=== PATIENT | female | born 1970 | race Caucasian/White ===

== ENCOUNTER 2019-08-19 18:14 | Emergency (ER) | payer OTHER, SELFPAY ==
[2019-08-19 18:30] VITALS: BP 136/87; PULSE 97; RESP 13; TEMP 36.1; O2SAT 100
--- NOTE | 2019-08-19 18:48 | ED.SKABFB ---
HPI - Skin/Abscess/Foreign Bdy <Debra Suarez PA-C - Last Filed: 08/19/19 19:30> General Chief complaint: Skin/Abscess/Foreign Body Stated complaint: Rash on the back hurts Time Seen by Provider: 08/19/19 18:41 Source: patient Mode of arrival: Ambulatory History of Present Illness HPI narrative: This generally healthy 49-year-old female comes to ED secondary to painful rash on her mid and right lower back. She states that she 1st noticed burning pain yesterday, described as pins and needle sensation along with burning. She did take some Benadryl. She states then she started to notice some bumps on her back. She states she has felt a little chilled, but no known fever. She has not had any recent illness or URI symptoms. She denies any changes in topical products. She denies any known exposures, however she did travel here from [place] and notes significant weather change. She has not had history of similar rash. She denies any rash or pain elsewhere, denies any other new complaints on systems review Related Data Previous Rx's Medication Instructions Recorded famciclovir 500 mg PO Q8H #21 tab 08/19/19 gabapentin 300 mg PO Q8H #40 cap 08/19/19 Review of Systems <Debra Suarez PA-C - Last Filed: 08/19/19 19:30> Review of Systems ROS Unobtainable: All systems reviewed & are unremarkable except as noted in HPI and below Patient History <Debra Suarez PA-C - Last Filed: 08/19/19 19:30> Medical History (Updated 08/19/19 @ 19:15 by Debra Suarez PA-C) No chronic problems (Chronic) Surgical History (Updated 08/19/19 @ 19:15 by Debra Suarez PA-C) S/P T&A (status post tonsillectomy and adenoidectomy) (Resolved) Status post appendectomy (Resolved) Status post cholecystectomy (Resolved) Status post tubal ligation (Resolved) Social History (Updated 08/19/19 @ 19:15 by Debra Suarez PA-C) Smoking Status: Never smoker Substance Use Type: does not use Exam <Debra Suarez PA-C - Last Filed: 08/19/19 19:30> Narrative Exam Narrative: GENERAL APPEARANCE: Patient sitting comfortably, in no distress. LUNGS: Clear to auscultation bilaterally. HEART: Rate and rhythm regular without murmur, normal S1 and S2, no S3 or S4. DERMATOLOGIC: There are a few erythematous pink papules lumbar midline, and some faint erythema in a linear pattern right lumbar, L3/4 distribution. There are non a left side. Area is tender to touch. No vesicles or pustules. No exanthem elsewhere. Initial Vital Signs Initial Vital Signs: Vital Signs Temperature 97 F L 08/19/19 18:30 Pulse Rate 97 H 08/19/19 18:30 Respiratory Rate 13 08/19/19 18:30 Blood Pressure 136/87 08/19/19 18:30 Pulse Oximetry 100 08/19/19 18:30 <Audra Lei DO - Last Filed: 08/20/19 04:04> Initial Vital Signs Initial Vital Signs: Vital Signs Temperature 97 F L 08/19/19 18:30 Pulse Rate 97 H 08/19/19 18:30 Respiratory Rate 13 08/19/19 18:30 Blood Pressure 136/87 08/19/19 18:30 Pulse Oximetry 100 08/19/19 18:30 Course <Debra Suarez PA-C - Last Filed: 08/19/19 19:30> Vital Signs Vital signs: Vital Signs - 8 hr 08/19/19 18:30 Temperature 97 F L Pulse Rate 97 H Respiratory Rate 13 Blood Pressure 136/87 Pulse Oximetry 100 <Audra Lei DO - Last Filed: 08/20/19 04:04> Vital Signs Vital signs: Vital Signs - 8 hr 08/19/19 18:30 Temperature 97 F L Pulse Rate 97 H Respiratory Rate 13 Blood Pressure 136/87 Pulse Oximetry 100 Discharge Plan Departure Patient Disposition: Home Clinical Impression: Herpes zoster Qualifiers: Herpes zoster complications: without complications Qualified Code(s): B02.9 - Zoster without complications Discharge Date/Time: 08/19/19 19:25 Instructions: DI for Shingles Activity Restrictions/Additional Instructions: I have sent in an antiviral medicine called Famvir for you to take 3 times daily, please start this right away as these medicines are more effective the sooner we start them. I have also sent in medication called gabapentin for pain, to take 3 times daily. Please be aware that this can make you sleepy and that you should not drive or do other activities where you need to be alert. Try taking 1 every 8 hours, but if you need to increase to 2 capsules at night to help with sleep and pain you can do this. As we talked about, please return if you have acutely worsening symptoms or new pain since you are visiting the area, and if you need the prescription refills you could be seen at 1 of the walk-in clinics here at the [facility] or [facility], or via telemedicine. I have sent your prescriptions to [facility] here in [facility]. Prescriptions: New gabapentin 300 mg capsule 300 mg PO Q8H Qty: 40 RF: 0 famciclovir 500 mg tablet 500 mg PO Q8H Qty: 21 RF: 0
== END 2019-08-19 19:25 | disposition home or self-care (01) ==
PROVIDERS: Emergency Provider Internal Medicine
DX: B02.9 Zoster without complications (principal)
CPT/HCPCS: 99282; 99283

== ENCOUNTER 2020-07-19 22:09 | Emergency (ER) | payer OTHER, MEDICAID, SELFPAY ==
[2020-07-19] VITALS (7 sets, daily range): BP systolic 128–129; BP diastolic 52–60; PULSE 82–92; RESP 12–30; TEMP 37.6; O2SAT 92–100; BMI 34.7
--- NOTE | 2020-07-19 22:27 | ED_ITS ---
HPI - SOB/Dyspnea General Chief Complaint: Chest Pain Stated Complaint: SOB CHEST HURTS WHEN BREATH IN LEGS HURT Time Seen by Provider: 07/19/20 22:17 Source: patient and family Mode of arrival: Wheelchair Limitations: no limitations History of Present Illness HPI Narrative: The patient has 1 hour of central sternal chest pain. The pain started while at rest. She was in [facility] 2 weeks ago, she underwent lumbar surgery. In addition to low back surgery, there was abdominal approach for the process. On hospital she developed dyspnea. Ultrasound the lower extremities was normal, but CT of chest revealed PE. She is on Xarelto. She has been stable at home until about 1 hour ago. She has no associated cough, headache, sore throat, fever chills. She has no hemoptysis. She has no history of CAD. Related Data Previous Rx's Medication Instructions Recorded famciclovir 500 mg PO Q8H #21 tab 08/19/19 gabapentin 300 mg PO Q8H #40 cap 08/19/19 doxycycline hyclate 100 mg PO BID 10 Days #20 cap 07/20/20 Allergies Allergy/AdvReac Type Severity Reaction Status Date / Time codeine Allergy Verified 07/19/20 22:41 Review of Systems Constitutional Constitutional: Denies chills, Denies fever(s) and Denies weakness Eyes Comments: No visual changes ENT Ears, Nose, Mouth, and Throat: Denies dizziness and Denies sore throat Cardiovascular Cardiovascular: Reports as per HPI, Denies dyspnea and Denies dyspnea on exertion Respiratory Respiratory: Denies cough, Denies dyspnea, Denies dyspnea on exertion and Denies wheezing Gastrointestinal Gastrointestinal: Denies abdominal pain, Denies change in bowel habits, Denies diarrhea, Denies nausea and Denies vomiting Genitourinary Genitourinary: Denies dysuria Genitourinary: Denies dysuria Musculoskeletal Musculoskeletal: Denies arthralgias, Denies back pain and Denies myalgias Integumentary/Breasts Skin/Breast: Denies pruritus, Denies erythema, Denies rash and Denies wounds Neurologic Neurologic: Denies confusion, Denies dizziness and Denies weakness Psychiatric Psychiatric: Denies confusion Allergic/Immunologic Allergic/Immunologic: Denies wheezing Patient History Medical History (Updated 07/20/20 @ 00:22 by Sudheer Art MD) No chronic problems (Chronic) Pulmonary embolism (Acute) Surgical History History of lumbar surgery (Acute) S/P T&A (status post tonsillectomy and adenoidectomy) (Resolved) Status post appendectomy (Resolved) Status post cholecystectomy (Resolved) Status post tubal ligation (Resolved) Social History Smoking Status: Never smoker Smoking Status: Never smoker alcohol intake frequency: 0-2 drinks per day Substance Use Type: does not use Exam Initial Vital Signs Initial Vital Signs: Vital Signs Temperature 99.6 F 07/19/20 22:15 Pulse Rate 92 H 07/19/20 22:15 Respiratory Rate 20 07/19/20 22:15 Blood Pressure 128/52 L 07/19/20 22:15 Pulse Oximetry 100 07/19/20 22:15 Const General: cooperative and well developed Nutritional Appearance: well nourished Other: Appears uncomfortable HENWV Head: normocephalic and atraumatic Mouth: oral mucosae normal Neck Neck: No JVD Chest Other: Sternal tenderness with palpation. Resp Effort & Inspection: normal respiratory effort, able to speak in complete se ntences, no respiratory distress and no use of accessory muscles Auscultation: clear to auscultation bilaterally, no rales, no rhonchi and no wheezes Cardio Rate: regular rate Rhythm: regular rhythm Heart Sounds: S1 normal and S2 normal GI Inspection: non-distended Palpation: soft, no hepatosplenomegaly, No guarding, No pulsatile mass and No tender Auscultation: normal bowel sounds Other: Healing suprapubic suture site. Back/Spine/Pelvis Other: Healing lumbar incision site. No otherwise normal. Skin General: no rashes or lesions noted Neuro General: patient alert, patient awake, patient oriented x3 and no focal motor deficits Extrem General: No calf tenderness Psych Appearance: grossly normal Mental Status: mental status grossly normal Course Course Course Narrative: The chest CT shows no evidence of PE. However, she has RML and bibasilar lower lobe consultation that is suggestive of pneumonia. Due to recent hospitalization, hospital-acquired pneumonia is a possibility, as well as community-acquired pneumonia. She has no fever, she has no hypoxia. As started on doxycycline which would be appropriate for both situations. She is advised recheck with her doctor in about 2 weeks. She is advised return here if she develops increasing respiratory effort, or fever. Orders Ordered: ED Orders 07/19/20 22:18 Complete Blood Count AUTO DIFF Stat Comprehensive Metabolic Panel Stat Lipase Stat Troponin & CK Cardiac Panel Stat 07/19/20 22:28 XR chest 1V Stat 07/19/20 22:34 CT angio chest PE protocol Stat 07/19/20 22:50 Partial Thromboplastin Time Stat Prothrombin Time INR Stat Sodium Chloride (Normal Saline 0.9%) 1,000 mls @ 150 mls/hr IV CONT DANIEL Last Admin: 07/19/20 22:42 Dose: 150 mls/hr Documented by: ARBEN Discontinued Medications Aspirin (Aspirin Chew) 324 mg PO NOW ONE Stop: 07/19/20 22:33 Last Admin: 07/19/20 22:44 Dose: 324 mg Documented by: ARBEN Doxycycline Hyclate (Vibramycin) 100 mg PO NOW ONE Stop: 07/20/20 00:16 Morphine Sulfate (Morphine) 4 mg IV NOW ONE Stop: 07/19/20 22:33 Last Admin: 07/19/20 22:42 Dose: 4 mg Documented by: ARBEN Vital Signs Vital signs: Vital Signs - 8 hr 07/19/20 22:15 07/19/20 22:19 07/19/20 22:20 Temperature 99.6 F Pulse Rate 92 H 84 83 Respiratory Rate 20 22 19 Blood Pressure 128/52 L 128/52 L Pulse Oximetry 100 92 97 07/19/20 22:30 07/19/20 22:48 07/19/20 23:10 Temperature Pulse Rate 88 83 87 Respiratory Rate 30 H 19 18 Blood Pressure 129/60 Pulse Oximetry 100 97 100 07/19/20 23:30 Temperature Pulse Rate 82 Respiratory Rate 12 Blood Pressure Pulse Oximetry 95 MDM - SOB/Dyspnea Lab Data Result diagrams: 07/19/20 22:18 07/19/20 22:18 Labs: Lab Results 07/19/20 07/19/20 07/19/20 Range/Units 22:18 22:18 22:50 WBC 8.0 (4.5-11.0) X10^3/uL RBC 3.40 L (4.0-5.2) X10^6/uL Hgb 10.3 L (12.0-16.0) g/dL Hct 29.7 L (36-46) % MCV 87.3 (80-100) fL MCH 30.2 (26-34) PG MCHC 34.6 (30-36) % RDW 13.2 (11.6-14.8) % Plt Count 798 H (150-400) X10^3/uL Neut % (Auto) 69.1 (50-75) % Lymph % (Auto) 18.7 L (25-40) % Dickey % (Auto) 9.1 (3-14) % Eos % (Auto) 2.6 (2-4) % Baso % (Auto) 0.5 (0-2) % Neut # (Auto) 5500 (3313-8834) /uL Lymph # (Auto) 1500 (1369-1156) /uL Dickey # (Auto) 700 (0-900) /uL Eos # (Auto) 200 (0-450) /uL Baso # (Auto) 0 (0-100) /uL Platelet Estimate Increased on smear RBC Morphology Normal morphology PT 29.8 H (10.1-12.7) SECONDS INR 2.6 H (0.9-1.3) APTT 55 H (26.4-36.2) SECONDS Sodium 135 L (137-145) mmol/L Potassium 4.2 (3.4-5.1) mmol/L Chloride 100 (98-107) mmol/L Carbon Dioxide 31 (22-32) mmol/L BUN 12 (7-17) mg/dL Creatinine 0.68 (0.52-1.04) mg/dL Estimated GFR > 60.0 (>60) mL/min BUN/Creatinine Ratio 17.6 (6-22) Glucose 109 H (70-100) mg/dL Calcium 9.3 (8.4-10.2) mg/dL Total Bilirubin 0.5 (0.2-1.3) mg/dL AST 46 H (14-36) IU/L ALT 38 H (<35) IU/L Alkaline Phosphatase 192 H (38-126) U/L Total Creatine Kinase 81 (30-135) U/L CK-MB (CK-2) TNP CK-MB (CK-2) Rel Index TNP Troponin I < 0.012 (0.01-0.034) ng/mL Total Protein 7.6 (6.3-8.2) g/dL Albumin 3.9 (3.5-5.0) g/dL Globulin 3.7 (1.7-4.1) g/dL Albumin/Globulin Ratio 1.1 (1.0-2.8) Lipase 228 (23-300) U/L Imaging Data CTA chest: Radiologist's Impression: No evidence of PE. Right middle lobe and bilateral lower lobe consolidation with trace effusions, probable pneumonia. ECG Data Attestation: I personally reviewed and interpreted this ECG as follows: (Normal sinus rhythm rate 86 beats per minute. Normal intervals. No ectopy. No significant EKG changes. Normal study.) Discharge Plan Departure Patient Disposition: Home Clinical Impression: HAP (hospital-acquired pneumonia) Instructions: DI for Pneumonia -- Adult Activity Restrictions/Additional Instructions: Doxycycline 2 times daily as prescribed. Tylenol 2 tablets every 4 hours as needed for chest discomfort. Continue Xarelto as prescribed. Recheck with her doctor about 2 weeks. Return to the ER for increasing difficulty breathing or fever. Prescriptions: New doxycycline hyclate 100 mg capsule 100 mg PO BID 10 Days Qty: 20 RF: 0 No Action gabapentin 300 mg capsule 300 mg PO Q8H Qty: 40 RF: 0 famciclovir 500 mg tablet 500 mg PO Q8H Qty: 21 RF: 0
--- NOTE | 2020-07-19 22:28 | DI.RAD.S_ITS ---
PROCEDURE: XR CHEST 1V INDICATIONS: chest pain TECHNIQUE: One view of the chest was acquired. COMPARISON: None. FINDINGS: Surgical changes and devices: None. Lungs and pleura: Lungs are clear considering reduced inspiration and body habitus. No pleural effusions or pneumothorax. Mediastinum: Mediastinal contours appear normal. Heart size is normal. Bones and chest wall: No suspicious bony lesions. Overlying soft tissues appear unremarkable. IMPRESSION: Pneumonia is not seen, reduced inspiratory volume and body habitus a combined to produce a interstitial prominence pattern which appears artifactual when these factors are taken into account. Dictated by: Juan Francisco Lo M.D. on 07/20/2020 at 9:05 Approved by: Juan Francisco Lo M.D. on 07/20/2020 at 9:06
--- NOTE | 2020-07-19 22:34 | DI.CT.S_ITS ---
PROCEDURE: CT ANGIO CHEST PE PROTOCOL INDICATIONS: Chest pain. Recent PE. TECHNIQUE: After the administration of intravenous contrast, 2 mm thick sections acquired from the pulmonary apices to the posterior costophrenic angles. 3-dimensional maximum intensity projection (MIP) coronal and sagittal reformats were then acquired through the thorax. For radiation dose reduction, the following was used: automated exposure control, adjustment of mA and/or kV according to patient size. COMPARISON: [facility], CT, CT ABDOMEN PELVIS WITHOUT CONTRAST, 06/01/2020, 8:48. FINDINGS: Image quality: Excellent. Pulmonary arteries: Pulmonary arteries are normal in size, and demonstrate no intraluminal filling defects to suggest central pulmonary embolism. Lungs and pleura: Lungs are clear considering reduced inspiratory volume greater on the right than the left with resultant secondary mild dependent atelectasis.. No pleural effusions or pneumothorax. Central and peripheral airways are patent. Mediastinum: Heart size is normal, without pericardial effusion. No mediastinal or hilar adenopathy. Thoracic aorta is normal in caliber and enhancement. Esophagus is normal in caliber, without hiatal hernia. Bones and chest wall: No suspicious bony lesions. Ribs and thoracic spine appear intact throughout. Thyroid gland may contain a cyst at the right thyroid lobe. No axillary or supraclavicular adenopathy. Abdomen: Visualized upper abdominal solid organs appear normal in the early arterial phase of enhancement. IMPRESSION: A pulmonary embolus is not seen. Reduced inspiratory volume bilaterally slightly greater on the right than the left with associated atelectasis. A definite source of chest pain is not seen. Possible hypodensity right thyroid lobe which could be more accurately assessed for by thyroid ultrasound. Note: Given the reported history of prior pulmonary embolus and absence of a chest CT in the current available imaging records there may be an available outside comparison CT for review. Dictated by: Juan Francisco Lo M.D. on 07/20/2020 at 9:06 Approved by: Juan Francisco Lo M.D. on 07/20/2020 at 9:20
[2020-07-19 22:38] LABS: Add Manual Diff / Slide Review NO; Basophils Absolute Auto 0 /uL (0-100); Basophils Percent Auto 0.5 % (0-2); Eosinophils Absolute Auto 200 /uL (0-450); Eosinophils Percent Auto 2.6 % (2-4); Hematocrit 29.7 % (36-46); Hemoglobin 10.3 g/dL (12.0-16.0); Lymphocytes Absolute Auto 1500 /uL (1100-4500); Lymphocytes Percent Auto 18.7 % (25-40); Mean Corpuscular HGB Conc 34.6 % (30-36); Mean Corpuscular Hemoglobin 30.2 PG (26-34); Mean Corpuscular Volume 87.3 fL (80-100); Monocytes Absolute Auto 700 /uL (0-900); Monocytes Percent Auto 9.1 % (3-14); Neutrophils Absolute Auto 5500 /uL (1500-7000); Neutrophils Percent Auto 69.1 % (50-75); Platelet Count 798 X10^3/uL (150-400); Red Cell Distribution Width 13.2 % (11.6-14.8)
[2020-07-19 22:40] LABS: Alanine Aminotransferase 38 IU/L (<35); Albumin 3.9 g/dL (3.5-5.0); Albumin Globulin Ratio 1.1 (1.0-2.8); Alkaline Phosphatase 192 U/L (38-126); Aspartate Aminotransferase 46 IU/L (14-36); BUN Creatinine Ratio 17.6 (6-22); Bilirubin Total 0.5 mg/dL (0.2-1.3); Blood Urea Nitrogen 12 mg/dL (7-17); Calcium 9.3 mg/dL (8.4-10.2); Carbon Dioxide 31 mmol/L (22-32); Chloride 100 mmol/L (98-107); Creatine Kinase 81 U/L (30-135); Estimated Glomerular Filt Rate > 60.0 mL/min (>60); Globulin 3.7 g/dL (1.7-4.1); Glucose 109 mg/dL (70-100); HEMOLYSIS 38 (0-50); Lipase 228 U/L (23-300); Potassium 4.2 mmol/L (3.4-5.1); Sodium 135 mmol/L (137-145); Total Protein 7.6 g/dL (6.3-8.2)
[2020-07-19] MEDS: MORPHINE 4 MG/ML INJ IV (22:42)
[2020-07-19] MEDS: SODIUM CHLORIDE 0.9% 1,000 ML 150 ML IV (22:42)
[2020-07-19] MEDS: ASPIRIN 81 MG CHEW TAB 324 MG PO (22:44)
--- NOTE | 2020-07-19 22:48 | PC.NURSE ---
patient states that she was admitted to the hospital status post lumbosacral spinal fusion. The SCDs on her ankles bothered her ankles and were taken off after two days. She stayed in the hospital for a total of 9 days. She developed a blood clot in her leg that later went to her lungs. she was treated for pulmonary embolism. She returns to the ED to day for similar symptoms of the blood clot. She has pain in her leg and trouble breathing.
[2020-07-19 22:52] LABS: Troponin I < 0.012 ng/mL (0.01-0.034)
[2020-07-19 23:08] LABS: INR 2.6 (0.9-1.3); Prothrombin Time 29.8 SECONDS (10.1-12.7)
[2020-07-19 23:10] LABS: PTT Partial Thromboplastin Tim 55 SECONDS (26.4-36.2)
[2020-07-19 23:10] LABS: Platelet Estimate Increased on smear; RBC Morphology Normal Morphology
[2020-07-20] MEDS: DOXYCYCLINE HYCLATE 100 MG TABLET PO (00:30)
[2020-07-20 00:40] VITALS: BP 115/60; PULSE 79; RESP 16; O2SAT 97
== END 2020-07-20 00:40 | disposition home or self-care (01) ==
PROVIDERS: Emergency Provider Emergency Medicine
DX: J18.9 Pneumonia, unspecified organism (principal); Z98.890 Other specified postprocedural states; R07.9 Chest pain, unspecified; R06.00 Dyspnea, unspecified
CPT/HCPCS: 36415; 71045; 71275; 80053; 82550; 83690; 84484; 85025; 85610; 85730; 93005; 93010; 96361; 96374; 99284; 99285; J2270; Q9967

== ENCOUNTER 2020-09-15 13:11 | Emergency (ER) | payer OTHER, MEDICAID, SELFPAY ==
[2020-09-15 13:16] VITALS: BP 124/68; PULSE 87; RESP 22; TEMP 36.4; O2SAT 97
--- NOTE | 2020-09-15 13:33 | DI.RAD.S_ITS ---
PROCEDURE: XR HAND RT MIN 3V INDICATIONS: lac washing dishes TECHNIQUE: 3 views of the hand(s) acquired. COMPARISON: None. FINDINGS: Bones: No fractures or dislocations. Carpal bones are normally aligned. No suspicious bony lesions. Soft tissues: No suspicious soft tissue calcifications. No unexpected radiopaque foreign bodies. IMPRESSION: No suspicious bony abnormality or unexpected radiopaque foreign bodies. Dictated by: Jennifer Schrader M.D. on 09/15/2020 at 14:42 Approved by: Jennifer Schrader M.D. on 09/15/2020 at 14:42
[2020-09-15] MEDS: TET,DIPH,PERTUSS(ACELL),VAC/PF 0.5 ML SYRINGE IM (13:47)
[2020-09-15] MEDS: LIDO 1%/SOD BICARB 8.4% (10ML) 10 ML SYRINGE INJ (14:21)
--- NOTE | 2020-09-15 15:02 | ED.WOUNDLAC ---
HPI - Wound/Laceration <MARGE Joe - Last Filed: 09/15/20 15:58> General Chief Complaint: Wound/Laceration Stated Complaint: right index cut of finger Time Seen by Provider: 09/15/20 13:22 Source: patient and family Mode of arrival: Ambulatory Limitations: no limitations History of Present Illness HPI narrative: With history of blood thinner usage related to pulmonary embolism that was postoperative from a back surgery presents with a chief complaint of a laceration at the base of her right index finger on the back of her hand. Happened approximately 1 hour prior to arrival. Happened when she was washing dishes, when a glass broke. She states that she does not know when last tetanus was. She states she has good range of motion of her right hand. Related Data Previous Rx's Medication Instructions Recorded famciclovir 500 mg PO Q8H #21 tab 08/19/19 gabapentin 300 mg PO Q8H #40 cap 08/19/19 Allergies Allergy/AdvReac Type Severity Reaction Status Date / Time codeine Allergy Verified 07/19/20 22:41 Review of Systems <MARGE Joe - Last Filed: 09/15/20 15:58> Review of Systems Narrative: GENERAL: Denies chills, fatigue, malaise, fever, sweats. HEENT: Denies sinus pain, ear pain, sore throat, difficulty swallowing, dizziness. RESPIRATORY: Denies dyspnea, cough, wheezing, hemoptysis, sputum. CARDIOVASCULAR: Denies chest pain, palpitations, orthopnea, edema, GASTROINTESTINAL: Denies nausea, vomiting, abdominal pain, diarrhea, constipation, melena. : Denies dysuria, frequency, incontinence, hematuria, urinary retention. MUSCULOSKELETAL: See HPI SKIN: See HPI NEUROLOGIC: Denies weakness, headache, numbness, change in speech, confusion, seizures, incoordination. PSYCHIATRIC: No concerning psychosocial issues. 12 point review of systems is negative except for those stated above Patient History <MARGE Joe - Last Filed: 09/15/20 15:58> Medical History No chronic problems Pulmonary embolism Surgical History History of lumbar surgery S/P T&A (status post tonsillectomy and adenoidectomy) Status post appendectomy Status post cholecystectomy Status post tubal ligation Social History Smoking Status: Never smoker Smoking Status: Never smoker alcohol intake frequency: 0-2 drinks per day Substance Use Type: does not use Exam <MARGE Joe - Last Filed: 09/15/20 15:58> Narrative Exam Narrative: GENERAL: This is a well-nourished, well-developed patient, the somewhat teary appears anxious HEAD: Atraumatic. Normocephalic. No temporal or scalp tenderness. EYES: Pupils equal round and reactive. Extraocular motions intact. No scleral icterus. No injection or drainage. ENT: Nose without bleeding, purulent drainage or septal hematoma. Wearing a mask. Airway patent. NECK: Trachea midline. No JVD or lymphadenopathy. Supple, nontender, no meningeal signs. CARDIOVASCULAR: Regular rate and rhythm RESPIRATORY: No cough. No increased respiratory effort no accessory muscle use. Speaking full sentences. EXTREMITIES: See skin exam, able to flex and extend all fingers right hand against resistance. Capillary refill right fingers less than 2 seconds. Positive right radial pulse. BACK: Nontender without deformity or crepitance. No flank tenderness. NEURO: AOx3. SKIN: 1 cm linear laceration at base of right 2nd digit on dorsum of hand, no visible muscle or tendon, oozing blood, no obvious foreign body. Initial Vital Signs Initial Vital Signs: Vital Signs Temperature 97.5 F L 09/15/20 13:16 Pulse Rate 87 09/15/20 13:16 Respiratory Rate 22 09/15/20 13:16 Blood Pressure 124/68 09/15/20 13:16 Pulse Oximetry 97 09/15/20 13:16 <Audra Lei DO - Last Filed: 09/16/20 08:27> Initial Vital Signs Initial Vital Signs: Vital Signs Temperature 97.5 F L 09/15/20 13:16 Pulse Rate 87 09/15/20 13:16 Respiratory Rate 22 09/15/20 13:16 Blood Pressure 124/68 09/15/20 13:16 Pulse Oximetry 97 09/15/20 13:16 Procedures <MARGE Joe - Last Filed: 09/15/20 15:58> Laceration Repair Laceration 1: Site: upper extremity Side (If applicable): right (Dorsum of hand, base of 2nd digit) Size (cm): 1 Description: linear Depth: simple, single layer Local Anesthetic: lidocaine 1% and with epi Amount of anesthesia used (mL): 6 Pre-repair: wound explored, irrigated extensively and deep structures intact Skin layer closed with: nylon Size (cm): 5-0 Number of sutures: 2 Technique: simple, interrupted Scores <[facility] - Last Filed: 09/15/20 15:58> GCS Edward coma scale eye opening: Spontaneous Eighty Four coma scale verbal response: Orientated Edward coma scale motor response: Obey commands Eighty Four coma scale total score: 15 Course <BERLIN Joe - Last Filed: 09/15/20 15:58> Orders Ordered: Discontinued Medications Diphtheria/Tetanus/Acell Pertussis (Tet,Diph,Pertuss(Acell),Vac/Pf 0.5 Ml Syringe) 0.5 ml IM .ONCE ONE Stop: 09/15/20 13:34 Last Admin: 09/15/20 13:47 Dose: 0.5 ml Documented by: STEPHANIA Lidocaine/Sodium Bicarbonate (Lido 1%/Sod Bicarb 8.4% (10ml) 10 Ml Syringe) 10 ml INJ NOW ONE Stop: 09/15/20 13:34 Last Admin: 09/15/20 14:21 Dose: 10 ml Documented by: DARI Vital Signs Vital signs: Vital Signs - 8 hr 09/15/20 13:16 Temperature 97.5 F L Pulse Rate 87 Respiratory Rate 22 Blood Pressure 124/68 Pulse Oximetry 97 <Audra Lei DO - Last Filed: 09/16/20 08:27> Orders Ordered: Discontinued Medications Diphtheria/Tetanus/Acell Pertussis (Tet,Diph,Pertuss(Acell),Vac/Pf 0.5 Ml Syringe) 0.5 ml IM .ONCE ONE Stop: 09/15/20 13:34 Last Admin: 09/15/20 13:47 Dose: 0.5 ml Documented by: STEPHANIA Lidocaine/Sodium Bicarbonate (Lido 1%/Sod Bicarb 8.4% (10ml) 10 Ml Syringe) 10 ml INJ NOW ONE Stop: 09/15/20 13:34 Last Admin: 09/15/20 14:21 Dose: 10 ml Documented by: DARI Vital Signs Vital signs: Vital Signs - 8 hr 09/15/20 13:16 Temperature 97.5 F L Pulse Rate 87 Respiratory Rate 22 Blood Pressure 124/68 Pulse Oximetry 97 [facility] - Wound/Laceration <MARGE Joe - Last Filed: 09/15/20 15:58> Imaging Data Extremity x-ray #1: Radiologist's Impression: [address] [id number] ReportSigned Patient: Flaca Gonzalez KMR#: [id number]: 1970Acct:[id number]/Sex: 50 / FDate of Service: 09/15/20Loc: EDAccession Number: [id number] Procedure: XR hand RT min 3V Ordering Provider: Audra Garrett PROCEDURE: XR HAND RT MIN 3V INDICATIONS: lac washing dishes TECHNIQUE: 3 views of the hand(s) acquired. COMPARISON: None. FINDINGS: Bones: No fractures or dislocations. Carpal bones are normally aligned. No suspicious bony lesions. Soft tissues: No suspicious soft tissue calcifications. No unexpected radiopaque foreign bodies. IMPRESSION: No suspicious bony abnormality or unexpected radiopaque foreign bodies. Dictated by: Jennifer Schrader M.D. on 09/15/2020 at 14:42 Approved by: Jennifer Schrader M.D. on 09/15/2020 at 14:42 [facility] Narrative Medical decision making narrative: The patient is a 50-year-old female who presents with a chief complaint of laceration was closed as per procedural note. X-rays negative for any acute foreign bodies or fractures, tetanus was updated accordingly. Discussed at length monitoring for signs and symptoms of infection such as extending etcetera. Encouraged to suture removal in approximately 1 week as well as primary care provider follow-up. Discussed not submerging hand into dirty water such as pool water etcetera. Patient has been have no questions or concerns upon discharge and state understanding of return precautions as well as follow-up care. Discharge Plan Departure Patient Disposition: Home Clinical Impression: Laceration Instructions: How to Care for a Laceration After Repair, DI for Laceration Repair, DI for Minor Laceration Activity Restrictions/Additional Instructions: Thank you for trusting us with your care today. As I discussed, your x-ray shows no acute fracture. This does not rule out a soft tissue injury such as a ligament or tendon injury, however your exam is reassuring given her range of motion. It is important that you follow up with primary care provider, especially if worsening or no improvement. There can be fractures that did not show up on initial x-ray. As discussed, please follow-up for suture removal in approximately 7 days. Please watch for extending redness, purulent drainage etcetera or any other signs of infection. Please follow up if this occurs. As discussed, please come back to emergency department for any acute concerns. Please do not submerge your hand into dirty water such as pool water etcetera. This can increase your chance of infection Prescriptions: No Action gabapentin 300 mg capsule 300 mg PO Q8H Qty: 40 RF: 0 famciclovir 500 mg tablet 500 mg PO Q8H Qty: 21 RF: 0 Referrals: Viv Cortez ARNP [Primary Care Provider] - <Audra Lei DO - Last Filed: 09/16/20 08:27> Cosign ED Attending Ingris Attestation: I was immediately available in the department for consultation. Documentation has been reviewed.
[2020-09-15 16:02] VITALS: BP 115/54; PULSE 85; RESP 18; O2SAT 97
== END 2020-09-15 16:03 | disposition home or self-care (01) ==
PROVIDERS: Emergency Provider Nurse Practitioner Family; PCP Nurse Practitioner Family
DX: S61.210A Laceration without foreign body of right index finger without damage to nail, initial encounter (principal); W25.XXXA Contact with sharp glass, initial encounter; I26.99 Other pulmonary embolism without acute cor pulmonale; Z79.01 Long term (current) use of anticoagulants; Z23 Encounter for immunization
CPT/HCPCS: 12001; 73130; 90471; 99282; 99283; 90715

== ENCOUNTER → 2020-10-12 14:21 | Outpatient (CLI) | payer OTHER, MEDICAID, SELFPAY ==
--- NOTE | 2020-10-12 | DI.RAD.S_ITS ---
PROCEDURE: XR LUMBAR SPINE 2-3V INDICATIONS: Radiculopathy, lumbar region TECHNIQUE: 2 views of the lumbar spine were acquired. COMPARISON: [facility], CT, CT ANGIO CHEST PE PROTOCOL, 07/19/2020, 23:02. [facility], CT, CT ABDOMEN PELVIS WITHOUT CONTRAST, 06/01/2020, 8:48. FINDINGS: Bones: 5 [id number] vertebrae are present. There is normal bony alignment. No vertebral body compression fractures. No suspicious bony lesions. Prior spine fusion procedure between L5 and S1 has been performed with transverse pedicle screws and vertical fixation rods, and also interbody disc prosthesis at the L5-S1 level. Soft tissues: Overlying bowel gas pattern is normal. No suspicious soft tissue calcifications. IMPRESSION: Spine fusion procedure with interbody disc prosthesis L5-S1. No comparison study is available for review to establish alignment postoperatively. A CT of the abdomen/pelvis 06/01/20 did not demonstrate this operative procedure. Dictated by: Juan Francisco Lo M.D. on 10/12/2020 at 16:06 Approved by: Juan Francisco Lo M.D. on 10/12/2020 at 16:08
== END ==
PROVIDERS: PCP Nurse Practitioner Family; Referring Provider Neurological Surgery; Visit Provider Neurological Surgery
DX: M54.16 Radiculopathy, lumbar region (principal); M43.16 Spondylolisthesis, lumbar region; Z98.1 Arthrodesis status
CPT/HCPCS: 72100

== ENCOUNTER → 2020-11-18 12:25 | Outpatient (CLI) | payer OTHER, MEDICAID, SELFPAY ==
--- NOTE | 2020-11-18 12:36 | DI.RAD.S_ITS ---
PROCEDURE: XR LUMBAR SPINE 2-3V INDICATIONS: BACK PAIN TECHNIQUE: 3 views of the lumbar spine were acquired. COMPARISON: [facility], , XR LUMBAR SPINE 2-3V, 10/12/2020, 14:55. FINDINGS: Bones: No acute fracture identified. Postsurgical changes related L5-S1 surgical fixation with paraspinal jaclyn and pedicle screws in addition to interbody cage graft and anterior retaining screws. Hardware appears intact. Unchanged alignment. Multilevel degenerative endplate sclerosis and spurring. Diffuse facet arthropathy. Lateral curvature of the spine. Soft tissues: Overlying bowel gas pattern is normal. No suspicious soft tissue calcifications. IMPRESSION: Overall, unchanged examination since 10/12/20. Dictated by: Jabier Domingo M.D. on 11/18/2020 at 13:50 Approved by: Jabier Domingo M.D. on 11/18/2020 at 13:51
== END ==
PROVIDERS: PCP Nurse Practitioner Family; Referring Provider Neurological Surgery; Visit Provider Neurological Surgery
DX: M54.18 Radiculopathy, sacral and sacrococcygeal region (principal); M54.16 Radiculopathy, lumbar region; M43.17 Spondylolisthesis, lumbosacral region; Z98.1 Arthrodesis status
CPT/HCPCS: 72100

== ENCOUNTER → 2020-12-22 08:00 | Outpatient (CLI) | payer OTHER, MEDICAID, SELFPAY ==
--- NOTE | 2020-12-22 | DI.MRI.S_ITS ---
PROCEDURE: MR LUMBAR SPINE WO CON INDICATIONS: Arthrodesis status TECHNIQUE: Noncontrast sagittal T1 spin echo and T2 fast echo, sagittal STIR, axial T1 and T2 fast spin echo through the lumbar spine. In cases with scoliosis, additional coronal T2 fast spin echo may be performed. COMPARISON: [facility], MR, MR LUMBAR SPINE WITHOUT CONTRAST, 03/23/2020, 18:08. [facility], CR, XR LUMBAR SPINE 2-3V, 11/18/2020, 12:48. FINDINGS: Image quality: Excellent. Alignment and Curvature: 5 lumbar type vertebral bodies are present by plain film. There is mild grade 1 anterolisthesis of L5 on S1. Bone Marrow: Marrow is of normal overall signal. No acute vertebral body compression fractures. There is new anterior and posterior fusion hardware at L5-S1. Spinal Cord: Conus medullaris terminates at the L1-L2 disc space level. Visualized cord demonstrates normal signal and size. Paraspinous Soft Tissues: No paravertebral masses. Ill-defined postsurgical STIR signal elevation within the posterior paraspinous soft tissues inferiorly. T12-L1: Normal appearance. L1-L2: Normal appearance. L2-L3: Normal appearance. L3-L4: Mild disc desiccation. No significant canal, or foraminal stenosis. No change. L4-L5: Mild disc desiccation and diffuse disc bulge. Mild facet and ligamentum flavum hypertrophy. Mild canal stenosis. Mild bilateral foraminal stenosis. No change. L5-S1: Postsurgical sequelae. No significant canal stenosis. Decreased, moderate bilateral foraminal stenosis. IMPRESSION: 1. Postsurgical sequelae. Decreased foraminal stenosis at the fused level. 2. Mild multilevel canal and foraminal stenosis secondary to disc and facet disease. Dictated by: Kaycee Mahajan M.D. on 12/22/2020 at 9:06 Approved by: Kaycee Mahajan M.D. on 12/22/2020 at 9:09
== END ==
PROVIDERS: PCP Nurse Practitioner Family; Referring Provider Nurse Practitioner Family; Visit Provider Nurse Practitioner Family
DX: M43.17 Spondylolisthesis, lumbosacral region (principal); M48.061 Spinal stenosis, lumbar region without neurogenic claudication; Z98.1 Arthrodesis status
CPT/HCPCS: 72148

== ENCOUNTER 2021-01-29 19:15 | Emergency (ER) | payer OTHER, MEDICAID, SELFPAY ==
[2021-01-29 19:28] VITALS: BP 138/77; PULSE 88; RESP 18; TEMP 36.7; O2SAT 100; BMI 36.0
--- NOTE | 2021-01-29 19:47 | PC.NURSE ---
Patient has had 3 recent back surgeries and had a hospitalization for sepsis recently; today at approximately noon she began feeling intense numbness and pain in her Right foot particularly on the plantar surface and the big toe; she describes it as a feeling like fiberglass. She recently had a reduction in her gabapentin from 2400mg to 1800mg daily.
--- NOTE | 2021-01-29 20:46 | ED_ITS ---
HPI - Extremity Problem General Chief complaint: Extremity Problem,Nontraumatic Stated complaint: Back surgery, right foot numbness Time Seen by Provider: 01/29/21 20:37 Source: patient Mode of arrival: Ambulatory Limitations: no limitations History of Present Illness HPI Narrative: The patient presents with low back pain, and numbness to the right medial foot onset today. She has recently undergone a series of o perations. She had surgery June 2020 she had L5-S1 decompression fusion. She had a 2nd surgery in December, there was apparently a malposition of the pedicle screw. Unfortunately she experienced wound dehiscence following that surgery, she was found to be septic. She currently has a PICC line in place, and is receiving IV cefazolin. She denies fever or chills. She has chronic low back pain. She receives Dilaudid at home. Her Gabapentin dose was recently reduced from 800 mg 3 times daily to 800 mg 2 times daily. She has no increased back pain. She has a numbness in the right medial foot, no new weakness. She has no incontinence. Related Data Previous Rx's Medication Instructions Recorded famciclovir 500 mg PO Q8H #21 tab 08/19/19 gabapentin 300 mg PO Q8H #40 cap 08/19/19 Allergies Allergy/AdvReac Type Severity Reaction Status Date / Time codeine Allergy Verified 07/19/20 22:41 Review of Systems Constitutional Constitutional: Denies chills, Denies fever(s) and Denies headache(s) ENT Ears, Nose, Mouth, and Throat: Denies headache(s), Denies neck pain and Denies sore throat Cardiovascular Cardiovascular: Denies chest pain, Denies syncope, Denies rapid heart rate and Denies dyspnea Respiratory Respiratory: Denies cough and Denies dyspnea Genitourinary Genitourinary: Denies dysuria Genitourinary: Denies dysuria Musculoskeletal Musculoskeletal: Reports as per HPI, Reports back pain and Denies neck pain Integumentary/Breasts Skin/Breast: Denies rash and Denies skin pain Neurologic Neurologic: Denies syncope and Denies headache(s) Comments: Numbness localized to the right medial foot only. Patient History Medical History No chronic problems Pulmonary embolism Surgical History History of lumbar surgery S/P T&A (status post tonsillectomy and adenoidectomy) Status post appendectomy Status post cholecystectomy Status post tubal ligation Social History Smoking Status: Never smoker Smoking Status: Never smoker alcohol intake frequency: 0-2 drinks per day Substance Use Type: does not use Exam Initial Vital Signs Initial Vital Signs: Vital Signs Temperature 98.0 F 01/29/21 19:28 Pulse Rate 88 01/29/21 19:28 Respiratory Rate 18 01/29/21 19:28 Blood Pressure 138/77 01/29/21 19:28 Pulse Oximetry 100 01/29/21 19:28 Const General: cooperative, well developed, No acute distress and No anxious Nutritional Appearance: well nourished HENMT Mouth: oral mucosae normal and other Resp Auscultation: clear to auscultation bilaterally Cardio Rate: regular rate Rhythm: regular rhythm Heart Sounds: no click, no gallops, no murmurs and no rubs Pulses: normal peripheral pulses GI Palpation: soft Percussion: normal to percussion Auscultation: normal bowel sounds Back/Spine/Pelvis Other: Healing surgical site in the lumbar spine. No erythema. No purulent discharge. Neuro Other: [place] x3. Motor exam lower extremities is intact. She has light touch sensory deficit to the right mid foot, just distal to the medial malleolus. There is no other sensory deficits to lower extremities. She does not have a footdrop. Extrem Other: Full range of motion all extremities. Course Course Course Narrative: The focal numbness in the right medial foot seems improved since taking the extra dose of Neurontin. I am going to suggest she goes back to the prior, higher dose and contact her PCM next week. Orders Ordered: Discontinued Medications Gabapentin (Gabapentin 100 Mg Capsule) 800 mg PO NOW ONE Stop: 01/29/21 20:48 Last Admin: 01/29/21 21:05 Dose: Not Given Documented by: MARTHA Gabapentin (Gabapentin 100 Mg Capsule) 800 mg PO NOW ONE Stop: 01/29/21 21:04 Last Admin: 01/29/21 21:25 Dose: 800 mg Documented by: ARBEN Hydromorphone HCl (Hydromorphone 1 Mg Inj) 1 mg IV NOW ONE Stop: 01/29/21 20:49 Last Admin: 01/29/21 21:16 Dose: 1 mg Documented by: KATT Vital Signs Vital signs: Vital Signs - 8 hr 01/29/21 19:28 01/29/21 22:38 Temperature 98.0 F Pulse Rate 88 79 Respiratory Rate 18 Blood Pressure 138/77 115/58 L Pulse Oximetry 100 98 MDM - Extremity (Nontraumatic) Lab Data Result diagrams: 01/29/21 22:50 01/29/21 22:50 Labs: Lab Results 01/29/21 01/29/21 01/29/21 Range/Units 22:50 22:50 22:50 WBC 5.8 (4.5-11.0) X10^3/uL RBC 3.78 L (4.0-5.2) X10^6/uL Hgb 10.4 L (12.0-16.0) g/dL Hct 30.8 L (36-46) % MCV 81.5 (80-100) fL MCH 27.6 (26-34) PG MCHC 33.9 (30-36) % RDW 18.6 H (11.6-14.8) % Plt Count 421 H (150-400) X10^3/uL Neut % (Auto) 63.6 (50-75) % Lymph % (Auto) 23.4 L (25-40) % [place] % (Auto) 9.1 (3-14) % Eos % (Auto) 3.4 (2-4) % Baso % (Auto) 0.5 (0-2) % Neut # (Auto) 3700 (3719-9038) /uL Lymph # (Auto) 1400 (8668-1263) /uL [place] # (Auto) 500 (0-900) /uL Eos # (Auto) 200 (0-450) /uL Baso # (Auto) 0 (0-100) /uL Sodium 138 (137-145) mmol/L Potassium 4.1 (3.4-5.1) mmol/L Chloride 104 (98-107) mmol/L Carbon Dioxide 29 (22-32) mmol/L BUN 10 (7-17) mg/dL Creatinine 0.52 (0.52-1.04) mg/dL Estimated GFR > 60.0 (>60) mL/min BUN/Creatinine Ratio 19.2 (6-22) Glucose 115 H (70-100) mg/dL Lactate 0.9 (0.7-2.1) mmol/L Calcium 8.9 (8.4-10.2) mg/dL Total Bilirubin 0.1 L (0.2-1.3) mg/dL AST 29 (14-36) IU/L ALT 9 (<35) IU/L Alkaline Phosphatase 115 (38-126) U/L Total Protein 6.5 (6.3-8.2) g/dL Albumin 3.5 (3.5-5.0) g/dL Globulin 3.0 (1.7-4.1) g/dL Albumin/Globulin Ratio 1.2 (1.0-2.8) Discharge Plan Departure Patient Disposition: Home Clinical Impression: Neuropathy of right lower extremity Instructions: DI for Peripheral Neuropathy Activity Restrictions/Additional Instructions: Increase Neurontin back to 800 mg 3 times daily. Continue your other medications as prescribed. Contact your primary neonatal intensive care unit nurse next week and discussed the Neurontin dosing. Return here as necessary. Prescriptions: No Action gabapentin 300 mg capsule 300 mg PO Q8H Qty: 40 RF: 0 famciclovir 500 mg tablet 500 mg PO Q8H Qty: 21 RF: 0 Referrals: Viv Cortez ARNP [Primary Care Provider] -
[2021-01-29] MEDS: HYDROMORPHONE 1 MG INJ IV (21:16)
[2021-01-29] MEDS: GABAPENTIN 100 MG CAPSULE 800 MG PO (21:25)
[2021-01-29 22:38] VITALS: BP 115/58; PULSE 79; O2SAT 98
[2021-01-29 23:02] LABS: Add Manual Diff / Slide Review NO; Basophils Absolute Auto 0 /uL (0-100); Basophils Percent Auto 0.5 % (0-2); Eosinophils Absolute Auto 200 /uL (0-450); Eosinophils Percent Auto 3.4 % (2-4); Hematocrit 30.8 % (36-46); Hemoglobin 10.4 g/dL (12.0-16.0); Lymphocytes Absolute Auto 1400 /uL (1100-4500); Lymphocytes Percent Auto 23.4 % (25-40); Mean Corpuscular HGB Conc 33.9 % (30-36); Mean Corpuscular Hemoglobin 27.6 PG (26-34); Mean Corpuscular Volume 81.5 fL (80-100); Monocytes Absolute Auto 500 /uL (0-900); Monocytes Percent Auto 9.1 % (3-14); Neutrophils Absolute Auto 3700 /uL (1500-7000); Neutrophils Percent Auto 63.6 % (50-75); Platelet Count 421 X10^3/uL (150-400); Red Blood Cell Count 3.78 X10^6/uL (4.0-5.2); Red Cell Distribution Width 18.6 % (11.6-14.8); White Blood Cell Count 5.8 X10^3/uL (4.5-11.0)
[2021-01-29 23:10] LABS: Lactate (Lactic Acid) 0.9 mmol/L (0.7-2.1)
[2021-01-29 23:11] LABS: Alanine Aminotransferase 9 IU/L (<35); Albumin 3.5 g/dL (3.5-5.0); Albumin Globulin Ratio 1.2 (1.0-2.8); Alkaline Phosphatase 115 U/L (38-126); Aspartate Aminotransferase 29 IU/L (14-36); BUN Creatinine Ratio 19.2 (6-22); Bilirubin Total 0.1 mg/dL (0.2-1.3); Blood Urea Nitrogen 10 mg/dL (7-17); Calcium 8.9 mg/dL (8.4-10.2); Carbon Dioxide 29 mmol/L (22-32); Chloride 104 mmol/L (98-107); Estimated Glomerular Filt Rate > 60.0 mL/min (>60); Glucose 115 mg/dL (70-100); HEMOLYSIS < 15 (0-50); Potassium 4.1 mmol/L (3.4-5.1); Sodium 138 mmol/L (137-145); Total Protein 6.5 g/dL (6.3-8.2)
[2021-01-29 23:30] VITALS: BP 102/57; PULSE 75; RESP 20; O2SAT 96
== END 2021-01-29 23:33 | disposition home or self-care (01) ==
PROVIDERS: Emergency Provider Emergency Medicine; PCP Nurse Practitioner Family
DX: G57.91 Unspecified mononeuropathy of right lower limb (principal); M54.5 Low back pain
CPT/HCPCS: 80053; 83605; 85025; 96374; 99284; J1170

== ENCOUNTER 2021-02-11 21:31 | Emergency (ER) | payer OTHER, MEDICAID, SELFPAY ==
[2021-02-11 21:42] VITALS: BP 118/73; PULSE 85; RESP 12; TEMP 36.6; O2SAT 98; BMI 36.6
--- NOTE | 2021-02-11 21:43 | DI.RAD.S_ITS ---
PROCEDURE: XR CHEST 1V INDICATIONS: fever, chills, recent surgery, PICC line in place TECHNIQUE: One view of the chest was acquired. COMPARISON: [facility], CT, CT ANGIO CHEST PE PROTOCOL, 07/19/2020, 23:02. [facility], CT, CT LUMBAR SPINE W CON, 02/12/2021, 0:01. [facility], CR, XR CHEST 1V, 07/19/2020, 22:45. FINDINGS: Surgical changes and devices: A right-sided PICC line is seen, with the tip overlying the mid aspect of the superior vena cava, approximately 5 cm above the cavoatrial junction. Lungs and pleura: Lungs are clear. No pleural effusions or pneumothorax. Mediastinum: Mediastinal contours appear normal. Heart size is normal. Bones and chest wall: No suspicious bony lesions. Overlying soft tissues appear unremarkable. IMPRESSION: The tip of the right-sided PICC line overlies the mid aspect of the superior vena cava. No focal infiltrates are seen. Note: No significant discrepancy from the preliminary report. Dictated by: Rex Butts M.D. on 02/12/2021 at 9:22 Approved by: Rex Butts M.D. on 02/12/2021 at 9:23
--- NOTE | 2021-02-11 22:07 | PC.NURSE ---
Right upper arm PICC flushes with no resistance, patient could smell/taste flush. Unable to draw blood back from Right upper arm PICC.
[2021-02-11 22:24] VITALS: BP 123/62; PULSE 88; RESP 19; O2SAT 99
[2021-02-11 22:30] VITALS: BP 117/57; PULSE 86; RESP 15; O2SAT 95
[2021-02-11 22:31] LABS: Add Manual Diff / Slide Review NO; Basophils Absolute Auto 0 /uL (0-100); Basophils Percent Auto 0.1 % (0-2); Eosinophils Absolute Auto 100 /uL (0-450); Eosinophils Percent Auto 1.4 % (2-4); Hematocrit 36.5 % (36-46); Lymphocytes Absolute Auto 1900 /uL (1100-4500); Lymphocytes Percent Auto 27.6 % (25-40); Mean Corpuscular HGB Conc 32.8 % (30-36); Mean Corpuscular Hemoglobin 27.3 PG (26-34); Mean Corpuscular Volume 83.2 fL (80-100); Monocytes Absolute Auto 500 /uL (0-900); Monocytes Percent Auto 7.9 % (3-14); Neutrophils Absolute Auto 4300 /uL (1500-7000); Platelet Count 385 X10^3/uL (150-400); Red Blood Cell Count 4.39 X10^6/uL (4.0-5.2); Red Cell Distribution Width 17.3 % (11.6-14.8); White Blood Cell Count 6.9 X10^3/uL (4.5-11.0)
[2021-02-11 22:40] LABS: Alanine Aminotransferase 10 IU/L (<35); Albumin Globulin Ratio 1.3 (1.0-2.8); Alkaline Phosphatase 97 U/L (38-126); Aspartate Aminotransferase 21 IU/L (14-36); BUN Creatinine Ratio 8.6 (6-22); Blood Urea Nitrogen 5 mg/dL (7-17); Calcium 9.3 mg/dL (8.4-10.2); Carbon Dioxide 25 mmol/L (22-32); Chloride 105 mmol/L (98-107); Creatine Kinase 48 U/L (30-135); Estimated Glomerular Filt Rate > 60.0 mL/min (>60); Globulin 3.1 g/dL (1.7-4.1); Glucose 123 mg/dL (70-100); HEMOLYSIS < 15 (0-50); Potassium 3.3 mmol/L (3.4-5.1); Sodium 141 mmol/L (137-145); Total Protein 7.1 g/dL (6.3-8.2)
[2021-02-11 22:44] LABS: Bilirubin Total < 0.1 mg/dL (0.2-1.3)
[2021-02-11 22:51] LABS: NT-proBNP (BNP-Adult 18+) 404 pg/mL (<125); Troponin I < 0.012 ng/mL (0.01-0.034)
[2021-02-11 22:56] LABS: Procalcitonin 0.04 ng/mL (<0.5)
[2021-02-11 23:00] VITALS: BP 116/59; PULSE 88; RESP 18; O2SAT 96
--- NOTE | 2021-02-11 23:09 | ED_ITS ---
HPI - Nausea/Vomiting/Diarrhea General Chief complaint: Nausea/Vomiting/Diarrhea Stated complaint: HAS PICC LINE RT SIDE DIARRHEA NOT FEELING WELL Time Seen by Provider: 02/11/21 21:35 Source: patient Mode of arrival: Ambulatory Limitations: no limitations History of Present Illness HPI Narrative: 42-year-old female nonsmoker with history of complications from a lumbar surgery. She presents today with a chief complaint of subjective fever and chills, generally feeling unwell and diarrhea for the past few days. She has had 2 surgical revisions and washouts for postoperative infections at [facility]. She has a PICC line in place and has been receiving IV antibiotics at home. She has had multiple loose stools per hour and denies any blood. She has had no runny nose or sore throat. She denies any chest pain, shortness of breath or cough. She does have some mild midline back pain which has been controlled with her normal medications. She denies any increased swelling or redness nor any drainage. She denies any neurologic symptoms such as numbness, tingling, weakness. She denies any trouble controlling bowel or bladder. She contacted her care team and was instructed to present to the emergency department for evaluation of possible infectious causes. MD complaint: diarrhea Onset (ago): hour(s) Description of Diarrhea: watery Severity: mild Exacerbating factors: eating Associated symptoms: myalgias, fever/chills and weakness Related Data Previous Rx's Medication Instructions Recorded famciclovir 500 mg PO Q8H #21 tab 08/19/19 gabapentin 300 mg PO Q8H #40 cap 08/19/19 potassium chloride 20 meq PO DAILY #7 tab 02/12/21 Allergies Allergy/AdvReac Type Severity Reaction Status Date / Time codeine Allergy Verified 07/19/20 22:41 Review of Systems Constitutional Constitutional: Reports body ache(s), Reports chills, Reports fatigue, Denies fever(s), Denies frequent falls, Denies lethargy and Reports weakness Eyes Eyes: Denies change in vision, Denies eye discharge, Denies irritation and Denies loss of vision ENT Ears, Nose, Mouth, and Throat: Denies change in voice, Denies dizziness, Denies neck pain, Denies sore throat and Denies throat swelling Cardiovascular Cardiovascular: Denies chest pain, Denies irregular heart rhythm, Denies ligh theadedness, Denies palpitations, Denies dyspnea, Denies dyspnea on exertion and Denies orthopnea Respiratory Respiratory: Denies cough, Denies dyspnea, Denies dyspnea on exertion and Denies wheezing Gastrointestinal Gastrointestinal: Denies abdominal pain, Denies change in bowel habits, Reports diarrhea, Denies nausea and Denies vomiting Musculoskeletal Musculoskeletal: Denies neck pain and Denies numbness Integumentary/Breasts Skin/Breast: Denies pruritus, Denies erythema, Denies rash and Denies wounds Neurologic Neurologic: Denies behavioral changes, Denies confusion, Denies dizziness, Denies frequent falls, Denies loss of vision, Denies numbness and Reports weakness Psychiatric Psychiatric: Denies anxiety, Denies behavioral changes, Denies confusion, Denies depression, Denies homicidal ideation and Denies suicidal ideation Endocrine Endocrine: Reports fatigue, Denies flushing and Denies palpitations Hematologic/Lymphatic Hematologic/Lymphatic: Denies easy bruising Allergic/Immunologic Allergic/Immunologic: Denies urticaria, Denies throat swelling and Denies wheezing Patient History Medical History No chronic problems Pulmonary embolism Surgical History History of lumbar surgery S/P T&A (status post tonsillectomy and adenoidectomy) Status post appendectomy Status post cholecystectomy Status post tubal ligation Social History Smoking Status: Never smoker Smoking Status: Never smoker alcohol intake frequency: 0-2 drinks per day Substance Use Type: does not use Exam Narrative Exam Narrative: GENERAL: [50] year old patient appears stated age. Well- nourished, well-developed patient, in mild distress. HEAD: Atraumatic. Normocephalic. EYES: Pupils equal round and reactive. Extraocular motions intact. No scleral icterus. No injection or drainage. ENT: Nose without bleeding, purulent drainage. Throat without erythema, tonsillar hypertrophy or exudate. Airway patent. NECK: Trachea midline. Non tender CARDIOVASCULAR: Regular rate and rhythm without murmurs, gallops, or rubs. RESPIRATORY: Clear to auscultation. Breath sounds equal bilaterally. No wheezes, rales, or rhonchi. GASTROINTESTINAL: Abdomen soft, non-tender, nondistended. EXTREMITIES: No edema or joint tenderness. PICC line in right upper arm, no swelling, redness or tenderness BACK: Mild midline tenderness, incisions are clean, dry and intact, no significant erythema, swelling. NEURO: AOx3. SKIN: No rash or erythema of visible areas Initial Vital Signs Initial Vital Signs: Vital Signs Temperature 97.9 F 02/11/21 21:42 Pulse Rate 85 02/11/21 21:42 Respiratory Rate 12 02/11/21 21:42 Blood Pressure 118/73 02/11/21 21:42 Pulse Oximetry 98 02/11/21 21:42 Course Orders Ordered: ED Orders 02/11/21 22:14 C-Reactive Protein Quant Stat Complete Blood Count AUTO DIFF Stat Comprehensive Metabolic Panel Stat Erythrocyte Sedimentation Rate Stat NT-proBNP (BNP-Adult 18+) Stat Procalcitonin Stat Troponin & CK Cardiac Panel Stat 02/11/21 22:18 Blood Culture Stat Lactate (Lactic Acid) Stat 02/11/21 23:10 COVID19 -Nasal swab/Pre-Proc Stat 02/11/21 23:34 CT lumbar spine w con Stat Consultations Consultation #1: Call to [facility] upon receipt of CT. Images pushed Consultation #2: discussed with on-call Neurosurgery and we spent an extensive amount of time reviewing her presentation and findings today. He states that the fluid collection has been monitored over the past month and that today's measurements are actually significantly smaller than prior imaging. Furthermore given her lack of fever or elevated white blood cell count as well as the well- appearing wound would suggest that this is not a surgical complication. Vital Signs Vital signs: Vital Signs - 8 hr 02/11/21 23:00 02/11/21 23:30 02/11/21 23:44 Pulse Rate 88 86 97 H Respiratory Rate 18 13 21 Blood Pressure 116/59 L 120/59 L 109/53 L Pulse Oximetry 96 94 93 02/12/21 00:00 02/12/21 00:30 02/12/21 01:00 Pulse Rate 95 H 84 82 Respiratory Rate 19 Blood Pressure 109/67 Pulse Oximetry 99 96 94 02/12/21 01:30 02/12/21 02:00 02/12/21 02:30 Pulse Rate 94 H 80 80 Respiratory Rate Blood Pressure Pulse Oximetry 96 95 94 02/12/21 02:56 Pulse Rate 76 Respiratory Rate 18 Blood Pressure 109/67 Pulse Oximetry 97 MDM - Nausea/Vomiting/Diarrhea Lab Data Result diagrams: 02/11/21 22:14 02/11/21 22:14 Labs: Lab Results 02/11/21 02/11/21 02/11/21 Range/Units 22:14 22:14 22:14 WBC 6.9 (4.5-11.0) X10^3/uL RBC 4.39 (4.0-5.2) X10^6/uL Hgb 12.0 (12.0-16.0) g/dL Hct 36.5 (36-46) % MCV 83.2 (80-100) fL MCH 27.3 (26-34) PG MCHC 32.8 (30-36) % RDW 17.3 H (11.6-14.8) % Plt Count 385 (150-400) X10^3/uL Neut % (Auto) 63.0 (50-75) % Lymph % (Auto) 27.6 (25-40) % Glenn % (Auto) 7.9 (3-14) % Eos % (Auto) 1.4 L (2-4) % Baso % (Auto) 0.1 (0-2) % Neut # (Auto) 4300 (3046-2703) /uL Lymph # (Auto) 1900 (4067-5954) /uL Glenn # (Auto) 500 (0-900) /uL Eos # (Auto) 100 (0-450) /uL Baso # (Auto) 0 (0-100) /uL ESR 28 H (0-20) MM/HR Sodium 141 (137-145) mmol/L Potassium 3.3 L (3.4-5.1) mmol/L Chloride 105 (98-107) mmol/L Carbon Dioxide 25 (22-32) mmol/L BUN 5 L (7-17) mg/dL Creatinine 0.58 (0.52-1.04) mg/dL Estimated GFR > 60.0 (>60) mL/min BUN/Creatinine Ratio 8.6 (6-22) Glucose 123 H (70-100) mg/dL Lactate (0.7-2.1) mmol/L Calcium 9.3 (8.4-10.2) mg/dL Total Bilirubin < 0.1 L (0.2-1.3) mg/dL AST 21 (14-36) IU/L ALT 10 (<35) IU/L Alkaline Phosphatase 97 (38-126) U/L Total Creatine Kinase 48 (30-135) U/L CK-MB (CK-2) TNP CK-MB (CK-2) Rel Index TNP Troponin I < 0.012 (0.01-0.034) ng/mL C-Reactive Protein (<1.0) mg/dL NT-Pro-B Natriuret Pep 404 H (<125) pg/mL Total Protein 7.1 (6.3-8.2) g/dL Albumin 4.0 (3.5-5.0) g/dL Globulin 3.1 (1.7-4.1) g/dL Albumin/Globulin Ratio 1.3 (1.0-2.8) Procalcitonin 0.04 (<0.5) ng/mL SARS-CoV-2 (PCR) (Negative) 02/11/21 02/11/21 02/11/21 Range/Units 22:14 22:18 23:10 WBC (4.5-11.0) X10^3/uL RBC (4.0-5.2) X10^6/uL Hgb (12.0-16.0) g/dL Hct (36-46) % MCV (80-100) fL MCH (26-34) PG MCHC (30-36) % RDW (11.6-14.8) % Plt Count (150-400) X10^3/uL Neut % (Auto) (50-75) % Lymph % (Auto) (25-40) % Glenn % (Auto) (3-14) % Eos % (Auto) (2-4) % Baso % (Auto) (0-2) % Neut # (Auto) (4262-2225) /uL Lymph # (Auto) (8501-9455) /uL Glenn # (Auto) (0-900) /uL Eos # (Auto) (0-450) /uL Baso # (Auto) (0-100) /uL ESR (0-20) MM/HR Sodium (137-145) mmol/L Potassium (3.4-5.1) mmol/L Chloride (98-107) mmol/L Carbon Dioxide (22-32) mmol/L BUN (7-17) mg/dL Creatinine (0.52-1.04) mg/dL Estimated GFR (>60) mL/min BUN/Creatinine Ratio (6-22) Glucose (70-100) mg/dL Lactate 2.0 (0.7-2.1) mmol/L Calcium (8.4-10.2) mg/dL Total Bilirubin (0.2-1.3) mg/dL AST (14-36) IU/L ALT (<35) IU/L Alkaline Phosphatase (38-126) U/L Total Creatine Kinase (30-135) U/L CK-MB (CK-2) CK-MB (CK-2) Rel Index Troponin I (0.01-0.034) ng/mL C-Reactive Protein 0.5 (<1.0) mg/dL NT-Pro-B Natriuret Pep (<125) pg/mL Total Protein (6.3-8.2) g/dL Albumin (3.5-5.0) g/dL Globulin (1.7-4.1) g/dL Albumin/Globulin Ratio (1.0-2.8) Procalcitonin (<0.5) ng/mL SARS-CoV-2 (PCR) Negative (Negative) Imaging Data Lumbar w/contrast: Radiologist's Impression: Abscess in the dorsal subcutaneous tissue measuring 2.5 x 2.8 x 8.6 cm at L2-L5 with a small component extending into the right paraspinous muscles at L3 and L4 MDM Narrative Medical decision making narrative: Patient doing very well, no signs of sepsis, pain well controlled and tolerating oral hydration. Extensive and widespread evaluation including a PICC line, imaging, urine and other but no obvious source other than that which is listed. Infectious diarrhea such as C diff considered but she did not have a bowel movement here, has no elevated white blood cell count. She is slightly hypokalemic but would prefer to avoid potassium replacement here and would prefer to pursue foods high in potassium. She has been given extensive return precautions and is had questions answered to her apparent satisfaction Discharge Plan Departure Patient Disposition: Home Clinical Impression: Acute hypokalemia Diarrhea Qualifiers: Diarrhea type: unspecified type Qualified Code(s): R19.7 - Diarrhea, unspecified Instructions: Diarrhea, DI for Hypokalemia Activity Restrictions/Additional Instructions: *You have been diagnosed with [diarrhea with slightly low potassium. As I told due at the bedside, I discussed your case with the on-call neurosurgeon who was able to review your imaging and states the fluid collection is actually greatly improved, this is very reassuring] *What to do: *Please continue to take your regular medications as directed. [x ] New medication prescriptions sent to your pharmacy: [[facility] ] [ ] New medication written as a paper prescription [ ] No new medications given *Please follow up with your primary care provider in 2-3 days, call for an appointment. Let them know you were seen in the Emergency Department and that we ask that you be seen in follow up. We will electronically transmit a record of today's note if your PCP is in our system *If you do not have a primary care provider please contact [facility] Resource line at [phone]. They will ask some questions about your medical history and help get you set up with a doctor in the community. *Return to Emergency Department if you should have any new, worsening or concerning symptoms, such as [fever greater than 101 F, shaking chills, worsening pain, persistent vomiting or other bothersome symptoms] Prescriptions: New potassium chloride 20 mEq tablet extended release 20 meq PO DAILY Qty: 7 RF: 0 No Action gabapentin 300 mg capsule 300 mg PO Q8H Qty: 40 RF: 0 famciclovir 500 mg tablet 500 mg PO Q8H Qty: 21 RF: 0 Referrals: Viv Cortez ARNP [Primary Care Provider] -
[2021-02-11 23:28] LABS: COVID19 -Nasal RAPID Negative (Negative)
[2021-02-11 23:30] VITALS: BP 120/59; PULSE 86; RESP 13; O2SAT 94
--- NOTE | 2021-02-11 23:34 | DI.CT.S_ITS ---
PROCEDURE: CT LUMBAR SPINE W CON INDICATIONS: fever, pain, chills, multiple lumbar surgeries with infection TECHNIQUE: After the administration of intravenous Isovue contrast, 3 mm thick sections acquired through the levels of interest. Sagittal and coronal reformats were then constructed. For radiation dose reduction, the following was used: automated exposure control. COMPARISON: [facility], CR, XR CHEST 1V, 02/11/2021, 22:04. [facility], MR, MR LUMBAR SPINE WO CON, 12/22/2020, 8:27. [facility], CR, XR LUMBAR SPINE 2-3V, 11/18/2020, 12:48. [facility], CR, XR LUMBAR SPINE 2-3V, 10/12/2020, 14:55. [facility], CT, CT ABDOMEN PELVIS WITHOUT CONTRAST, 06/01/2020, 8:48. FINDINGS: Image quality: Excellent. Bones: Postoperative changes seen at L5 and S1, with bilateral pedicle screws posteriorly and vertical fixation rods. Anteriorly placed fixation hardware is also seen. No findings of hardware failure or hardware loosening are seen. Mild dextroconvex scoliotic curvature is seen. Mild grade 1 L5-S1 anterolisthesis is seen. The disc heights are relatively well preserved. Soft tissues: Within the superficial soft tissues posteriorly, there is a fluid collection seen that measures 8 cm craniocaudal, with a maximum axial extent of 3 x 2.8 cm. There is relatively prominent rim enhancement seen. Nonobstructing right-sided kidney stones are seen, which measure up to 5 mm. There is no hydronephrosis seen. No enlarged lymph nodes are seen. Cholecystectomy clips are seen. No dilated loops of bowel are seen. IMPRESSION: Rim enhancing superficial fluid collection posteriorly, with concern for abscess given the clinical history. Unremarkable L5-S1 postoperative hardware. Incidental note is made of: Right-sided kidney stone Mild grade 1 L5-S1 anterolisthesis Note: No significant discrepancy from the preliminary report. Dictated by: Rex Butts M.D. on 02/12/2021 at 11:35 Approved by: Rex Butts M.D. on 02/12/2021 at 11:39
[2021-02-11 23:44] VITALS: BP 109/53; PULSE 97; RESP 21; O2SAT 93
[2021-02-11 23:58] LABS: Erythrocyte Sedimentation Rate 28 MM/HR (0-20)
[2021-02-12] VITALS (7 sets, daily range): BP systolic 109; BP diastolic 67; PULSE 76–95; RESP 18–19; O2SAT 94–99
[2021-02-12] LABS: C-Reactive Protein Quant 0.5 mg/dL (<1.0)
== END 2021-02-12 03:00 | disposition home or self-care (01) ==
PROVIDERS: Emergency Provider Emergency Medicine; PCP Nurse Practitioner Family
DX: E87.6 Hypokalemia (principal); R19.7 Diarrhea, unspecified; R53.1 Weakness; R50.9 Fever, unspecified; Z20.822 Contact with and (suspected) exposure to COVID-19
CPT/HCPCS: 36415; 71045; 72132; 80053; 82550; 83605; 83880; 84145; 84484; 85025; 85651; 86140; 87040; 87635; 93005; 93010; 99283; 99284; C9803; Q9967

== ENCOUNTER → 2021-03-03 10:35 | Outpatient (CLI) | payer OTHER, MEDICAID, SELFPAY ==
--- NOTE | 2021-03-03 | DI.RAD.S_ITS ---
PROCEDURE: XR LUMBAR SPINE 2-3V INDICATIONS: Unspecified fracture of unspecified lumbar vertebr TECHNIQUE: 3 views of the lumbar spine were acquired. COMPARISON: [facility], CT, CT LUMBAR SPINE W CON, 02/12/2021, 0:01. [facility], CR, XR LUMBAR SPINE 2-3V, 10/12/2020, 14:55. [facility], CR, XR LUMBAR SPINE 2-3V, 11/18/2020, 12:48. FINDINGS: Bones: 5 [id number] vertebrae are present. There is mild dextroscoliosis. Trace anterolisthesis of L5 on S1. No vertebral body compression fractures. No suspicious bony lesions. There is discectomy and fusion at L5-S1. Surgical hardware appear intact. Soft tissues: Overlying bowel gas pattern is normal. No suspicious soft tissue calcifications. Cholecystectomy clips are noted. IMPRESSION: Stable postsurgical changes. Dictated by: Grisel Samuel M.D. on 03/03/2021 at 17:25 Approved by: Grisel Samuel M.D. on 03/03/2021 at 17:30
== END ==
PROVIDERS: PCP Nurse Practitioner Family; Referring Provider Neurological Surgery; Visit Provider Neurological Surgery
DX: S32.009K Unspecified fracture of unspecified lumbar vertebra, subsequent encounter for fracture with nonunion (principal); M41.9 Scoliosis, unspecified; Z98.1 Arthrodesis status
CPT/HCPCS: 72100

== ENCOUNTER 2021-03-13 12:52 | Emergency (ER) | payer OTHER, MEDICAID, SELFPAY ==
[2021-03-13] VITALS (12 sets, daily range): BP systolic 115–150; BP diastolic 59–75; PULSE 70–96; RESP 20; TEMP 36.9; O2SAT 95–100; BMI 35.3
--- NOTE | 2021-03-13 15:43 | ED_ITS ---
HPI - Headache General Chief Complaint: Headache Stated Complaint: Headaches for 2 weeks Time Seen by Provider: 03/13/21 15:43 Source: patient Mode of arrival: Ambulatory Limitations: no limitations History of Present Illness HPI Narrative: This is a 50-year-old female comes emergency department with complaint of headache for the past 2 weeks. Patient states gradual onset just in the evenings. She states it was in the back of her occipital region. Patient states it has since progressed to the last 4 days to being in the frontal region and constant during the night and daytime. She also states it is worse she bends over. Patient denies any vision changes. No new numbness, tingling or weakness in her extremities. She has not had any fevers or chills. She has not had any vision changes. She has not had any difficulty with speech. She has had some mild nausea but no vomiting. Patient denies any dizziness or syncope. She states she has a history of migraines but this is atypical she typically has pains in her eyes with her regular migraines. She denies any other chest pain, shortness of breath, cold cough or congestion. No other GI or urinary symptoms besides nausea. She has not had any rashes or skin changes. Patient notes a history of tubal ligation and appendectomy. She denies any recent back interventions. Related Data Previous Rx's Medication Instructions Recorded famciclovir 500 mg PO Q8H #21 tab 08/19/19 gabapentin 300 mg PO Q8H #40 cap 08/19/19 potassium chloride 20 meq PO DAILY #7 tab 02/12/21 Allergies Allergy/AdvReac Type Severity Reaction Status Date / Time codeine Allergy Verified 03/13/21 13:09 Review of Systems Review of Systems ROS Unobtainable: All systems reviewed & are unremarkable except as noted in HPI and below Patient History Medical History No chronic problems Pulmonary embolism Surgical History History of lumbar surgery S/P T&A (status post tonsillectomy and adenoidectomy) Status post appendectomy Status post cholecystectomy Status post tubal ligation Social History Smoking Status: Never smoker Smoking Status: Never smoker alcohol intake frequency: 0-2 drinks per day Substance Use Type: does not use Exam Narrative Exam Narrative: GEN: well nourished, well appearing female, alert and oriented x 3, patient appears to be in mild distress. Patient is sitting up on the bed with cross legs. HEENT: Atraumatic, pupils are equal round reactive to light, extraocular movements are intact, nares are clear. Throat is clear without any exudates, erythema, tonsillar enlargement or uvular deviation, no facial droop. No vertebral tenderness of the cervical spine, thoracic or lumbar spine. Patient has full range of motion with flexion extension. No meningeal signs. Patient does have some tissue tightness in the paraspinal muscles HEART: Regular rate and rhythm without murmur, clicks, rubs. No carotid bruits, pulses are equal in upper and lower extremities LUNGS:Lungs clear to auscultation, no wheezes, rales, crackles, chest moves symmetrically ABD:bowel sounds normal, soft, non-tender, no guarding, rebound, rigidity, no masses noted, no hepatosplenomegaly :No CVA tenderness MSCL: Non-tender, no muscle atrophy, muscles strength 5/5 upper and lower ex tremities, full range of motion, normal gait NEURO:CN 2-12 intact, sensation normal,finger nose finger test normal, heel hearn test normal, romberg normal SKIN: No rash, erythema or skin changes appreciated. Initial Vital Signs Initial Vital Signs: Vital Signs Temperature 98.5 F 03/13/21 13:09 Pulse Rate 85 03/13/21 13:09 Respiratory Rate 20 03/13/21 13:09 Blood Pressure 127/75 03/13/21 13:09 Pulse Oximetry 100 03/13/21 13:09 Scores GCS [place] coma scale eye opening: Spontaneous Edward coma scale verbal response: Orientated [place] coma scale motor response: Obey commands [place] coma scale total score: 15 NIH Stroke Scale Level of Conciousness: Alert, keenly responsive Ask month/age: Answers both questions correctly. Open/close eyes, close hand: Performs both tasks correctly Best gaze horizontal: Normal Visual pickett: No visual loss Facial palsy: Normal symetrical movement Left arm drift: No drift for full 10 sec Right arm drift: No drift for full 10 sec Left leg drift: No drift for full 5 sec Right leg drift: No drift for full 5 sec Limb ataxia: Absent Sensory on face/arms/legs: Normal, no sensory loss Best language: No aphasia, normal Dysarthria: Normal Extinction or inattention: No abnormality Total NIH Stroke scale score: 0 Course Orders Ordered: ED Orders 03/13/21 16:07 CT head/brain wo con Stat 03/13/21 16:55 COVID19 -Nasal swab/Pre-Proc Stat Complete Blood Count AUTO DIFF Stat Comprehensive Metabolic Panel Stat 03/13/21 19:23 C-Reactive Protein Quant Stat Erythrocyte Sedimentation Rate Stat Discontinued Medications Diphenhydramine HCl (Diphenhydramine 50 Mg/Ml Vial) 50 mg IV NOW ONE Stop: 03/13/21 16:08 Last Admin: 03/13/21 17:04 Dose: 50 mg Documented by: [email or web address] Sodium Chloride (Normal Saline 0.9%) 1,000 mls @ 1,000 mls/hr IV BOLUS ONE Stop: 03/13/21 17:06 Last Infusion: 03/13/21 18:30 Dose: 0 mls/hr Documented by: [email or web address] Admin: 03/13/21 16:55 Dose: 1,000 mls/hr Documented by: [email or web address] Dexamethasone 20 mg/ Sodium (Chloride) 55 mls @ 220 mls/hr IV NOW ONE Stop: 03/13/21 16:47 Last Infusion: 03/13/21 18:02 Dose: 0 mls/hr Documented by: [email or web address] Admin: 03/13/21 17:28 Dose: 220 mls/hr Documented by: [email or web address] Prochlorperazine (Prochlorperazine 10 Mg/2 Ml Vial) 10 mg IV NOW ONE Stop: 03/13/21 16:08 Last Admin: 03/13/21 17:03 Dose: 10 mg Documented by: [email or web address] Reevaluation(s) Reevaluation #1: Patient is feeling more comfortable after medications. She denies any acute onset dizziness or other neurologic symptoms besides headache. Time: 17:25 Reevaluation #2: Patient updated on plan. States that she did have lumbar spine surgery in December 2020. Patient states her headache has improved although still present. She defers any additional pain medication. She has not had any worsening symptoms or changes here in the department. She is where plan for transfer and is agreeable Time: 19:34 Consultations Consultation #1: Dr. Maximo Hope, neurology. Recommends neuro surgery. If patient is stable could likely come to them but he would ask for Neurosurgery to be contacted as they may be accepting service. Time: 19:02 Consultation #2: Dr. Miguel Coker with neurosurgery accepts for transfer would like ED to ED transfer. Will add esr/crp on to labs while awaiting transfer. Reviewed imaging, labs today. Dr. Sigala did note patient had recent back surgery in December 2020. Time: 17:25 Consultation #3: Dr. Mclaughlin emergency physician at [facility]. Patient accepted for transfer. Plan for BLS transfer at this time as patient has had no additional changes in her mental status here in the department. Time: 17:27 Vital Signs Vital signs: Vital Signs - 8 hr 03/13/21 13:09 03/13/21 17:06 03/13/21 17:30 Temperature 98.5 F Pulse Rate 85 71 77 Respiratory Rate 20 Blood Pressure 127/75 115/59 L Pulse Oximetry 100 100 100 03/13/21 18:00 Temperature Pulse Rate 70 Respiratory Rate Blood Pressure Pulse Oximetry 100 MDM - Headache Lab Data Attestation: I reviewed the patient's lab results. Result diagrams: 03/13/21 16:55 03/13/21 16:55 Labs: Lab Results 03/13/21 03/13/21 03/13/21 Range/Units 16:55 16:55 16:55 WBC 4.3 L (4.5-11.0) X10^3/uL RBC 4.66 (4.0-5.2) X10^6/uL Hgb 13.0 (12.0-16.0) g/dL Hct 39.2 (36-46) % MCV 84.0 (80-100) fL MCH 28.0 (26-34) PG MCHC 33.3 (30-36) % RDW 15.6 H (11.6-14.8) % Plt Count 300 (150-400) X10^3/uL Neut % (Auto) 50.8 (50-75) % Lymph % (Auto) 33.2 (25-40) % Grainger % (Auto) 7.5 (3-14) % Eos % (Auto) 8.0 H (2-4) % Baso % (Auto) 0.5 (0-2) % Neut # (Auto) 2200 (9736-6085) /uL Lymph # (Auto) 1400 (1431-2621) /uL Grainger # (Auto) 300 (0-900) /uL Eos # (Auto) 300 (0-450) /uL Baso # (Auto) 0 (0-100) /uL Sodium 139 (137-145) mmol/L Potassium 4.1 (3.4-5.1) mmol/L Chloride 104 (98-107) mmol/L Carbon Dioxide 30 (22-32) mmol/L BUN 10 (7-17) mg/dL Creatinine 0.61 (0.52-1.04) mg/dL Estimated GFR > 60.0 (>60) mL/min BUN/Creatinine Ratio 16.4 (6-22) Glucose 97 (70-100) mg/dL Calcium 9.2 (8.4-10.2) mg/dL Total Bilirubin 0.3 (0.2-1.3) mg/dL AST 25 (14-36) IU/L ALT 20 (<35) IU/L Alkaline Phosphatase 82 (38-126) U/L Total Protein 6.9 (6.3-8.2) g/dL Albumin 3.9 (3.5-5.0) g/dL Globulin 3.0 (1.7-4.1) g/dL Albumin/Globulin Ratio 1.3 (1.0-2.8) SARS-CoV-2 (PCR) Negative (Negative) Point of Care Testing Test Results Negative Urine Dip Bedside Urine Glucose Negative Bedside Urine Bilirubin - Negative Bedside Urine Ketone - Negative Urine Specific [place] 1.015 Bedside Urine Occult Blood +/- Bedside Urine pH 6.0 Bedside Urine Protein - Negative Bedside Urine Urobilinogen - Negative Bedside Urine Nitrite - Negative Bedside Urine Leukocytes - Negative Esterase Imaging Data CT scan - head: Radiologist's Impression: [address] [id number] Scan ReportSigned Patient: Flaca Gonzalez KMR#: [id number]: [id number]:[id number]/Sex: 50 / FDate of Service: 03/13/21Loc: EDAccession Number: [id number] Procedure: CT head/brain wo con Ordering Provider: Audra Lei D.O. PROCEDURE: CT HEAD/BRAIN WO CON INDICATIONS: srivastava x 2 weeks, was back of head now frontal TECHNIQUE: Noncontrast 4.5 mm thick angled axial sections acquired from the foramen magnum to the vertex, with coronal and sagittal reformats. For radiation dose reduction, the following was used: automated exposure control, adjustment of mA and/or kV according to patient size. COMPARISON: None. FINDINGS: Image quality: Excellent. CSF spaces: Basal cisterns are patent. No extra-axial fluid collections. Ventricles are normal in size and shape. Brain: No midline shift. No acute intracranial hemorrhage. There is an ill- defined, heterogeneously hypodense region involving a large portion of the left cerebell ar hemisphere measuring 3.8 x 3.4 cm in size. There is suggestion of adjacent vasogenic edema. There is mild mass effect medially. 4th ventricle remains normal in appearance. Marcial-white matter interface is otherwise maintained. Skull and face: Calvarium and visualized facial bones are intact, without suspicious lesions. Sinuses: Visualized sinuses and mastoids are clear. IMPRESSION: Prominent heterogeneously hypodense region within the left cerebellar hemisphere measuring 3.8 x 3.4 cm in transverse cross-sectional dimension with associated edema and mass effect. Findings may represent sequela of evolving subacute infarction although underlying mass not completely excluded on this noncontrast study. Consider further evaluation with contrast enhanced MRI. Findings were discussed with Dr. Lei at 1650 hrs. Dictated by: Geovany Toledo M.D. on 03/13/2021 at 16:42 Approved by: Geovany Toledo M.D. on 03/13/2021 at 16:49 MDM Narrative Medical decision making narrative: This is a 50-year-old female comes emergency department with complaint of headaches 2 weeks initially starting in the lower half and then now having increased headache and her upper head it is worse when she bends over. Patient has not had any neurologic symptoms. She does have a history of migraines but states this is very atypical. Patient's head CT shows edema and mass effect with a heterogeneously hypodense region in the left cerebellar hemisphere measuring 3.8 x 3.4 cm. Possibility and cued subacute infarction although underlying mass not excluded. Patient NIH exam is your here, GCS is 15. On repeat evaluation after seeing her images she states she has not had any difficulty with ambulation, ataxia, dizziness acute onset of symptoms. Patient has had some improvement with Compazine and Benadryl for her headache. She has some mild restless leg symptoms but states they are controlled. She was given a dose of Decadron here department. Images were pushed and reviewed with neurology and neurosurgery, Dr. Sigala with neurosurgery notes patient had surgical intervention on her back in December. Will go ahead and ESR CRP on to be attending patient is transferring. He would like patient to be transferred ED to ED. Spoke with Dr. Mclaughlin who accepts for transfer. Discharge Plan Departure Patient Disposition: [facility] Clinical Impression: Cerebral edema, Cerebellar mass Prescriptions: No Action gabapentin 300 mg capsule 300 mg PO Q8H Qty: 40 RF: 0 famciclovir 500 mg tablet 500 mg PO Q8H Qty: 21 RF: 0 potassium chloride 20 mEq tablet extended release 20 meq PO DAILY Qty: 7 RF: 0 Referrals: Viv Cortez ARNP [Primary Care Provider] -
--- NOTE | 2021-03-13 16:07 | DI.CT.S_ITS ---
PROCEDURE: CT HEAD/BRAIN WO CON INDICATIONS: srivastava x 2 weeks, was back of head now frontal TECHNIQUE: Noncontrast 4.5 mm thick angled axial sections acquired from the foramen magnum to the vertex, with coronal and sagittal reformats. For radiation dose reduction, the following was used: automated exposure control, adjustment of mA and/or kV according to patient size. COMPARISON: None. FINDINGS: Image quality: Excellent. CSF spaces: Basal cisterns are patent. No extra-axial fluid collections. Ventricles are normal in size and shape. Brain: No midline shift. No acute intracranial hemorrhage. There is an ill-defined, heterogeneously hypodense region involving a large portion of the left cerebellar hemisphere measuring 3.8 x 3.4 cm in size. There is suggestion of adjacent vasogenic edema. There is mild mass effect medially. 4th ventricle remains normal in appearance. Marcial-white matter interface is otherwise maintained. Skull and face: Calvarium and visualized facial bones are intact, without suspicious lesions. Sinuses: Visualized sinuses and mastoids are clear. IMPRESSION: Prominent heterogeneously hypodense region within the left cerebellar hemisphere measuring 3.8 x 3.4 cm in transverse cross-sectional dimension with associated edema and mass effect. Findings may represent sequela of evolving subacute infarction although underlying mass not completely excluded on this noncontrast study. Consider further evaluation with contrast enhanced MRI. Findings were discussed with Dr. Lei at 1650 hrs. Dictated by: Geovany Toledo M.D. on 03/13/2021 at 16:42 Approved by: Geovany Toledo M.D. on 03/13/2021 at 16:49
[2021-03-13] MEDS: SODIUM CHLORIDE 0.9% 1,000 ML 1000 ML IV (16:55)
[2021-03-13] MEDS: PROCHLORPERAZINE 10 MG/2 ML VIAL IV (17:03)
[2021-03-13] MEDS: diphenhydrAMINE 50 MG/ML VIAL IV (17:04)
[2021-03-13 17:09] LABS: Add Manual Diff / Slide Review NO; Basophils Absolute Auto 0 /uL (0-100); Basophils Percent Auto 0.5 % (0-2); Eosinophils Absolute Auto 300 /uL (0-450); Hematocrit 39.2 % (36-46); Lymphocytes Absolute Auto 1400 /uL (1100-4500); Lymphocytes Percent Auto 33.2 % (25-40); Mean Corpuscular HGB Conc 33.3 % (30-36); Monocytes Absolute Auto 300 /uL (0-900); Monocytes Percent Auto 7.5 % (3-14); Neutrophils Absolute Auto 2200 /uL (1500-7000); Neutrophils Percent Auto 50.8 % (50-75); Platelet Count 300 X10^3/uL (150-400); Red Blood Cell Count 4.66 X10^6/uL (4.0-5.2); Red Cell Distribution Width 15.6 % (11.6-14.8); White Blood Cell Count 4.3 X10^3/uL (4.5-11.0)
[2021-03-13 17:23] LABS: Alanine Aminotransferase 20 IU/L (<35); Albumin 3.9 g/dL (3.5-5.0); Albumin Globulin Ratio 1.3 (1.0-2.8); Alkaline Phosphatase 82 U/L (38-126); Aspartate Aminotransferase 25 IU/L (14-36); BUN Creatinine Ratio 16.4 (6-22); Bilirubin Total 0.3 mg/dL (0.2-1.3); Blood Urea Nitrogen 10 mg/dL (7-17); Calcium 9.2 mg/dL (8.4-10.2); Carbon Dioxide 30 mmol/L (22-32); Chloride 104 mmol/L (98-107); Estimated Glomerular Filt Rate > 60.0 mL/min (>60); Glucose 97 mg/dL (70-100); HEMOLYSIS < 15 (0-50); Potassium 4.1 mmol/L (3.4-5.1); Sodium 139 mmol/L (137-145); Total Protein 6.9 g/dL (6.3-8.2)
[2021-03-13] MEDS: dexAMETHasone 20 MG in SODIUM CHLORIDE 0.9% 50 ML 220 ML IV (17:28)
[2021-03-13 17:58] LABS: COVID19 -Nasal RAPID Negative (Negative)
[2021-03-13 19:39] LABS: C-Reactive Protein Quant < 0.5 mg/dL (<1.0)
[2021-03-13 19:51] LABS: Erythrocyte Sedimentation Rate 5 MM/HR (0-20)
--- NOTE | 2021-03-13 20:20 | PC.NURSE ---
pt will be transfer to [facility] via BLS unit by [facility]. The earliest a BLS unit can pick her up for transport is [id number]. Pt made aware.
--- NOTE | 2021-03-13 22:16 | PC.NURSE ---
Report given to Manjeet DUMONT NWRafaela, pt loaded by crew for transport to [facility]
== END 2021-03-13 22:17 | disposition short-term general hospital (02) ==
PROVIDERS: Emergency Provider Emergency Medicine; PCP Nurse Practitioner Family
DX: G93.6 Cerebral edema (principal); G93.89 Other specified disorders of brain; Z20.822 Contact with and (suspected) exposure to COVID-19
CPT/HCPCS: 36415; 70450; 80053; 81003; 81025; 85025; 85651; 86140; 87635; 96361; 96365; 96375; 99284; C9803; J0780; J1100; J1200

== ENCOUNTER → 2021-05-01 09:57 | Outpatient (CLI) | payer OTHER, MEDICAID, SELFPAY ==
--- NOTE | 2021-05-01 09:59 | DI.MRI.S_ITS ---
PROCEDURE: MR LUMBAR SPINE WO/W CON INDICATIONS: CEREBELLAR MASS TECHNIQUE: Noncontrast sagittal T1 spin echo and T2 fast spin echo, sagittal STIR, axial T1 and T2 fast spin echo through the lumbar spine. In cases with scoliosis, additional coronal T2 fast spin echo may be performed. After the administration of contrast, sagittal and axial T1 spin echo with fat saturation through the lumbar spine. COMPARISON: [facility], MR, MR LUMBAR SPINE WITHOUT CONTRAST, 03/23/2020, 18:08. [facility], MR, MR CERVICAL SPINE WO/W CON, 05/01/2021, 10:19. [facility], MR, MR THORACIC SPINE WO/W CON, 05/01/2021, 10:00. [facility], NM, PET NECK TO MID THIGH, 03/22/2021, 15:00. [facility], MR, MR BRAIN WITH/WITHOUT CONTRAST, 03/19/2021, 1:40. [facility], CT, CT HEAD/BRAIN WO CON, 03/13/2021, 16:15. [facility], CR, XR LUMBAR SPINE 2-3V, 03/03/2021, 10:39. [facility], CT, CT LUMBAR SPINE W CON, 02/12/2021, 0:01. FINDINGS: Image quality: Portions of the lower spine are suboptimally evaluated secondary to susceptibility artifact from spinal fusion Alignment and curvature: There is posterior fusion at L5-S1. There is grade 1 anterolisthesis L5 on S1 measuring approximately 7 mm, decreased from 12 mm on prior exam. Pars defect is noted at L5. Marrow: Marrow is of normal overall signal. No acute vertebral body compression fractures. No suspicious marrow enhancement. Spinal cord: Conus medullaris terminates at the L1 level. Visualized spinal cord demonstrates normal signal, without suspicious enhancement. Paraspinous soft tissues: No paravertebral masses or abnormal enhancement. It is noted that the area of possible abscess identified within the posterior paraspinal soft tissues on CT lumbar spine 02/12/2021 is not fully included within the field of view. L1-L2: No disc bulge, spinal stenosis or foraminal narrowing. L2-L3: No disc bulge, spinal stenosis or foraminal narrowing. L3-L4: Minimal disc bulge without spinal stenosis. No foraminal narrowing. L4-L5: No disc bulge, spinal stenosis or foraminal narrowing. L5-S1: Postsurgical changes are present. No spinal stenosis. There is mild right and minimal left foraminal narrowing, improved compared to presurgical MRI exam on 03/23/2020. IMPRESSION: 1. No abnormal enhancement within the spinal canal. 2. Postsurgical changes with improved foraminal narrowing at L5-S1. Dictated by: Cyndee Garibay M.D. on 05/02/2021 at 11:36 Approved by: Cyndee Garibay M.D. on 05/02/2021 at 11:47
--- NOTE | 2021-05-01 09:59 | DI.MRI.S_ITS ---
PROCEDURE: MR CERVICAL SPINE WO/W CON INDICATIONS: CEREBELLAR MASS TECHNIQUE: Noncontrast sagittal T1 spin echo and T2 fast spin echo, sagittal STIR, foraminal oblique sagittal T2 fast spin echo, axial gradient echo or T2 fast spin echo through the cervical spine. After the administration of contrast, axial and sagittal T1 spin echo with fat saturation through the cervical spine. COMPARISON: [facility], MR, MR LUMBAR SPINE WO/W CON, 05/01/2021, 10:00. [facility], MR, MR THORACIC SPINE WO/W CON, 05/01/2021, 10:00. Outside [facility], NM, PET NECK TO MID THIGH, 03/22/2021, 15:00. Outside [facility], MR, MR BRAIN WITH/WITHOUT CONTRAST, 03/19/2021, 1:40. [facility], CT, CT HEAD/BRAIN WO CON, 03/13/2021, 16:15. FINDINGS: Image quality: Excellent. Alignment and curvature: There is reversal of cervical curvature with apex at C5. There is trace anterolisthesis of C4 on C5, trace retrolisthesis of C5 on C6, C6 on C7. It is Marrow: Marrow is normal in overall signal, without suspicious enhancement. Spinal cord: Visualized spinal cord has normal size and signal. No cerebellar tonsillar herniation. No abnormal intramedullary enhancement. Paraspinous soft tissues: Incompletely visualized left cerebellar resection is noted. Please see MR brain report of 03/19/2021 for further details. Discs: Severe desiccation is present at C5-6, moderate C4-5, minimal throughout the remainder of the cervical spine. C2-3: No disc bulge, spinal stenosis or foraminal narrowing. C3-4: Minimal disc bulge with slight effacement of the anterior thecal sac. No foraminal narrowing. C4-5: Mild disc bulge with mild spinal stenosis. Mild left and moderate right foraminal narrowing with uncovertebral hypertrophy. C5-6: Mild disc bulge with mild to moderate spinal stenosis. [id number] bilateral foraminal narrowing with uncovertebral hypertrophy. C6-7: No disc bulge, spinal stenosis or foraminal narrowing. C7-T1: No disc bulge, spinal stenosis or foraminal narrowing. IMPRESSION: 1. Incompletely visualized left cerebellar resection changes. Please see MR brain report of 03/19/2021 for further details. 2. [id number] spinal stenosis at C4-5 and C5-6 secondary to disc bulge with contributing effect of reversal cervical curvature. 3. No areas of abnormal enhancement within the visualized spinal cord. Dictated by: Cyndee Garibay M.D. on 05/02/2021 at 11:49 Approved by: Cnydee Garibay M.D. on 05/02/2021 at 11:53
--- NOTE | 2021-05-01 10:00 | DI.MRI.S_ITS ---
PROCEDURE: MR THORACIC SPINE WO/W CON INDICATIONS: Cerebellar mass TECHNIQUE: Noncontrast sagittal T1 spin echo and T2 fast spin echo, sagittal STIR, axial T1 and T2 fast spin echo through the thoracic spine. After the administration of contrast, axial and sagittal T1 spin echo with fat saturation through the thoracic spine. COMPARISON: [facility], MR, MR CERVICAL SPINE WO/W CON, 05/01/2021, 10:19. [facility], MR, MR LUMBAR SPINE WO/W CON, 05/01/2021, 10:00. Outside Film, NM, PET NECK TO MID THIGH, 03/22/2021, 15:00. Outside Film, MR, MR BRAIN WITH/WITHOUT CONTRAST, 03/19/2021, 1:40. [facility], CT, CT HEAD/BRAIN WO CON, 03/13/2021, 16:15. FINDINGS: Image quality: Excellent. Alignment and curvature: There is normal bony alignment. Marrow: Marrow is of normal overall signal. No acute vertebral body compression fractures. Spinal cord: Visualized spinal cord is of normal signal and size, without abnormal enhancement. Paraspinous soft tissues: No paravertebral masses or abnormal enhancement. Miscellaneous: Central canal and foramina appear widely patent at all scanned levels. IMPRESSION: 1. No disc bulge, spinal stenosis or foraminal narrowing. 2. No areas of abnormal enhancement within the spinal cord. Dictated by: Cyndee Garibay M.D. on 05/02/2021 at 10:33 Approved by: Cyndee Garibay M.D. on 05/02/2021 at 11:36
== END ==
PROVIDERS: PCP Nurse Practitioner Family; Referring Provider Neurological Surgery; Visit Provider Neurological Surgery
DX: G93.89 Other specified disorders of brain (principal); M43.17 Spondylolisthesis, lumbosacral region; M50.221 Other cervical disc displacement at C4-C5 level; M48.02 Spinal stenosis, cervical region; Z98.1 Arthrodesis status
CPT/HCPCS: 72156; 72157; 72158; A9579

== ENCOUNTER → 2021-10-05 12:18 | Outpatient (CLI) | payer OTHER, MEDICAID, SELFPAY ==
--- NOTE | 2021-10-05 12:22 | DI.RAD.S_ITS ---
PROCEDURE: XR WRIST RT MIN 3V INDICATIONS: RT WRIST PAIN TECHNIQUE: 4 views of the wrist were acquired. COMPARISON: [facility], CR, XR HAND RT MIN 3V, 09/15/2020, 13:42. FINDINGS: Bones: No fractures or dislocations. No suspicious bony lesions. Scaphoid view: Scaphoid is grossly intact. Soft tissues: No suspicious soft tissue calcifications. IMPRESSION: No wrist fracture or dislocation is seen. No gross soft tissue abnormality. Dictated by: Mick Martinez M.D. on 10/05/2021 at 12:50 Approved by: Mick Martinez M.D. on 10/05/2021 at 12:52
== END ==
PROVIDERS: PCP Nurse Practitioner Family; Referring Provider Nurse Practitioner Family; Visit Provider Nurse Practitioner Family
DX: M25.531 Pain in right wrist (principal)
CPT/HCPCS: 73110

== ENCOUNTER → 2021-10-17 09:30 | Outpatient (CLI) | payer OTHER, MEDICAID, SELFPAY ==
--- NOTE | 2021-10-17 | DI.MRI.S_ITS ---
PROCEDURE: MR HEAD/BRAIN WO/W CON INDICATIONS: CEREBELLAR MASS TECHNIQUE: Noncontrast axial T1 spin echo, axial T2 fast spin echo, sagittal and axial FLAIR, coronal T2 fast spin echo, axial gradient echo, axial diffusion and ADC through the brain. After the administration of contrast, axial and coronal 3D VIBE or T1 spin echo with fat saturation through the brain. COMPARISON: [facility], MR, MR BRAIN WITH/WITHOUT CONTRAST, 09/01/2021, 15:09. Outside Film, MR, MR BRAIN WITH/WITHOUT CONTRAST, 03/19/2021, 1:40. [facility], CT, CT HEAD/BRAIN WO CON, 03/13/2021, 16:15. FINDINGS: Image quality: Excellent. CSF Spaces: Basal cisterns are patent. No extra-axial fluid collections. Ventricles are normal in size and shape. Brain: The previously seen cerebellar mass is been resected. Volume loss and encephalomalacia can be seen within the cerebellum. Along the superior aspect of the left cerebellar hemisphere, there is an enhancing mass seen, with an extra-axial appearance that measures 18 by 15 mm in greatest axial dimension, with a craniocaudal extent of 12 mm. On precontrast imaging, this demonstrates relatively low T2 weighted signal. No midline shift. The brainstem appears normal. Diffusion-weighted images demonstrate no acute ischemic insults. No chronic ischemic insults. Normal intravascular flow voids are present. Skull and face: Left posterior inferior craniotomy changes are seen. Calvarial marrow is normal in signal. Orbits appear normal. Sinuses: Sinuses and mastoids appear clear. IMPRESSION: There is a left cerebellar extra-axial mass seen, which has grown since the 09/01/2021 examination. The imaging appearance is largely consistent with a meningioma. However, this rapid change in size in just 6 weeks is highly unusual for a meningioma. Please consider additional neoplastic possibilities. Dictated by: Rex Butts M.D. on 10/17/2021 at 11:01 Approved by: Rex Butts M.D. on 10/17/2021 at 11:04
== END ==
PROVIDERS: PCP Nurse Practitioner Family; Referring Provider Nurse Practitioner Family; Visit Provider Nurse Practitioner Family
DX: G93.89 Other specified disorders of brain (principal)
CPT/HCPCS: 70553

== ENCOUNTER 2021-11-07 11:24 | Emergency (ER) | payer OTHER, MEDICAID, SELFPAY ==
--- NOTE | 2021-11-07 11:42 | DI.CT.S_ITS ---
PROCEDURE: CT HEAD/BRAIN WO CON INDICATIONS: pain, h/o brain ca TECHNIQUE: Noncontrast 4.5 mm thick angled axial sections acquired from the foramen magnum to the vertex, with coronal and sagittal reformats. For radiation dose reduction, the following was used: automated exposure control, adjustment of mA and/or kV according to patient size. COMPARISON: [facility], MR, MR HEAD/BRAIN WO/W CON, 10/17/2021, 10:26. [facility] Film, MR, MR BRAIN WITH/WITHOUT CONTRAST, 03/19/2021, 1:40. [facility], CT, CT HEAD/BRAIN WO CON, 03/13/2021, 16:15. FINDINGS: Image quality: Excellent. CSF spaces: Basal cisterns are patent. No extra-axial fluid collections. Ventricles are normal in size and shape. Brain: There is again seen a hyperdense mass along the superior aspect of the left cerebellar hemisphere. No midline shift. No intracranial hemorrhage. Marcial-white matter interface is normal. Skull and face: Left posterior inferior craniotomy changes are seen. Calvarium and visualized facial bones are intact, without suspicious lesions. Sinuses: Visualized sinuses and mastoids are clear. IMPRESSION: The known left cerebellar mass is again seen, which is roughly similar to the recent prior MRI appearance. If there is strong clinical concern for interval change of this mass, please consider a follow-up brain MRI, performed without and with contrast. Dictated by: Rex Butts M.D. on 11/07/2021 at 11:09 Approved by: Rex Butts M.D. on 11/07/2021 at 11:13
[2021-11-07 11:43] VITALS: BP 139/79; PULSE 82; RESP 14; TEMP 36.6; O2SAT 98; BMI 32.0
--- NOTE | 2021-11-07 11:46 | DI.RAD.S_ITS ---
PROCEDURE: XR RIBS LT MIN 3V W CXR1V INDICATIONS: rib pain TECHNIQUE: 2 views of the left ribs were acquired, along with a single view chest. COMPARISON: [facility], CR, XR CHEST 1V, 02/11/2021, 22:04. [facility], CT, CT HEAD/BRAIN WO CON, 11/07/2021, 12:00. FINDINGS: Surgical changes and devices: Cholecystectomy clips are seen. Mammoplasty implants are incidentally noted. Bones and chest wall: No fractures or dislocations are seen at the area of clinical concern. No fractures or dislocations are seen elsewhere. No suspicious bony lesions. Overlying soft tissues appear unremarkable. Age-appropriate bony degenerative changes are seen. Lungs and pleura: No pleural effusions or pneumothorax. Lungs appear clear. Mediastinum: Mediastinal contours appear normal. Heart size is normal. IMPRESSION: No displaced rib fracture or pneumothorax seen. Dictated by: Rex Butts M.D. on 11/07/2021 at 11:07 Approved by: Rex Butts M.D. on 11/07/2021 at 11:08
== END 2021-11-07 15:00 | disposition left against medical advice (07) ==
PROVIDERS: Emergency Provider Emergency Medicine; PCP Internal Medicine
DX: R07.81 Pleurodynia (principal); Z85.841 Personal history of malignant neoplasm of brain
CPT/HCPCS: 70450; 71101; 99284

== ENCOUNTER → 2022-04-25 12:31 | Outpatient (CLI) | payer OTHER, MEDICAID, SELFPAY ==
--- NOTE | 2022-04-25 12:32 | DI.MRI.S_ITS ---
PROCEDURE: MR CERVICAL SPINE WO/W CON INDICATIONS: MEDULLOBLASTOMA TECHNIQUE: Noncontrast sagittal T1 spin echo and T2 fast spin echo, sagittal STIR, foraminal oblique sagittal T2 fast spin echo, axial gradient echo or T2 fast spin echo through the cervical spine. After the administration of contrast, axial and sagittal T1 spin echo with fat saturation through the cervical spine. COMPARISON: [facility], MR, MR BRAIN WITH/WITHOUT CONTRAST, 01/18/2022, 17:28. [facility], MR, MR HEAD/BRAIN WO/W CON, 04/25/2022, 13:17. [facility], MR, MR CERVICAL SPINE WO/W CON, 05/01/2021, 10:19. FINDINGS: Image quality: Excellent. Cerebellar resection changes are stable. No abnormal enhancement is present within this region. Cord demonstrates normal signal. Min along the inferior aspect of the cerebellum extending to the occiput region. There is a small focus of enhancing fluid measuring approximately 7 mm anterior to the occipital calvarium posterior to the posterior elements of C1 to within the soft tissues. Multilevel degenerative changes are present without interval change. IMPRESSION: Postsurgical resection changes to the cerebellum, better identified and MR brain of 04/25/2022. It is noted that there is enhancement along the inferior aspect of the resection cavity with a small focus of fluid. This may be postoperative seroma. However, recommend correlation as phlegmon or developing abscess cannot be definitively excluded. Please see MR brain report for further details. No evidence of metastatic spread to the spinal cord. Dictated by: Cyndee Garibay M.D. on 04/25/2022 at 17:15 Approved by: Cyndee Garibay M.D. on 04/25/2022 at 17:30
--- NOTE | 2022-04-25 12:33 | DI.MRI.S_ITS ---
PROCEDURE: MR THORACIC SPINE WO/W CON INDICATIONS: MEDULLOBLASTOMA TECHNIQUE: Noncontrast sagittal T1 spin echo and T2 fast spin echo, sagittal STIR, axial T1 and T2 fast spin echo through the thoracic spine. After the administration of contrast, axial and sagittal T1 spin echo with fat saturation through the thoracic spine. COMPARISON: None. FINDINGS: Image quality: Excellent. Alignment and curvature: There is normal bony alignment. Marrow: Marrow is of normal overall signal. No acute vertebral body compression fractures. Spinal cord: Visualized spinal cord is of normal signal and size, without abnormal enhancement. Paraspinous soft tissues: No paravertebral masses or abnormal enhancement. Miscellaneous: Central canal and foramina appear widely patent at all scanned levels. IMPRESSION: Normal MRI of the thoracic spine. Dictated by: Herbert Starr M.D. on 04/25/2022 at 22:24 Approved by: Herbert Starr M.D. on 04/25/2022 at 22:33
--- NOTE | 2022-04-25 12:34 | DI.MRI.S_ITS ---
PROCEDURE: MR LUMBAR SPINE WO/W CON INDICATIONS: MEDULLOBLASTOMA TECHNIQUE: Noncontrast sagittal T1 spin echo and T2 fast echo, sagittal STIR, and T2 fast spin echo through the lumbar spine. In cases with scoliosis, additional coronal T2 fast spin echo may be performed. COMPARISON: [facility], , MR LUMBAR SPINE WO/W CON, 05/01/2021, 10:00. FINDINGS: Normal position and appearance of the conus. There is no abnormal intradural enhancement. No abnormal soft tissue enhancement. Postsurgical changes of anterior and posterior fixation at L5-S1. Anterolisthesis of L5 on S1 measures approximately 6 mm, similar to the prior study. Multilevel multifactorial degenerative changes are similar. At L5-S1, pseudo bulge due to the anterolisthesis mildly displaces the descending S1 nerve roots in both subarticular zones, without evidence of impingement. Foraminal components of the disc bulge and facet hypertrophy combine with neural foraminal distortion due to the listhesis to produce moderate bilateral neural foraminal stenosis. IMPRESSION: No evidence of drop metastasis or other finding suspicious for neoplasm. Dictated by: Herbert Starr M.D. on 04/25/2022 at 22:33 Approved by: Herbert Starr M.D. on 04/25/2022 at 22:39
--- NOTE | 2022-04-25 12:34 | DI.MRI.S_ITS ---
PROCEDURE: MR HEAD/BRAIN WO/W CON INDICATIONS: MEDULLOBLASTOMA TECHNIQUE: Noncontrast axial T1 spin echo, axial T2 fast spin echo, sagittal and axial FLAIR, coronal T2 fast spin echo, axial gradient echo, axial diffusion and ADC through the brain. After the administration of contrast, axial and coronal and sagittal 3D VIBE or T1 spin echo with fat saturation through the brain. COMPARISON: [facility]ed With [facility], CT, CT ANGIO HEAD AND NECK, 02/21/2022, 19:27. [facility] With [facility], MR, MR BRAIN WITH/WITHOUT CONTRAST, 01/18/2022, 17:28. FINDINGS: Postsurgical changes of left occipital craniectomy for resection of left cerebellar hemispheric mass, reportedly mental of blastoma. There is no suspicious focus of enhancement or low ADC signal within the resection cavity to suggest residual or recurrent t of increased enhancement at the margin of the resection cavity are most consistent with either granulation tissue or small venous branches. Increased FLAIR signal within the residual left cerebellar hemispheric parenchyma surrounding the resection cavity is likely reflective post radiation and postsurgical gliotic change. This does not appear to be customer assistance representative of vasogenic edema as the volume is diffuse not noticeably increased when compared with a postoperative CT angiogram of the head and neck 02/21/2022. No basilar cisternal effacement. Ventricular system normal in caliber. No significant mass effect or midline shift. The major intracranial vascular flow-related signal voids are maintained. No restricted diffusion to indicate recent ischemia. No unexpected intracranial susceptibility. 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 No suspicious enhancement or focus of low ADC signal to suggest residual recurrent disease. Continued follow-up recommended. Dictated by: Herbert Starr M.D. on 04/25/2022 at 22:42 Approved by: Herbert Starr M.D. on 04/25/2022 at 22:56
== END ==
PROVIDERS: PCP Nurse Practitioner Family; Referring Provider Psychiatry & Neurology Neurology; Visit Provider Psychiatry & Neurology Neurology
DX: C71.6 Malignant neoplasm of cerebellum (principal)
CPT/HCPCS: 70553; 72156; 72157; 72158

== ENCOUNTER 2022-06-20 09:07 | Emergency (ER) | payer OTHER, MEDICAID, SELFPAY ==
[2022-06-20] VITALS (13 sets, daily range): BP systolic 104–131; BP diastolic 67–88; PULSE 83–122; RESP 12–23; TEMP 35.8; O2SAT 80–100; BMI 30.2
--- NOTE | 2022-06-20 09:41 | PC.NURSE ---
tachycardic 120's, afebrile, dizziness and SOB when standing. unable to tolerate fluids. has been drinking small sips of water at home. urine is dark brown. pt denies CP. Has been having follow up CT scans since her chemo and radiation in march and completion from her brain tumor which was excised in January.
--- NOTE | 2022-06-20 09:56 | ED.NAVMDI ---
HPI - Nausea/Vomiting/Diarrhea General Chief complaint: Nausea/Vomiting/Diarrhea Stated complaint: n/ pee brown since mid april Time Seen by Provider: 06/20/22 09:51 History of Present Illness HPI Narrative: Patient is a 51-year-old female with a recent brain tumor found 03/13/2021, started whole brain radiation Dr. Zhang 04/21/2022 presents today with general decline. She says she feels dizzy every time she stands up or moves. She generally feels weak. When she tries to eat or drink something she vomits. She has lost about 40 lb. She has no abdominal pain. She has no chest pain or palpitations. She has generalized weakness. She states that she only urinates about once a day since extremely dark. It has been ongoing since about April. She states that yesterday with 1 of the worst days. Every shift time she stood up she got dizzy she fell. She actually has appointment with her primary care provider today but she did not feel like she was able to make it. Related Data Previous Rx's Medication Instructions Recorded famciclovir 500 mg tablet 500 mg PO Q8H shingles #21 tabs 08/19/19 gabapentin 300 mg capsule 300 mg PO Q8H shingles pain #40 08/19/19 caps potassium chloride 20 mEq 20 meq PO DAILY #7 tabs 02/12/21 tablet,extended release metoclopramide HCl 10 mg tablet 10 mg PO Q6H PRN nausea and 06/20/22 (Reglan) vomiting #20 tabs Allergies Allergy/AdvReac Type Severity Reaction Status Date / Time codeine Allergy Verified 11/07/21 11:45 Review of Systems Review of Systems Narrative: GENERAL: General fatigue and weight HEENT: Denies sinus pain, ear pain, sore throat, difficulty swallowing, neck pain RESPIRATORY: Denies dyspnea, cough, wheezing, hemoptysis, sputum. CARDIOVASCULAR: + dizziness GASTROINTESTINAL: See HPI : Denies dysuria, frequency, incontinence, hematuria, urinary retention, flank pain. MUSCULOSKELETAL: Denies weakness, joint pain, or bony pain SKIN: No rash, no erythema, no pruritus NEUROLOGIC: See HPI PSYCHIATRIC: No concerning psychosocial issues. 12 point review of systems is negative except for those stated above and HPI Patient History Medical History No chronic problems Pulmonary embolism Surgical History History of lumbar surgery S/P T&A (status post tonsillectomy and adenoidectomy) Status post appendectomy Status post cholecystectomy Status post tubal ligation Social History Smoking Status: Never smoker Smoking Status: Never smoker alcohol intake frequency: 0-2 drinks per day Substance Use Type: marijuana Exam Initial Vital Signs Initial Vital Signs: Vital Signs Temperature 96.4 F L 06/20/22 09:27 Pulse Rate 121 H 06/20/22 09:27 Respiratory Rate 20 06/20/22 09:27 Blood Pressure 113/77 06/20/22 09:27 Pulse Oximetry 99 06/20/22 09:27 Oxygen Delivery Method 06/20/22 09:27 GENERAL: Alert pleasant 51 no female appears to not feel HEENT: Head atraumatic,EOMI, pupils reactive, face symmetric, moist mucous membranes CARDIOVASCULAR: Regular rate and rhythm without murmurs, rubs or gallops. RESPIRATORY: Breath sounds equal bilaterally, no wheezes rales or rhonchi. ABDOMEN: Soft, nontender. Normoactive bowel sounds all 4 quadrants. No guarding or rebound. EXTREMITIES: Normal range of motion, no clubbing or edema. Neurovascularly intact NEUROLOGICAL: Alert and oriented x4.Normal gait and speech. 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 Course Orders Ordered: ED Orders 06/20/22 10:30 Blood Culture Stat 06/20/22 11:19 CT chest abd pel w con Stat 06/20/22 12:54 UA Complete [Urinalysis and Microscopic] Stat Discontinued Medications Sodium Chloride (Normal Saline 0.9%) 1,000 mls @ 1,000 mls/hr IV BOLUS ONE Stop: 06/20/22 10:50 Last Infusion: 06/20/22 12:15 Dose: 0 mls/hr Documented By: Admin: 06/20/22 11:16 Dose: 1,000 mls/hr Documented By: MONIKA Sodium Chloride (Normal Saline 0.9%) 1,000 mls @ 1,000 mls/hr IV BOLUS ONE Stop: 06/20/22 12:47 Last Infusion: 06/20/22 13:43 Dose: 0 mls/hr Documented By: Admin: 06/20/22 12:14 Dose: 1,000 mls/hr Documented By: BT Ondansetron HCl (Ondansetron 4 Mg/2 Ml Inj) 4 mg IV NOW ONE Stop: 06/20/22 09:45 Last Admin: 06/20/22 13:43 Dose: Not Given Documented By: BS Ondansetron HCl (Ondansetron 4 Mg/2 Ml Inj) 4 mg IV NOW ONE Stop: 06/20/22 09:53 Last Admin: 06/20/22 11:15 Dose: 4 mg Documented By: BT Pantoprazole Sodium (Pantoprazole 40 Mg Vial) 40 mg IV NOW ONE Stop: 06/20/22 11:13 Last Admin: 06/20/22 11:15 Dose: 40 mg Documented By: MONIKA Vital Signs Vital signs: Vital Signs - 8 hr 06/20/22 11:32 06/20/22 11:33 06/20/22 11:33 Pulse Rate 99 H 98 H Respiratory Rate 17 13 Blood Pressure 126/72 Pulse Oximetry 100 100 06/20/22 12:00 06/20/22 12:00 06/20/22 12:30 Pulse Rate 100 H Respiratory Rate 18 Blood Pressure 124/68 120/83 Pulse Oximetry 98 06/20/22 12:30 06/20/22 12:58 06/20/22 12:58 Pulse Rate 102 H 92 H Respiratory Rate 22 12 Blood Pressure 123/70 Pulse Oximetry 96 100 06/20/22 13:00 06/20/22 13:00 06/20/22 13:30 Pulse Rate 92 H Respiratory Rate 13 Blood Pressure 123/67 131/88 Pulse Oximetry 100 06/20/22 13:30 Pulse Rate 86 Respiratory Rate 23 Blood Pressure Pulse Oximetry 100 MDM - Nausea/Vomiting/Diarrhea Lab Data Result diagrams: 06/20/22 10:10 06/20/22 10:10 Labs: Lab Results 06/20/22 06/20/22 06/20/22 Range/Units 10:10 10:10 10:10 WBC 5.1 (4.5-11.0) X10^3/uL RBC 4.99 (4.0-5.2) X10^6/uL Hgb 15.0 (12.0-16.0) g/dL Hct 42.3 (36-46) % MCV 84.9 (80-100) fL MCH 30.1 (26-34) PG MCHC 35.5 (30-36) % RDW 14.9 H (11.6-14.8) % Plt Count 277 (150-400) X10^3/uL Neut % (Auto) 83.9 H (50-75) % Lymph % (Auto) 7.7 L (25-40) % Hart % (Auto) 7.7 (3-14) % Eos % (Auto) 0.5 L (2-4) % Baso % (Auto) 0.2 (0-2) % Neut # (Auto) 4200 (9364-3097) /uL Lymph # (Auto) 400 L (3281-0298) /uL Hart # (Auto) 400 (0-900) /uL Eos # (Auto) 0 (0-450) /uL Baso # (Auto) 0 (0-100) /uL PT 13.1 H (10.1-12.7) SECONDS INR 1.1 (0.9-1.3) APTT 32 (26-36) SECONDS Sodium 136 L (137-145) mmol/L Potassium 3.5 (3.4-5.1) mmol/L Chloride 99 (98-107) mmol/L Carbon Dioxide 24 (22-32) mmol/L BUN 14 (7-17) mg/dL Creatinine 0.72 (0.52-1.04) mg/dL Estimated GFR > 60 (>60) mL/min BUN/Creatinine Ratio 19.4 (6-22) Glucose 102 H (70-100) mg/dL Lactate (0.7-2.1) mmol/L Calcium 9.3 (8.4-10.2) mg/dL Total Bilirubin 1.8 H (0.2-1.3) mg/dL AST 33 (14-36) IU/L ALT 38 H (<35) IU/L Alkaline Phosphatase 58 (38-126) U/L Total Protein 7.5 (6.3-8.2) g/dL Albumin 4.4 (3.5-5.0) g/dL Globulin 3.1 (1.7-4.1) g/dL Albumin/Globulin Ratio 1.4 (1.0-2.8) Lipase 65 (23-300) U/L Procalcitonin (<0.5) ng/mL Urine Color Urine Appearance Urine pH (4.5-8.0) Ur Specific [place] (1.000-1.035) Urine Protein (Negative) Urine Glucose (UA) (Negative) g/dL Urine Ketones (NEGATIVE) Urine Occult Blood (Negative) Urine Nitrate (Negative) Urine Bilirubin (NEGATIVE) Urine Urobilinogen (0.2) E.U./dL Ur Leukocyte Esterase (NEGATIVE) Urine RBC (0-5/HPF) Urine WBC (0-5/HPF) Urine Bacteria (None) Ur Culture Indicated? 06/20/22 06/20/22 06/20/22 Range/Units 10:10 10:10 12:54 WBC (4.5-11.0) X10^3/uL RBC (4.0-5.2) X10^6/uL Hgb (12.0-16.0) g/dL Hct (36-46) % MCV (80-100) fL MCH (26-34) PG MCHC (30-36) % RDW (11.6-14.8) % Plt Count (150-400) X10^3/uL Neut % (Auto) (50-75) % Lymph % (Auto) (25-40) % Hart % (Auto) (3-14) % Eos % (Auto) (2-4) % Baso % (Auto) (0-2) % Neut # (Auto) (8644-4562) /uL Lymph # (Auto) (9756-9709) /uL Hart # (Auto) (0-900) /uL Eos # (Auto) (0-450) /uL Baso # (Auto) (0-100) /uL PT (10.1-12.7) SECONDS INR (0.9-1.3) APTT (26-36) SECONDS Sodium (137-145) mmol/L Potassium (3.4-5.1) mmol/L Chloride (98-107) mmol/L Carbon Dioxide (22-32) mmol/L BUN (7-17) mg/dL Creatinine (0.52-1.04) mg/dL Estimated GFR (>60) mL/min BUN/Creatinine Ratio (6-22) Glucose (70-100) mg/dL Lactate 1.4 (0.7-2.1) mmol/L Calcium (8.4-10.2) mg/dL Total Bilirubin (0.2-1.3) mg/dL AST (14-36) IU/L ALT (<35) IU/L Alkaline Phosphatase (38-126) U/L Total Protein (6.3-8.2) g/dL Albumin (3.5-5.0) g/dL Globulin (1.7-4.1) g/dL Albumin/Globulin Ratio (1.0-2.8) Lipase (23-300) U/L Procalcitonin 0.05 (<0.5) ng/mL Urine Color Yellow Urine Appearance Clear Urine pH 5.0 (4.5-8.0) Ur Specific [place] <=1.005 (1.000-1.035) Urine Protein Negative (Negative) Urine Glucose (UA) Negative (Negative) g/dL Urine Ketones 3+ H (NEGATIVE) Urine Occult Blood Trace-lysed (Negative) Urine Nitrate Negative (Negative) Urine Bilirubin Negative (NEGATIVE) Urine Urobilinogen 0.2 (0.2) E.U./dL Ur Leukocyte Esterase Negative (NEGATIVE) Urine RBC 5-10/hpf H (0-5/HPF) Urine WBC None seen (0-5/HPF) Urine Bacteria None seen (None) Ur Culture Indicated? Cult not indicated Imaging Data CT scan - head: Radiologist's Impression: Signed Patient: Flaca Gonzalez MR#: [id number] : 1970 Acct:[id number] Age/Sex: 51 / F Date of Service: 06/20/22 Loc: ED Accession Number: [id number] ?? Procedure: CT head/brain wo con Ordering Provider: Joyce Fuentes D.O. PROCEDURE:? CT HEAD/BRAIN WO CON ? INDICATIONS:? prior brain cancer difficulty walking ? TECHNIQUE:? Noncontrast 4.5 mm thick angled axial sections acquired from the foramen magnum to the vertex, with coronal and sagittal reformats.? For radiation dose reduction, the following was used:? automated exposure control, adjustment of mA and/or kV according to patient size.? ? COMPARISON:? [facility], MR, MR HEAD/BRAIN WO/W CON, 04/25/2022, 13:17.? [facility], CT, CT ANGIO HEAD AND NECK, 02/21/2022, 19:27.? [facility], CT, CT HEAD/BRAIN WO CON, 11/07/2021, 12:00. ? FINDINGS:? Image quality:? Excellent.? ? CSF spaces:? Basal cisterns are patent.? No extra-axial fluid collections.? Ventricles are normal in size and shape.? ? Brain:? Surgical changes reflecting left occipital craniotomy and resection of previous cerebellar mass is again noted.? There is a left cerebellar resection cavity with ex vacuo dilation of the adjacent 4th ventricle. ? Skull and face:? Calvarium demonstrates left parietal occipital craniotomy postsurgical change. ? Sinuses:? Visualized sinuses and mastoids are clear.? ? IMPRESSION:? ? Left cerebellar postsurgical resection changes appearing stable.? However, if concern persists, MRI is recommended for further evaluation. ? ? Dictated by: Cyndee Garibay M.D. on 06/20/2022 at 10:09 ? ? CT scan - chest: Radiologist's Impression: [place] [id number] CT Scan Report Signed Patient: Flaca Gonzalez MR#: [id number] : 1970 Acct:[id number] Age/Sex: 51 / F Date of Service: 06/20/22 Loc: ED Accession Number: [id number] ?? Procedure: CT chest abd pel w con Ordering Provider: Joyce Fuentes D.O. PROCEDURE:? CT CHEST ABD PEL W CON ? INDICATIONS:? dizzy known brain cancer vomiting ? TECHNIQUE:? After the administration of oral and intravenous contrast, axial sections acquired from the supraclavicular neck to the pubic symphysis.? Coronal and sagittal reformats were performed.? For radiation dose reduction, the following was used:? automated exposure control, adjustment of mA and/or kV according to patient size.? ? COMPARISON:[facility], CT, CT ANGIO HEAD AND NECK, 02/21/2022, 19:27.? [facility], MR, MR LUMBAR SPINE WO/W CON, 04/25/2022, 13:17.? [facility], MR, MR THORACIC SPINE WO/W CON, 04/25/2022, 13:17.? [facility], MR, CERVICAL SPINE WO/W CON, 04/25/2022, 13:17.? Outside Film, NM, PET NECK TO MID THIGH, 03/22/2021, 15:00.? Outside Film, CT, CT ABDOMEN PELVIS WITHOUT CONTRAST, 07/07/2020, 11:37. ? FINDINGS:? Image quality:? Excellent.? ? CHEST: Lower Neck: No enlarged lymph nodes.? Thyroid: Within normal limits. Axillae: No enlarged lymph nodes. Chest Wall:? Bilateral breast implants noted. ? Lungs and Airways: No consolidation or suspicious nodules. Pleura: No pneumothorax or pleural effusions.? ? Heart: Heart size is normal.? Minimal pericardial effusion. Thoracic Vessels: The aorta and pulmonary arteries demonstrate normal size.? Mediastinum and Liyah:? 1.4 cm low-attenuation mass in the anterior mediastinum/anterior aspect of the aortic pulmonary window, unchanged.? It did not demonstrate hypermetabolic activity on PET scan in 2020. Esophagus: No wall thickening. No hiatal hernia. ? ? ABDOMEN: Liver:? Hepatic steatosis is present. Gallbladder:? Removed.? ? Biliary ducts:? Unremarkable.? ? Pancreas:? Unremarkable.? ? Spleen:? Unremarkable.? ? Adrenal Glands:? Unremarkable.? ? Kidneys and Ureters:? Nonobstructing right renal calculus. ? Stomach and Bowel:? Stomach, small bowel loops, and colon are unremarkable.? Peritoneum:? No abnormal intraperitoneal fluid.? No free air.? ? Ventral Wall: ? No hernia.? Abdominal Nodes:? No retroperitoneal or mesenteric adenopathy by size criteria.? Vessels:? Aorta and inferior vena cava are normal in size.? ? PELVIS: Pelvic Organs:? Exophytic focus is present along the anterior aspect of the uterus suggestive of fibroids. Bladder:? Unremarkable.? ? Pelvic Nodes: No enlarged lymph nodes.? Miscellaneous: No inguinal hernias are seen. ? ? ? Bones:? Lower lumbar fusion is present.? There is lucency within the posterior right 11th rib.? A very faint area of lucency was identified on PET scan of 03/22/2021.? However, it is more prominent when compared to prior exam. ? IMPRESSION:? ? 1.? Low-attenuation focus within the mediastinum stable and without previous hypermetabolic activity. ? 2.? More prominent lucency within the posterior right 11th rib compared to 2020. Focus of metastatic disease cannot be definitively excluded.? Further evaluation with bone scan may be helpful for additional evaluation. ? Dictated by: Cyndee Garibay M.D. on 06/20/2022 at 11:44 ? ? Approved by: Cyndee Garibay M.D. on 06/20/2022 at 11:50 ? ECG Data Interpretation: Sinus tachycardia rate 106 OR interval 142 QRS [address] changes MDM Narrative Medical decision making narrative: The patient has been chronically dizzy. She was getting a little bit worse mode of. His today blood work is overall reassuring she is not terribly dehydrated. She does have some hematuria but no sign of infection. Head CT shows to be stable no metastatic disease is found on chest abdomen pelvis. Patient is tolerating oral fluids she is given 2 L of IV fluid here in the ED. She has Zofran at home but requesting another nausea medication. She has follow-up with Oncology. She is not found to have any sort of other infection. At this time there is no need for admission. Discharge Plan Departure Patient Disposition: Home Clinical Impression: Dehydration, Hematuria Instructions: DI for Hematuria, DI for Dizziness-Nonvertigo Activity Restrictions/Additional Instructions: *You have been diagnosed with dizziness, dehydration, hematuria (blood in urine) *What to do: At this time continue to stay hydrated as best as possible. You have a little bit of blood in your urine which is probably causing your dark urine. Her blood work is overall reassuring. There is a questionable off on 11th right rib is which may or may not be metastatic disease. Follow-up with your oncology *Continue to take medications as directed Reglan 10 mg every 6 hours if needed for nausea vomiting --> SENT TO [facility] *Follow up with your primary care provider in 2-3 days or call [phone] *Return to ER if you should have a increasing vomiting dizziness falling chest or any new, worsening or concerning symptoms Prescriptions: New metoclopramide HCl [Reglan] 10 mg tablet 10 mg PO Q6H PRN (Reason: nausea and vomiting) Qty: 20 0RF No Action gabapentin 300 mg capsule 300 mg PO Q8H Qty: 40 0RF Rx Instructions: increase to 2 caps h.s. prn famciclovir 500 mg tablet 500 mg PO Q8H Qty: 21 0RF potassium chloride 20 mEq tablet extended release 20 meq PO DAILY Qty: 7 0RF Referrals: Kayleen Mathur FNP-[facility] [Primary Care Provider] - Visit Report Forms: Patient Portal/API
--- NOTE | 2022-06-20 09:57 | DI.CT.S_ITS ---
PROCEDURE: CT HEAD/BRAIN WO CON INDICATIONS: prior brain cancer difficulty walking TECHNIQUE: Noncontrast 4.5 mm thick angled axial sections acquired from the foramen magnum to the vertex, with coronal and sagittal reformats. For radiation dose reduction, the following was used: automated exposure control, adjustment of mA and/or kV according to patient size. COMPARISON: [facility], MR, MR HEAD/BRAIN WO/W CON, 04/25/2022, 13:17. [facility], CT, CT ANGIO HEAD AND NECK, 02/21/2022, 19:27. [facility], CT, CT HEAD/BRAIN WO CON, 11/07/2021, 12:00. FINDINGS: Image quality: Excellent. CSF spaces: Basal cisterns are patent. No extra-axial fluid collections. Ventricles are normal in size and shape. Brain: Surgical changes reflecting left occipital craniotomy and resection of previous cerebellar mass is again noted. There is a left cerebellar resection cavity with ex vacuo dilation of the adjacent 4th ventricle. Skull and face: Calvarium demonstrates left parietal occipital craniotomy postsurgical change. Sinuses: Visualized sinuses and mastoids are clear. IMPRESSION: Left cerebellar postsurgical resection changes appearing stable. However, if concern persists, MRI is recommended for further evaluation. Dictated by: Cyndee Garibay M.D. on 06/20/2022 at 10:09 Approved by: Cyndee Garibay M.D. on 06/20/2022 at 10:12
[2022-06-20 10:40] LABS: Add Manual Diff / Slide Review NO; Basophils Absolute Auto 0 /uL (0-100); Basophils Percent Auto 0.2 % (0-2); Eosinophils Absolute Auto 0 /uL (0-450); Eosinophils Percent Auto 0.5 % (2-4); Hematocrit 42.3 % (36-46); Lymphocytes Absolute Auto 400 /uL (1100-4500); Lymphocytes Percent Auto 7.7 % (25-40); Mean Corpuscular HGB Conc 35.5 % (30-36); Mean Corpuscular Hemoglobin 30.1 PG (26-34); Mean Corpuscular Volume 84.9 fL (80-100); Monocytes Absolute Auto 400 /uL (0-900); Monocytes Percent Auto 7.7 % (3-14); Neutrophils Absolute Auto 4200 /uL (1500-7000); Neutrophils Percent Auto 83.9 % (50-75); Platelet Count 277 X10^3/uL (150-400); Red Blood Cell Count 4.99 X10^6/uL (4.0-5.2); Red Cell Distribution Width 14.9 % (11.6-14.8); White Blood Cell Count 5.1 X10^3/uL (4.5-11.0)
[2022-06-20 10:48] LABS: INR 1.1 (0.9-1.3); Prothrombin Time 13.1 SECONDS (10.1-12.7)
[2022-06-20 10:50] LABS: PTT Partial Thromboplastin Tim 32 SECONDS (26-36)
[2022-06-20 10:55] LABS: Alanine Aminotransferase 38 IU/L (<35); Albumin 4.4 g/dL (3.5-5.0); Albumin Globulin Ratio 1.4 (1.0-2.8); Alkaline Phosphatase 58 U/L (38-126); Aspartate Aminotransferase 33 IU/L (14-36); BUN Creatinine Ratio 19.4 (6-22); Bilirubin Total 1.8 mg/dL (0.2-1.3); Blood Urea Nitrogen 14 mg/dL (7-17); Calcium 9.3 mg/dL (8.4-10.2); Carbon Dioxide 24 mmol/L (22-32); Chloride 99 mmol/L (98-107); Estimated Glomerular Filt Rate > 60 mL/min (>60); Globulin 3.1 g/dL (1.7-4.1); Glucose 102 mg/dL (70-100); HEMOLYSIS 18 (0-50); Lactate (Lactic Acid) 1.4 mmol/L (0.7-2.1); Lipase 65 U/L (23-300); Potassium 3.5 mmol/L (3.4-5.1); Sodium 136 mmol/L (137-145); Total Protein 7.5 g/dL (6.3-8.2)
[2022-06-20 11:09] LABS: Procalcitonin 0.05 ng/mL (<0.5)
[2022-06-20] MEDS: PANTOPRAZOLE 40 MG VIAL IV (11:15)
[2022-06-20] MEDS: ONDANSETRON 4 MG/2 ML INJ IV (11:15)
[2022-06-20] MEDS: SODIUM CHLORIDE 0.9% 1,000 ML 1000 ML IV ×2 (11:16→12:14)
--- NOTE | 2022-06-20 11:19 | DI.CT.S_ITS ---
PROCEDURE: CT CHEST ABD PEL W CON INDICATIONS: dizzy known brain cancer vomiting TECHNIQUE: After the administration of oral and intravenous contrast, axial sections acquired from the supraclavicular neck to the pubic symphysis. Coronal and sagittal reformats were performed. For radiation dose reduction, the following was used: automated exposure control, adjustment of mA and/or kV according to patient size. COMPARISON:[facility], CT, CT ANGIO HEAD AND NECK, 02/21/2022, 19:27. [facility], MR, MR LUMBAR SPINE WO/W CON, 04/25/2022, 13:17. [facility], MR, MR THORACIC SPINE WO/W CON, 04/25/2022, 13:17. [facility], MR, MR CERVICAL SPINE WO/W CON, 04/25/2022, 13:17. Outside Film, NM, PET NECK TO MID THIGH, 03/22/2021, 15:00. Outside Film, CT, CT ABDOMEN PELVIS WITHOUT CONTRAST, 07/07/2020, 11:37. FINDINGS: Image quality: Excellent. CHEST: Lower Neck: No enlarged lymph nodes. Thyroid: Within normal limits. Axillae: No enlarged lymph nodes. Chest Wall: Bilateral breast implants noted. Lungs and Airways: No consolidation or suspicious nodules. Pleura: No pneumothorax or pleural effusions. Heart: Heart size is normal. Minimal pericardial effusion. Thoracic Vessels: The aorta and pulmonary arteries demonstrate normal size. Mediastinum and Liyah: 1.4 cm low-attenuation mass in the anterior mediastinum/anterior aspect of the aortic pulmonary window, unchanged. It did not demonstrate hypermetabolic activity on PET scan in 2020. Esophagus: No wall thickening. No hiatal hernia. ABDOMEN: Liver: Hepatic steatosis is present. Gallbladder: Removed. Biliary ducts: Unremarkable. Pancreas: Unremarkable. Spleen: Unremarkable. Adrenal Glands: Unremarkable. Kidneys and Ureters: Nonobstructing right renal calculus. Stomach and Bowel: Stomach, small bowel loops, and colon are unremarkable. Peritoneum: No abnormal intraperitoneal fluid. No free air. Ventral Wall: No hernia. Abdominal Nodes: No retroperitoneal or mesenteric adenopathy by size criteria. Vessels: Aorta and inferior vena cava are normal in size. PELVIS: Pelvic Organs: Exophytic focus is present along the anterior aspect of the uterus suggestive of fibroids. Bladder: Unremarkable. Pelvic Nodes: No enlarged lymph nodes. Miscellaneous: No inguinal hernias are seen. Bones: Lower lumbar fusion is present. There is lucency within the posterior right 11th rib. A very faint area of lucency was identified on PET scan of 03/22/2021. However, it is more prominent when compared to prior exam. IMPRESSION: 1. Low-attenuation focus within the mediastinum stable and without previous hypermetabolic activity. 2. More prominent lucency within the posterior right 11th rib compared to 2020. Focus of metastatic disease cannot be definitively excluded. Further evaluation with bone scan may be helpful for additional evaluation. Dictated by: Cyndee Garibay M.D. on 06/20/2022 at 11:44 Approved by: Cyndee Garibay M.D. on 06/20/2022 at 11:50
[2022-06-20 13:09] LABS: Appearance Urine UA CLEAR; Bilirubin Urine UA NEGATIVE (NEGATIVE); Color Urine UA YELLOW; Glucose Urine UA NEGATIVE (Negative); Ketones Urine UA 3+ (NEGATIVE); Leukocyte Esterase Urine UA NEGATIVE (NEGATIVE); Nitrite Urine UA NEGATIVE (Negative); Occult Blood Urine UA TRACE-LYSED (Negative); Protein Urine UA NEGATIVE (Negative); Specific Gravity Urine UA <=1.005 (1.000-1.035); Urobilinogen Urine UA 0.2 E.U./dL (0.2)
[2022-06-20 13:15] LABS: Bacteria Urine None Seen; Culture Indicated Urine Cult Not Indicated; RBC Urine 5-10/HPF (0-5/HPF); WBC Urine None Seen (0-5/HPF)
== END 2022-06-20 13:46 | disposition home or self-care (01) ==
PROVIDERS: Emergency Provider Emergency Medicine; PCP Nurse Practitioner Family
DX: E86.0 Dehydration (principal); R31.9 Hematuria, unspecified; R42 Dizziness and giddiness; C71.9 Malignant neoplasm of brain, unspecified
CPT/HCPCS: 36415; 70450; 71260; 74177; 80053; 81001; 83605; 83690; 84145; 85025; 85610; 85730; 87040; 93005; 96361; 96374; 96375; 99284; C9113; J2405

== ENCOUNTER 2022-07-06 10:30 | Outpatient (RCR) | payer OTHER, MEDICAID, SELFPAY ==
[2022-06-29 12:00] VITALS: BP 122/78
--- NOTE | 2022-06-29 18:14 | PT.OIE ---
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) Difficulty in walking, not elsewhere classified (06/29/22) Past Medical History (Last Reviewed 03/13/21 @ 16:10 by Audra Lei DO) No chronic problems Pulmonary embolism Past Surgical History (Last Reviewed 03/13/21 @ 16:10 by Audra Lei DO) History of lumbar surgery S/P T&A (status post tonsillectomy and adenoidectomy) Status post appendectomy Status post cholecystectomy Status post tubal ligation Visit Care Team Role Provider Type MARGE Soto Attending Provider Non-Staff Primary Care Provider Referring Provider Specialty: Medical Address: [address] [place] [address], [id number] Email: Physical Therapy Initial Evaluation PT-OP-A Visit Information Start: 06/28/22 18:11 Freq: Status: Active Protocol: Document 06/29/22 12:00 AW (Rec: 06/28/22 18:24 AW [id number]) Out-Patient Physical Therapy Visit Information Visit Information Visit Type Initial Evaluation Visit Start Time 11:15 Visit Stop Time 12:00 Total Visit Minutes 45 Visit Number 1/8 Evaluation Information Evaluation Date 06/29/22 PT-OP-B Current Condition Start: 06/28/22 18:11 Freq: Status: Active Protocol: Document 06/29/22 12:00 AW (Rec: 06/28/22 18:24 AW [id number]) Current Condition History of Current Condition Onset Date January 2022 Current Complaints dizziness, impaired balance, headaches History of Current Condition 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 She had surgery at [facility] with no concerning symptoms afterward. She had home health therapy for a month and did well. No outpatient therapy after that. She had another mass identified this year and underwent another tumor resection on January 26, [address] [facility]. She also had a TIP STRETCHER shunt placed. Adjuvant radiation therapy finished . Flaca followed up with oncology in May. All scans are clear. Needs another MRI and will continue to follow up with oncology. Dizziness began a week after second surgery. She went to ENT who did not suspect BPPV or neuritis. She was treated with zofran which she still takes. She is having trouble eating due to nausea and dizziness. Having frontal headaches. Noticed her balance was worse after second surgery and it has gotten worse over time. Now falling about once per month but states she has not hit her head. Pt likes to keep her left eye closed which she feels improves her dizziness. Uses a hurrycane ~75% of the time when not at home where she can furniture cruise. Her activity level has suffered. She lives in an RV with her spouse, 11yo and 13 yo. She gets into the RV by holding the grab bar with assist from someone helping from behind. She has fallen while getting in to the RV. Her 20 yo daughter lives in . Spouse works long hours. Pt is home schooling both children. Flaca has history of lumbar surgery in 2019 followed by a revision. Her wound healed poorly and she had to have an I&D. Treatment Goals Patient/Caregiver Goals Get rid of dizziness. Increase activity tolerance. Get back to driving. I want to feel like I can get back to being a mom. Prior Functional Status Baseline Function- ADL's Independent Baseline Function- Mobility Independent Baseline Function- Gait Independent, no device Baseline Function- Work/School Able to effectively do home schooling with her children Current Functional Impairments (Reported) Functional Limitations- ADL's Needs SBA for showers. Has to dress sitting down due to poor balance Functional Limitations- Mobility/Gait Needs SBQC or hurrycane for walking limited distances. Functional Limitations- Work/School Has not been working since pandemic. Hopes to continue home schooling her kids. PT-OP-C Subjective Start: 06/28/22 18:11 Freq: Status: Active Protocol: Document 06/29/22 12:00 AW (Rec: 06/29/22 17:41 AW [id number]) Patient Questionnaires ABC- Activity Specific Balance Confidence Scale ABC Score 6 ABC Functional Impairment 80 to <100% Impaired (Score 1- 20) Dizziness Handicap Inventory DHI Score 92 DHI Functional Impairment 80 to 99% Impaired (Score 80- 99) OP-PT Pain Assessment Pain Assessment Grid Paper Pain Assessment Grid Completed Yes: Mid back 4/10, low back 3 /10. Scanned to EMR PT-OP-D Balance Start: 06/28/22 18:11 Freq: Status: Active Protocol: Document 06/29/22 12:00 AW (Rec: 06/29/22 17:41 AW [id number]) OP-PT Balance Assessment Sitting Balance Static Sitting Balance Ability Good Dynamic Sitting Balance Ability Fair Standing Balance Static Standing Balance Ability Poor Dynamic Standing Balance Ability Poor Device Used SBQC Mishra Balance Assessment Evaluation Sitting to Standing Ability Several Tries w/Hands Unsupported Stance Several Tries, 30 seconds Sitting Unsupported, Feet on Floor Safely- 2 minutes Standing to Sitting Ability Independent, Uncontrolled Transfer Ability Supervision, Verbal Cues Unsupported Stance- Eyes Closed Falls Without Assistance Unsupported Stance- Eyes Open Assist to attain, 15 secs Reaching Forward Standing Safely, 2 inches Pick- Up Object From Floor Requires Supervision Look Behind Shoulder - Standing Assist to Prevent Fall Turning 360 Degrees Requires Assistance Unsupported Stance, Alternating Feet on Assist to Prevent Fall Stair Unsupported Tandem Stance Balance Lost- Step/Stand Unilateral Leg Stance Unable,assist to not fall Total Score Mishra Total Score (out of 56 points) 14 Mishra Impairment Rating 60 to 79% Impaired (Score 12- 22) Brownlee Fall Scale Copyright Permission PT-OP-G Mobility & Gait Start: 06/28/22 18:11 Freq: Status: Active Protocol: Document 06/29/22 12:00 AW (Rec: 06/29/22 17:41 AW [id number]) OP Mobility Evaluation Bed Mobility Supine to and from Sit Slow. Dizziness reported OP Gait Assessment Gait Gait Assistance Required: Contact Guard Assist Distance (Feet) 100 Assistive Devices Assistive Device Tripod Cane/Hurry Cane,Small Based Quad Cane Orthotic/Prosthetic Devices or Brace: No Gait Deviations General Gait Pattern Ataxic,Decreased Stride Length ,Decreased Feet Clearance, Flexed Trunk,Lateral Trunk Lean,Wide Based Gait Comments Gait Comments Pt ambulates with hurry cane in right hand, demonstrates wide SERENA and high guard position left UE. She tends to keep her left eye shut. She frequently reaches for the wall or needs SAFETY COUNCIL DIRECTOR at all times . Pt reports increased dizziness with gait. PT-OP-H Neuro Start: 06/28/22 18:11 Freq: Status: Active Protocol: Document 06/29/22 12:00 AW (Rec: 06/29/22 17:41 AW [id number]) Sensation Evaluation Gross Sensation Gross Sensation Right LE Impaired Comments Summary Comments Numb/tingly plantar right foot and digits 3-5 Coordination Evaluation Upper Extremity Tests Left Finger to Nose Test Moderate Impairment Finger to Therapist's Finger Test Moderate Impairment Alternate Nose to Finger Test Moderate Impairment Finger Opposition Test Moderate Impairment Pronation/Supination Test Moderate Impairment Comments Coordination Comments No significant impairment with rapid alternating foot taps. Vital Signs Blood Pressure Sitting Blood Pressure (90/60-120/80 mmHg) 122/78 H Blood Pressure Source Manual Cuff,Right Upper Extremity PT-OP-M Strength Start: 06/28/22 18:11 Freq: Status: Active Protocol: Document 06/29/22 12:00 AW (Rec: 06/29/22 17:48 AW [id number]) Shoulder Strength Shoulder Manual Muscle Testing bilat Flexion 5 Normal Extension 5 Normal Abduction (C5) 4+ Good+ External Rotation 4+ Good+ Internal Rotation 5 Normal Elbow/Forearm Strength Elbow and Forearm Manual Muscle Testing bilat Flexion (C6) 5 Normal Extension (C7) 4+ Good+ Hip Strength Hip Manual Muscle Testing bilat Flexion (L2) 4 Good Extension (S1) 4+ Good+ Abduction 4+ Good+ External Rotation 4+ Good+ Internal Rotation 4+ Good+ Knee Strength Knee Manual Muscle Testing bilat Flexion (S2) 4+ Good+ Extension (L3) 4+ Good+ PT-OP-O Vestibular Start: 06/28/22 18:11 Freq: Status: Active Protocol: Document 06/29/22 12:00 AW (Rec: 06/29/22 17:48 AW [id number]) Vestibular Assessment Screening Tests Vestibular Artery Screen Negative Visual Testing Smooth Pursuits Horizontal Conjugate but with definite lag Smooth Pursuits Vertical Conjugate but with definite lag Saccades Horizontal Demonstrates lag Gaze Evoked Nystagmus With Fixation Negative Positional Testing Kimberly-Hallpike Positive Right,Upbeating,< 60 Seconds Supine to Sit Positive Sit to Supine Positive PT-OP-Q Treatments Start: 06/28/22 18:11 Freq: Status: Active Protocol: Document 06/29/22 12:00 AW (Rec: 06/29/22 17:52 AW [id number]) Canalithic Repositioning BPPV Treatment Angelic Affected Canal(s) posterior Reps 2 Comments Right torsional upbeating noted in R Kimberly-Hallpike. Pt responded well to Angelic x 2. Plan to recheck next visit. PT-OP-T Assessment and Plan Start: 06/28/22 18:11 Freq: Status: Active Protocol: Document 06/29/22 12:00 AW (Rec: 06/29/22 18:14 AW [id number]) Physical Therapy Assessment Rehab Potential Rehabilitation Potential Good Evaluation Complexity Number of Personal Factors/Comorbidities 3 or More Number of Body Systems Impaired 4 or More Clinical Presentation at Evaluation Unstable Impairments Impairments Balance,Gait,Sensation, Strength,Transfers,Vestibular, Visual Motor Other Concerns Fall Risk high per Mishra score of 14 Barriers to Rehabilitation Pt has depression and anxiety but is highly motivated to improve dizziness and 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 Goals Four Impairment gait Short Term Goal (STG) Pt will complete 6 Minute Walk Test with LRAD SBA. STG Duration 6 weeks -08/10/22 Director Family Goal (LTG) Pt will improve 6MWT distance 10% over performance on short term goal. LTG Duration 12 weeks - 09/21/22 Three Impairment self-efficacy Halfway Goal (LTG) Pt will score 50% or greater on ABC scale as a measure of improved self-efficacy. Score at initial eval is 6% LTG Duration 12 weeks - 09/21/22 Two Impairment balance Short Term Goal (STG) Pt will improve Mishra Balance Scale score from 14/56 to 30/ 56 or greater as a measure of reduced falls risk. STG Duration 6 weeks -08/10/22 Halfway Goal (LTG) Pt will improve Mishra Balance Scale score to 45/56 or greater as a measure of reduced falls risk and safe community ambulation. LTG Duration 12 weeks - 09/21/22 One Impairment BPPV Halfway Goal (LTG) Pt will report no dizziness with positional changes. LTG Duration 12 weeks - 09/21/22 Assessment Summary Assessment Flaca is a 51 yo woman with a complicated medical history including two brain surgeries for medulloblastoma, radiation therapy, lumbar surgery with revision and infection. She attends outpatient physical therapy with complaints of dizziness and balance impairment which have worsened dramatically since her second brain tumor resection in January of this year. She presents with impaired visual tracking, positive right [place] Pickett-[place], impaired left upper extremity coordination, and balance impairment evidenced by Mishra score of 14/56. She responded positively to Angelic maneuver which will be revisited in future visits. It is unclear to what degree her balance impairment is related to possible BPPV versus a central nervous system concern. Flaca should benefit from skilled physical therapy to address dizziness, balance, and gait for improved participation as an active parent. Physical Therapy Plan Frequency and Duration Frequency of Treatment 1-2x/week Duration of treatment (weeks) 12 Plan of Care Start Date 06/29/22 Plan of Care End Date 09/21/22 Therapeutic Interventions Therapeutic Interventions Balance Training,Gait Training ,Home Exercise Program, Neuromuscular Re-education, Self-Care/Home Management, Therapeutic Activities, Therapeutic Exercises, Vestibular Rehabilitation Modalities Cold Pack/Ice Massage,Hot Packs Next Visit Focus/Plan Next Note Type Treatment Note
--- NOTE | 2022-06-29 18:15 | PT.OPPOC ---
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) Difficulty in walking, not elsewhere classified (06/29/22) Visit Care Team Role Provider Type MARGE Soto Attending Provider Non-Staff Primary Care Provider Referring Provider Specialty: Medical Address: [address] [place] [address], [place], [address] Email: Plan Of Care PT-OP-T Assessment and Plan Start: 06/28/22 18:11 Freq: Status: Active Protocol: Document 06/29/22 12:00 AW (Rec: 06/29/22 18:14 AW [id number]) Physical Therapy Assessment Rehab Potential Rehabilitation Potential Good Evaluation Complexity Number of Personal Factors/Comorbidities 3 or More Number of Body Systems Impaired 4 or More Clinical Presentation at Evaluation Unstable Impairments Impairments Balance,Gait,Sensation, Strength,Transfers,Vestibular, Visual Motor Other Concerns Fall Risk high per Mishra score of 14 Barriers to Rehabilitation Pt has depression and anxiety but is highly motivated to improve dizziness and 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 Goals Four Impairment gait Short Term Goal (STG) Pt will complete 6 Minute Walk Test with LRAD SBA. STG Duration 6 weeks -08/10/22 Assisted Goal (LTG) Pt will improve 6MWT distance 10% over performance on short term goal. LTG Duration 12 weeks - 09/21/22 Three Impairment self-efficacy Assisted Goal (LTG) Pt will score 50% or greater on ABC scale as a measure of improved self-efficacy. Score at initial eval is 6% LTG Duration 12 weeks - 09/21/22 Two Impairment balance Short Term Goal (STG) Pt will improve Mishra Balance Scale score from 14/56 to 30/ 56 or greater as a measure of reduced falls risk. STG Duration 6 weeks -08/10/22 Assisted Goal (LTG) Pt will improve Mishra Balance Scale score to 45/56 or greater as a measure of reduced falls risk and safe community ambulation. LTG Duration 12 weeks - 09/21/22 One Impairment BPPV Assisted Goal (LTG) Pt will report no dizziness with positional changes. LTG Duration 12 weeks - 09/21/22 Assessment Summary Assessment Flaca is a 51 yo woman with a complicated medical history including two brain surgeries for medulloblastoma, radiation therapy, lumbar surgery with revision and infection. She attends outpatient physical therapy with complaints of dizziness and balance impairment which have worsened dramatically since her second brain tumor resection in January of this year. She presents with impaired visual tracking, positive right [place] Pickett-[place], impaired left upper extremity coordination, and balance impairment evidenced by Mishra score of 14/56. She responded positively to Angelic maneuver which will be revisited in future visits. It is unclear to what degree her balance impairment is related to possible BPPV versus a central nervous system concern. Flaca should benefit from skilled physical therapy to address dizziness, balance, and gait for improved participation as an active parent. Physical Therapy Plan Frequency and Duration Frequency of Treatment 1-2x/week Duration of treatment (weeks) 12 Plan of Care Start Date 06/29/22 Plan of Care End Date 09/21/22 Therapeutic Interventions Therapeutic Interventions Balance Training,Gait Training ,Home Exercise Program, Neuromuscular Re-education, Self-Care/Home Management, Therapeutic Activities, Therapeutic Exercises, Vestibular Rehabilitation Modalities Cold Pack/Ice Massage,Hot Packs Next Visit Focus/Plan Next Note Type Treatment Note Plan of Care Dates Plan of Care Start Date 06/29/22 Plan of Care End Date 09/21/22 Electronically Signed by: Libby Avila, PT 06/29/22 [id number] If you are in agreement with this Plan of Care, please return a signed and dated copy. I have reviewed this Plan of Care and certify that the skilled therapy services above are required to meet the patient?s needs. Physician Signature Date Printed Name and Credentials Clinical Instructor Signature Printed Name and Credentials
--- NOTE | 2022-07-06 12:33 | PT.OTN ---
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) Difficulty in walking, not elsewhere classified (07/06/22) Physical Therapy Treatment Note PT-OP-A Visit Information Start: 06/28/22 18:11 Freq: Status: Active Protocol: Document 07/06/22 10:34 AW (Rec: 07/06/22 12:33 AW [id number]) Out-Patient Physical Therapy Visit Information Visit Information Visit Type Treatment Note Visit Start Time 10:50 Visit Stop Time 11:15 Total Visit Minutes 25 Visit Number 2/ Evaluation Information Evaluation Date 06/29/22 PT-OP-B Current Condition Start: 06/28/22 18:11 Freq: Status: Active Protocol: Document 06/29/22 12:00 AW (Rec: 06/28/22 18:24 AW [id number]) Current Condition History of Current Condition Onset Date January 2022 Current Complaints dizziness, impaired balance, headaches History of Current Condition 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 She had surgery at [facility] with no concerning symptoms afterward. She had home health therapy for a month and did well. No outpatient therapy after that. She had another mass identified this year and underwent another tumor resection on January 26, 2022 at [facility]. She also had a COYOTE HUNTER shunt placed. Adjuvant radiation therapy finished . Flaca followed up with oncology in May. All scans are clear. Needs another MRI and will continue to follow up with oncology. Dizziness began a week after second surgery. She went to ENT who did not suspect BPPV or neuritis. She was treated with zofran which she still takes. She is having trouble eating due to nausea and dizziness. Having frontal headaches. Noticed her balance was worse after second surgery and it has gotten worse over time. Now falling about once per month but states she has not hit her head. Pt likes to keep her left eye closed which she feels improves her dizziness. Uses a hurrycane ~75% of the time when not at home where she can furniture cruise. Her activity level has suffered. She lives in an RV with her spouse, 11yo and 13 yo. She gets into the RV by holding the grab bar with assist from someone helping from behind. She has fallen while getting in to the RV. Her 20 yo daughter lives in . Spouse works long hours. Pt is home schooling both children. Flaca has history of lumbar surgery in 2019 followed by a revision. Her wound healed poorly and she had to have an I&D. Treatment Goals Patient/Caregiver Goals Get rid of dizziness. Increase activity tolerance. Get back to driving. I want to feel like I can get back to being a mom. Prior Functional Status Baseline Function- ADL's Independent Baseline Function- Mobility Independent Baseline Function- Gait Independent, no device Baseline Function- Work/School Able to effectively do home schooling with her children Current Functional Impairments (Reported) Functional Limitations- ADL's Needs SBA for showers. Has to dress sitting down due to poor balance Functional Limitations- Mobility/Gait Needs SBQC or hurrycane for walking limited distances. Functional Limitations- Work/School Has not been working since pandemic. Hopes to continue home schooling her kids. PT-OP-C Subjective Start: 06/28/22 18:11 Freq: Status: Active Protocol: Document 07/06/22 10:34 AW (Rec: 07/06/22 12:33 AW [id number]) OP-PT Subjective Patient Comments Patient Comments [place] worn out after last appointment. Can't keep anything down due to nausea and dizziness so isn't able to maintain adequate nutrition or hydration. Taking sublingual zofran since yesterday which seems to be helping. PT-OP-D Balance Start: 06/28/22 18:11 Freq: Status: Active Protocol: Document 06/29/22 12:00 AW (Rec: 06/29/22 17:41 AW [id number]) OP-PT Balance Assessment Sitting Balance Static Sitting Balance Ability Good Dynamic Sitting Balance Ability Fair Standing Balance Static Standing Balance Ability Poor Dynamic Standing Balance Ability Poor Device Used SBQC Mishra Balance Assessment Evaluation Sitting to Standing Ability Several Tries w/Hands Unsupported Stance Several Tries, 30 seconds Sitting Unsupported, Feet on Floor Safely- 2 minutes Standing to Sitting Ability Independent, Uncontrolled Transfer Ability Supervision, Verbal Cues Unsupported Stance- Eyes Closed Falls Without Assistance Unsupported Stance- Eyes Open Assist to attain, 15 secs Reaching Forward Standing Safely, 2 inches Pick- Up Object From Floor Requires Supervision Look Behind Shoulder - Standing Assist to Prevent Fall Turning 360 Degrees Requires Assistance Unsupported Stance, Alternating Feet on Assist to Prevent Fall Stair Unsupported Tandem Stance Balance Lost- Step/Stand Unilateral Leg Stance Unable,assist to not fall Total Score Mishra Total Score (out of 56 points) 14 Mishra Impairment Rating 60 to 79% Impaired (Score 12- 22) Brownlee Fall Scale Copyright Permission PT-OP-G Mobility & Gait Start: 06/28/22 18:11 Freq: Status: Active Protocol: Document 06/29/22 12:00 AW (Rec: 06/29/22 17:41 AW [id number]) OP Mobility Evaluation Bed Mobility Supine to and from Sit Slow. Dizziness reported OP Gait Assessment Gait Gait Assistance Required: Contact Guard Assist Distance (Feet) 100 Assistive Devices Assistive Device Tripod Cane/Hurry Cane,Small Based Quad Cane Orthotic/Prosthetic Devices or Brace: No Gait Deviations General Gait Pattern Ataxic,Decreased Stride Length ,Decreased Feet Clearance, Flexed Trunk,Lateral Trunk Lean,Wide Based Gait Comments Gait Comments Pt ambulates with hurry cane in right hand, demonstrates wide SERENA and high guard position left UE. She tends to keep her left eye shut. She frequently reaches for the wall or needs DISCHARGE RN at all times . Pt reports increased dizziness with gait. PT-OP-H Neuro Start: 06/28/22 18:11 Freq: Status: Active Protocol: Document 06/29/22 12:00 AW (Rec: 06/29/22 17:41 AW [id number]) Sensation Evaluation Gross Sensation Gross Sensation Right LE Impaired Comments Summary Comments Numb/tingly plantar right foot and digits 3-5 Coordination Evaluation Upper Extremity Tests Left Finger to Nose Test Moderate Impairment Finger to Therapist's Finger Test Moderate Impairment Alternate Nose to Finger Test Moderate Impairment Finger Opposition Test Moderate Impairment Pronation/Supination Test Moderate Impairment Comments Coordination Comments No significant impairment with rapid alternating foot taps. Vital Signs Blood Pressure Sitting Blood Pressure (90/60-120/80 mmHg) 122/78 H Blood Pressure Source Manual Cuff,Right Upper Extremity PT-OP-M Strength Start: 06/28/22 18:11 Freq: Status: Active Protocol: Document 06/29/22 12:00 AW (Rec: 06/29/22 17:48 AW [id number]) Shoulder Strength Shoulder Manual Muscle Testing bilat Flexion 5 Normal Extension 5 Normal Abduction (C5) 4+ Good+ External Rotation 4+ Good+ Internal Rotation 5 Normal Elbow/Forearm Strength Elbow and Forearm Manual Muscle Testing bilat Flexion (C6) 5 Normal Extension (C7) 4+ Good+ Hip Strength Hip Manual Muscle Testing bilat Flexion (L2) 4 Good Extension (S1) 4+ Good+ Abduction 4+ Good+ External Rotation 4+ Good+ Internal Rotation 4+ Good+ Knee Strength Knee Manual Muscle Testing bilat Flexion (S2) 4+ Good+ Extension (L3) 4+ Good+ PT-OP-O Vestibular Start: 06/28/22 18:11 Freq: Status: Active Protocol: Document 06/29/22 12:00 AW (Rec: 06/29/22 17:48 AW [id number]) Vestibular Assessment Screening Tests Vestibular Artery Screen Negative Visual Testing Smooth Pursuits Horizontal Conjugate but with definite lag Smooth Pursuits Vertical Conjugate but with definite lag Saccades Horizontal Demonstrates lag Gaze Evoked Nystagmus With Fixation Negative Positional Testing Kimberly-Hallpike Positive Right,Upbeating,< 60 Seconds Supine to Sit Positive Sit to Supine Positive PT-OP-Q Treatments Start: 06/28/22 18:11 Freq: Status: Active Protocol: Document 07/06/22 10:34 AW (Rec: 07/06/22 12:33 AW [id number]) Self-Care/Home Management Treatment Education Patient Education Fall Risk,Safety Other Education Briefly educated pt on use of hurry cane to improve patterning and stability. Canalithic Repositioning BPPV Treatment Angelic Affected Canal(s) posterior Reps 2 Comments Right torsional upbeating noted in R Kimberly-Hallpike. Less severe than initial visit. On second repetition of Angelic, pt was exceedingly nauseous in first position and unable to continue. PT-OP-T Assessment and Plan Start: 06/28/22 18:11 Freq: Status: Active Protocol: Document 07/06/22 10:34 AW (Rec: 07/06/22 12:33 AW [id number]) Physical Therapy Assessment Goals Four Impairment gait Short Term Goal (STG) Pt will complete 6 Minute Walk Test with LRAD SBA. STG Duration 6 weeks -08/10/22 Retirement Goal (LTG) Pt will improve 6MWT distance 10% over performance on short term goal. LTG Duration 12 weeks - 09/21/22 Three Impairment self-efficacy Retirement Goal (LTG) Pt will score 50% or greater on ABC scale as a measure of improved self-efficacy. Score at initial eval is 6% LTG Duration 12 weeks - 09/21/22 Two Impairment balance Short Term Goal (STG) Pt will improve Mishra Balance Scale score from 14/56 to 30/ 56 or greater as a measure of reduced falls risk. STG Duration 6 weeks -08/10/22 Retirement Goal (LTG) Pt will improve Mishra Balance Scale score to 45/56 or greater as a measure of reduced falls risk and safe community ambulation. 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 LTG Duration 12 weeks - 09/21/22 Assessment Summary Assessment Flaca clarifies that her dizziness and nausea are relatively constant but are exacerbated by positional changes. She is not able to tolerate much in terms of nutrition or hydration which is likely contributing to her overall decline and her balance impairment, in particular. Flaca tolerated one rep of Angelic maneuver today. On second rep, she was too nauseous in first position to continue. This PT feels there may be an element of positional vertigo contributing to overall presentation but that Flaca should be referred back to primary care and possibly neurology for further assessment. Will attempt to get pt scheduled with a vestibular specialist at this clinic to determine if her condition is truly appropriate for physical therapy treatment. Physical Therapy Plan Frequency and Duration Frequency of Treatment 1-2x/week Duration of treatment (weeks) 12 Plan of Care Start Date 06/29/22 Plan of Care End Date 09/21/22 Therapeutic Interventions Therapeutic Interventions Balance Training,Gait Training ,Home Exercise Program, Neuromuscular Re-education, Self-Care/Home Management, Therapeutic Activities, Therapeutic Exercises, Vestibular Rehabilitation Modalities Cold Pack/Ice Massage,Hot Packs Next Visit Focus/Plan Next Note Type Treatment Note
--- NOTE | 2022-08-03 13:02 | PT.OPDS ---
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) Difficulty in walking, not elsewhere classified (07/06/22) Visit Care Team Role Provider Type MARGE Soto Attending Provider Non-Staff Primary Care Provider Referring Provider Specialty: Medical Address: [address], [place], [address] Email: Visit Number Visit Number 11/[id number] Discharge Summary PT-OP-B Current Condition Start: 06/28/22 18:11 Freq: Status: Active Protocol: Document 06/29/22 12:00 AW (Rec: 06/28/22 18:24 AW [id number]) Current Condition History of Current Condition Onset Date January 2022 Current Complaints dizziness, impaired balance, headaches History of Current Condition 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 She had surgery at [facility] with no concerning symptoms afterward. She had home health therapy for a month and did well. No outpatient therapy after that. She had another mass identified this year and underwent another tumor resection on January 26, 2022 at [facility]. 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 Adjuvant radiation therapy finished . Flaca followed up with oncology in May. All scans are clear. Needs another MRI and will continue to follow up with oncology. Dizziness began a week after second surgery. She went to ENT who did not suspect BPPV or neuritis. She was treated with zofran which she still takes. She is having trouble eating due to nausea and dizziness. Having frontal headaches. Noticed her balance was worse after second surgery and it has gotten worse over time. Now falling about once per month but states she has not hit her head. Pt likes to keep her left eye closed which she feels improves her dizziness. Uses a hurrycane ~75% of the time when not at home where she can furniture cruise. Her activity level has suffered. She lives in an RV with her spouse, 11yo and 13 yo. She gets into the RV by holding the grab bar with assist from someone helping from behind. She has fallen while getting in to the RV. Her 20 yo daughter lives in . Spouse works long hours. Pt is home schooling both children. Flaca has history of lumbar surgery in 2019 followed by a revision. Her wound healed poorly and she had to have an I&D. Treatment Goals Patient/Caregiver Goals Get rid of dizziness. Increase activity tolerance. Get back to driving. I want to feel like I can get back to being a mom. Prior Functional Status Baseline Function- ADL's Independent Baseline Function- Mobility Independent Baseline Function- Gait Independent, no device Baseline Function- Work/School Able to effectively do home schooling with her children Current Functional Impairments (Reported) Functional Limitations- ADL's Needs SBA for showers. Has to dress sitting down due to poor balance Functional Limitations- Mobility/Gait Needs SBQC or hurrycane for walking limited distances. Functional Limitations- Work/School Has not been working since pandemic. Hopes to continue home schooling her kids. PT-OP-C Subjective Start: 06/28/22 18:11 Freq: Status: Active Protocol: Document 07/06/22 10:34 AW (Rec: 07/06/22 12:33 AW [id number]) OP-PT Subjective Patient Comments Patient Comments [place] worn out after last appointment. Can't keep anything down due to nausea and dizziness so isn't able to maintain adequate nutrition or hydration. Taking sublingual zofran since yesterday which seems to be helping. PT-OP-D Balance Start: 06/28/22 18:11 Freq: Status: Active Protocol: Document 06/29/22 12:00 AW (Rec: 06/29/22 17:41 AW [id number]) OP-PT Balance Assessment Sitting Balance Static Sitting Balance Ability Good Dynamic Sitting Balance Ability Fair Standing Balance Static Standing Balance Ability Poor Dynamic Standing Balance Ability Poor Device Used SBQC Mishra Balance Assessment Evaluation Sitting to Standing Ability Several Tries w/Hands Unsupported Stance Several Tries, 30 seconds Sitting Unsupported, Feet on Floor Safely- 2 minutes Standing to Sitting Ability Independent, Uncontrolled Transfer Ability Supervision, Verbal Cues Unsupported Stance- Eyes Closed Falls Without Assistance Unsupported Stance- Eyes Open Assist to attain, 15 secs Reaching Forward Standing Safely, 2 inches Pick- Up Object From Floor Requires Supervision Look Behind Shoulder - Standing Assist to Prevent Fall Turning 360 Degrees Requires Assistance Unsupported Stance, Alternating Feet on Assist to Prevent Fall Stair Unsupported Tandem Stance Balance Lost- Step/Stand Unilateral Leg Stance Unable,assist to not fall Total Score Mishra Total Score (out of 56 points) 14 Mishra Impairment Rating 60 to 79% Impaired (Score 12- 22) Brownlee Fall Scale Copyright Permission PT-OP-G Mobility & Gait Start: 06/28/22 18:11 Freq: Status: Active Protocol: Document 06/29/22 12:00 AW (Rec: 06/29/22 17:41 AW [id number]) OP Mobility Evaluation Bed Mobility Supine to and from Sit Slow. Dizziness reported OP Gait Assessment Gait Gait Assistance Required: Contact Guard Assist Distance (Feet) 100 Assistive Devices Assistive Device Tripod Cane/Hurry Cane,Small Based Quad Cane Orthotic/Prosthetic Devices or Brace: No Gait Deviations General Gait Pattern Ataxic,Decreased Stride Length ,Decreased Feet Clearance, Flexed Trunk,Lateral Trunk Lean,Wide Based Gait Comments Gait Comments Pt ambulates with hurry cane in right hand, demonstrates wide SERENA and high guard position left UE. She tends to keep her left eye shut. She frequently reaches for the wall or needs MACHINE EDGE BANDER at all times . Pt reports increased dizziness with gait. PT-OP-H Neuro Start: 06/28/22 18:11 Freq: Status: Active Protocol: Document 06/29/22 12:00 AW (Rec: 06/29/22 17:41 AW [id number]) Sensation Evaluation Gross Sensation Gross Sensation Right LE Impaired Comments Summary Comments Numb/tingly plantar right foot and digits 3-5 Coordination Evaluation Upper Extremity Tests Left Finger to Nose Test Moderate Impairment Finger to Therapist's Finger Test Moderate Impairment Alternate Nose to Finger Test Moderate Impairment Finger Opposition Test Moderate Impairment Pronation/Supination Test Moderate Impairment Comments Coordination Comments No significant impairment with rapid alternating foot taps. Vital Signs Blood Pressure Sitting Blood Pressure (90/60-120/80 mmHg) 122/78 H Blood Pressure Source Manual Cuff,Right Upper Extremity PT-OP-M Strength Start: 06/28/22 18:11 Freq: Status: Active Protocol: Document 06/29/22 12:00 AW (Rec: 06/29/22 17:48 AW [id number]) Shoulder Strength Shoulder Manual Muscle Testing bilat Flexion 5 Normal Extension 5 Normal Abduction (C5) 4+ Good+ External Rotation 4+ Good+ Internal Rotation 5 Normal Elbow/Forearm Strength Elbow and Forearm Manual Muscle Testing bilat Flexion (C6) 5 Normal Extension (C7) 4+ Good+ Hip Strength Hip Manual Muscle Testing bilat Flexion (L2) 4 Good Extension (S1) 4+ Good+ Abduction 4+ Good+ External Rotation 4+ Good+ Internal Rotation 4+ Good+ Knee Strength Knee Manual Muscle Testing bilat Flexion (S2) 4+ Good+ Extension (L3) 4+ Good+ PT-OP-O Vestibular Start: 06/28/22 18:11 Freq: Status: Active Protocol: Document 06/29/22 12:00 AW (Rec: 06/29/22 17:48 AW [id number]) Vestibular Assessment Screening Tests Vestibular Artery Screen Negative Visual Testing Smooth Pursuits Horizontal Conjugate but with definite lag Smooth Pursuits Vertical Conjugate but with definite lag Saccades Horizontal Demonstrates lag Gaze Evoked Nystagmus With Fixation Negative Positional Testing Girdler-Hallpike Positive Right,Upbeating,< 60 Seconds Supine to Sit Positive Sit to Supine Positive PT-OP-T Assessment and Plan Start: 06/28/22 18:11 Freq: Status: Active Protocol: Document 08/03/22 13:01 AW (Rec: 08/03/22 13:01 AW [id number]) Physical Therapy Plan Discharge Physical Therapy Discharge Reasons Change in Medical Status Discharge Comments Pt was hospitalized recently for placement of PEG tube as she has not been able to tolerate PO intake. With this change in medical status, pt is discharged from current plan of care.
== END 2022-08-04 09:40 | disposition home or self-care (01) ==
LOC: PHYS 10:30
PROVIDERS: PCP Nurse Practitioner Family; Referring Provider Nurse Practitioner Family; Visit Provider Nurse Practitioner Family
DX: C71.6 Malignant neoplasm of cerebellum (principal); R26.2 Difficulty in walking, not elsewhere classified
CPT/HCPCS: 95992; 97163; 97535

== ENCOUNTER 2022-07-12 15:48 | Emergency (ER) | payer OTHER, MEDICAID, SELFPAY ==
[2022-07-12] VITALS (19 sets, daily range): BP systolic 103–126; BP diastolic 58–80; PULSE 74–103; RESP 12; TEMP 36.1; O2SAT 97–100; BMI 26.6
[2022-07-12] MEDS: ONDANSETRON 4 MG/2 ML INJ IV (17:09)
[2022-07-12] MEDS: PANTOPRAZOLE 40 MG VIAL IV (17:09)
[2022-07-12] MEDS: SODIUM CHLORIDE 0.9% 1,000 ML 1000 ML IV (17:09)
[2022-07-12 17:18] LABS: Add Manual Diff / Slide Review NO; Basophils Absolute Auto 0 /uL (0-100); Basophils Percent Auto 0.3 % (0-2); Eosinophils Absolute Auto 0 /uL (0-450); Eosinophils Percent Auto 0.7 % (2-4); Hematocrit 40.9 % (36-46); Hemoglobin 14.5 g/dL (12.0-16.0); Lymphocytes Absolute Auto 300 /uL (1100-4500); Lymphocytes Percent Auto 9.8 % (25-40); Mean Corpuscular HGB Conc 35.4 % (30-36); Mean Corpuscular Hemoglobin 30.1 PG (26-34); Monocytes Absolute Auto 400 /uL (0-900); Monocytes Percent Auto 12.8 % (3-14); Neutrophils Absolute Auto 2600 /uL (1500-7000); Neutrophils Percent Auto 76.4 % (50-75); Platelet Count 245 X10^3/uL (150-400); Red Blood Cell Count 4.81 X10^6/uL (4.0-5.2); Red Cell Distribution Width 14.3 % (11.6-14.8); White Blood Cell Count 3.4 X10^3/uL (4.5-11.0)
--- NOTE | 2022-07-12 17:40 | ED_ITS ---
HPI - Dizziness <Joyce Way DO - Last Filed: 07/13/22 19:31> General Chief Complaint: Dizziness Stated Complaint: Nausea / vomiting for 8 weeks Time Seen by Provider: 07/12/22 16:10 Source: patient Mode of arrival: Family Vehicle History of Present Illness HPI Narrative: Patient is a 52-year-old female who has a history of a brain tumor found in February of 2021 she then proceeded with whole-brain radiation after tumor removal in March of 2022 since then she has experienced ongoing dizziness nausea and vomitin g. For the last 8 weeks she really has been unable to get out of bed without any sort of dizziness. She has tried multiple medications including meclizine Ativan and scopolamine patch. She currently has a scopolamine patch on and is not receiving much relief. He was extremely dizzy and vomiting. Unable to keep much down. Today his have the vomiting got significantly worse. She denies any new weakness numbness tingling. She is unable to eat or keep anything down it has been ongoing in nothing seems to help. Oncology has said they do not want any more treatment for her cancer until her dizziness and vomiting is resolved. She tried to follow up with primary care provider but unfortunately she says no one has any idea how to help her what is going on. She over all feels extremely weak and tired. Her works 12 hour shifts and she has children at home. Related Data Previous Rx's Medication Instructions Recorded famciclovir 500 mg tablet 500 mg PO Q8H shingles #21 tabs 08/19/19 gabapentin 300 mg capsule 300 mg PO Q8H shingles pain #40 08/19/19 caps potassium chloride 20 mEq 20 meq PO DAILY #7 tabs 02/12/21 tablet,extended release metoclopramide HCl 10 mg tablet 10 mg PO Q6H PRN nausea and 06/20/22 (Reglan) vomiting #20 tabs diazepam 5 mg tablet (Valium) 5 mg PO Q12HR PRN muscle spasm #20 07/13/22 tabs promethazine 25 mg rectal 25 mg [place] Q6H PRN nausea and 07/13/22 suppository vomiting #12 ea Allergies Allergy/AdvReac Type Severity Reaction Status Date / Time codeine Allergy Verified 07/12/22 15:59 Review of Systems <DO Jovita Kidd Last Filed: 07/13/22 19:31> Review of Systems Narrative: GENERAL: Denies chills, fatigue, malaise, fever, sweats, travel HEENT: Denies sinus pain, ear pain, sore throat, difficulty swallowing, neck pain RESPIRATORY: Denies dyspnea, cough, wheezing, hemoptysis, sputum. CARDIOVASCULAR: Denies chest pain, palpitations, orthopnea, edema GASTROINTESTINAL: See HPI : Denies dysuria, frequency, incontinence, hematuria, urinary retention, flank pain. MUSCULOSKELETAL: Denies weakness, joint pain, or bony pain SKIN: No rash, no erythema, no pruritus NEUROLOGIC: See HPI PSYCHIATRIC: No concerning psychosocial issues. 12 point review of systems is negative except for those stated above and HPI Patient History <Joyce Way DO - Last Filed: 07/13/22 19:31> Medical History No chronic problems Pulmonary embolism Surgical History History of lumbar surgery S/P T&A (status post tonsillectomy and adenoidectomy) Status post appendectomy Status post cholecystectomy Status post tubal ligation Social History household members: spouse and children Smoking Status: Never smoker Smoking Status: Never smoker alcohol intake frequency: other Substance Use Type: marijuana Exam <Joyce Way DO - Last Filed: 07/13/22 19:31> Initial Vital Signs Initial Vital Signs: Vital Signs Temperature 97 F L 07/12/22 15:53 Pulse Rate 103 H 07/12/22 15:53 Respiratory Rate 12 07/12/22 15:53 Blood Pressure 123/59 L 07/12/22 15:53 Pulse Oximetry 100 07/12/22 15:53 Oxygen Delivery Method 07/12/22 15:53 GENERAL: Weak alert 52-year-old female appears to not feel well HEENT: Head atraumatic,EOMI, pupils reactive, nystagmus noted face symmetric,dry mucous membranes CARDIOVASCULAR: Tachycardic regular no murmurs RESPIRATORY: Breath sounds equal bilaterally, no wheezes rales or rhonchi. ABDOMEN: Soft, nontender. Normoactive bowel sounds all 4 quadrants. No guarding or rebound. EXTREMITIES: Normal range of motion, no clubbing or edema. Neurovascularly intact NEUROLOGICAL: Alert and oriented x4. Manufacturers Representative strength equal bilaterally no focal deficits SKIN: Warm, dry, no laceration, no petechiae, no rashes or lesions. <Ubaldo Pace MD - Last Filed: 07/18/22 20:42> Initial Vital Signs Initial Vital Signs: Vital Signs Temperature 97 F L 07/12/22 15:53 Pulse Rate 103 H 07/12/22 15:53 Respiratory Rate 12 07/12/22 15:53 Blood Pressure 123/59 L 07/12/22 15:53 Pulse Oximetry 100 07/12/22 15:53 Oxygen Delivery Method 07/12/22 15:53 Course <Joyce Way DO - Last Filed: 07/13/22 19:31> Orders Ordered: Discontinued Medications Sodium Chloride (Normal Saline 0.9%) 1,000 mls @ 1,000 mls/hr IV BOLUS ONE Stop: 07/12/22 17:41 Last Infusion: 07/12/22 19:24 Dose: 0 mls/hr Documented By: Admin: 07/12/22 17:09 Dose: 1,000 mls/hr Documented By: NR Sodium Chloride (Normal Saline 0.9%) 1,000 mls @ 1,000 mls/hr IV BOLUS ONE Stop: 07/13/22 16:41 Last Infusion: 07/13/22 17:40 Dose: 0 mls/hr Documented By: Admin: 07/13/22 15:49 Dose: 1,000 mls/hr Documented By: ALEXI Lorazepam (Lorazepam 2 Mg/Ml Inj) 0.5 mg IV NOW ONE Stop: 07/12/22 17:59 Last Admin: 07/12/22 18:05 Dose: 0.5 mg Documented By: COLLINS Lorazepam (Lorazepam 2 Mg/Ml Inj) 0.5 mg IV NOW ONE Stop: 07/13/22 08:14 Last Admin: 07/13/22 09:47 Dose: 0.5 mg Documented By: CHENTE Ondansetron HCl (Ondansetron 4 Mg/2 Ml Inj) 4 mg IV NOW ONE Stop: 07/12/22 16:43 Last Admin: 07/12/22 17:09 Dose: 4 mg Documented By: COLLINS Ondansetron HCl (Ondansetron 4 Mg/2 Ml Inj) 4 mg IV NOW ONE Stop: 07/13/22 08:14 Last Admin: 07/13/22 09:00 Dose: 4 mg Documented By: CHENTE Ondansetron HCl (Ondansetron 4 Mg/2 Ml Inj) 4 mg IV NOW ONE Stop: 07/13/22 15:43 Last Admin: 07/13/22 16:10 Dose: 4 mg Documented By: NAZARIO Pantoprazole Sodium (Pantoprazole 40 Mg Vial) 40 mg IV NOW ONE Stop: 07/12/22 16:43 Last Admin: 07/12/22 17:09 Dose: 40 mg Documented By: COLLINS Vital Signs Vital signs: Vital Signs - 8 hr 07/13/22 18:26 Temperature 97.8 F Pulse Rate 71 Respiratory Rate 16 Blood Pressure 116/59 L Pulse Oximetry 100 Oxygen Delivery Method Room Air <Ubaldo Pace MD - Last Filed: 07/18/22 20:42> Course Course Narrative: July 12, 2022 at 9:[address], patient here for intractable vomiting and dizziness. Ongoing for 8-10 weeks. Being followed by primary care as well as for Oncology. Has seen ENT for this without any answers. Vomits every time she tries to eat. Requires someone to hold her sister when walking. 9:20 p.m.. Introduced myself to patient. She states she has been frustrated having no answers. She does agree for angiogram of the head. She did have MRI in April of this year. She had chest abdomen pelvis CT last month as well. Three weeks ago. July 13, 2022 at 7:00 a.m., sign out back to Dr. Way no new issues over the course of evening. CT angiogram head and neck reassuring. Orders for social work and Physical therapy evaluation as well as MRI brain have been placed. Orders Ordered: Discontinued Medications Sodium Chloride (Normal Saline 0.9%) 1,000 mls @ 1,000 mls/hr IV BOLUS ONE Stop: 07/12/22 17:41 Last Infusion: 07/12/22 19:24 Dose: 0 mls/hr Documented By: Admin: 07/12/22 17:09 Dose: 1,000 mls/hr Documented By: COLLINS Sodium Chloride (Normal Saline 0.9%) 1,000 mls @ 1,000 mls/hr IV BOLUS ONE Stop: 07/13/22 16:41 Last Infusion: 07/13/22 17:40 Dose: 0 mls/hr Documented By: Admin: 07/13/22 15:49 Dose: 1,000 mls/hr Documented By: ALEXI Lorazepam (Lorazepam 2 Mg/Ml Inj) 0.5 mg IV NOW ONE Stop: 07/12/22 17:59 Last Admin: 07/12/22 18:05 Dose: 0.5 mg Documented By: COLLINS Lorazepam (Lorazepam 2 Mg/Ml Inj) 0.5 mg IV NOW ONE Stop: 07/13/22 08:14 Last Admin: 07/13/22 09:47 Dose: 0.5 mg Documented By: CHENTE Ondansetron HCl (Ondansetron 4 Mg/2 Ml Inj) 4 mg IV NOW ONE Stop: 07/12/22 16:43 Last Admin: 07/12/22 17:09 Dose: 4 mg Documented By: COLLINS Ondansetron HCl (Ondansetron 4 Mg/2 Ml Inj) 4 mg IV NOW ONE Stop: 07/13/22 08:14 Last Admin: 07/13/22 09:00 Dose: 4 mg Documented By: CHENTE Ondansetron HCl (Ondansetron 4 Mg/2 Ml Inj) 4 mg IV NOW ONE Stop: 07/13/22 15:43 Last Admin: 07/13/22 16:10 Dose: 4 mg Documented By: NAZARIO Pantoprazole Sodium (Pantoprazole 40 Mg Vial) 40 mg IV NOW ONE Stop: 07/12/22 16:43 Last Admin: 07/12/22 17:09 Dose: 40 mg Documented By: COLLINS Vital Signs Vital signs: Vital Signs - 8 hr 07/13/22 18:26 Temperature 97.8 F Pulse Rate 71 Respiratory Rate 16 Blood Pressure 116/59 L Pulse Oximetry 100 Oxygen Delivery Method Room Air MDM - Dizziness <Joyce Way DO - Last Filed: 07/13/22 19:31> Lab Data Result diagrams: 07/12/22 16:57 07/12/22 16:57 Labs: Lab Results 07/12/22 07/12/22 07/12/22 Range/Units 16:57 16:57 16:57 WBC 3.4 L (4.5-11.0) X10^3/uL RBC 4.81 (4.0-5.2) X10^6/uL Hgb 14.5 (12.0-16.0) g/dL Hct 40.9 (36-46) % MCV 85.0 (80-100) fL MCH 30.1 (26-34) PG MCHC 35.4 (30-36) % RDW 14.3 (11.6-14.8) % Plt Count 245 (150-400) X10^3/uL Neut % (Auto) 76.4 H (50-75) % Lymph % (Auto) 9.8 L (25-40) % [place] % (Auto) 12.8 (3-14) % Eos % (Auto) 0.7 L (2-4) % Baso % (Auto) 0.3 (0-2) % Neut # (Auto) 2600 (0041-7088) /uL Lymph # (Auto) 300 L (4402-9805) /uL [place] # (Auto) 400 (0-900) /uL Eos # (Auto) 0 (0-450) /uL Baso # (Auto) 0 (0-100) /uL Sodium 134 L (137-145) mmol/L Potassium 3.1 L (3.4-5.1) mmol/L Chloride 93 L (98-107) mmol/L Carbon Dioxide 30 (22-32) mmol/L BUN 14 (7-17) mg/dL Creatinine 0.65 (0.52-1.04) mg/dL Estimated GFR > 60 (>60) mL/min BUN/Creatinine Ratio 21.5 (6-22) Glucose 116 H (70-100) mg/dL Lactate 1.1 (0.7-2.1) mmol/L Calcium 9.2 (8.4-10.2) mg/dL Total Bilirubin 1.8 H (0.2-1.3) mg/dL AST 33 (14-36) IU/L ALT 48 H (<35) IU/L Alkaline Phosphatase 64 (38-126) U/L Total Protein 7.1 (6.3-8.2) g/dL Albumin 4.0 (3.5-5.0) g/dL Globulin 3.1 (1.7-4.1) g/dL Albumin/Globulin Ratio 1.3 (1.0-2.8) Lipase 76 (23-300) U/L Urine RBC (0-5/HPF) Urine WBC (0-5/HPF) Ur Squamous Epith Cells (0-5/HPF) Urine Bacteria (None) Ur Culture Indicated? 07/12/22 Range/Units 20:54 WBC (4.5-11.0) X10^3/uL RBC (4.0-5.2) X10^6/uL Hgb (12.0-16.0) g/dL Hct (36-46) % MCV (80-100) fL MCH (26-34) PG MCHC (30-36) % RDW (11.6-14.8) % Plt Count (150-400) X10^3/uL Neut % (Auto) (50-75) % Lymph % (Auto) (25-40) % [place] % (Auto) (3-14) % Eos % (Auto) (2-4) % Baso % (Auto) (0-2) % Neut # (Auto) (5868-0535) /uL Lymph # (Auto) (2695-5708) /uL [place] # (Auto) (0-900) /uL Eos # (Auto) (0-450) /uL Baso # (Auto) (0-100) /uL Sodium (137-145) mmol/L Potassium (3.4-5.1) mmol/L Chloride (98-107) mmol/L Carbon Dioxide (22-32) mmol/L BUN (7-17) mg/dL Creatinine (0.52-1.04) mg/dL Estimated GFR (>60) mL/min BUN/Creatinine Ratio (6-22) Glucose (70-100) mg/dL Lactate (0.7-2.1) mmol/L Calcium (8.4-10.2) mg/dL Total Bilirubin (0.2-1.3) mg/dL AST (14-36) IU/L ALT (<35) IU/L Alkaline Phosphatase (38-126) U/L Total Protein (6.3-8.2) g/dL Albumin (3.5-5.0) g/dL Globulin (1.7-4.1) g/dL Albumin/Globulin Ratio (1.0-2.8) Lipase (23-300) U/L Urine RBC 0-1/hpf (0-5/HPF) Urine WBC 5-10/hpf H (0-5/HPF) Ur Squamous Epith Cells 10-30 /hpf H (0-5/HPF) Urine Bacteria Many (>30) H (None) Ur Culture Indicated? Specimen cultured Urine Dip Bedside Urine Glucose Negative Bedside Urine Bilirubin - Negative Bedside Urine Ketone +/- 5 Urine Specific [place] 1.010 Bedside Urine Occult Blood - Negative Bedside Urine pH 6.0 Bedside Urine Protein - Negative Bedside Urine Urobilinogen - Negative Bedside Urine Nitrite - Negative Bedside Urine Leukocytes +/- [address] scan - head: Radiologist's Impression: [address] [address] [address] Scan Report Signed Patient: Flaca Gonzalez MR#: [id number] : 1970 Acct:[id number] Age/Sex: 52 / F Date of Service: 07/12/22 Loc: ED Accession Number: [id number] ?? Procedure: CT head/brain wo con Ordering Provider: Joyce Way D.O. PROCEDURE:? CT HEAD/BRAIN WO CON ? INDICATIONS:? brain tumor dizziness, vomiting ? TECHNIQUE:? Noncontrast 4.5 mm thick angled axial sections acquired from the foramen magnum to the vertex, with coronal and sagittal reformats.? For radiation dose reduction, the following was used:? automated exposure control, adjustment of mA and/or kV according to patient size.? ? COMPARISON:? [facility], CT, CT HEAD/BRAIN WO CON, 06/20/2022, 9:59. ? FINDINGS:? Image quality:? Excellent.? ? CSF spaces:? Basal cisterns are patent.? No extra-axial fluid collections.? Ex vacuo dilation of the 4th ventricle is present. ? Brain:? Previously identified left occipital craniotomy and resection cavity consistent with prior resection is again identified.? There is ex vacuole dilation of the 4th ventricle.? No superimposed hemorrhage. ? Skull and face:? Calvarium demonstrates craniotomy changes. ? Sinuses:? Visualized sinuses and mastoids are clear.? ? IMPRESSION:? ? Stable appearance of left cerebellar postsurgical resection changes. ? No acute intracranial process. ? ? Dictated by: Cyndee Garibay M.D. on 07/12/2022 at 18:34? MDM Narrative Medical decision making narrative: Patient has chronic ongoing dizziness nausea and vomiting following brain tumor removal and whole-brain radiation. She really had able to keep anything down having significant weight loss unable to get up and use the restroom by herself and needing assistance due to the severe dizziness. Blood work today does show mild hypokalemia WBC 3.4, lactic acid is normal. Kidney function is actually also within normal limits and so is albumin. She received Zofran Protonix and Ativan to help with her vertigo like symptoms. Head CT today did not show any is you abnormality. She previously had head CT and chest abdomen pelvis CT a couple weeks ago when she experienced similar symptoms. She is trying to follow up with her PCP is in her oncology as well. Patient signed out to Dr. Pace for disposition. Patient resigned out to me this morning. States she had up to use the restroom the dizziness started all over again wishes what happens at home. MRI is scheduled for later this morning. Physical therapy is also scheduled along with social Work. She will likely need placement. Feeling nauseous has states that she had significant relief with Ativan yesterday. Every time patient stands up to walk to the restroom she is very dizzy and nause ous. This been ongoing for weeks she overall is week. Social work has been in to see and evaluate her will get her set up with home health care. They had to change her insurance in order to do this. This has been ongoing for 8 weeks. She has children at home long-term placement does not seem reasonable. She did have pretty good relief with Ativan. At this time will send her home with Valium and Phenergan suppositories. She says she has Zofran at home. She is finally sitting up and having a couple bites of fruit. <Ubaldo Pace MD - Last Filed: 07/18/22 20:42> Differential Diagnosis Differential diagnosis: Likely benign paroxysmal positional vertigo, vertebral basilar insufficiency, cerebrovascular accident, acute vestibular neuronitis and transient cerebral ischemia Lab Data Labs: Lab Results 07/12/22 07/12/22 07/12/22 Range/Units 16:57 16:57 16:57 WBC 3.4 L (4.5-11.0) X10^3/uL RBC 4.81 (4.0-5.2) X10^6/uL Hgb 14.5 (12.0-16.0) g/dL Hct 40.9 (36-46) % MCV 85.0 (80-100) fL MCH 30.1 (26-34) PG MCHC 35.4 (30-36) % RDW 14.3 (11.6-14.8) % Plt Count 245 (150-400) X10^3/uL Neut % (Auto) 76.4 H (50-75) % Lymph % (Auto) 9.8 L (25-40) % [place] % (Auto) 12.8 (3-14) % Eos % (Auto) 0.7 L (2-4) % Baso % (Auto) 0.3 (0-2) % Neut # (Auto) 2600 (3557-5113) /uL Lymph # (Auto) 300 L (8624-0262) /uL [place] # (Auto) 400 (0-900) /uL Eos # (Auto) 0 (0-450) /uL Baso # (Auto) 0 (0-100) /uL Sodium 134 L (137-145) mmol/L Potassium 3.1 L (3.4-5.1) mmol/L Chloride 93 L (98-107) mmol/L Carbon Dioxide 30 (22-32) mmol/L BUN 14 (7-17) mg/dL Creatinine 0.65 (0.52-1.04) mg/dL Estimated GFR > 60 (>60) mL/min BUN/Creatinine Ratio 21.5 (6-22) Glucose 116 H (70-100) mg/dL Lactate 1.1 (0.7-2.1) mmol/L Calcium 9.2 (8.4-10.2) mg/dL Total Bilirubin 1.8 H (0.2-1.3) mg/dL AST 33 (14-36) IU/L ALT 48 H (<35) IU/L Alkaline Phosphatase 64 (38-126) U/L Total Protein 7.1 (6.3-8.2) g/dL Albumin 4.0 (3.5-5.0) g/dL Globulin 3.1 (1.7-4.1) g/dL Albumin/Globulin Ratio 1.3 (1.0-2.8) Lipase 76 (23-300) U/L Urine RBC (0-5/HPF) Urine WBC (0-5/HPF) Ur Squamous Epith Cells (0-5/HPF) Urine Bacteria (None) Ur Culture Indicated? 07/12/22 Range/Units 20:54 WBC (4.5-11.0) X10^3/uL RBC (4.0-5.2) X10^6/uL Hgb (12.0-16.0) g/dL Hct (36-46) % MCV (80-100) fL MCH (26-34) PG MCHC (30-36) % RDW (11.6-14.8) % Plt Count (150-400) X10^3/uL Neut % (Auto) (50-75) % Lymph % (Auto) (25-40) % [place] % (Auto) (3-14) % Eos % (Auto) (2-4) % Baso % (Auto) (0-2) % Neut # (Auto) (2147-6098) /uL Lymph # (Auto) (5018-3842) /uL [place] # (Auto) (0-900) /uL Eos # (Auto) (0-450) /uL Baso # (Auto) (0-100) /uL Sodium (137-145) mmol/L Potassium (3.4-5.1) mmol/L Chloride (98-107) mmol/L Carbon Dioxide (22-32) mmol/L BUN (7-17) mg/dL Creatinine (0.52-1.04) mg/dL Estimated GFR (>60) mL/min BUN/Creatinine Ratio (6-22) Glucose (70-100) mg/dL Lactate (0.7-2.1) mmol/L Calcium (8.4-10.2) mg/dL Total Bilirubin (0.2-1.3) mg/dL AST (14-36) IU/L ALT (<35) IU/L Alkaline Phosphatase (38-126) U/L Total Protein (6.3-8.2) g/dL Albumin (3.5-5.0) g/dL Globulin (1.7-4.1) g/dL Albumin/Globulin Ratio (1.0-2.8) Lipase (23-300) U/L Urine RBC 0-1/hpf (0-5/HPF) Urine WBC 5-10/hpf H (0-5/HPF) Ur Squamous Epith Cells 10-30 /hpf H (0-5/HPF) Urine Bacteria Many (>30) H (None) Ur Culture Indicated? Specimen cultured Urine Dip Bedside Urine Glucose Negative Bedside Urine Bilirubin - Negative Bedside Urine Ketone +/- 5 Urine Specific [place] 1.010 Bedside Urine Occult Blood - Negative Bedside Urine pH 6.0 Bedside Urine Protein - Negative Bedside Urine Urobilinogen - Negative Bedside Urine Nitrite - Negative Bedside Urine Leukocytes +/- 15 Esterase Imaging Data CTA - brain/neck: Radiologist's Impression: [address] [address] [address] Scan Report Signed Patient: Flaca Gonzalez MR#: [id number] : 1970 Acct:[id number] Age/Sex: 52 / F Date of Service: 07/12/22 Loc: ED Accession Number: [id number] ?? Procedure: CT angio head and neck Ordering Provider: Ubaldo Pace MD PROCEDURE:? CT ANGIO HEAD AND NECK ? INDICATIONS:? Dizziness/ataxia ? TECHNIQUE:? After the administration of intravenous contrast, 1 mm thick sections acquired from the aortic arch through the [place].? Post-contrast 4.5 mm thick sections then re-acquired from the foramen magnum to the vertex.? 3-dimensional wfprvoy-wauzfjrqr-jbjxxqetww (MIP) and/or volume rendering reformats were acquired of the central intracranial vasculature and neck separately. For radiation dose reduction, the following was used:? automated exposure control, adjustment of mA and/or kV according to patient size.? ? COMPARISON:? [facility], CT, CT HEAD/BRAIN WO CON, 07/12/2022, 18:00. ? FINDINGS:? Image quality:? Excellent.? ? BRAIN:? CSF spaces:? Ventricles are normal in size and shape.? Basal cisterns are patent.? No extra-axial fluid collections.? ? Brain:? No midline shift.? Encephalomalacia in left cerebellum is again seen with with ex vacuo dilatation of 4th ventricle.? No intracranial bleeds or masses.? Marcial- white matter interface appears intact.? No area of abnormal enhancement is seen. ? Skull and face:? Post craniectomy changes are again seen in left posterior fossa.? Calvarium and facial bones appear intact, without suspicious lesions.? Orbits appear normal.? ? Sinuses:? Sinuses and mastoids are clear.? ? HEAD CT ANGIOGRAPHY:? Anterior circulation:? Intracranial internal carotid arteries are normal in size and flow.? Left A1 segment is not visualized.? More distal portion of left anterior cerebral artery is supplied from the right side via anterior communicating artery.? More distal portion of bilateral anterior cerebral arteries show normal and symmetric flow.? The flow within the middle cerebral arteries is normal and symmetric.? The anterior communicating artery is seen.? No aneurysms are seen.? ? Posterior circulation:? Visualized portions of the vertebral arteries demonstrate normal caliber, and join to form a normal appearing basilar artery.? Flow within the posterior cerebral arteries is normal and symmetric.? No aneurysms are seen.? ? NECK CT ANGIOGRAPHY:? Carotid system:? The great vessels demonstrate a conventional anatomy as they arise from the aortic arch.? The origins of the common carotid arteries appear patent.? The common carotid arteries demonstrate normal caliber and courses.? The bifurcation regions are both widely patent.? The internal carotid arteries demonstrate normal calibers and courses.? ? Posterior circulation:? The origins of the vertebral arteries both appear widely patent.? The more superior extracranial portions of both vertebral arteries also demonstrate normal courses and calibers.? They join to form a normal appearing basilar artery.? ? Soft tissues:? Visualized neck soft tissues demonstrate no suspicious abnormalities.? Well-circumscribed hypodensity involving inferior aspect of right thyroid lobe is seen. ? Bones:? No suspicious bony lesions.? Visualized cervical spine appears normally aligned.? IMPRESSION:? 1. Stable postsurgical changes in left posterior fossa with encephalomalacia in left cerebellum and ex vacuo dilatation of 4th ventricle.? No area of abnormal contrast enhancement. ? 2. Nonvisualization of left A1 segment which may represent congenital process.? No hemodynamically significant stenosis or aneurysm is seen in rest of the intracranial circulation. ? 3. No hemodynamically significant stenosis or aneurysm is seen in bilateral neck arteries. ? 4. Possible subcentimeter hypodense nodule in lower pole of right thyroid lobe and may represent small cyst or adenoma.? ? Any quantitative measurements of stenosis were performed using NASCET criteria.? ? ? Dictated by: Mick Martinez M.D. on 07/12/2022 at 21:53 ? ? Approved by: Mick Martinez M.D. on 07/12/2022 at 21:58 ? Discharge Plan Departure Patient Disposition: Home Clinical Impression: Vertigo Instructions: DI for Vertigo Activity Restrictions/Additional Instructions: *You have been diagnosed with vertigo *What to do: At this time ER getting set up with home health career development consultant will take a couple of weeks. We will be able to started in till the . Increase fluid intake, try to drink protein shake *Continue to take medications as directed --> SENT TO [facility] [place] Valium 5 mg every 12 hours if needed for dizziness nausea or vomiting Phenergan suppository 25 mg every 6 hours if needed for nausea or vomiting *Follow up with your primary care provider in 2-3 days or call [phone] *Return to ER if you should have persistent vomiting dizziness weakness fall or any new, worsening or concerning symptoms Prescriptions: New promethazine 25 mg suppository 25 mg [place] Q6H PRN (Reason: nausea and vomiting) Qty: 12 0RF diazepam [Valium] 5 mg tablet 5 mg PO Q12HR PRN (Reason: muscle spasm) Qty: 20 0RF No Action gabapentin 300 mg capsule 300 mg PO Q8H Qty: 40 0RF Rx Instructions: increase to 2 caps h.s. prn famciclovir 500 mg tablet 500 mg PO Q8H Qty: 21 0RF potassium chloride 20 mEq tablet extended release 20 meq PO DAILY Qty: 7 0RF metoclopramide HCl [Reglan] 10 mg tablet 10 mg PO Q6H PRN (Reason: nausea and vomiting) Qty: 20 0RF Referrals: Kayleen Mathur FNP-BC [Primary Care Provider] - Visit Report Forms: Patient Portal/API
[2022-07-12 17:43] LABS: Alanine Aminotransferase 48 IU/L (<35); Albumin Globulin Ratio 1.3 (1.0-2.8); Alkaline Phosphatase 64 U/L (38-126); Aspartate Aminotransferase 33 IU/L (14-36); BUN Creatinine Ratio 21.5 (6-22); Bilirubin Total 1.8 mg/dL (0.2-1.3); Blood Urea Nitrogen 14 mg/dL (7-17); Calcium 9.2 mg/dL (8.4-10.2); Carbon Dioxide 30 mmol/L (22-32); Chloride 93 mmol/L (98-107); Estimated Glomerular Filt Rate > 60 mL/min (>60); Globulin 3.1 g/dL (1.7-4.1); Glucose 116 mg/dL (70-100); HEMOLYSIS < 15 (0-50); Lipase 76 U/L (23-300); Potassium 3.1 mmol/L (3.4-5.1); Sodium 134 mmol/L (137-145); Total Protein 7.1 g/dL (6.3-8.2)
--- NOTE | 2022-07-12 17:57 | DI.CT.S_ITS ---
PROCEDURE: CT HEAD/BRAIN WO CON INDICATIONS: brain tumor dizziness, vomiting TECHNIQUE: Noncontrast 4.5 mm thick angled axial sections acquired from the foramen magnum to the vertex, with coronal and sagittal reformats. For radiation dose reduction, the following was used: automated exposure control, adjustment of mA and/or kV according to patient size. COMPARISON: [facility], CT, CT HEAD/BRAIN WO CON, 06/20/2022, 9:59. FINDINGS: Image quality: Excellent. CSF spaces: Basal cisterns are patent. No extra-axial fluid collections. Ex vacuo dilation of the 4th ventricle is present. Brain: Previously identified left occipital craniotomy and resection cavity consistent with prior resection is again identified. There is ex vacuole dilation of the 4th ventricle. No superimposed hemorrhage. Skull and face: Calvarium demonstrates craniotomy changes. Sinuses: Visualized sinuses and mastoids are clear. IMPRESSION: Stable appearance of left cerebellar postsurgical resection changes. No acute intracranial process. Dictated by: Cyndee Garibay M.D. on 07/12/2022 at 18:34 Approved by: Cyndee Garibay M.D. on 07/12/2022 at 18:36
[2022-07-12] MEDS: LORazepam 2 MG/ML INJ 0.5 MG IV (18:05)
[2022-07-12 18:10] LABS: Lactate (Lactic Acid) 1.1 mmol/L (0.7-2.1)
--- NOTE | 2022-07-12 21:20 | DI.CT.S_ITS ---
PROCEDURE: CT ANGIO HEAD AND NECK INDICATIONS: Dizziness/ataxia TECHNIQUE: After the administration of intravenous contrast, 1 mm thick sections acquired from the aortic arch through the [place]. Post-contrast 4.5 mm thick sections then re-acquired from the foramen magnum to the vertex. 3-dimensional unzjttf-vjmbixagl-ewydcbxset (MIP) and/or volume rendering reformats were acquired of the central intracranial vasculature and neck separately. For radiation dose reduction, the following was used: automated exposure control, adjustment of mA and/or kV according to patient size. COMPARISON: [facility], CT, CT HEAD/BRAIN WO CON, 07/12/2022, 18:00. FINDINGS: Image quality: Excellent. BRAIN: CSF spaces: Ventricles are normal in size and shape. Basal cisterns are patent. No extra-axial fluid collections. Brain: No midline shift. Encephalomalacia in left cerebellum is again seen with with ex vacuo dilatation of 4th ventricle. No intracranial bleeds or masses. Marcial-white matter interface appears intact. No area of abnormal enhancement is seen. Skull and face: Post craniectomy changes are again seen in left posterior fossa. Calvarium and facial bones appear intact, without suspicious lesions. Orbits appear normal. Sinuses: Sinuses and mastoids are clear. HEAD CT ANGIOGRAPHY: Anterior circulation: Intracranial internal carotid arteries are normal in size and flow. Left A1 segment is not visualized. More distal portion of left anterior cerebral artery is supplied from the right side via anterior communicating artery. More distal portion of bilateral anterior cerebral arteries show normal and symmetric flow. The flow within the middle cerebral arteries is normal and symmetric. The anterior communicating artery is seen. No aneurysms are seen. Posterior circulation: Visualized portions of the vertebral arteries demonstrate normal caliber, and join to form a normal appearing basilar artery. Flow within the posterior cerebral arteries is normal and symmetric. No aneurysms are seen. NECK CT ANGIOGRAPHY: Carotid system: The great vessels demonstrate a conventional anatomy as they arise from the aortic arch. The origins of the common carotid arteries appear patent. The common carotid arteries demonstrate normal caliber and courses. The bifurcation regions are both widely patent. The internal carotid arteries demonstrate normal calibers and courses. Posterior circulation: The origins of the vertebral arteries both appear widely patent. The more superior extracranial portions of both vertebral arteries also demonstrate normal courses and calibers. They join to form a normal appearing basilar artery. Soft tissues: Visualized neck soft tissues demonstrate no suspicious abnormalities. Well-circumscribed hypodensity involving inferior aspect of right thyroid lobe is seen. Bones: No suspicious bony lesions. Visualized cervical spine appears normally aligned. IMPRESSION: 1. Stable postsurgical changes in left posterior fossa with encephalomalacia in left cerebellum and ex vacuo dilatation of 4th ventricle. No area of abnormal contrast enhancement. 2. Nonvisualization of left A1 segment which may represent congenital process. No hemodynamically significant stenosis or aneurysm is seen in rest of the intracranial circulation. 3. No hemodynamically significant stenosis or aneurysm is seen in bilateral neck arteries. 4. Possible subcentimeter hypodense nodule in lower pole of right thyroid lobe and may represent small cyst or adenoma. Any quantitative measurements of stenosis were performed using NASCET criteria. Dictated by: Mick Martinez M.D. on 07/12/2022 at 21:53 Approved by: Mick Martinez M.D. on 07/12/2022 at 21:58
[2022-07-12 21:21] LABS: Bacteria Urine Many (>30); Culture Indicated Urine Specimen Cultured; RBC Urine 0-1/HPF (0-5/HPF); Squamous Epithelial Cell Urine 10-30 /HPF (0-5/HPF); WBC Urine 5-10/HPF (0-5/HPF)
--- NOTE | 2022-07-12 21:21 | DI.MRI.S_ITS ---
PROCEDURE: MR HEAD/BRAIN WO/W CON INDICATIONS: ataxia TECHNIQUE: Noncontrast axial T1 spin echo, axial T2 fast spin echo, sagittal and axial FLAIR, coronal T2 fast spin echo, axial gradient echo, axial diffusion and ADC through the brain. After the administration of contrast, axial and coronal and sagittal 3D VIBE or T1 spin echo with fat saturation through the brain. COMPARISON: [facility], MR, MR HEAD/BRAIN WO/W CON, 10/17/2021, 10:26. [facility], MR, MR BRAIN WITH/WITHOUT CONTRAST, 09/01/2021, 15:09. [facility], MR, MR BRAIN WITH/WITHOUT CONTRAST, 01/18/2022, 17:28. [facility], CT, CT ANGIO HEAD AND NECK, 07/12/2022, 21:27. [facility], CT, CT HEAD/BRAIN WO CON, 07/12/2022, 18:00. [facility], MR, MR HEAD/BRAIN WO/W CON, 04/25/2022, 13:17. FINDINGS: Image quality: There is artifact associated with the metallic hardware. CSF Spaces: Basal cisterns are patent. No extra-axial fluid collections. Ex vacuole dilatation of the 4th ventricle is seen. Ventricles are otherwise normal in size and shape. There is a prior right frontal biopsy tract seen, with associated hemosiderin deposition. Brain: Left cerebellar resection change is seen. Is of the left cerebellum can be seen. No midline shift. No intracranial bleeds or masses. No abnormal intracranial enhancement. The brainstem appears normal. Diffusion-weighted images demonstrate no acute ischemic insults. No chronic ischemic insults. Normal intravascular flow voids are present. Skull and face: Left posterior craniotomy changes are seen. Calvarial marrow is normal in signal. Orbits appear normal. Sinuses: There is at least moderate fluid seen within the mastoid air cells. No significant paranasal sinus disease is seen. IMPRESSION: No acute abnormality is seen. No findings of acute or subacute infarction can be seen. Prior postoperative change, with resection involving the left cerebellum. There is also a prior right frontal approach biopsy tract. No recurrent masses or abnormal enhancement can be seen. There is abnormal fluid seen within the mastoid air cells on both sides, which is worse compared to the prior MRI. Please consider mastoiditis. Dictated by: Rex Butts M.D. on 07/13/2022 at 10:07 Approved by: Rex Butts M.D. on 07/13/2022 at 10:13
[2022-07-13] VITALS (21 sets, daily range): BP systolic 100–116; BP diastolic 52–59; PULSE 71–125; RESP 16; TEMP 36.6; O2SAT 93–100
[2022-07-13] MEDS: ONDANSETRON 4 MG/2 ML INJ IV ×2 (09:00→16:10)
--- NOTE | 2022-07-13 09:28 | PT.IIE ---
Surgical History (Last Reviewed 03/13/21 @ 16:10 by Audra Lei DO) History of lumbar surgery S/P T&A (status post tonsillectomy and adenoidectomy) Status post appendectomy Status post cholecystectomy Status post tubal ligation Medical History (Last Reviewed 03/13/21 @ 16:10 by Audra Lei DO) No chronic problems Pulmonary embolism Physical Therapy Inpatient Evaluation/Re-Eval M1 PT/OT-IP Prior Functional Status Start: 07/13/22 08:52 Freq: Status: Active Protocol: Document 07/13/22 09:28 AW (Rec: 07/13/22 09:45 AW [id number]) Medical Review Prior Functional Status Medical History Reviewed Yes Communication WNL. Pt is an effective verbal communicator. Mobility and Gait Flaca has history of medulloblastoma with two resections and whole brain radiation therapy which just ended in March of this year. Since her second surgery, she has been profoundly dizzy and nauseous. She uses a hurrycane or cruises furniture at home in her RV. She is falling at least once daily and states she is scared to get out of bed sometimes because if she falls, her 11 and 13 yo children may not be able to help her up. She also has a wheelchair and a walker in storage but has not been using them. Activities of Daily Living and IADL's Needs SBA to min assist for showers due to balance concerns. Has to dress sitting down so that she does not fall. Flaca does not drive. Prior Functional Level (Other details) Flaca has history of lumbar surgery in 2019 followed by a revision. Her wound healed poorly and she had to have an I&D. Social History Household Members spouse,children Living Arrangements RV Number of Floors (Floors) One Floor Number of Stairs To Enter/Railing? 4 ZOEY. Pt holds on to the door and grab bar to climb stairs and must have her behind her to prevent fall. Home Environment Standard Height Toilet,Walk in Shower Home Equipment Front Wheel Walker,Straight Cane,Manual Wheelchair Additional Social History Comment Flaca lives with her spouse, Dale, who works 12-hour days 5-6 days/week. Her 11 and 13 yo children are home with her as she intended to home school them. She has a 20 yo daughter who lives and works in [employer]. M2 PT-IP Current Condition Start: 07/13/22 08:52 Freq: Status: Active Protocol: Document 07/13/22 09:28 AW (Rec: 07/13/22 09:45 AW [id number]) Physical Therapy Current Condition Current Condition Evaluation Date 07/13/22 Treatment Diagnosis dizziness, weakness, impaired balance and gait s/p medulloblastoma resect Onset Date March 2022 M3 PT-IP Subjective Start: 07/13/22 08:52 Freq: Status: Active Protocol: Document 07/13/22 09:28 AW (Rec: 07/13/22 09:45 AW [id number]) Subjective Physical Therapy Visit Type Type Initial Evaluation Visit Start Time 09:00 Visit Stop Time 09:28 Total Visit Minutes 28 Notes Pt seen in ED. Physical Therapy Visit Comments Patient Comments I can't keep anything down because I feel so dizzy and nauseous all the time. Therapy Pain Assessment Pain When Pain Assessed During Mobility Pain Present Pain Present Denied Pain M4 PT-IP Mobility and Gait Start: 07/13/22 08:52 Freq: Status: Active Protocol: Document 07/13/22 09:28 AW (Rec: 07/13/22 12:37 AW [id number]) PT-Bed Mobility Assessment Supine to Sit Supine to Sit Minimal Assistance,1 Person Assistance Sit to Supine Sit to Supine Minimal Assistance,1 Person Assistance PT-Transfer Assessment Sit to and From Stand Sit to and from Stand Contact Guard Assistance,Use of Upper Extremities Equipment Transfer Assistive Device Gait Belt,Front Wheeled Walker Orthotic/Prosthetic Devices or Brace: No Transfers Transfer Destination Bed Transfer Technique pt ambulated with and without FWW Transfer Ability Level of Assist Contact Guard Assistance, Minimal Assistance,Use of Upper Extremities Comments Mobility Comments Flaca was lying on her side on the ED gurney as PT arrived . She turned to supine and BP was 110/56 HR 84. She completed supine to sit slowly and with min A, reporting increased dizziness. Sitting BP was 101/54 HR 99. She stood CGA and supported herself with FWW after initial standing was quite unsteady with heavy lean on the gurney. In standing, BP was 100/52 HR 124. She was able to ambulate with the FWW ~40 feet CGA. She walked another 20 feet without AD back to the bed min A due to increased unsteadiness. Pt complained of dizziness that was present at rest but worsened with mobility. She needed min A to return to supine. BP after activity was 104/55 HR 97. Gait Assessment Gait Gait Assistance Required: Contact Guard Assist,Minimum Assistance Distance (Feet) 60 Assistive Devices Assistive Device None,Gait Belt,Front Wheeled Walker Orthotic/Prosthetic Devices or Brace: No Gait Deviations General Gait Pattern Ataxic,Decreased Stride Length ,Decreased Feet Clearance, Flexed Trunk,Lateral Trunk Lean,Wide Based Gait Factors Limiting Gait Function Factors Limiting Gait Function Decreased Activity Tolerance, Incoordination,Poor Balance Comments Gait Comments Gait is heavily affected by dizziness. Ataxia is most apparent without AD (requiring min A) but CGA required for gait with FWW. Stair Climbing Assessment Comments Stair Climbing Comments Not assessed. PT-Balance Assessment Sitting Balance and Reactions Static Sitting Balance Ability Good Dynamic Sitting Balance Ability Fair Standing Balance and Reactions Static Standing Balance Ability Poor Dynamic Standing Balance Ability Poor Device Used FWW Comments Other Balance Tests/Deviations/Treatment Balance heavily influenced by : dizziness. Pt has poor visual tracking, lag with saccades, and torsional upbeating nystagmus to the right with positional changes. She does not tolerate Kimberly-Hallpike today. M5 PT-IP Objective Assessments Start: 07/13/22 08:52 Freq: Status: Active Protocol: Document 07/13/22 09:28 AW (Rec: 07/13/22 12:37 AW [id number]) Orientation Orientation/Cognition Level of Alertness Alert Orientation Name,Date,Year,Day of Week, Place,Situation Language Function Ability No Deficits Noted Safety Awareness Understands Safety Issues Memory Description No Deficits Noted Gross Range of Motion Lower Extremity ROM Assessment Within Functional Limits Strength Upper Extremity Strength Assessment Within Functional Limits Shoulder 4+/5 to 5/5 Elbow 5/5 Lower Extremity Strength Assessment Bilaterally Impaired Hip 4/5 Knee 4+/5 Coordination Assessment Gross Coordination Gross Coordination Impaired Assessment Finger to Nose Test Moderate Impairment Pronation/Supination Test Moderate Impairment Coordination Comments LUE coordination impaired on finger to nose, pronation/ supination, and finger opposition. Sensation Assessment Sensation Gross Sensation Right LE Impaired Light Touch Impaired Comments Sensation Comments Numb/tingly plantar right foot and digits 3-5 Muscle Tone Muscle Tone WNL Yes M6 PT-IP Treatment Start: 07/13/22 08:52 Freq: Status: Active Protocol: Document 07/13/22 09:28 AW (Rec: 07/13/22 12:37 AW [id number]) Physical Therapy Treatment Education Education Provided Safety M7 PT-IP Assessment and Plan Start: 07/13/22 08:52 Freq: Status: Active Protocol: Document 07/13/22 09:28 AW (Rec: 07/13/22 12:37 AW [id number]) PT Summary Assessment and Plan Potential Rehabilitation Potential Good Status of Condition at Evaluation Unstable Summary Impairments Strength,Balance,Coordination, Sensation,Transfers,Gait, Activity Tolerance Assessment Summary Flaca is a 52 yo woman seen for PT evaluation in the ED today. She has a complicated medical history including two brain surgeries for medulloblastoma, radiation therapy, lumbar surgery with revision and infection. She complains of dizziness, nausea , and balance impairment which have worsened dramatically since her second brain tumor resection in January of this year. She presents with impaired visual tracking, torsional right upbeating nystagmus with positional changes, impaired left upper extremity coordination, and balance impairment evidenced by Mishra score of 14/56 on recent outpatient testing with this therapist. Though there may be some peripheral contribution to her balance impairment, it is unclear to what degree it is related to possible BPPV versus a central nervous system concern versus sequelae of whole brain radiation. She lives in an RV with her spouse, 11 and 13 yo children. Though she is able to ambulate short distances with FWW CGA, she is unable to use a walker in her RV. She is unable to care for herself safely at home due to unremitting dizziness and nausea which are contributing to falls. Her spouse works 12 hour shifts on most days. She needs 24/7 assist available to mobilize safely and may be a good candidate for SNF rehab. Will continue to assess. Goals Bed Mobility Goal Independent Transfer Goal Independent,Cane Gait Goal Independent,Cane Gait Distance 100 Other Goals - up/down 4 steps with unilateral rail and min assist Days to Meet Goals 10 Frequency of Treatment Frequency Of Treatment Once a Day Treatment Plan Physical Therapy Treatment Plan Bed Mobility Training,Transfer Training,Gait Training, Therapeutic Exercise,Balance Retraining,Discharge Planning, Neuromuscular Re-ed, Coordination Retraining Precautions Other Precautions dizziness, falls Recommendations To Nursing Amount of Assist Needed 1 Person Assist Discharge Recommendations PT Discharge Recommendations Home with 24/7 Assist Available,Home Health,Home vs SNF Transportation Needs at Discharge Private Vehicle,Wheelchair/ Cabulance
[2022-07-13] MEDS: LORazepam 2 MG/ML INJ 0.5 MG IV (09:47)
--- NOTE | 2022-07-13 14:59 | CM.DANOTE ---
DCP Assessment Note: Pt is a 52 year old female who presents to the ER due to weakness, nausea, and dizziness following radiation treatment. Pt has [employer] Medicaid and PCP is Kayleen Mathur . Pt reports inability to manage at home due to symptoms. Pt's spouse works 5-7 days a week on 12 hour shifts. Pt has supportive 20 year old daughter that lives in [facility] [facility]. 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 GUY Caceres Discharge Planning/Care Management CM Discharge Assessment Start: 07/13/22 14:55 Freq: Status: Active Protocol: Document 07/13/22 14:55 TM (Rec: 07/13/22 14:59 TM [id number]) Discharge Planning Assessment Assigned [employer] Manager GUY Caceres Advance Directives? No Advance Directives on File No History Provided By Patient,Medical Record Has Patient been admitted in last 30 No days? Prior Living Arrangements RV Household Members spouse,children Comment Pt lives with spouse and 11y/o and 13y/o sons. Type of transporation used prior to Relies on Others admit Independent with ADL's Yes: limited by current weakness, nausea Is patient alert and oriented? Yes Needs Assistance With Bathing,Grooming,Meal Prep, Toileting,Managing Medications ,Home Chores / Shopping Caregiver for Another Yes: two minor children. DME Already Rented / Owned Wheelchair,FWW / Walker Patient/Family Preference Home with Home Health Comment and referral to [facility]. Barriers to Discharge No Discharge Plan Home with Home Health Community Services Home Health Aid,Home Health Nurse Referrals Initiated Home Health,Other Additional Comment [facility] Referral for [facility] caregiver Medicare Choice List Provided Yes Please Provide Date Initial DC 07/13/22 Assessment Was Performed
--- NOTE | 2022-07-13 15:47 | PC.NURSE ---
patient very dizzy with ambulation to restroom. Reported to DR Fuentes, urine dark orange. Verbal order for additional liter of Normal Saline obtained. Patient reports some nausea and only able to tolerate couple pieces of fruit and small sips
[2022-07-13] MEDS: SODIUM CHLORIDE 0.9% 1,000 ML 1000 ML IV (15:49)
--- NOTE | 2022-07-13 18:26 | CM.DPC ---
Addendum entered by GUY Caceres 07/13/22 18:34: Cosigned by GUY Caceres Original Note: DCP/PAPETERIE TABLE ASSEMBLER Note Patient denies preference for HH provider. corner former call [facility] and [facility] and it is reported that they do not accept [employer] Medicaid. It is reported that [facility] accepts seldom Medicaid patient per week, it is reported that [facility] accepts [facility] and [facility] accepts [facility] and [facility]. PAPETERIE TABLE ASSEMBLER coordinates with patient to change patient's medicaid insurance to [facility], to start on 07/25/22. Patient indicates agreement and understanding and ability to wait until 07/25/22 for initiating HH services. Per HH agency rotation, PAPETERIE TABLE ASSEMBLER calls [facility] and faxes F2F, order and clinicals for HH referral. PAPETERIE TABLE ASSEMBLER refers patient for HH aide, PT, OT, RN and [employer]ET[employer]IE TABLE ASSEMBLER services. PAPETERIE TABLE ASSEMBLER faxes [facility] intake referral to [facility] and calls and leaves VM regarding application. Plan: Patient to d/c to home upon medical clearance with upcoming [facility] referral and pending [facility] application. Nikki Camilo, CLIENT CARE SPECIALIST
== END 2022-07-13 18:27 | disposition home or self-care (01) ==
PROVIDERS: Emergency Provider Emergency Medicine; PCP Nurse Practitioner Family
DX: R42 Dizziness and giddiness (principal); Z85.841 Personal history of malignant neoplasm of brain
CPT/HCPCS: 36415; 70450; 70496; 70498; 70553; 80053; 81003; 81015; 83605; 83690; 85025; 87086; 96361; 96374; 96375; 96376; 97163; 99284; A9579; C9113; J2060; J2405

== ENCOUNTER 2022-07-25 18:28 | Inpatient (IN) | payer OTHER, MEDICAID, SELFPAY ==
[2022-07-25] VITALS (7 sets, daily range): BP systolic 109–136; BP diastolic 58–80; PULSE 89–117; RESP 14–19; TEMP 36; O2SAT 96–100; BMI 26.5
[2022-07-25 21:46] LABS: Add Manual Diff / Slide Review NO; Basophils Absolute Auto 0 /uL (0-100); Basophils Percent Auto 0.3 % (0-2); Eosinophils Absolute Auto 0 /uL (0-450); Eosinophils Percent Auto 0.6 % (2-4); Hematocrit 41.7 % (36-46); Hemoglobin 14.7 g/dL (12.0-16.0); Lymphocytes Absolute Auto 400 /uL (1100-4500); Lymphocytes Percent Auto 9.6 % (25-40); Mean Corpuscular HGB Conc 35.2 % (30-36); Mean Corpuscular Volume 85.1 fL (80-100); Monocytes Absolute Auto 500 /uL (0-900); Monocytes Percent Auto 11.4 % (3-14); Neutrophils Absolute Auto 3500 /uL (1500-7000); Neutrophils Percent Auto 78.1 % (50-75); Platelet Count 279 X10^3/uL (150-400); Red Cell Distribution Width 14.5 % (11.6-14.8); White Blood Cell Count 4.5 X10^3/uL (4.5-11.0)
[2022-07-25 21:47] LABS: Alanine Aminotransferase 47 IU/L (<35); Albumin 3.9 g/dL (3.5-5.0); Albumin Globulin Ratio 1.3 (1.0-2.8); BUN Creatinine Ratio 18.9 (6-22); Bilirubin Total 1.8 mg/dL (0.2-1.3); Blood Urea Nitrogen 10 mg/dL (7-17); Calcium 8.8 mg/dL (8.4-10.2); Carbon Dioxide 28 mmol/L (22-32); Chloride 91 mmol/L (98-107); Estimated Glomerular Filt Rate > 60 mL/min (>60); Globulin 3.1 g/dL (1.7-4.1); Glucose 87 mg/dL (70-100); Lipase 95 U/L (23-300); Sodium 132 mmol/L (137-145)
[2022-07-25 21:48] LABS: HEMOLYSIS 71 (0-50)
[2022-07-25 21:49] LABS: Alkaline Phosphatase 53 U/L (38-126); Aspartate Aminotransferase 37 IU/L (14-36)
[2022-07-25 23:09] LABS: Magnesium 1.9 mg/dL (1.6-2.3)
[2022-07-25 23:10] LABS: Phosphorous 3.2 mg/dL (2.5-4.5)
[2022-07-25] MEDS: LORazepam 2 MG/ML INJ 0.5 MG IV (23:11)
[2022-07-25] MEDS: SODIUM CHLORIDE 0.9% 1,000 ML 1000 ML IV (23:11)
[2022-07-25] MEDS: PANTOPRAZOLE 40 MG VIAL IV (23:11)
[2022-07-25] MEDS: ONDANSETRON 4 MG/2 ML INJ IV (23:11)
[2022-07-25] MEDS: POTASSIUM CHLORIDE IN WATER 10 MEQ/100 ML PIGGYBACK 100 MEQ IV (23:11)
[2022-07-26] VITALS (18 sets, daily range): BP systolic 99–116; BP diastolic 55–76; PULSE 76–99; RESP 11–24; TEMP 36.4–36.8; O2SAT 96–100; BMI 26.5
[2022-07-26] MEDS: POTASSIUM CHLORIDE IN WATER 10 MEQ/100 ML PIGGYBACK 100 MEQ IV ×7 (00:21→20:16)
--- NOTE | 2022-07-26 03:26 | ED_ITS ---
HPI - Nausea/Vomiting/Diarrhea General Chief complaint: Nausea/Vomiting/Diarrhea Stated complaint: Dehydrated, Nausea Vomitting Time Seen by Provider: 07/25/22 22:57 Source: patient Mode of arrival: Wheelchair History of Present Illness HPI Narrative: Patient is a 52-year-old female with history of brain tumor and whole-brain radiation. His she has had persistent ongoing nausea vomiting and vertigo is since April. She has been in to the ER 3 times for the same thing. Her last visit was July 12 is she had an MRI she has had multiple CTs and workups. She has been seen evaluated by social Work attempted to get physical therapy and home health care to her house but unfortunately his they can not get there in till August. She has children at home. She says every time she tries to eat or drink anything at all she vomits. She is losing weight. She was given Ativan during her last visit which seemed to help her but unfortunately it is a pill and she vomits. She has no abdominal pain she has no neurologic symptoms. She denies any chest pain or palpitations. She states that if she remains lying down and still she is okay but she still can not tolerate fluids. She has been losing weight. Related Data Previous Rx's Medication Instructions Recorded famciclovir 500 mg tablet 500 mg PO Q8H shingles #21 tabs 08/19/19 gabapentin 300 mg capsule 300 mg PO Q8H shingles pain #40 08/19/19 caps potassium chloride 20 mEq 20 meq PO DAILY #7 tabs 02/12/21 tablet,extended release metoclopramide HCl 10 mg tablet 10 mg PO Q6H PRN nausea and 06/20/22 (Reglan) vomiting #20 tabs diazepam 5 mg tablet (Valium) 5 mg PO Q12HR PRN muscle spasm #20 07/13/22 tabs promethazine 25 mg rectal 25 mg [place] Q6H PRN nausea and 07/13/22 suppository vomiting #12 ea Allergies Allergy/AdvReac Type Severity Reaction Status Date / Time codeine Allergy Verified 07/12/22 15:59 Review of Systems Review of Systems Narrative: GENERAL: Denies chills, fatigue, malaise, fever, sweats, travel HEENT: Denies sinus pain, ear pain, sore throat, difficulty swallowing, neck pain RESPIRATORY: Denies dyspnea, cough, wheezing, hemoptysis, sputum. CARDIOVASCULAR: Denies chest pain, palpitations, orthopnea, edema GASTROINTESTINAL: See HPI : Denies dysuria, frequency, incontinence, hematuria, urinary retention, flank pain. MUSCULOSKELETAL: Denies weakness, joint pain, or bony pain SKIN: No rash, no erythema, no pruritus NEUROLOGIC: See HPI PSYCHIATRIC: No concerning psychosocial issues. 12 point review of systems is negative except for those stated above and HPI Patient History Medical History No chronic problems Pulmonary embolism Surgical History History of lumbar surgery S/P T&A (status post tonsillectomy and adenoidectomy) Status post appendectomy Status post cholecystectomy Status post tubal ligation Social History household members: spouse and children Smoking Status: Never smoker Smoking Status: Never smoker alcohol intake frequency: other Substance Use Type: marijuana Exam Initial Vital Signs Initial Vital Signs: Vital Signs Temperature 96.8 F L 07/25/22 18:34 Pulse Rate 117 H 07/25/22 18:34 Respiratory Rate 18 07/25/22 18:34 Blood Pressure 136/58 L 07/25/22 18:34 Pulse Oximetry 100 07/25/22 18:34 Oxygen Delivery Method 07/25/22 18:34 GENERAL: 52-year-old female lying down overall appears unwell HEENT: Head atraumatic,EOMI, pupils reactive, face symmetric, dry mucous membranes CARDIOVASCULAR: Regular rate and rhythm without murmurs, rubs or gallops. RESPIRATORY: Breath sounds equal bilaterally, no wheezes rales or rhonchi. ABDOMEN: Soft, nontender. Normoactive bowel sounds all 4 quadrants. No guarding or rebound. EXTREMITIES: Normal range of motion, no clubbing or edema. Neurovascularly i ntact NEUROLOGICAL: Alert and oriented x4. Moving all extremities no focal deficits SKIN: Warm, dry, no laceration, no petechiae, no rashes or lesions. Course Orders Ordered: ED Orders 07/25/22 23:31 EKG-12 Lead Stat 07/26/22 05:18 Prealbumin Stat 07/26/22 05:27 Consult to Dietitian, Adult Stat 07/26/22 05:28 Education, smoking cessation ONGOING Enoxaparin Sodium (Enoxaparin 40 Mg/0.4 Ml Syringe) 40 mg SUBCUT DAILY DANIEL Sodium Chloride (Normal Saline 0.9%) 1,000 mls @ 100 mls/hr IV CONT DANIEL Last Admin: 07/26/22 06:17 Dose: 100 mls/hr Documented By: OW POTASSIUM CHLORIDE IN WATER (Potassium Cl 10 Meq/100 Ml [place]) 10 meq in 100 mls @ 100 mls/hr IV Q1H DANIEL Stop: 07/26/22 07:44 Last Infusion: 07/26/22 07:20 Dose: 0 mls/hr Documented By: Admin: 07/26/22 06:17 Dose: 100 mls/hr Documented By: OW Metoclopramide HCl (Metoclopramide 10 Mg/2 Ml Inj) 5 mg IV Q6H PRN PRN Reason: Nausea And Vomiting Naloxone HCl (Naloxone 0.4 Mg/Ml Vial) 0.2 mg IV Q2MIN PRN PRN Reason: Opiate Reversal Ondansetron HCl (Ondansetron 4 Mg/2 Ml Inj) 4 mg IV Q6HR PRN PRN Reason: Nausea And Vomiting Discontinued Medications Sodium Chloride (Normal Saline 0.9%) 1,000 mls @ 1,000 mls/hr IV BOLUS ONE Stop: 07/25/22 23:56 Last Infusion: 07/26/22 02:20 Dose: 0 mls/hr Documented By: Admin: 07/25/22 23:11 Dose: 1,000 mls/hr Documented By: FRANCI POTASSIUM CHLORIDE IN WATER (Potassium Cl 10 Meq/100 Ml [place]) 10 meq in 100 mls @ 100 mls/hr IV Q1H DANIEL Stop: 07/26/22 00:59 Last Infusion: 07/26/22 01:31 Dose: 0 mls/hr Documented By: MLKylee Admin: 07/26/22 00:21 Dose: 100 mls/hr Documented By: MLKylee Infusion: 07/26/22 00:11 Dose: 100 mls/hr Documented By: MLKylee Admin: 07/25/22 23:11 Dose: 100 mls/hr Documented By: FRANCI POTASSIUM CHLORIDE IN WATER (Potassium Cl 10 Meq/100 Ml [place]) 10 meq in 100 mls @ 100 mls/hr IV Q1H DANIEL Stop: 07/26/22 11:44 Lorazepam (Lorazepam 2 Mg/Ml Inj) 0.5 mg IV NOW ONE Stop: 07/25/22 22:58 Last Admin: 07/25/22 23:11 Dose: 0.5 mg Documented By: FRANCI Lorazepam (Lorazepam 2 Mg/Ml Inj) 0.5 mg IV NOW ONE Stop: 07/26/22 03:37 Last Admin: 07/26/22 05:47 Dose: Not Given Documented By: FRANCI Ondansetron HCl (Ondansetron 4 Mg/2 Ml Inj) 4 mg IV NOW ONE Stop: 07/25/22 22:58 Last Admin: 07/25/22 23:11 Dose: 4 mg Documented By: FRANCI Pantoprazole Sodium (Pantoprazole 40 Mg Vial) 40 mg IV NOW ONE Stop: 07/25/22 22:58 Last Admin: 07/25/22 23:11 Dose: 40 mg Documented By: FRANCI Vital Signs Vital signs: Vital Signs - 8 hr 07/25/22 23:30 07/25/22 23:30 07/26/22 00:00 Pulse Rate 101 H Respiratory Rate 16 Blood Pressure 109/61 112/76 Pulse Oximetry 96 Oxygen Delivery Method Oxygen Flow Rate 07/26/22 00:00 07/26/22 00:30 07/26/22 00:30 Pulse Rate 97 H 99 H Respiratory Rate 16 24 Blood Pressure 108/67 Pulse Oximetry 96 97 Oxygen Delivery Method Oxygen Flow Rate 07/26/22 01:00 07/26/22 01:00 07/26/22 01:30 Pulse Rate 97 H Respiratory Rate 13 Blood Pressure 101/71 101/64 Pulse Oximetry 99 Oxygen Delivery Method Oxygen Flow Rate 07/26/22 01:30 07/26/22 02:00 07/26/22 02:00 Pulse Rate 88 79 Respiratory Rate 13 14 Blood Pressure 100/58 L Pulse Oximetry 100 100 Oxygen Delivery Method Oxygen Flow Rate 07/26/22 02:30 07/26/22 02:30 07/26/22 03:00 Pulse Rate 85 Respiratory Rate 18 Blood Pressure 100/68 101/59 L Pulse Oximetry 98 Oxygen Delivery Method Oxygen Flow Rate 07/26/22 03:00 07/26/22 03:30 07/26/22 03:30 Pulse Rate 89 96 H Respiratory Rate 21 14 Blood Pressure 108/58 L Pulse Oximetry 98 99 Oxygen Delivery Method Oxygen Flow Rate 07/26/22 04:00 07/26/22 04:00 07/26/22 04:30 Pulse Rate 78 Respiratory Rate 11 L Blood Pressure 103/58 L 99/60 Pulse Oximetry 99 Oxygen Delivery Method Oxygen Flow Rate 07/26/22 04:30 07/26/22 05:00 07/26/22 05:00 Pulse Rate 76 84 Respiratory Rate 11 L 12 Blood Pressure 100/57 L Pulse Oximetry 99 97 Oxygen Delivery Method Oxygen Flow Rate 07/26/22 05:27 Pulse Rate Respiratory Rate Blood Pressure Pulse Oximetry 97 Oxygen Delivery Method Room Air Oxygen Flow Rate 0 MDM - Nausea/Vomiting/Diarrhea Lab Data Result diagrams: 07/25/22 21:20 07/25/22 21:20 Labs: Lab Results 07/25/22 07/25/22 07/25/22 Range/Units 21:20 21:20 21:20 WBC 4.5 (4.5-11.0) X10^3/uL RBC 4.90 (4.0-5.2) X10^6/uL Hgb 14.7 (12.0-16.0) g/dL Hct 41.7 (36-46) % MCV 85.1 (80-100) fL MCH 30.0 (26-34) PG MCHC 35.2 (30-36) % RDW 14.5 (11.6-14.8) % Plt Count 279 (150-400) X10^3/uL Neut % (Auto) 78.1 H (50-75) % Lymph % (Auto) 9.6 L (25-40) % [place] % (Auto) 11.4 (3-14) % Eos % (Auto) 0.6 L (2-4) % Baso % (Auto) 0.3 (0-2) % Neut # (Auto) 3500 (8595-7899) /uL Lymph # (Auto) 400 L (7126-1224) /uL [place] # (Auto) 500 (0-900) /uL Eos # (Auto) 0 (0-450) /uL Baso # (Auto) 0 (0-100) /uL Sodium 132 L (137-145) mmol/L Potassium 3.0 L (3.4-5.1) mmol/L Chloride 91 L (98-107) mmol/L Carbon Dioxide 28 (22-32) mmol/L BUN 10 (7-17) mg/dL Creatinine 0.53 (0.52-1.04) mg/dL Estimated GFR > 60 (>60) mL/min BUN/Creatinine Ratio 18.9 (6-22) Glucose 87 (70-100) mg/dL Calcium 8.8 (8.4-10.2) mg/dL Phosphorus (2.5-4.5) mg/dL Magnesium 1.9 (1.6-2.3) mg/dL Total Bilirubin 1.8 H (0.2-1.3) mg/dL AST 37 H (14-36) IU/L ALT 47 H (<35) IU/L Alkaline Phosphatase 53 (38-126) U/L Total Protein 7.0 (6.3-8.2) g/dL Albumin 3.9 (3.5-5.0) g/dL Globulin 3.1 (1.7-4.1) g/dL Albumin/Globulin Ratio 1.3 (1.0-2.8) Prealbumin (17.6-36.0) mg/dL Lipase 95 (23-300) U/L TSH (0.47-4.68) uIU/mL 07/25/22 07/25/22 07/25/22 Range/Units 21:20 21:20 21:20 WBC (4.5-11.0) X10^3/uL RBC (4.0-5.2) X10^6/uL Hgb (12.0-16.0) g/dL Hct (36-46) % MCV (80-100) fL MCH (26-34) PG MCHC (30-36) % RDW (11.6-14.8) % Plt Count (150-400) X10^3/uL Neut % (Auto) (50-75) % Lymph % (Auto) (25-40) % [place] % (Auto) (3-14) % Eos % (Auto) (2-4) % Baso % (Auto) (0-2) % Neut # (Auto) (0665-1799) /uL Lymph # (Auto) (4461-1231) /uL [place] # (Auto) (0-900) /uL Eos # (Auto) (0-450) /uL Baso # (Auto) (0-100) /uL Sodium (137-145) mmol/L Potassium (3.4-5.1) mmol/L Chloride (98-107) mmol/L Carbon Dioxide (22-32) mmol/L BUN (7-17) mg/dL Creatinine (0.52-1.04) mg/dL Estimated GFR (>60) mL/min BUN/Creatinine Ratio (6-22) Glucose (70-100) mg/dL Calcium (8.4-10.2) mg/dL Phosphorus 3.2 (2.5-4.5) mg/dL Magnesium (1.6-2.3) mg/dL Total Bilirubin (0.2-1.3) mg/dL AST (14-36) IU/L ALT (<35) IU/L Alkaline Phosphatase (38-126) U/L Total Protein (6.3-8.2) g/dL Albumin (3.5-5.0) g/dL Globulin (1.7-4.1) g/dL Albumin/Globulin Ratio (1.0-2.8) Prealbumin 18.1 (17.6-36.0) mg/dL Lipase (23-300) U/L TSH 0.83 (0.47-4.68) uIU/mL ECG Data Interpretation: Sinus tachycardia rate 101 [place] interval 140 QRS 58 QTC is [address] change MDM Narrative Medical decision making narrative: Patient has had multiple CTs and MRIs. She has this ongoing vertigo and vomiting which who presents with today. At this time I see no need for imaging. Blood work does show that she is mildly hypokalemic which is replaced intravenously due to inability to tolerate fluids. She has been seen here multiple times for the same. She continues to lose weight and not tolerate fluids outpatient attempts to help with home health care and physical therapy have failed. Possible male nurse mint. His creatinine is within normal limits and does not show any sort of severe dehydration. Patient has received Ativan which does help her along with Protonix. Elsa Domingo accepts patient Discharge Plan Departure Patient Disposition: Admitted as Observation Clinical Impression: Unintentional weight loss, Anorexia Admit Date/Time: 07/26/22 05:37 Admit Provider: Inessa Domingo
[2022-07-26 05:41] LABS: Prealbumin 18.1 mg/dL (17.6-36.0)
[2022-07-26] MEDS: SODIUM CHLORIDE 0.9% 1,000 ML 100 ML IV (06:17)
--- NOTE | 2022-07-26 06:22 | PM.HP.1 ---
History of Present Illness History of Present Illness Date Patient Seen: 07/26/22 Time Patient Seen: 06:22 Chief complaint: N/V, limited PO since whole brain rad in Narrative: Flaca Gonzalez is a 52 y.o. 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 She underwent a crainotomy in January for removal of a reported medulloblastoma. Ever since the conclusion of the whole brain radiation, she has been unable to eat, has been persistently dizzy and unable to function. She states she is unable to keep anything down, vomits bile and has had little urine or stool output. States her urine is orange to red. She has had several lower back surgeries and reports she has had a 2 week history of right leg numbness and weakness. She normally takes gabapentin, but has been unable to take it. She used to take marijuana gummies but has not been able to keep them down. She has been seen for this multiple times for this since the end of May of this year with no resolution of her symptoms. Last head MRI done on July 12 was negative for any new changes. Review of her weight history indicates she had a stable weight of the high 70s until her ED visit of 06/10. she has lost approximately 14 kilograms/31 lbs in the past 6 weeks. Her surgery was done at [facility] and her oncologist is Dr. Mott, last follow-up appointment was on May 25. She is afebrile, blood pressure 115/55, heart rate 93, respiratory rate 19, oxygen saturation of 97% on room air she weighs 65.7 kg with a BMI of 26. WBC is unremarkable, sodium 132 potassium 3.0 chloride 91 total bilirubin is 1.8 AST 37 ALT 47, TSH and COVID-19 PCR are pending. Patient History Medical History No chronic problems Pulmonary embolism Surgical History History of lumbar surgery S/P T&A (status post tonsillectomy and adenoidectomy) Status post appendectomy Status post cholecystectomy Status post tubal ligation Family & Social History Social History: household members spouse,children Safety & Behavioral: Feels Safe in Current Yes Environment Been Physically Hurt or No Threatened By a Person Tobacco & Substance use: Smoking Status Never smoker alcohol intake frequency other Substance Use Type marijuana Meds Home Medications and Allergies Home Medications Medication Instructions Recorded Confirmed Type famciclovir 500 mg tablet 500 mg PO Q8H shingles #21 tabs 08/19/19 Rx gabapentin 300 mg capsule 300 mg PO Q8H shingles pain #40 08/19/19 Rx caps potassium chloride 20 mEq 20 meq PO DAILY #7 tabs 02/12/21 Rx tablet,extended release metoclopramide HCl 10 mg tablet 10 mg PO Q6H PRN nausea and 06/20/22 Rx (Reglan) vomiting #20 tabs diazepam 5 mg tablet (Valium) 5 mg PO Q12HR PRN muscle spasm #20 07/13/22 Rx tabs promethazine 25 mg rectal 25 mg AL Q6H PRN nausea and 07/13/22 Rx suppository vomiting #12 ea Allergies Allergy/AdvReac Type Severity Reaction Status Date / Time codeine Allergy Verified 07/12/22 15:59 Review of Systems Review of Systems ROS: Yes All systems reviewed with the patient and are negative except as otherwise documented Exam Vital Signs (past 8 hours): - 07/25/22 22:30 07/25/22 22:30 07/25/22 23:00 Temperature Pulse Rate 91 H Respiratory Rate 14 Blood Pressure 111/71 123/80 Pulse Oximetry 100 07/25/22 23:00 07/25/22 23:30 07/25/22 23:30 Temperature Pulse Rate 93 H 101 H Respiratory Rate 14 16 Blood Pressure 109/61 Pulse Oximetry 100 96 07/26/22 00:00 07/26/22 00:00 07/26/22 00:30 Temperature Pulse Rate 97 H Respiratory Rate 16 Blood Pressure 112/76 108/67 Pulse Oximetry 96 07/26/22 00:30 07/26/22 01:00 07/26/22 01:00 Temperature Pulse Rate 99 H 97 H Respiratory Rate 24 13 Blood Pressure 101/71 Pulse Oximetry 97 99 07/26/22 01:30 07/26/22 01:30 07/26/22 02:00 Temperature Pulse Rate 88 Respiratory Rate 13 Blood Pressure 101/64 100/58 L Pulse Oximetry 100 07/26/22 02:00 07/26/22 02:30 07/26/22 02:30 Temperature Pulse Rate 79 85 Respiratory Rate 14 18 Blood Pressure 100/68 Pulse Oximetry 100 98 07/26/22 03:00 07/26/22 03:00 07/26/22 03:30 Temperature Pulse Rate 89 Respiratory Rate 21 Blood Pressure 101/59 L 108/58 L Pulse Oximetry 98 07/26/22 03:30 07/26/22 04:00 07/26/22 04:00 Temperature Pulse Rate 96 H 78 Respiratory Rate 14 11 L Blood Pressure 103/58 L Pulse Oximetry 99 99 07/26/22 04:30 07/26/22 04:30 07/26/22 05:00 Temperature Pulse Rate 76 Respiratory Rate 11 L Blood Pressure 99/60 100/57 L Pulse Oximetry 99 07/26/22 05:00 07/26/22 06:00 Temperature 97.7 F Pulse Rate 84 93 H Respiratory Rate 12 19 Blood Pressure 115/55 L Pulse Oximetry 97 97 Oxygen Delivery Method Room Air Narrative Exam Narrative: Gen: Alert, oriented, ill appearing 52 y.o. female, bile like odor about her HEENT: normocephalic, atraumatic, conjunctiva clear, sclera non-icteric, oral mucosa pink and moist Neck: supple, full ROM, no JVD, trachea is midline Resp: Lungs CTA, non-labored breathing CV: RRR, no murmur or rubs Abd: soft, non-tender, normoactive BTs Skin: bald, no lesions or rashes, dry and intact Neuro: Alert and oriented X 4 w/no focal deficits. Speech clear and coherent. Extremities: moves all 4 extremities, is ambulatory, negative Zita?s sign Psyche: normal mood and affect. Objective Labs Result Diagrams: 07/25/22 21:20 07/25/22 21:20 Labs: Laboratory Results - last 24 hr 07/25/22 07/25/22 07/25/22 21:20 21:20 21:20 WBC 4.5 RBC 4.90 Hgb 14.7 Hct 41.7 MCV 85.1 MCH 30.0 MCHC 35.2 RDW 14.5 Plt Count 279 Neut % (Auto) 78.1 H Lymph % (Auto) 9.6 L [place] % (Auto) 11.4 Eos % (Auto) 0.6 L Baso % (Auto) 0.3 Neut # (Auto) 3500 Lymph # (Auto) 400 L [place] # (Auto) 500 Eos # (Auto) 0 Baso # (Auto) 0 Sodium 132 L Potassium 3.0 L Chloride 91 L Carbon Dioxide 28 BUN 10 Creatinine 0.53 Estimated GFR > 60 BUN/Creatinine Ratio 18.9 Glucose 87 Calcium 8.8 Phosphorus Magnesium 1.9 Total Bilirubin 1.8 H AST 37 H ALT 47 H Alkaline Phosphatase 53 Total Protein 7.0 Albumin 3.9 Globulin 3.1 Albumin/Globulin Ratio 1.3 Prealbumin Lipase 95 07/25/22 07/25/22 21:20 21:20 WBC RBC Hgb Hct MCV MCH MCHC RDW Plt Count Neut % (Auto) Lymph % (Auto) [place] % (Auto) Eos % (Auto) Baso % (Auto) Neut # (Auto) Lymph # (Auto) [place] # (Auto) Eos # (Auto) Baso # (Auto) Sodium Potassium Chloride Carbon Dioxide BUN Creatinine Estimated GFR BUN/Creatinine Ratio Glucose Calcium Phosphorus 3.2 Magnesium Total Bilirubin AST ALT Alkaline Phosphatase Total Protein Albumin Globulin Albumin/Globulin Ratio Prealbumin 18.1 Lipase Assessment & Plan Assessment & Plan narrative: Falca Gonzalez is placed into observation for further evaluation of unintended weight loss and anorexia associated with persistent and intractable nausea and vomiting. Unintended weight loss due to persistent nausea and vomiting, present on admission She has lost 30 lbs over the past 6 weeks despite taking antiemetics I have requested dietary consult Patient had been ordered for home health, services not available until August IV zofran and reglan for symptom control Hypokalemia, acute and present on admission Potassium is 3.0 She was ordered for 1 kcl rider of 10 mEq in the ED and she is ordered for 2 more riders History of reported medulloblastoma Will need to obtain records from [facility] and contact her oncologist to advise of her admission VTE Prophylaxis: Wells risk score 2.5 X Enoxaparin 40 mg subQ once daily X Bilateral SCDs Patient is placed into observation as her stay is not expected to exceed 2 midnights. FEN: IV fluids: NS at 100 ml/hour, diet: heart healthy as tolerated, labs: CBC, C/BMP, liver enzymes, Mag, PT/INR Consultants None Dispo: unknown at this time Code status: full code as discussed with the patient who identifies her Michael as her surrogate and POA. [X] I have utilized all available immediate resources to obtain, update, or review of the patient's current medications VTE Deep Vein Thrombosis/Pulmonary Embolism Present on Admission: No MIPS - Admit I confirm the patient?s Advance Care Plan is present, Code status is documented, Surrogate decision maker is in patient?s record: Yes MIPS - DC The patient has current or prior documentation of left ventricular ejection fraction (LVEF) less than 40%, or moderate or severely depressed left ventricular systolic function.: No Time Spent With Patient Critical Care time: I spent a total of [] minutes of critical care time on this patient's care today; this time is exclusive of procedural time. Scores Wells' Criteria for PE Clinical signs and symptoms of DVT: No PE is #1 Dx or equally likely: No Heart rate > 100: No Immobilization at least 3 days or surg in previous 4 weeks: No History of PE or DVT: Yes Hemoptysis: No Malignancy w/Treatment within 6 months or palliative: Yes Wells' PE Score total: 2.5
[2022-07-26 06:39] LABS: TSH w/ Reflex to FT4 0.83 uIU/mL (0.47-4.68)
[2022-07-26 08:21] LABS: COVID19 - ADMIT (NP swab/PCR) Negative (Negative)
[2022-07-26] MEDS: ENOXAPARIN 40 MG/0.4 ML SYRINGE SUBCUT (09:28)
[2022-07-26] MEDS: ONDANSETRON 4 MG/2 ML INJ IV (10:05)
[2022-07-26 12:28] LABS: RBC Urine 0-1/HPF (0-5/HPF); WBC Urine 10-30/HPF (0-5/HPF)
[2022-07-26 12:29] LABS: Bacteria Urine Many (>30); Culture Indicated Urine Specimen Cultured; Squamous Epithelial Cell Urine 5-10 /HPF (0-5/HPF)
[2022-07-26] MEDS: METOCLOPRAMIDE 10 MG/2 ML INJ 5 MG IV (12:32)
[2022-07-26] MEDS: cefTRIAXone 1,000 MG in SODIUM CHLORIDE 0.9% 100 ML 200 MG IV (12:54)
--- NOTE | 2022-07-26 13:31 | DIET.CONS ---
Addendum entered by Fanny Elena 07/26/22 14:29: RD spoke with patients sister at bedside. Over the past few weeks pts sister has been making Gatorade ice chips and trying to spoon feed her broth but pt not keeping anything down, has emesis with minimal clear liquid intake. Original Note: Dietary Consultation Note Admission Date: 07/26/2022 05:37 Assessment: 52y F admitted for N/V and limited PO intake referred to nutrition for malnutrition screening (MNA 6- malnourished). Pt is s/p craniotomy for medulloblastoma having completed whole brain radiation 2mo ago. Since completing radiation, pt has been dealing with life-altering vertigo, nausea and vomiting. Pt is 25% below usual body weight and has lost 12.2% unintentionally in the past 1 mo (severe) due to limited ability to tolerate POs. Pt states she cannot keep medicine down, solid foods or water. Pt reports urination once daily that is orange to red in color. Pt has been to ED several times over 2mo with same concerns, sx not improved and body weight still trending down severely. Pt has 3 children and a but has not been able to drive since December 2021 and spends her days in bed putting her at increased risk of lean body mass wasting. Pt being given IVF and electrolytes while hospitalized, only consumed a few bites applesauce with antiemetics on board. Pt reports being scared to see her body wasting away. Pt desires initiation of artificial nutrition. Hospitalist awaiting reccs from neurosurgery and oncology teams, planning for infusion of D5 to provide some kcals, however this does not address pts protein deficit. Pt would benefit from artificial nutrition in form of J-tube or TPN due to severe N/V. J-tube not service line at this facility, recc transfer to facility capable of providing pts feeding needs. Ht: 157.48 cm Wt: 65.771 kg BMI: 26.5 UBW: 90kg Last BM: 07/13/22 (07/26/22 10:11) MNA: 6 Liu Score: 19 Diet: 07/26/22 Breakfast Heart Healthy Diet Diet Modifications: Labs: RBC 4.90 X10^6/uL (4.0-5.2) 07/25/22 21:20 Hgb 14.7 g/dL (12.0-16.0) 07/25/22 21:20 Hct 41.7 % (36-46) 07/25/22 21:20 Creatinine 0.53 mg/dL (0.52-1.04) 07/25/22 21:20 Nutrition Diagnosis: Severe Acute Protein Calorie Malnutrition r/t inability to tolerate oral intake aeb 12.2% unintentional weight loss in 1mo (severe), pt nearly bedbound due to severe vertigo from whole brain radiation for brain tumor, N/V x2mo with no meaningful PO intake in that time. -The patient is at much higher risk for medical and surgical complications because of his malnutrition. This increases the difficulty and complexity of medical and surgical interventions and increases the chances of poor outcomes such as morbidity and mortality. Interventions: 1. Kitchen to provide high kcal/high PRO ONS for pt to sip when she is not feeling nauseous. Pt may be able to tolerate more POs than at home with nursing team dosing her antiemetics on a schedule. 2. Recc initiation of artificial nutrition if pts neurology and oncology team approves to support nutrition status until sx are properly treated allowing meaningful PO intake. Recc [place] vs J-tube vs TPN to reduce risk of aspiration as pt with unrelenting vertigo, nausea and vomiting-even of plain water. If artificial nutrition desired by care team, recc transfer to facility with this service line. EER: 1625kcals (25kcal/kg per overweight PCM), 84-98 g PRO (1.3-1.5g/kg per PCM) Monitoring/Evaluations: following daily Electronically Signed by: Fanny Elena 07/26/22 13:31 Clinical Dietitian [address] [id number]
[2022-07-26] MEDS: DEXTROSE 5%-0.9% NS 1,000 ML 100 ML IV ×2 (14:13→23:17)
--- NOTE | 2022-07-26 14:46 | CM.DANOTE ---
Patient is a 52 yo female who was admitted on 07/26/22 for Intractable N/V, brain radiation. Pt has [employer] and [employer] for insurance and her PCP is Kayleen Mathur. EMR was reviewed. 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 Per tool analyst, pt will likely need artificial nutrition at this time through J tube or TPN and met with pt and her sister bedside. Per MD, pt consult with pt's NeuroSurgeon and Onc Dr. Mott at [facility] towards determining recommendations for POC and possible hospital transfer. Plan: SW to follow closely for consult with pt's medical team at [facility] towards determining POC and d/c planning needs. GUY Ledezma Discharge Planning/Care Management Advanced directive, confirm from FAMILY Start: 07/26/22 10:22 Freq: Q24H Status: Active Protocol: Document 07/26/22 10:22 YAD (Rec: 07/26/22 10:22 YAD [id number]) Advance Directive, confirm on record Time 10:22 Person contacted Pt Copy received No CM Discharge Assessment Start: 07/26/22 14:42 Freq: Status: Active Protocol: Document 07/26/22 14:42 BF (Rec: 07/26/22 14:46 BF [id number]) Discharge Planning Assessment Assigned Core Java Engineer GUY Mulligan DPOA/Assigned Designee Name spouse Dale Contact Information [phone] Advance Directives? No Advance Directives on File No History Provided By Patient,Medical Record Has Patient been admitted in last 30 No days? Prior Living Arrangements RV Household Members spouse,children Type of transporation used prior to Relies on Others admit Comment Has not been driving since December 2021 this year once gleoblastoma discovered Independent with ADL's Yes: needing assist now with her intractable n/v Is patient alert and oriented? Yes Needs Assistance With Bathing,Meal Prep,Managing Medications,Home Chores / Shopping Caregiver for Another Yes: has 3 children at home Comment POC to be determined once consult with Neurosurgeon and Onc Comment Pending POC Discharge Plan Home with Home Health Transportation Arrangement Likely spouse or sister if safe for d/c home Referrals Initiated Home Health,Other Additional Comment HCS Referral for JUSTIN caregiver Review Status In Process Please Provide Date Initial DC 07/26/22 Assessment Was Performed Next Review Type Continued Stay Review
[2022-07-26] MEDS: diphenhydrAMINE 50 MG/ML VIAL 25 MG IV (14:56)
[2022-07-26 15:25] LABS: HEMOLYSIS < 15 (0-50); Potassium 3.3 mmol/L (3.4-5.1)
--- NOTE | 2022-07-26 17:46 | DI.RAD.S_ITS ---
PROCEDURE: XR ABDOMEN 1V INDICATIONS: Nasogastic tube placement TECHNIQUE: One view of the abdomen acquired. COMPARISON: None. FINDINGS: Surgical changes and devices: NG tube tip is in the region of proximal to mid stomach lumen below the left hemidiaphragm. Surgical clips are noted in gallbladder fossa. Bowel: Bowel gas pattern is normal. Soft tissues: No suspicious abdominal calcifications. Visualized solid organ contours appear normal in size. Bones: No suspicious bony lesions. IMPRESSION: NG tube tip is in the region of proximal to mid stomach lumen. No gross free air. Dictated by: Mick Martinez M.D. on 07/26/2022 at 18:14 Approved by: Mick Martinez M.D. on 07/26/2022 at 18:15
--- NOTE | 2022-07-26 17:48 | PC.NURSE ---
Day shift: Nasogastic tube placed per Dr Carlson orders. Pt tolerated well. From nose to ear to sternum marked the 60 number on the tube. Lung sounds clear and Pt is not coughing. She did have a small amount (approx 20mls) of emesis when tube inserted. X-Ray taken at approx 1800. Awaiting results.
--- NOTE | 2022-07-26 18:30 | PC.NURSE ---
Day shift: After reviewing X-Ray report and conferring with SADIE Murphy the guide wire was removed and the 2 openings capped at this time (183).
[2022-07-26] MEDS: BENZOCAINE/MENTHOL 1 LOZ PKT 1 EACH PO (18:44)
[2022-07-26] MEDS: LORazepam 2 MG/ML INJ 0.5 MG IV (21:16)
[2022-07-27] VITALS: BP 119/55; PULSE 94; RESP 15; TEMP 36.8; O2SAT 95
--- NOTE | 2022-07-27 04:08 | PC.NURSE ---
Pt is AxOx4, needs 1 person assistance and cooperative. VSS, pt denies n/v but c/o anxiety and recieved PRN IV Ativan 0.5mg with good effect. Pt was ordered to get 10 ml enteral feeding through NG tube but the food wasn't available due to kitchen closed. it'll be given in the morning, once kitchen opens up. Pt slept well all night. No other changes.
[2022-07-27 05:15] LABS: Calcium 8.3 mg/dL (8.4-10.2); Carbon Dioxide 27 mmol/L (22-32); Chloride 103 mmol/L (98-107); Estimated Glomerular Filt Rate > 60 mL/min (>60); Glucose 134 mg/dL (70-100); HEMOLYSIS < 15 (0-50); Sodium 136 mmol/L (137-145)
[2022-07-27 05:27] LABS: BUN Creatinine Ratio 4.1 (6-22); Blood Urea Nitrogen 2 mg/dL (7-17)
[2022-07-27 06:00] VITALS: BP 114/68; PULSE 101; RESP 16; TEMP 36.4; O2SAT 96
[2022-07-27] MEDS: DEXTROSE 5%-0.9% NS 1,000 ML 100 ML IV ×2 (08:50→17:30)
[2022-07-27] MEDS: ENOXAPARIN 40 MG/0.4 ML SYRINGE SUBCUT (08:50)
[2022-07-27] MEDS: ONDANSETRON 4 MG/2 ML INJ IV ×2 (08:54→15:32)
[2022-07-27] MEDS: BENZOCAINE/MENTHOL 1 LOZ PKT 1 EACH PO ×2 (09:02→21:50)
--- NOTE | 2022-07-27 09:33 | PC.NURSE ---
Day shift: Dr Mckee informed of Pt getting the 10mls of Jeviti 1.2 this AM at approx 0915.
[2022-07-27] MEDS: POTASSIUM CHLORIDE IN WATER 10 MEQ/100 ML PIGGYBACK 100 MEQ IV ×6 (10:49→17:27)
--- NOTE | 2022-07-27 10:49 | PC.NURSE ---
Day shift: Jeviti 1.2 set up and being administered via Kangaroo pump at 10ml/hr for [address] Mckee. Will continue to monitor Pt.
[2022-07-27 10:50] VITALS: O2SAT 97
--- NOTE | 2022-07-27 10:53 | DIET.CONS ---
Addendum entered by Kaia Paul 07/28/22 14:24: Pt tolerating Jevity 1.2 TF x 24hr at trickle rate. Daily goal Jevity 1.2 continuous @ 45 mL/hr + one 11 g PRO packet with 80 mL fluid flush q4h.? Current rate at 10 ml/hr. Has not yet been advanced to 20 ml/hr. Discussed rate increase q 24 hours as tolerated with RN per diet order. Refeeding labs indicate K 3.7, Phos 2.9, Mg 1.6, glucose 103. Continue to monitor for refeeding. Pt tried to eat eggs for breakfast but spit them out due to not sitting well in mouth.? Pt consumed a half spoonful of applesauce and wanted to keep the applesauce to eat slowly throughout the morning.? Pt interested in consuming cold liquids and sweets.? If pt has emesis with PO intake, recc possibility of making pt NPO with TF only. If TF is not tolerated and TPN is needed, start pt on Clinimix E 5/20 1000 mL at 20 ml/hr for first 24hr.? Watching for signs of refeeding syndrome.? If tolerated, increase rate by 10 mL/hr q24hr until at goal of 42 ml/hr.? If tolerating, can move to Clinimix E 5/20 1500mL at 42ml/hr and increase by 10 ml/hr q24hr as tolerated until at goal of 62 ml/hr. Once at goal, add lipids twice per week. This would meet 109% kcal needs and 105% PRO needs. Goal: 1340 kcal (25 kcal/kg overweight PCM), 71 g PRO (1/3 g/kg per PCM).? Monitor PO, TF, TPN prn tolerance and refeeding labs qd. RD to follow-up 3 day. Addendum entered by Fanny Elena 07/27/22 17:00: If pt has emesis with PO intake, recc making pt NPO with TF only. Addendum entered by Fanny Elena 07/27/22 11:19: RD agrees with student international trade manager note and plan Original Note: Dietary Consultation Note Admission Date: 07/26/2022 05:37 Assessment: 52y F admitted for N/V and limited PO intake referred to nutrition for unable to tolerate PO intake, chronic N/V, and 70 lb wt loss in 6 mo. Pt is s/p craniotomy for medulloblastoma having completed whole brain radiation 2mo ago. Since completing radiation, pt has been dealing with life-altering vertigo, nausea and vomiting. Pt is 25% below usual body weight and has lost 12.2% unintentionally in the past 1 mo (severe) due to limited ability to tolerate POs. Pt ordered EN r/t inability to tolerate PO intake. NG tube placed. Pt tried water and jello this morning. but immediately V after intake. pt reports not feeling lightheaded when standing up, which is an improvement from yesterday. Pt reports feeling same level of N/V as when at home with binocluar vision. Despite pts overweight BMI, pt with rapid, severe and unintentional weight loss qualifying her as severely malnourished. Pt received 10 mL Jevity 1.2 bolus at 09:10. After 1 hr, pt started Jevity 1.2 continuous feed @ 10 mL/hr, equaling 240 mL/24 hr. EN rate to advance slowly starting with trophic feed as pt very high risk for refeeding. Pt admitted with hypokalemia, has been repleted per protocol. Ht: 157.48 cm Wt: 65.771 kg (-12.2% in 1mo, severe) BMI: 26.5 UBW: 90kg Last BM: 07/13/22 (07/26/22 10:11) MNA: 6 Liu Score: 18 Diet: 07/26/22 Breakfast Heart Healthy Diet Diet Modifications: 07/26/22 Dinner Tube Feeding Diet Diet Modifications: TF Supplement type: Jevity 1.2 elias TF mode of delivery: Continuous Starting flow rate mL/hr: 10 Flow rate goal mL/hr: 10 Titration Schedule to reach Goal Rate: n/a Max total daily volume in mL: 500 Free fluid: 0 Free Water Frequency: Q4H Nutrition Percent Meal Consumed 0% 07/27/22 08:45 Percent Meal Consumed 25% 07/26/22 18:00 Type of Feeding Tube NG/OG 07/27/22 09:11 Labs: RBC 4.90 X10^6/uL (4.0-5.2) 07/25/22 21:20 Hgb 14.7 g/dL (12.0-16.0) 07/25/22 21:20 Hct 41.7 % (36-46) 07/25/22 21:20 Creatinine 0.49 mg/dL (0.52-1.04) L 07/27/22 04:30 Nutrition Diagnosis: Severe Acute Protein Calorie Malnutrition r/t inability to tolerate oral intake aeb 12.2% unintentional weight loss in 1mo (severe), pt nearly bedbound due to severe vertigo from whole brain radiation for brain tumor, N/V x2mo with no meaningful PO intake in that time. -The patient is at much higher risk for medical and surgical complications because of his malnutrition. This increases the difficulty and complexity of medical and surgical interventions and increases the chances of poor outcomes such as morbidity and mortality. Interventions: 1. For nutrition intake support, pt started on Jevity 1.2 continuous feed @ 10 mL/hr, equaling 240 mL/24 hr. Increase feed by 10 mL/hr q24h until goal. pt allowed to d/c prior to meeting goal. Daily goal Jevity 1.2 continuous @ 45 mL/hr + one 11 g PRO packet with 80 mL fluid flush q4h. 2. HOB above 30 degrees 60min before and after feed as well as during feed. 3. Monitor for refeeding syndrome please- Mg, phos, K+ and BG bid until outside of refeeding window. EER: 1340 kcal (25 kcal/kg per overweight PCM), PRO 71 g (1.3 g PRO/kg per PCM), CHO 183 g, FAT 42 g Fluid feed 872 mL, Water flush 480 mL, Total fluids 1352 mlL (25 mL/kg), Daily fluid needs 1350 mL (1 mL/kcal) Monitoring/Evaluations: EN tolerance, refeeding labs, continuous EN vs. bolus EN vs. TPN upon d/c Electronically Signed by: Kaia Paul 07/27/22 10:53 Clinical Dietitian [address] [address]
[2022-07-27] MEDS: cefTRIAXone 1,000 MG in SODIUM CHLORIDE 0.9% 100 ML 200 MG IV (11:48)
[2022-07-27 12:00] VITALS: BP 106/68; PULSE 93; RESP 18; TEMP 36.3; O2SAT 99
--- NOTE | 2022-07-27 12:09 | CM.DPC ---
DCP Cont: Per MD, NG tube placed last night and unfortunately enteral feeding was not available last night to start but will begin with trying a bolus to see if pt can tolerate before slowly initiating feeding. Per MD, unclear if pt will be able to tolerate feeding and science liaison to work closely with pharmacy to see if pt can tolerate in order to get enough caloric intake. Per MD, potential chance that pt may need TPN at discharge and therefore would likely need home infusion set up but unclear at this time and may know more tomorrow. SW faxed initial pt information to [facility] in case home infusion needed but per Rv Body Mechanic pt would need very slow initiation and to confirm no feeding issues. Plan: SW to follow closely tomorrow before the weekend towards clarification on POC and needs for discharge. GUY Ledezma
--- NOTE | 2022-07-27 13:17 | P.PN_ITS ---
Subjective Subjective Date Patient Seen: 07/27/22 Interval history: NG tube in place, no worsened symptoms after starting trickle tube feedings. Will need to advance slowly given risk of refeeding syndrome. if she can tolerate tube feeds will ask surgery for feeding tube placement for nutrition. Will continue to also work on symptom control from her central vertigo causing her nausea and inability to eat currently. Exam Vital Signs (past 8 hours): - 07/27/22 06:00 07/27/22 10:50 07/27/22 12:00 Temperature 97.6 F 97.4 F L Pulse Rate 101 H 93 H Respiratory Rate 16 18 Blood Pressure 114/68 106/68 Pulse Oximetry 96 97 99 Oxygen Delivery Method Room Air Oxygen Flow Rate 0 Oxygen Delivery Method Room Air Oxygen Flow Rate 0 Narrative Exam Narrative: Gen: Alert, oriented, ill appearing 52 y.o. female, bile like odor about her HEENT: normocephalic, atraumatic, conjunctiva clear, sclera non-icteric, oral mucosa pink and moist Neck: supple, full ROM, no JVD, trachea is midline Resp: Lungs CTA, non-labored breathing CV: RRR, no murmur or rubs Abd: soft, non-tender, normoactive BTs Skin: bald, no lesions or rashes, dry and intact Neuro: Alert and oriented X 4 w/no focal deficits. Speech clear and coherent. Extremities: moves all 4 extremities, is ambulatory, negative Zita?s sign Psyche: normal mood and affect. Objective Labs Result Diagrams: 07/25/22 21:20 07/27/22 04:30 Labs: Laboratory Results - last 24 hr 07/26/22 07/27/22 15:10 04:30 Sodium 136 L Potassium 3.3 L 3.0 L Chloride 103 Carbon Dioxide 27 BUN 2 L Creatinine 0.49 L Estimated GFR > 60 BUN/Creatinine Ratio 4.1 L Glucose 134 H Calcium 8.3 L PFSH Medical History No chronic problems Pulmonary embolism Surgical History History of lumbar surgery S/P T&A (status post tonsillectomy and adenoidectomy) Status post appendectomy Status post cholecystectomy Status post tubal ligation Social History household members: spouse and children Smoking Status: Never smoker alcohol intake: former Assessment & Plan Assessment & Plan narrative: 1. Severe acute protein calorie malnutrition due to central vertigo, present on admission - secondary to decreased oral intake in the setting of severe central vertigo after cerebellar resection. - trial schedule of benadryl IV, benzos, and zofran to see if improved symptom relief. - ideally would be able to feed enterally. NG tube was placed to trial gastric feeds to see if she can tolerate these. If she cannot, will need TPN and outpatient follow up along with neurosugery,neurology, and palliative care for additional symptom management. If she can, will ask general surgery to place PEG tube. -The patient is at much higher risk for medical and surgical complications because of his malnutrition.? This increases the difficulty and complexity of medical and surgical interventions and increases the chances of poor outcomes such as morbidity and mortality. 2. Hypokalemia, acute and present on admission 3. History of reported medulloblastoma * history of cerebellar resection, symptoms are likely due to central vertigo after cerebellar resection. Discussed with her primary neurology team who do not have any additional recommendations at this time. Dispo: home, timing unclear. Code status: full code as discussed with the patient who identifies her Michael as her surrogate and POA. [X] I have utilized all available immediate resources to obtain, update, or review of the patient's current medications VTE Deep Vein Thrombosis/Pulmonary Embolism Present on Admission: No MIPS - Admit I confirm the patient?s Advance Care Plan is present, Code status is documented, Surrogate decision maker is in patient?s record: Yes MIPS - DC The patient has current or prior documentation of left ventricular ejection fraction (LVEF) less than 40%, or moderate or severely depressed left ventricular systolic function.: No COVID-19 COVID-19 status: Negative Time Spent With Patient Critical Care time: I spent a total of [] minutes of critical care time on this patient's care today; this time is exclusive of procedural time.
[2022-07-27] MEDS: LORazepam 2 MG/ML INJ 0.5 MG IV (15:31)
[2022-07-27] MEDS: diphenhydrAMINE 50 MG/ML VIAL 25 MG IV (15:32)
[2022-07-27 17:14] VITALS: O2SAT 97
[2022-07-27 19:00] LABS: HEMOLYSIS < 15 (0-50); Magnesium 1.6 mg/dL (1.6-2.3); Potassium 3.7 mmol/L (3.4-5.1)
[2022-07-27 20:00] VITALS: BP 101/62; PULSE 97; RESP 18; TEMP 36.3; O2SAT 98
--- NOTE | 2022-07-27 23:15 | DI.RAD.S_ITS ---
PROCEDURE: XR CHEST FOR PICC 1V INDICATIONS: Picc line placement TECHNIQUE: One view of the chest was acquired. COMPARISON: [facility], CR, XR CHEST FOR PICC 1V, 07/28/2022, 0:42. [facility], CR, XR CHEST 1V, 02/11/2021, 22:04. FINDINGS: Surgical changes and devices: There is a left upper extremity PICC line with the tip extending into the superior right atrium. A nasogastric tube is present with the tip not included on the current study. Lungs and pleura: Lungs are clear. No pleural effusions or pneumothorax. Mediastinum: Mediastinal contours appear normal. Heart size is normal. Bones and chest wall: No suspicious bony lesions. Overlying soft tissues appear unremarkable. IMPRESSION: 1. Left upper extremity PICC line extends into the superior right atrium. Dictated by: Maxx Acevedo M.D. on 07/28/2022 at 1:03 Approved by: Maxx Acevedo M.D. on 07/28/2022 at 1:05
[2022-07-28] VITALS: BP 101/64; PULSE 94; RESP 17; TEMP 36.3; O2SAT 99
--- NOTE | 2022-07-28 00:35 | DI.RAD.S_ITS ---
PROCEDURE: XR CHEST FOR PICC 1V INDICATIONS: re-scan for PICC TECHNIQUE: One view of the chest was acquired. COMPARISON: [facility], CR, XR CHEST FOR PICC 1V, 07/28/2022, 0:00. FINDINGS: Surgical changes and devices: There is interval repositioning of the left upper extremity PICC line with the tip slightly withdrawn to the region of the cavoatrial junction. Nasogastric tube is redemonstrated with the tip not included on the current study. Lungs and pleura: Lungs are clear. No pleural effusions or pneumothorax. Mediastinum: Mediastinal contours appear normal. Heart size is normal. Bones and chest wall: No suspicious bony lesions. Overlying soft tissues appear unremarkable. IMPRESSION: 1. No acute cardiopulmonary disease. 2. Interval repositioning of the left upper extremity PICC line. Dictated by: Maxx Acevedo M.D. on 07/28/2022 at 1:24 Approved by: Maxx Acevedo M.D. on 07/28/2022 at 1:25
[2022-07-28] MEDS: diphenhydrAMINE 50 MG/ML VIAL 25 MG IV ×3 (01:41→21:55)
[2022-07-28] MEDS: ONDANSETRON 4 MG/2 ML INJ IV ×3 (01:41→16:37)
[2022-07-28] MEDS: LORazepam 2 MG/ML INJ 0.5 MG IV ×3 (01:41→21:54)
[2022-07-28 06:00] VITALS: BP 115/68; PULSE 111; RESP 14; TEMP 36.5; O2SAT 97
[2022-07-28 06:09] LABS: Add Manual Diff / Slide Review NO; Basophils Absolute Auto 0 /uL (0-100); Basophils Percent Auto 0.9 % (0-2); Eosinophils Absolute Auto 100 /uL (0-450); Eosinophils Percent Auto 3.6 % (2-4); Hematocrit 35.8 % (36-46); Hemoglobin 12.6 g/dL (12.0-16.0); Lymphocytes Absolute Auto 400 /uL (1100-4500); Mean Corpuscular HGB Conc 35.2 % (30-36); Monocytes Absolute Auto 400 /uL (0-900); Monocytes Percent Auto 15.1 % (3-14); Neutrophils Absolute Auto 1600 /uL (1500-7000); Neutrophils Percent Auto 65.4 % (50-75); Platelet Count 216 X10^3/uL (150-400); Red Blood Cell Count 4.22 X10^6/uL (4.0-5.2); Red Cell Distribution Width 14.9 % (11.6-14.8); White Blood Cell Count 2.4 X10^3/uL (4.5-11.0)
[2022-07-28 06:16] LABS: Alanine Aminotransferase 60 IU/L (<35); Albumin 3.1 g/dL (3.5-5.0); Albumin Globulin Ratio 1.1 (1.0-2.8); Alkaline Phosphatase 56 U/L (38-126); Aspartate Aminotransferase 49 IU/L (14-36); Bilirubin Total 1.4 mg/dL (0.2-1.3); Calcium 8.6 mg/dL (8.4-10.2); Carbon Dioxide 28 mmol/L (22-32); Chloride 101 mmol/L (98-107); Estimated Glomerular Filt Rate > 60 mL/min (>60); Globulin 2.9 g/dL (1.7-4.1); Glucose 103 mg/dL (70-100); HEMOLYSIS 19 (0-50); Magnesium 1.6 mg/dL (1.6-2.3); Phosphorous 2.9 mg/dL (2.5-4.5); Potassium 3.7 mmol/L (3.4-5.1); Sodium 134 mmol/L (137-145)
[2022-07-28 06:19] LABS: BUN Creatinine Ratio 3.8 (6-22); Blood Urea Nitrogen < 2 mg/dL (7-17)
[2022-07-28] MEDS: ENOXAPARIN 40 MG/0.4 ML SYRINGE SUBCUT (08:33)
[2022-07-28 11:00] VITALS: O2SAT 98
--- NOTE | 2022-07-28 11:03 | P.PN_ITS ---
Subjective Subjective Date Patient Seen: 07/28/22 Interval history: NG tube in place, no worsened symptoms after starting trickle tube feedings. Feels somewhat improved actually today with scheduled medications. Will need to advance slowly given risk of refeeding syndrome. Exam Vital Signs (past 8 hours): - 07/28/22 06:00 Temperature 97.7 F Pulse Rate 111 H Respiratory Rate 14 Blood Pressure 115/68 Pulse Oximetry 97 Oxygen Delivery Method Room Air Oxygen Flow Rate 0 Narrative Exam Narrative: Gen: chronically ill appearing female, no acute distress. HEENT: normocephalic, atraumatic, conjunctiva clear, sclera non-icteric, oral mucosa pink and moist Neck: supple, full ROM, no JVD, trachea is midline Resp: Lungs CTA, non-labored breathing CV: RRR, no murmur or rubs Abd: soft, non-tender, non-distened Neuro: Alert and oriented X 4 w/no focal deficits. Extremities: no edema or joint effusions Psyche: normal mood and affect. Objective Labs Result Diagrams: 07/28/22 05:50 07/28/22 05:50 Labs: Laboratory Results - last 24 hr 07/27/22 07/27/22 07/28/22 12:42 18:23 05:50 WBC 2.4 L RBC 4.22 Hgb 12.6 Hct 35.8 L MCV 85.0 MCH 30.0 MCHC 35.2 RDW 14.9 H Plt Count 216 Neut % (Auto) 65.4 Lymph % (Auto) 15.0 L [place] % (Auto) 15.1 H Eos % (Auto) 3.6 Baso % (Auto) 0.9 Neut # (Auto) 1600 Lymph # (Auto) 400 L [place] # (Auto) 400 Eos # (Auto) 100 Baso # (Auto) 0 Sodium Potassium 3.7 Chloride Carbon Dioxide BUN Creatinine Estimated GFR BUN/Creatinine Ratio Glucose Calcium Phosphorus Magnesium 1.6 Total Bilirubin AST ALT Alkaline Phosphatase Total Protein Albumin Globulin Albumin/Globulin Ratio Nasal Screen MRSA (PCR) Negative for mrsa 07/28/22 05:50 WBC RBC Hgb Hct MCV MCH MCHC RDW Plt Count Neut % (Auto) Lymph % (Auto) [place] % (Auto) Eos % (Auto) Baso % (Auto) Neut # (Auto) Lymph # (Auto) [place] # (Auto) Eos # (Auto) Baso # (Auto) Sodium 134 L Potassium 3.7 Chloride 101 Carbon Dioxide 28 BUN < 2 L Creatinine 0.52 Estimated GFR > 60 BUN/Creatinine Ratio 3.8 L Glucose 103 H Calcium 8.6 Phosphorus 2.9 Magnesium 1.6 Total Bilirubin 1.4 H AST 49 H ALT 60 H Alkaline Phosphatase 56 Total Protein 6.0 L Albumin 3.1 L Globulin 2.9 Albumin/Globulin Ratio 1.1 Nasal Screen MRSA (PCR) [facility] Medical History No chronic problems Pulmonary embolism Surgical History History of lumbar surgery S/P T&A (status post tonsillectomy and adenoidectomy) Status post appendectomy Status post cholecystectomy Status post tubal ligation Social History household members: spouse and children Smoking Status: Never smoker alcohol intake: former Assessment & Plan Assessment & Plan narrative: 1. Severe acute protein calorie malnutrition due to central vertigo, present on admission - secondary to decreased oral intake in the setting of severe central vertigo after cerebellar resection. - trial schedule of benadryl IV, benzos, and zofran to see if improved symptom relief. - ideally would be able to feed enterally. NG tube was placed to trial gastric feeds to see if she can tolerate these. If she cannot, will need TPN and outpatient follow up along with neurosugery,neurology, and palliative care for additional symptom management. If she can, will ask general surgery to place PEG tube. -The patient is at much higher risk for medical and surgical complications because of his malnutrition.? This increases the difficulty and complexity of medical and surgical interventions and increases the chances of poor outcomes such as morbidity and mortality. 2. Hypokalemia, acute and present on admission 3. History of reported medulloblastoma * history of cerebellar resection, symptoms are likely due to central vertigo after cerebellar resection. Discussed with her primary neurology team who do n ot have any additional recommendations at this time. Dispo: home, timing unclear. Code status: full code as discussed with the patient who identifies her Michael as her surrogate and POA. [X] I have utilized all available immediate resources to obtain, update, or review of the patient's current medications VTE Deep Vein Thrombosis/Pulmonary Embolism Present on Admission: No MIPS - Admit I confirm the patient?s Advance Care Plan is present, Code status is documented, Surrogate decision maker is in patient?s record: Yes MIPS - DC The patient has current or prior documentation of left ventricular ejection fraction (LVEF) less than 40%, or moderate or severely depressed left ventri cular systolic function.: No COVID-19 COVID-19 status: Negative Time Spent With Patient Critical Care time: I spent a total of [] minutes of critical care time on this patient's care today; this time is exclusive of procedural time.
[2022-07-28] MEDS: MAGNESIUM SULFATE 2 GM/50 ML PIGGYBACK IV (11:14)
[2022-07-28 12:09] VITALS: BP 100/70; PULSE 102; RESP 17; TEMP 36.2; O2SAT 98
--- NOTE | 2022-07-28 14:30 | DIET.CONS2 ---
Addendum entered by Verenice Grayson 07/28/22 14:33: RD agrees with student international marketing executive note and plan Rec increasing TF 10 ml/h q 24 as tolerated until at goal of 45 ml/hr. Original Note: Dietary Inpatient Consultation Note Admission Date: 07/26/2022 05:37 Diet: Pt tolerating Jevity 1.2 TF x 24hr at trickle rate. Daily goal Jevity 1.2 continuous @ 45 mL/hr + one 11 g PRO packet with 80 mL fluid flush q4h.? Current rate at 10 ml/hr. Has not yet been advanced to 20 ml/hr. Discussed rate increase q 24 hours as tolerated with RN per diet order. Refeeding labs indicate K 3.7, Phos 2.9, Mg 1.6, glucose 103. Continue to monitor for refeeding. Pt tried to eat eggs for breakfast but spit them out due to not sitting well in mouth.? Pt consumed a half spoonful of applesauce and wanted to keep the applesauce to eat slowly throughout the morning.? Pt interested in consuming cold liquids and sweets.? If pt has emesis with PO intake, recc possibility of making pt NPO with TF only. If TF is not tolerated and TPN is needed, start pt on Clinimix E 5/20 1000 mL at 20 ml/hr for first 24hr.? Watching for signs of refeeding syndrome.? If tolerated, increase rate by 10 mL/hr q24hr until at goal of 42 ml/hr.? If tolerating, can move to Clinimix E 5/20 1500mL at 42ml/hr and increase by 10 ml/hr q24hr as tolerated until at goal of 62 ml/hr. Once at goal, add lipids twice per week. This would meet 109% kcal needs and 105% PRO needs. Goal: 1340 kcal (25 kcal/kg overweight PCM), 71 g PRO (1/3 g/kg per PCM).? Monitor PO, TF, TPN prn tolerance and refeeding labs qd. RD to follow-up 3 day. 07/26/22 Breakfast Heart Healthy Diet Diet Modifications: 07/26/22 Dinner Tube Feeding Diet Diet Modifications: TF Supplement type: Jevity 1.2 elias TF mode of delivery: Continuous Starting flow rate mL/hr: 10 Flow rate goal mL/hr: 45 Titration Schedule to reach Goal Rate: 10mL q24h as tolerated if not refeeding Max total daily volume in mL: 1,080 Free fluid: 0 Free Water Frequency: Q4H Comment: add 80mL free water flushes q4h if IVF stopped per Hospitalist Nutrition Percent Meal Consumed 5 07/28/22 12:38 Percent Meal Consumed 0% 07/28/22 09:54 Percent Meal Consumed 0% 07/27/22 08:45 Percent Meal Consumed 25% 07/26/22 18:00 Type of Feeding Tube NG/OG 07/27/22 09:11 Electronically Signed by: Kaia Paul 07/28/22 14:30 Clinical Dietitian [address] [address]
[2022-07-28 17:00] VITALS: BP 110/60; PULSE 110; RESP 18; TEMP 35.9; O2SAT 97; O2SAT 98
[2022-07-28] MEDS: BENZOCAINE/MENTHOL 1 LOZ PKT 1 EACH PO (17:57)
[2022-07-28 20:00] VITALS: BP 103/66; PULSE 113; RESP 19; TEMP 36.6; O2SAT 98
[2022-07-28] MEDS: SODIUM CHLORIDE 0.9% FLUSH 10 ML IV (21:55)
[2022-07-29] VITALS (8 sets, daily range): BP systolic 91–103; BP diastolic 51–69; PULSE 90–116; RESP 16–19; TEMP 36.6–37.2; O2SAT 96–98
[2022-07-29] MEDS: diphenhydrAMINE 50 MG/ML VIAL 25 MG IV (05:44)
[2022-07-29] MEDS: LORazepam 2 MG/ML INJ 0.5 MG IV (05:45)
[2022-07-29 06:02] LABS: Add Manual Diff / Slide Review NO; Basophils Absolute Auto 0 /uL (0-100); Basophils Percent Auto 0.2 % (0-2); Eosinophils Absolute Auto 100 /uL (0-450); Eosinophils Percent Auto 3.1 % (2-4); Hematocrit 35.3 % (36-46); Hemoglobin 12.6 g/dL (12.0-16.0); Lymphocytes Absolute Auto 300 /uL (1100-4500); Lymphocytes Percent Auto 15.3 % (25-40); Mean Corpuscular HGB Conc 35.6 % (30-36); Mean Corpuscular Hemoglobin 30.1 PG (26-34); Mean Corpuscular Volume 84.6 fL (80-100); Monocytes Absolute Auto 300 /uL (0-900); Monocytes Percent Auto 15.8 % (3-14); Neutrophils Absolute Auto 1400 /uL (1500-7000); Neutrophils Percent Auto 65.6 % (50-75); Platelet Count 196 X10^3/uL (150-400); Red Blood Cell Count 4.17 X10^6/uL (4.0-5.2); Red Cell Distribution Width 14.5 % (11.6-14.8); White Blood Cell Count 2.2 X10^3/uL (4.5-11.0)
[2022-07-29 06:07] LABS: Alanine Aminotransferase 81 IU/L (<35); Albumin Globulin Ratio 1.1 (1.0-2.8); Alkaline Phosphatase 60 U/L (38-126); Aspartate Aminotransferase 61 IU/L (14-36); Bilirubin Total 1.1 mg/dL (0.2-1.3); Calcium 8.6 mg/dL (8.4-10.2); Carbon Dioxide 30 mmol/L (22-32); Chloride 100 mmol/L (98-107); Estimated Glomerular Filt Rate > 60 mL/min (>60); Globulin 2.8 g/dL (1.7-4.1); Glucose 100 mg/dL (70-100); HEMOLYSIS 25 (0-50); Magnesium 2.1 mg/dL (1.6-2.3); Phosphorous 3.3 mg/dL (2.5-4.5); Potassium 3.6 mmol/L (3.4-5.1); Sodium 135 mmol/L (137-145); Total Protein 5.8 g/dL (6.3-8.2)
[2022-07-29 06:14] LABS: BUN Creatinine Ratio 3.4 (6-22); Blood Urea Nitrogen 2 mg/dL (7-17)
[2022-07-29] MEDS: ENOXAPARIN 40 MG/0.4 ML SYRINGE SUBCUT (08:14)
[2022-07-29] MEDS: ONDANSETRON 4 MG/2 ML INJ IV (08:14)
--- NOTE | 2022-07-29 12:52 | P.PN_ITS ---
Subjective Subjective Date Patient Seen: 07/29/22 Interval history: Feels somewhat improved actually today with scheduled medications. She coughed out the NG tube but has been able to tolerate some oral intake with these medications. Will try to transition to oral medications, start calorie count in hopes that she can take enough oral intake rather than have artificial nutrition. Exam Vital Signs (past 8 hours): - 07/29/22 06:00 07/29/22 06:00 07/29/22 12:20 Temperature 98.8 F 97.8 F Pulse Rate 96 H 90 Respiratory Rate 17 16 Blood Pressure 100/67 91/51 L Pulse Oximetry 98 96 97 Oxygen Delivery Method Room Air Oxygen Flow Rate 0 07/29/22 12:00 Temperature Pulse Rate Respiratory Rate Blood Pressure Pulse Oximetry 98 Oxygen Delivery Method Room Air Oxygen Flow Rate Oxygen Delivery Method Room Air Oxygen Flow Rate 0 Narrative Exam Narrative: Gen: chronically ill appearing female, no acute distress. HEENT: normocephalic, atraumatic, conjunctiva clear, sclera non-icteric, oral mucosa pink and moist Neck: supple, full ROM, no JVD, trachea is midline Resp: Lungs CTA, non-labored breathing CV: RRR, no murmur or rubs Abd: soft, non-tender, non-distened Neuro: Alert and oriented X 4 w/no focal deficits. Extremities: no edema or joint effusions Psyche: normal mood and affect. Objective Labs Result Diagrams: 07/29/22 05:30 07/29/22 05:30 Labs: Laboratory Results - last 24 hr 07/29/22 07/29/22 05:30 05:30 WBC 2.2 L RBC 4.17 Hgb 12.6 Hct 35.3 L MCV 84.6 MCH 30.1 MCHC 35.6 RDW 14.5 Plt Count 196 Neut % (Auto) 65.6 Lymph % (Auto) 15.3 L [place] % (Auto) 15.8 H Eos % (Auto) 3.1 Baso % (Auto) 0.2 Neut # (Auto) 1400 L Lymph # (Auto) 300 L [place] # (Auto) 300 Eos # (Auto) 100 Baso # (Auto) 0 Sodium 135 L Potassium 3.6 Chloride 100 Carbon Dioxide 30 BUN 2 L Creatinine 0.59 Estimated GFR > 60 BUN/Creatinine Ratio 3.4 L Glucose 100 Calcium 8.6 Phosphorus 3.3 Magnesium 2.1 Total Bilirubin 1.1 AST 61 H ALT 81 H Alkaline Phosphatase 60 Total Protein 5.8 L Albumin 3.0 L Globulin 2.8 Albumin/Globulin Ratio 1.1 [facility] Medical History No chronic problems Pulmonary embolism Surgical History History of lumbar surgery S/P T&A (status post tonsillectomy and adenoidectomy) Status post appendectomy Status post cholecystectomy Status post tubal ligation Social History household members: spouse and children Smoking Status: Never smoker alcohol intake: former Assessment & Plan Assessment & Plan narrative: 1. Severe acute protein calorie malnutrition due to central vertigo, present on admission - secondary to decreased oral intake in the setting of severe central vertigo after cerebellar resection. - schedule of benadryl, benzos, and zofranimproved symptoms initially with IV. Will transition to oral today to see if these could be continued at home. - NG tube was placed to trial gastric feeds to see if she can tolerate gastric feeds without additional nausea or vomiting, she coughed out her NG tube but has been having improved intake. - start calorie count. - if insufficient intake, consider either PEG tube given her initial tolerance or home TPN with outpatient palliative care consultation recommended for additional management of central vertigo. -The patient is at much higher risk for medical and surgical complications because of his malnutrition.? This increases the difficulty and complexity of m edical and surgical interventions and increases the chances of poor outcomes such as morbidity and mortality. 2. Hypokalemia, acute and present on admission 3. History of reported medulloblastoma * history of cerebellar resection, symptoms are likely due to central vertigo after cerebellar resection. Discussed with her primary neurology team who do not have any additional recommendations at this time.MRI performed recently did not show evidence of recurrence. Dispo: home, timing unclear. Code status: full code as discussed with the patient who identifies her Michael as her surrogate and POA. [X] I have utilized all available immediate resources to obtain, update, or review of the patient's current medications VTE Deep Vein Thrombosis/Pulmonary Embolism Present on Admission: No MIPS - Admit I confirm the patient?s Advance Care Plan is present, Code status is documented, Surrogate decision maker is in patient?s record: Yes MIPS - DC The patient has current or prior documentation of left ventricular ejection fraction (LVEF) less than 40%, or moderate or severely depressed left ventricular systolic function.: No COVID-19 COVID-19 status: Negative Time Spent With Patient Critical Care time: I spent a total of [] minutes of critical care time on this patient's care today; this time is exclusive of procedural time.
[2022-07-29] MEDS: LORazepam 0.5 MG TABLET PO ×2 (15:36→20:42)
[2022-07-29] MEDS: ONDANSETRON 4 MG ODT SL (20:42)
[2022-07-29] MEDS: diphenhydrAMINE 25 MG TABLET PO (20:42)
[2022-07-30] VITALS (9 sets, daily range): BP systolic 91–103; BP diastolic 54–63; PULSE 90–107; RESP 17–23; TEMP 36.4–36.7; O2SAT 93–99
[2022-07-30 06:22] LABS: Alanine Aminotransferase 123 IU/L (<35); Albumin 2.9 g/dL (3.5-5.0); Alkaline Phosphatase 76 U/L (38-126); Aspartate Aminotransferase 98 IU/L (14-36); BUN Creatinine Ratio 6.7 (6-22); Bilirubin Total 0.8 mg/dL (0.2-1.3); Blood Urea Nitrogen 4 mg/dL (7-17); Calcium 8.6 mg/dL (8.4-10.2); Carbon Dioxide 29 mmol/L (22-32); Chloride 100 mmol/L (98-107); Estimated Glomerular Filt Rate > 60 mL/min (>60); Globulin 2.9 g/dL (1.7-4.1); Glucose 94 mg/dL (70-100); HEMOLYSIS < 15 (0-50); Phosphorous 3.9 mg/dL (2.5-4.5); Potassium 3.6 mmol/L (3.4-5.1); Sodium 135 mmol/L (137-145); Total Protein 5.8 g/dL (6.3-8.2)
[2022-07-30 06:44] LABS: Hemoglobin 12.3 g/dL (12.0-16.0); Mean Corpuscular HGB Conc 35.1 % (30-36); Mean Corpuscular Hemoglobin 30.1 PG (26-34); Mean Corpuscular Volume 85.7 fL (80-100); Platelet Count 202 X10^3/uL (150-400); Red Blood Cell Count 4.08 X10^6/uL (4.0-5.2); Red Cell Distribution Width 14.7 % (11.6-14.8)
[2022-07-30 06:47] LABS: Add Manual Diff / Slide Review YES; White Blood Cell Count 1.8 X10^3/uL (4.5-11.0)
[2022-07-30 06:58] LABS: Neutrophils Absolute Manual 1116 /uL (3000-5900); Total Cells Counted 50
[2022-07-30 06:59] LABS: Anisocytosis 1+
[2022-07-30] MEDS: LORazepam 0.5 MG TABLET PO ×3 (08:32→21:07)
[2022-07-30] MEDS: SODIUM CHLORIDE 0.9% FLUSH 10 ML IV ×2 (08:32→21:09)
[2022-07-30] MEDS: ENOXAPARIN 40 MG/0.4 ML SYRINGE SUBCUT (08:32)
--- NOTE | 2022-07-30 10:51 | CM.DPC ---
DCP Cont: Per MD, pt accidentally coughed up her NGT and decision made to attempt calorie counting for pt first to determine if further artificial nutrition needed. Pt was still not getting adequate nutrition and after Consultation, decision made for PEG tube placement likely with Surgeon sometime today. Pt will then need to trial tube feeding to confirm she can tolerate it prior to discharge home with outpt follow up. Plan: SW to follow closely tomorrow after PEG tube placement and coordination with [employer] towards determining any d/c planning needs. Possible HH for additional assist if pt's [facility] HO allows. Ese Darden MSW
[2022-07-30] MEDS: diphenhydrAMINE 25 MG TABLET PO ×2 (14:31→21:06)
[2022-07-30] MEDS: ONDANSETRON 4 MG ODT SL ×2 (14:31→21:07)
--- NOTE | 2022-07-30 18:06 | PM.PN.1 ---
Subjective Subjective Date Patient Seen: 07/30/22 Time Patient Seen: 08:00 Interval history: Her nausea and vomiting have improved. Her vertigo remains. She is only able to eat small amounts. Exam Vital Signs (past 8 hours): - 07/30/22 12:35 07/30/22 11:00 07/30/22 16:50 Temperature 97.8 F 97.8 F Pulse Rate 90 107 H Respiratory Rate 17 23 Blood Pressure 98/54 L 91/58 L Pulse Oximetry 95 95 97 Oxygen Delivery Method Room Air Oxygen Flow Rate 0 0 07/30/22 17:00 Temperature Pulse Rate Respiratory Rate Blood Pressure Pulse Oximetry 97 Oxygen Delivery Method Room Air Oxygen Flow Rate Oxygen Delivery Method Room Air Oxygen Flow Rate 0 Narrative Exam Narrative: Gen: chronically ill appearing female, no acute distress. Resp: clear bilaterally Abd: soft, non-tender, non-distened Objective Labs Result Diagrams: 07/30/22 06:00 07/30/22 06:00 Labs: Laboratory Results - last 24 hr 07/30/22 07/30/22 06:00 06:00 WBC 1.8 L* RBC 4.08 Hgb 12.3 Hct 35.0 L MCV 85.7 MCH 30.1 MCHC 35.1 RDW 14.7 Plt Count 202 Neut % (Auto) Not Reportable Lymph % (Auto) Not Reportable [place] % (Auto) Not Reportable Eos % (Auto) Not Reportable Baso % (Auto) Not Reportable Lymph # (Auto) Not Reportable [place] # (Auto) Not Reportable Baso # (Auto) Not Reportable Total Counted 50 Seg Neutrophils % 62.0 Lymphocytes % (Manual) 22.0 L Monocytes % (Manual) 12.0 H Eosinophils % (Manual) 4.0 Neutrophils # (Manual) 1116 L RBC Morphology See below Anisocytosis 1+ H Sodium 135 L Potassium 3.6 Chloride 100 Carbon Dioxide 29 BUN 4 L Creatinine 0.60 Estimated GFR > 60 BUN/Creatinine Ratio 6.7 Glucose 94 Calcium 8.6 Phosphorus 3.9 Magnesium 2.0 Total Bilirubin 0.8 AST 98 H ALT 123 H Alkaline Phosphatase 76 Total Protein 5.8 L Albumin 2.9 L Globulin 2.9 Albumin/Globulin Ratio 1.0 PFSH Medical History No chronic problems Pulmonary embolism Surgical History History of lumbar surgery S/P T&A (status post tonsillectomy and adenoidectomy) Status post appendectomy Status post cholecystectomy Status post tubal ligation Social History household members: spouse and children Smoking Status: Never smoker alcohol intake: former Assessment & Plan Assessment & Plan narrative: 1. Severe acute protein calorie malnutrition - secondary to decreased oral intake in the setting of severe central vertigo after cerebellar resection. - schedule of benadryl, benzos, and zofran improved symptom - NG tube was placed to trial gastric feeds to see if she can tolerate gastric feeds without additional nausea or vomiting, she coughed out her NG tube and has tolerate PO intake - still eating below nutrition goal -consult surgery for plan for PEG tube -monitor for refeeding syndrome -The patient is at much higher risk for medical and surgical complications because of his malnutrition.? This increases the difficulty and complexity of medical and surgical interventions and increases the chances of poor outcomes such as morbidity and mortality 2. Hypokalemia, acute and resolved 3. 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 Discussed with her primary neurology team who do not have any additional recommendations at this time.MRI performed recently did not show evidence of recurrence. 4. Leukopenia -suspect secondary to history of cancer and treatment, trend daily Dispo: plan for PEG placement tomorrow, then trial PEG feeding following this before dc COVID-19 COVID-19 status: Negative Time Spent With Patient Critical Care time: I spent a total of [] minutes of critical care time on this patient's care today; this time is exclusive of procedural time.
[2022-07-30] MEDS: SODIUM CHLORIDE 0.9% 1,000 ML 1000 ML IV (18:27)
[2022-07-30] MEDS: THIAMINE 100 MG in SODIUM CHLORIDE 0.9% 100 ML 404 MG IV (18:36)
[2022-07-30] MEDS: polyethylene glycoL 3350 17 GM POWD.PACK PO (21:07)
[2022-07-31] VITALS (14 sets, daily range): BP systolic 96–128; BP diastolic 62–90; PULSE 84–100; RESP 16–18; TEMP 36.1–37.1; O2SAT 95–100; BMI 26.5
[2022-07-31 05:45] LABS: Add Manual Diff / Slide Review NO; Basophils Absolute Auto 0 /uL (0-100); Eosinophils Absolute Auto 100 /uL (0-450); Eosinophils Percent Auto 2.9 % (2-4); Hematocrit 35.1 % (36-46); Hemoglobin 12.2 g/dL (12.0-16.0); Lymphocytes Absolute Auto 400 /uL (1100-4500); Lymphocytes Percent Auto 19.6 % (25-40); Mean Corpuscular HGB Conc 34.7 % (30-36); Mean Corpuscular Volume 86.4 fL (80-100); Monocytes Absolute Auto 300 /uL (0-900); Monocytes Percent Auto 15.8 % (3-14); Neutrophils Absolute Auto 1200 /uL (1500-7000); Neutrophils Percent Auto 60.7 % (50-75); Platelet Count 215 X10^3/uL (150-400); Red Blood Cell Count 4.06 X10^6/uL (4.0-5.2); Red Cell Distribution Width 14.5 % (11.6-14.8)
[2022-07-31 05:56] LABS: BUN Creatinine Ratio 6.8 (6-22); Blood Urea Nitrogen 4 mg/dL (7-17); Calcium 8.4 mg/dL (8.4-10.2); Carbon Dioxide 28 mmol/L (22-32); Chloride 104 mmol/L (98-107); Estimated Glomerular Filt Rate > 60 mL/min (>60); Glucose 98 mg/dL (70-100); HEMOLYSIS < 15 (0-50); Magnesium 1.9 mg/dL (1.6-2.3); Phosphorous 4.3 mg/dL (2.5-4.5); Potassium 3.7 mmol/L (3.4-5.1); Sodium 138 mmol/L (137-145)
[2022-07-31] MEDS: ONDANSETRON 4 MG ODT SL ×3 (06:43→21:32)
[2022-07-31] MEDS: diphenhydrAMINE 25 MG TABLET PO ×2 (06:43→21:32)
--- NOTE | 2022-07-31 08:57 | PC.NURSE ---
Assess- Patient is alert and oriented x4, her speech is slow at times. Patient had brain surgery for tumor removal x2, as she had cancer. She has a scar on the back of her head that is healed. Her last chemo/radiation was in March she states. She has had at least 2 falls in the last 3 months. Her appetite has decreased, and she has had some frequent nausea and vomiting. She is comfortable at this time, Flaca is a one person assist with the walker to commode, she gets dizzy when she sits and stands. So she has to move slowly. She will be going down to surgery for peg tube placement around 0930.
[2022-07-31] MEDS: LACTATED RINGERS 1,000 ML 42 ML IV (09:46)
[2022-07-31 10:13] LABS: COVID19 -Nasal RAPID Negative (Negative)
--- NOTE | 2022-07-31 10:50 | P.PN_ITS ---
Subjective Subjective Date Patient Seen: 07/31/22 Time Patient Seen: 08:00 Interval history: She ate a muffin for breakast. Afterwards only had a few bites of food. No nausea or vomiting. Planning for PEG tube today. Exam Vital Signs (past 8 hours): - 07/31/22 06:00 07/31/22 05:00 07/31/22 09:36 Temperature 97.7 F 96.9 F L Pulse Rate 98 H 100 H Respiratory Rate 18 16 Blood Pressure 96/62 103/78 Pulse Oximetry 95 98 98 Oxygen Delivery Method Room Air Room Air Oxygen Flow Rate 0 Oxygen Delivery Method Room Air Oxygen Flow Rate 0 Narrative Exam Narrative: Gen: chronically ill appearing female, no acute distress. Resp: clear bilaterally Abd: soft, non-tender, non-distened Objective Labs Result Diagrams: 07/31/22 05:30 07/31/22 05:30 Labs: Laboratory Results - last 24 hr 07/31/22 07/31/22 07/31/22 05:30 05:30 09:44 WBC 2.0 L RBC 4.06 Hgb 12.2 Hct 35.1 L MCV 86.4 MCH 30.0 MCHC 34.7 RDW 14.5 Plt Count 215 Neut % (Auto) 60.7 Lymph % (Auto) 19.6 L [place] % (Auto) 15.8 H Eos % (Auto) 2.9 Baso % (Auto) 1.0 Neut # (Auto) 1200 L Lymph # (Auto) 400 L [place] # (Auto) 300 Eos # (Auto) 100 Baso # (Auto) 0 Sodium 138 Potassium 3.7 Chloride 104 Carbon Dioxide 28 BUN 4 L Creatinine 0.59 Estimated GFR > 60 BUN/Creatinine Ratio 6.8 Glucose 98 Calcium 8.4 Phosphorus 4.3 Magnesium 1.9 SARS-CoV-2 (PCR) Negative [facility] Medical History No chronic problems Pulmonary embolism Surgical History History of lumbar surgery S/P T&A (status post tonsillectomy and adenoidectomy) Status post appendectomy Status post cholecystectomy Status post tubal ligation Social History household members: spouse and children Smoking Status: Never smoker alcohol intake: former Assessment & Plan Assessment & Plan narrative: 1. Severe acute protein calorie malnutrition - secondary to decreased oral intake in the setting of severe central vertigo after cerebellar resection. - schedule of benadryl, benzos, and zofran improved symptom - NG tube was placed to trial gastric feeds to see if she can tolerate gastric feeds without additional nausea or vomiting, she coughed out her NG tube and has tolerate PO intake - still eating below nutrition goal -consult surgery for plan for PEG tube -monitor for refeeding syndrome -The patient is at much higher risk for medical and surgical complications because of his malnutrition.? This increases the difficulty and complexity of medical and surgical interventions and increases the chances of poor outcomes such as morbidity and mortality 2. Hypokalemia, acute and resolved 3. 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 Discussed with her primary neurology team who do not have any additional recommendations at this time.MRI performed recently did not show evidence of recurrence. 4. Leukopenia -suspect secondary to history of cancer and treatment, trend daily Dispo: plan for PEG tube today, then start tube feeds COVID-19 COVID-19 status: Negative Time Spent With Patient Critical Care time: I spent a total of [] minutes of critical care time on this patient's care today; this time is exclusive of procedural time.
--- NOTE | 2022-07-31 11:43 | P.CONS_ITS ---
History of Present Illness Consult details Date Patient Seen: 07/31/22 Time Patient Seen: 11:43 Chief complaint: N/V, limited PO since whole brain rad in Narrative: Flaca is a 52-year-old woman who has a diagnosis of medulloblastoma underwent brain radiation earlier this year. Since then she has had dizziness, vertigo, nausea and vomiting and weight loss. Enteral access was requested to assist with nutrition. She has never had prior gastric surgery. Meds Home Medications and Allergies Home Medications Medication Instructions Recorded Confirmed Type gabapentin 300 mg capsule 300 mg PO Q8H shingles pain #40 08/19/19 07/26/22 Rx caps potassium chloride 20 mEq 20 meq PO DAILY #7 tabs 02/12/21 07/26/22 Rx tablet,extended release metoclopramide HCl 10 mg tablet 10 mg PO Q6H PRN nausea and 06/20/22 07/26/22 Rx (Reglan) vomiting #20 tabs promethazine 25 mg rectal 25 mg [place] Q6H PRN nausea and 07/13/22 07/26/22 Rx suppository vomiting #12 ea Allergies Allergy/AdvReac Type Severity Reaction Status Date / Time codeine Allergy Verified 07/12/22 15:59 Exam Vital Signs (past 8 hours): - 07/31/22 06:00 07/31/22 05:00 07/31/22 09:36 Temperature 97.7 F 96.9 F L Pulse Rate 98 H 100 H Respiratory Rate 18 16 Blood Pressure 96/62 103/78 Pulse Oximetry 95 98 98 Oxygen Delivery Method Room Air Room Air Oxygen Flow Rate 0 07/31/22 10:53 Temperature Pulse Rate Respiratory Rate Blood Pressure Pulse Oximetry Oxygen Delivery Method Room Air Oxygen Flow Rate Oxygen Delivery Method Room Air Oxygen Flow Rate 0 Const General: No acute distress Orientation: alert and awake Objective Labs Result Diagrams: 07/31/22 05:30 07/31/22 05:30 Labs: Laboratory Results - last 24 hr 07/31/22 07/31/22 07/31/22 05:30 05:30 09:44 WBC 2.0 L RBC 4.06 Hgb 12.2 Hct 35.1 L MCV 86.4 MCH 30.0 MCHC 34.7 RDW 14.5 Plt Count 215 Neut % (Auto) 60.7 Lymph % (Auto) 19.6 L [place] % (Auto) 15.8 H Eos % (Auto) 2.9 Baso % (Auto) 1.0 Neut # (Auto) 1200 L Lymph # (Auto) 400 L [place] # (Auto) 300 Eos # (Auto) 100 Baso # (Auto) 0 Sodium 138 Potassium 3.7 Chloride 104 Carbon Dioxide 28 BUN 4 L Creatinine 0.59 Estimated GFR > 60 BUN/Creatinine Ratio 6.8 Glucose 98 Calcium 8.4 Phosphorus 4.3 Magnesium 1.9 SARS-CoV-2 (PCR) Negative [facility] Medical History No chronic problems Pulmonary embolism Surgical History History of lumbar surgery S/P T&A (status post tonsillectomy and adenoidectomy) Status post appendectomy Status post cholecystectomy Status post tubal ligation Social History household members: spouse and children Tobacco & Substance Use Smoking Status: Never smoker alcohol intake: former Assessment & Plan Assessment and plan (1) Unintentional weight loss: Status: Acute Plan We discussed the risks and benefits of a percutaneous endoscopic gastrostomy placement to assist with nutrition. I explained that this would allow us to bypass her upper digestive system above the stomach but would not improve her nutritional deficit if problem is distal to the stomach. I expressed that is worth try since the risks are relatively low and PEG can always be removed rather easily down the road if it is not helpful or not desired. She understands the risks and would like to proceed. Time Spent With Patient Critical Care time: I spent a total of [] minutes of critical care time on this patient's care today; this time is exclusive of procedural time.
--- NOTE | 2022-07-31 12:04 | SUR.OPER ---
Supine onstretcher. Legs uncrossed and arms at side
--- NOTE | 2022-07-31 12:19 | PM.OP.1 ---
Operative Date/Time/Diagnoses Date of procedure: 07/31/22 Time of procedure: 12:19 Pre-op diagnosis: Malnutrition Post-op diagnosis: same Procedure & Clinicians Procedure: Percutaneous endoscopic gastrostomy tube Same procedure as scheduled: Yes Surgeon: Benitez Velasco Anesthesia Type: MAC +/- Operative Notes Procedure in detail: The patient was given preoperative antibiotic. Patient was brought to the operating room and remained on the gurney in the supine position. A time-out was performed. Mac was induced. The abdomen was prepped and draped in the usual fashion and a time-out was performed. We started with an EGD. The endoscope was inserted into the stomach and the stomach was insufflated with air as much as possible. A suitable location was chosen in the left upper quadrant near the midline where digital palpation on the abdominal wall was translated to the gastric wall endoscopically. Local anesthetic was injected into the skin and subcutaneous tissue at this location. An incision was made with a scalpel. The needle was inserted while drawing back to assure no air bubbles until the needle was in the stomach which was confirmed. The sheath was then slid over the needle and the needle was removed. The wire was inserted into the stomach. A snare was used to grasp the wire and followed out of the patient's mouth. The wire was then attached to the the PEG tube and the PEG tube was pulled into the stomach and positioned appropriately. The endoscope was reinserted and a photograph was taken of the bumper within the gastric lumen. The scope was then removed from the patient's mouth and the distal end of the PEG tube was trimmed and the bumper was applied. The clasp was applied followed by the cap. A dressing was applied around PEG site. The patient was awakened and brought to recovery room. EBL: 10 mL Post-operative Condition: stable Disposition: PACU
[2022-07-31] MEDS: fentaNYL 100 MCG/2 ML INJ 25 MCG IV (12:46)
--- NOTE | 2022-07-31 13:18 | PC.NURSE ---
Pt is back from PEG tube placement. VSS, reports px 4/10, mild drowsiness. Dressing CDI, denies nausea at this time.
[2022-07-31] MEDS: THIAMINE 100 MG in SODIUM CHLORIDE 0.9% 100 ML 404 MG IV (14:27)
[2022-07-31] MEDS: LACTATED RINGERS 1,000 ML 100 ML IV (14:30)
--- NOTE | 2022-07-31 14:35 | DIET.CONS2 ---
Addendum entered by Fanny Elena 07/31/22 17:09: Discussed with hospitalist starting TF 12h after placement. Plan to start 20mL/h continuous feed of Jevity 1.2 at midnight per order set. Interventions: 1. For nutrition intake support, pt started on Jevity 1.2 continuous feed @ 20 mL/hr, equaling 480 mL/24 hr. Increase feed by 10 mL/hr q12h until goal, do not advance if pt showing signs of refeeding syndrome. pt allowed to d/c prior to meeting goal. Daily goal Jevity 1.2 continuous @ 45 mL/hr + one 11 g PRO packet with 80 mL fluid flush q4h. 2. HOB above 30 degrees 60min before and after feed as well as during feed. 3. Monitor for refeeding syndrome please- Mg, phos, K+ and BG bid until outside of refeeding window. EER: 1340 kcal (25 kcal/kg per overweight PCM), PRO 71 g (1.3 g PRO/kg per PCM), CHO 183 g, FAT 42 g Fluid feed 872 mL, Water flush 480 mL, Total fluids 1352 mlL (25 mL/kg), Daily fluid needs 1350 mL (1 mL/kcal) Original Note: Dietary Inpatient Consultation Note Admission Date: 07/26/2022 05:37 RD f/u after weekend. Pts NG tube got dislodged sometime on Sunday afternoon and was not replaced. Pt had been tolerating 20mL/h TF up until then. Over weekend pt with some PO intake including a few bites of pancakes and a few bites of chicken burger, however, not enough to meet nutrition needs. Pt had PEG tube placed at noon today. Plan to resume continuous TF tomorrow at noon (24h post PEG placement) at rate of 20mL/h. Pt remains at risk of refeeding syndrome due to profoundly low PO intake x2mo. Pt requires continued close monitoring for refeeding syndrome and to assess whether pt will tolerate higher volumes of feeds and to formulate home feeding plan whether cyclic nocturnal feeds vs bolus. It is possible pt fails PEG feeding and needs J-tube or TPN. RD following closely daily and will communicate with d/c planners and home infusion company on home plan. Nutrition Dx: Severe Acute Protein Calorie Malnutrition r/t inability to tolerate oral intake aeb 12.2% unintentional weight loss in 1mo (severe), pt nearly bedbound due to severe vertigo from whole brain radiation for brain tumor, N/V x2mo with no meaningful PO intake in that time. -The patient is at much higher risk for medical and surgical complications because of his malnutrition. This increases the difficulty and complexity of medical and surgical interventions and increases the chances of poor outcomes such as morbidity and mortality. Diet: 07/31/22 00:01 NPO Diet Diet Modifications: NPO Type: Strict Nutrition Percent Meal Consumed 35% 07/30/22 13:12 Percent Meal Consumed 100% 07/30/22 09:27 Percent Meal Consumed apple sauce, and partial piece of 07/29/22 18:05 toast Percent Meal Consumed 10% 07/29/22 17:58 Electronically Signed by: Fanny Elena 07/31/22 14:35 Clinical Dietitian [address] [address]
--- NOTE | 2022-07-31 14:52 | CM.DPC ---
DCP Enteral Feeding Planning Per MD, pt to have PEG tube placed today and per Surgeon pt seemed to tolerate surgical intervention. Per computer operator, will initiate enteral feeding likely tonight or tomorrow to determine if pt can tolerate and anticipate pt will need feeding pump for nocturnal feeding and likely pt cannot tolerate bolus feeding due to nausea/vomiting. TENISHA called [facility] and updated and he has access to pt's chart and will review and states they just need to confirm if PCP will be following doctor and request MD to document pt's need for likely pump feeding rather than bolus in progress note or discharge summary and this will work as their order needed. TENISHA left msg with MD regarding this documentation. TENISHA called pt's PCP Kayleen Mathur at [facility] and confirmed her PCP will follow and faxed requested documents to fax [phone] and also requested a f/u appointment be scheduled with PCP for next week and pt now scheduled for Sun08/11/22 at 1300. TENISHA called [facility] and confirmed they can accept pt's insurance and updated that pt likely may d/c on Sun if tolerating enteral feeding. F2F completed but not faxed yet. TENISHA met briefly bedside with pt and explained role and she was quite drowsy from PEG placement but discussed HH RN and pt agreeable and [facility] for enteral feeding and f/u appointment scheduled with PCP for next week and provided brochures and f/u appointment date and pt agreeable and appreciative. Plan: TENISHA to follow closely for intiation of enteral feeding to confirm pt can tolerate and coordination with [facility] and [facility]. Ese Darden, RIB CUTTER
[2022-07-31] MEDS: OXYCODONE IR 5 MG TABLET PO ×2 (15:13→19:10)
[2022-07-31] MEDS: PIPERACILLIN/TAZO 4.5 GM in SODIUM CHLORIDE 0.9% 100 ML IV (15:14)
--- NOTE | 2022-07-31 17:31 | PC.NURSE ---
Patient back from surgery around 1300. Dressing to peg tube in place. Patient given oxycodone and is resting now.
[2022-07-31] MEDS: LORazepam 0.5 MG TABLET PO (21:32)
[2022-07-31] MEDS: SODIUM CHLORIDE 0.9% FLUSH 10 ML IV (21:34)
[2022-08-01] VITALS (9 sets, daily range): BP systolic 93–104; BP diastolic 58–88; PULSE 90–108; RESP 14–18; TEMP 36.1–37.6; O2SAT 94–100
[2022-08-01] MEDS: OXYCODONE IR 5 MG TABLET PO ×3 (03:36→14:43)
--- NOTE | 2022-08-01 04:33 | PC.NURSE ---
Pt is AxOx4, needs 1 person assistance and cooperative. VSS, pt c/o pain on abdomen where the PEG tube placement area and recieved PRN Oxy once with good effect. Pt started on Tube feeding last night around 2350 and it is 20ml/hr. Pt is tolerating well, no n/v noted. Otherwise, pt slept well between care. Continue monitor.
[2022-08-01] MEDS: ONDANSETRON 4 MG ODT SL (05:05)
[2022-08-01] MEDS: diphenhydrAMINE 25 MG TABLET PO ×2 (05:05→14:39)
[2022-08-01 05:28] LABS: Hematocrit 34.2 % (36-46); Hemoglobin 11.8 g/dL (12.0-16.0); Mean Corpuscular HGB Conc 34.5 % (30-36); Mean Corpuscular Hemoglobin 30.1 PG (26-34); Mean Corpuscular Volume 87.3 fL (80-100); Platelet Count 218 X10^3/uL (150-400); Red Blood Cell Count 3.92 X10^6/uL (4.0-5.2); Red Cell Distribution Width 14.9 % (11.6-14.8); White Blood Cell Count 3.1 X10^3/uL (4.5-11.0)
[2022-08-01 05:34] LABS: Blood Urea Nitrogen 3 mg/dL (7-17); Calcium 8.5 mg/dL (8.4-10.2); Carbon Dioxide 29 mmol/L (22-32); Chloride 101 mmol/L (98-107); Estimated Glomerular Filt Rate > 60 mL/min (>60); Glucose 100 mg/dL (70-100); HEMOLYSIS 20 (0-50); Magnesium 1.8 mg/dL (1.6-2.3); Phosphorous 4.6 mg/dL (2.5-4.5); Potassium 3.7 mmol/L (3.4-5.1); Sodium 134 mmol/L (137-145)
--- NOTE | 2022-08-01 09:15 | DIET.CONS2 ---
Dietary Inpatient Consultation Note Admission Date: 07/26/2022 05:37 Pt started enteral nutrition using PEG tube last evening at 2350, tolerating 20mL/h continuous feed of Jevity 1.2. Pts refeeding labs WNL except elevated phosphorus. Pt had tolerated some PO intake over weekend with ~500kcal each day per calorie count. Pt had been tolerating NG nutrition support at 20mL/h before tube was dislodged on Sunday evening. Pt is four days into refeeding window, sx can manifest between days 4-7. Recc continued slow titration up to goal based on clinical presentation (no signs fluid weight gain, tachycardia, tachypnea) and refeeding labs. Home plan to be determined based on feed rate pt tolerates which has yet to be determined. Recc supplementation of thiamin, MVI with trace minerals. Diet: 07/31/22 00:01 NPO Diet Diet Modifications: NPO Type: Strict 07/31/22 Dinner Tube Feeding Diet Diet Modifications: TF Supplement type: Jevity 1.2 elias TF mode of delivery: Continuous Starting flow rate mL/hr: 20 Flow rate goal mL/hr: 45 Titration Schedule to reach Goal Rate: increase by 10mL/h q12h as tolerated Max total daily volume in mL: 1,000 Free fluid: 80 Free Water Frequency: Q4H Comment: fluids managed by hospitalist, do not advance feed if refeeding Nutrition Percent Meal Consumed pt is NPO 07/31/22 18:00 Percent Meal Consumed 35% 07/30/22 13:12 Percent Meal Consumed 100% 07/30/22 09:27 Electronically Signed by: Fanny Elena 08/01/22 09:15 Clinical Dietitian [address] [address]
[2022-08-01] MEDS: LORazepam 0.5 MG TABLET PO ×2 (09:45→14:39)
[2022-08-01] MEDS: POTASSIUM CHLORIDE 20 MEQ/15 ML UDC PO (09:45)
[2022-08-01] MEDS: MAGNESIUM SULFATE 2 GM/50 ML PIGGYBACK IV (09:46)
[2022-08-01] MEDS: SODIUM CHLORIDE 0.9% FLUSH 10 ML IV ×2 (09:47→20:38)
[2022-08-01] MEDS: MULTIVITAMIN 1 TABLET 1 TAB PO (10:06)
[2022-08-01] MEDS: FOLIC ACID 1 MG TABLET PO (10:06)
--- NOTE | 2022-08-01 10:56 | PM.PN.1 ---
Subjective Subjective Date Patient Seen: 08/01/22 Time Patient Seen: 08:00 Interval history: She notes some incisional pain at the PEG tube site. It is controlled with pain meds. Tube feeds started slowly overnight and now being gradually advanced. No nausea, vomiting, bloating. Exam Vital Signs (past 8 hours): - 08/01/22 06:00 08/01/22 05:00 Temperature 97.8 F Pulse Rate 94 H Respiratory Rate 18 Blood Pressure 97/60 Pulse Oximetry 99 Oxygen Delivery Method Room Air Oxygen Delivery Method Room Air Oxygen Flow Rate 0 Narrative Exam Narrative: Gen: chronically ill appearing female, no acute distress. Resp: clear bilaterally Abd: soft, non-tender, non-distended, peg tube in place Objective Labs Result Diagrams: 08/01/22 05:10 08/01/22 05:10 Labs: Laboratory Results - last 24 hr 08/01/22 08/01/22 05:10 05:10 WBC 3.1 L D RBC 3.92 L Hgb 11.8 L Hct 34.2 L MCV 87.3 MCH 30.1 MCHC 34.5 RDW 14.9 H Plt Count 218 Sodium 134 L Potassium 3.7 Chloride 101 Carbon Dioxide 29 BUN 3 L Creatinine 0.60 Estimated GFR > 60 BUN/Creatinine Ratio 5.0 L Glucose 100 Calcium 8.5 Phosphorus 4.6 H Magnesium 1.8 PFSH Medical History No chronic problems Pulmonary embolism Surgical History History of lumbar surgery S/P T&A (status post tonsillectomy and adenoidectomy) Status post appendectomy Status post cholecystectomy Status post tubal ligation Social History household members: spouse and children Smoking Status: Never smoker alcohol intake: former Assessment & Plan Assessment & Plan narrative: 1. Severe acute protein calorie malnutrition - secondary to decreased oral intake in the setting of severe central vertigo after cerebellar resection. - schedule of benadryl, benzos, and zofran improved symptom - still eating below nutrition goal after ng tube feel out unable to maintain calorie goal therefore PEG placed -consult surgery for plan for PEG tube placed on 07/31 -monitor for refeeding syndrome -she is at much higher risk for medical and surgical complications because of his malnutrition.? This increases the difficulty and complexity of medical and surgical interventions and increases the chances of poor outcomes such as morbidity and mortality -started tube feeds late night on 07/31 -she will need pump feeding as outpatient due to known risk of nausea and vomiting and concern about bolus feeding exacerbating this 2. Hypokalemia, acute and resolved 3. 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 Discussed with her primary neurology team who do not have any additional recommendations at this time.MRI performed recently did not show evidence of recurrence. 4. Leukopenia -suspect secondary to history of cancer and treatment, trend daily Dispo: plan for PEG tube today, then start tube feeds COVID-19 COVID-19 status: Negative Time Spent With Patient Critical Care time: I spent a total of [] minutes of critical care time on this patient's care today; this time is exclusive of procedural time.
[2022-08-01] MEDS: THIAMINE 100 MG in SODIUM CHLORIDE 0.9% 100 ML 404 MG IV (12:12)
[2022-08-01] MEDS: ENOXAPARIN 40 MG/0.4 ML SYRINGE SUBCUT (15:46)
[2022-08-01 18:35] LABS: Potassium 3.9 mmol/L (3.4-5.1)
[2022-08-01 18:36] LABS: BUN Creatinine Ratio 8.2 (6-22); Blood Urea Nitrogen 5 mg/dL (7-17); Calcium 8.2 mg/dL (8.4-10.2); Carbon Dioxide 30 mmol/L (22-32); Chloride 101 mmol/L (98-107); Estimated Glomerular Filt Rate > 60 mL/min (>60); Glucose 120 mg/dL (70-100); HEMOLYSIS 21 (0-50); Magnesium 2.5 mg/dL (1.6-2.3); Phosphorous 4.1 mg/dL (2.5-4.5); Sodium 136 mmol/L (137-145)
[2022-08-01] MEDS: MORPHINE 2 MG/ML INJ IV (19:48)
[2022-08-01] MEDS: LORazepam 2 MG/ML INJ 0.5 MG IV (21:13)
[2022-08-01] MEDS: LIDOCAINE PATCH 1 EACH ADH..PATCH TOP (22:16)
[2022-08-02] VITALS: BP 93/60; PULSE 112; RESP 15; TEMP 36.8; O2SAT 96
[2022-08-02] MEDS: MORPHINE 2 MG/ML INJ IV (02:44)
[2022-08-02 05:00] VITALS: O2SAT 97
[2022-08-02 06:00] VITALS: BP 97/61; PULSE 107; RESP 17; TEMP 36.8; O2SAT 97
[2022-08-02] MEDS: LORazepam 2 MG/ML INJ 0.5 MG IV (06:19)
[2022-08-02 06:45] LABS: BUN Creatinine Ratio 11.9 (6-22); Blood Urea Nitrogen 7 mg/dL (7-17); Calcium 8.3 mg/dL (8.4-10.2); Carbon Dioxide 30 mmol/L (22-32); Chloride 102 mmol/L (98-107); Estimated Glomerular Filt Rate > 60 mL/min (>60); Glucose 123 mg/dL (70-100); HEMOLYSIS < 15 (0-50); Magnesium 2.3 mg/dL (1.6-2.3); Phosphorous 4.5 mg/dL (2.5-4.5); Sodium 137 mmol/L (137-145)
[2022-08-02 06:52] LABS: Hemoglobin 11.9 g/dL (12.0-16.0); Mean Corpuscular Hemoglobin 29.8 PG (26-34); Mean Corpuscular Volume 87.7 fL (80-100); Platelet Count 213 X10^3/uL (150-400); Red Blood Cell Count 3.99 X10^6/uL (4.0-5.2); Red Cell Distribution Width 14.8 % (11.6-14.8); White Blood Cell Count 2.6 X10^3/uL (4.5-11.0)
[2022-08-02] MEDS: ENOXAPARIN 40 MG/0.4 ML SYRINGE SUBCUT (08:56)
[2022-08-02] MEDS: FOLIC ACID 1 MG TABLET PO (08:57)
[2022-08-02] MEDS: MULTIVITAMIN 1 TABLET 1 TAB PO (08:57)
[2022-08-02] MEDS: LORazepam 0.5 MG TABLET PO (08:57)
[2022-08-02] MEDS: SODIUM CHLORIDE 0.9% FLUSH 10 ML IV (08:59)
[2022-08-02 09:19] VITALS: TEMP 36.6; O2SAT 100
[2022-08-02] MEDS: THIAMINE 100 MG in SODIUM CHLORIDE 0.9% 100 ML 404 MG IV (09:37)
--- NOTE | 2022-08-02 10:50 | PT.IIE ---
Current Diagnoses Anorexia (07/26/22) Abnormal weight loss (07/26/22) Surgery Performed Operation Date: 07/31/22 10:15 Actual Procedures p Peg Tube Insertion - Benitez Velasco MD Surgical History (Last Reviewed 07/26/22 @ 07:28 by Joyce Fuentes DO) History of lumbar surgery S/P T&A (status post tonsillectomy and adenoidectomy) Status post appendectomy Status post cholecystectomy Status post tubal ligation Medical History (Last Reviewed 07/26/22 @ 07:28 by Joyce Fuentes DO) No chronic problems Pulmonary embolism Physical Therapy Inpatient Evaluation/Re-Eval M1 PT/OT-IP Prior Functional Status Start: 08/02/22 12:36 Freq: NEEDED Status: Active Protocol: Document 08/02/22 10:50 AB (Rec: 08/02/22 12:49 AB [id number]) Medical Review Prior Functional Status Medical History Reviewed Yes Communication able to make needs known Mobility and Gait pt stated that she is modified independent with all mobiltiies and ambulation using a quad cane Social History Household Members spouse,children Living Arrangements RV Number of Floors (Floors) One Floor Number of Stairs To Enter/Railing? 4 steps B rails to enter Home Environment Standard Height Toilet,Walk in Shower Home Equipment Quad Cane,Shower Seat without Backrest,Hand Held Shower Additional Social History Comment spouse works and will not be able to assist pt; has 2 teenage children that may assist at home M2 PT-IP Current Condition Start: 08/02/22 12:36 Freq: NEEDED Status: Active Protocol: Document 08/02/22 10:50 AB (Rec: 08/02/22 12:49 AB [id number]) Physical Therapy Current Condition Current Condition Evaluation Date 08/02/22 Treatment Diagnosis s/p PEG tube placement;h/o brain tumor s/p craniotomy; diff in walking Onset Date 07/26/22 M3 PT-IP Subjective Start: 08/02/22 12:36 Freq: NEEDED Status: Active Protocol: Document 08/02/22 10:50 AB (Rec: 08/02/22 12:49 AB [id number]) Subjective Physical Therapy Visit Type Type Initial Evaluation Visit Start Time 10:50 Visit Stop Time 11:10 Total Visit Minutes 20 Number of BAGGAGEMAN Visits 0 Physical Therapy Visit Comments Patient Comments agreeable to do PT Therapy Pain Assessment Pain When Pain Assessed At Rest Pain Present Pain Present Pain Reported Location abdomen Intensity 5 Scale Used Numeric (0 - 10) Pain Management Techniques Distraction,Modification of Treatment,Re-positioning, Timing of Activity with Medications M4 PT-IP Mobility and Gait Start: 08/02/22 12:36 Freq: NEEDED Status: Active Protocol: Document 08/02/22 10:50 AB (Rec: 08/02/22 12:49 AB [id number]) PT-Bed Mobility Assessment Rolling Type of Rolling Log Rolling Level of Assist Standby Assistance Supine to Sit Supine to Sit Standby Assistance,Head of Bed Elevated,Bedrails Sit to Supine Sit to Supine Standby Assistance,Head of Bed Elevated,Bedrails PT-Transfer Assessment Sit to and From Stand Sit to and from Stand Minimal Assistance,1 Person Assistance,Use of Upper Extremities Equipment Transfer Assistive Device Front Wheeled Walker Orthotic/Prosthetic Devices or Brace: No Transfers Transfer Destination Bed Transfer Technique Stand Step Pivot Transfer Ability Level of Assist Minimal Assistance,1 Person Assistance,Use of Upper Extremities Comments Mobility Comments completed sit to stand from chair min A and step transfer to bed using fWW min A. completed log roll bed mobility SBA and cues. pt also used bed rail to assist and HOB elevated. pt with increase posterior trunk lean in sitting and standing. educated on increase COG awareness and body position. fuel testing technician came in to take pt for a procedure. pt completed sit to stand from EOB min A and ambulated using FWW ~ 15 ft min A and cues. presents with shuffling gait. cued for LE steadiness/ stability and to decrease posterior trunk lean. pt sat on w/c. natural gas technician took over. Gait Assessment Gait Gait Assistance Required: Minimum Assistance Distance (Feet) 15 Able to Maintain Weight Bearing Status Yes During Gait Assistive Devices Assistive Device Gait Belt,Front Wheeled Walker Orthotic/Prosthetic Devices or Brace: No Gait Deviations General Gait Pattern Ataxic,Decreased Stride Length ,Decreased Feet Clearance,Step -to Gait Factors Limiting Gait Function Factors Limiting Gait Function Decreased Activity Tolerance, Decreased Strength,Limited Range of Motion,Pain,Poor Balance,Poor Safety Awareness PT-Balance Assessment Sitting Balance and Reactions Static Sitting Balance Ability Fair Dynamic Sitting Balance Ability Fair Standing Balance and Reactions Static Standing Balance Ability Poor Dynamic Standing Balance Ability Poor Device Used FWW M5 PT-IP Objective Assessments Start: 08/02/22 12:36 Freq: NEEDED Status: Active Protocol: Document 08/02/22 10:50 AB (Rec: 08/02/22 12:49 AB [id number]) Orientation Orientation/Cognition Level of Alertness Alert Orientation Name,Place,Situation Language Function Ability No Deficits Noted Safety Awareness Decreased Safety Awareness Gross Range of Motion Lower Extremity ROM Assessment Within Functional Limits Strength Lower Extremity Strength Hip 4-/5 Knee 4-/5 Coordination Assessment Gross Coordination Gross Coordination WNL Muscle Tone Muscle Tone WNL Yes M6 PT-IP Treatment Start: 08/02/22 12:36 Freq: NEEDED Status: Active Protocol: Document 08/02/22 10:50 AB (Rec: 08/02/22 12:49 AB [id number]) Physical Therapy Treatment Education Education Provided Safety M7 PT-IP Assessment and Plan Start: 08/02/22 12:36 Freq: NEEDED Status: Active Protocol: Document 08/02/22 10:50 AB (Rec: 08/02/22 12:49 AB [id number]) PT Summary Assessment and Plan Potential Rehabilitation Potential Fair Status of Condition at Evaluation Evolving Summary Impairments Pain,ROM,Strength,Balance, Coordination,Sensation,Tone, Cognition,Bed Mobility, Transfers,Gait,Activity Tolerance Assessment Summary pt requiring min A with mobility using FWW and presents with unsteady shuffling gait. d/c plan depending on progress but at this time will require SNF rehab to improve overall strength and mobility independence. Goals Bed Mobility Goal Independent Transfer Goal Independent,Front Wheeled Walker Gait Goal Independent,Front Wheel Walker Gait Distance 125 Other Goals up/down 4 steps R rail SBA Days to Meet Goals 10 Frequency of Treatment Frequency Of Treatment Once a Day Treatment Plan Physical Therapy Treatment Plan Bed Mobility Training,Transfer Training,Gait Training, Therapeutic Exercise,Balance Retraining,Discharge Planning, Hot or Cold Pack,Neuromuscular Re-ed,Coordination Retraining Precautions Other Precautions falls Recommendations To Nursing Amount of Assist Needed 1 Person Assist Discharge Recommendations PT Discharge Recommendations Home with 16/04 Assist Available,Home Health,SNF Rehab,Home vs SNF Equipment Needed for Home Before FWW if pt goes home Discharge Transportation Needs at Discharge Private Vehicle,Wheelchair/ Cabulance
--- NOTE | 2022-08-02 10:54 | OT.IPNOTE ---
Able to talk to pt regarding OT needs and at this time pt states her family assists with most of her ADL needs. Able to give pt a list for DME needs and information on energy conservation needs. Pt states just wanting to start with PT initially and therefore to touch base with pt tomorrow again regarding OT eval. NO charge
[2022-08-02 11:00] VITALS: O2SAT 97
--- NOTE | 2022-08-02 11:43 | DI.RAD.S_ITS ---
PROCEDURE: FL FISTULA/ABSCESS/SINUS TRACT COMPARISON: None. INDICATIONS: check for PEG tube leak. FINDINGS: Contrast instilled via the patient's percutaneous gastrostomy tube opacifies the stomach and proximal duodenum with no evidence of leak. IMPRESSION: Patent and intact appearance of percutaneous gastrostomy tube in expected position with no evidence of contrast leak. Dictated by: Herbert Starr M.D. on 08/02/2022 at 13:15 Approved by: Herbert Starr M.D. on 08/02/2022 at 13:16
[2022-08-02 12:00] VITALS: BP 109/75; PULSE 88; RESP 17; TEMP 36.6; O2SAT 100
--- NOTE | 2022-08-02 12:08 | PC.NURSE ---
11:00 pt to xray for check for possible fluid pouch or leak at peg site. - 12:00 spoke with radiologist and received report that Peg tube functioning as intended. Tube feeding resumed @ 20/Hr and hospitalist notified.
--- NOTE | 2022-08-02 13:42 | DIET.CONS ---
Dietary Consultation Note Admission Date: 07/26/2022 05:37 Assessment: Pt tolerating pump assisted EN feeding through PEG tube at 30mL/h with no s/sx refeeding syndrome. Nursing trialing 120mL gravity bolus feeds now, if pt tolerates feed and [facility] is ready to provide home supplies, pt cleared by nutrition for d/c upon hospitalist approval. Home TF reccs below. Ht: 157.48 cm Wt: 66 kg BMI: 26.5 Last BM: 07/13/22 (07/31/22 09:36) MNA: 6 Liu Score: 21 Diet: 08/02/22 Dinner General (Regular) Diet Diet Modifications: 1/2 portions Nutrition Percent Meal Consumed pt is NPO 07/31/22 18:00 Type of Feeding Tube PEG 08/02/22 12:00 Type of Feeding Tube PEG 08/02/22 08:55 Type of Feeding Tube PEG 08/01/22 20:30 Type of Feeding Tube PEG 08/01/22 19:30 Labs: RBC 3.99 X10^6/uL (4.0-5.2) L 08/02/22 06:30 Hgb 11.9 g/dL (12.0-16.0) L 08/02/22 06:30 Hct 35.0 % (36-46) L 08/02/22 06:30 Creatinine 0.59 mg/dL (0.52-1.04) 08/02/22 06:30 Nutrition Diagnosis: Severe Acute Protein Calorie Malnutrition r/t inability to tolerate oral intake aeb 12.2% unintentional weight loss in 1mo (severe), pt nearly bedbound due to severe vertigo from whole brain radiation for brain tumor, N/V x2mo with no meaningful PO intake in that time. -The patient is at much higher risk for medical and surgical complications because of his malnutrition. This increases the difficulty and complexity of medical and surgical interventions and increases the chances of poor outcomes such as morbidity and mortality. Interventions: 1. Recc home EN as follows for adequate sole source nutrition: Four times per day: Bolus gravity feeds of 237mL cans of Jevity 1.2 into PEG with 120 mL fluid flush after each feed Once daily: 1/2 can with 120mL flush. Two additional 240mL free water flushes daily if no PO fluid intake. 2. HOB above 30 degrees 60min before and after feed as well as during feed. EER: 1340 kcal (25 kcal/kg per overweight PCM), PRO 71 g (1.3 g PRO/kg per PCM), CHO 183 g, FAT 42 g Fluid feed 872 mL, Water flush 1080 mL, Total fluids 1952 mL (30 mL/kg), Daily fluid needs 1952 mL (30mL/kg) Electronically Signed by: Fanny Elena 08/02/22 13:42 Clinical Dietitian [address] [address]
--- NOTE | 2022-08-02 15:54 | CM.DPNOTE ---
DC Note DC home today. Coordinated plan with [facility] throughout the day; RN from [facility] can visit patient at home Sunday. Patient agreeable to this plan and eager to return home Patient cleared for discharge by tick sewer Fanny Patiño and Dr Alexis. Patient will be sent home w/feeding supplies for the next 24-48 hrs. See Dietary notes for detail Faxed updated prog and dietary notes to [facility] Plan: DC home this evening w/family, [facility] for assist w/peg feeds and [facility] MARIANNE
--- NOTE | 2022-08-02 19:33 | P.DS_ITS ---
History of Present Illness History of Present Illness Date Patient Seen: 07/26/22 Time Patient Seen: 06:22 Chief complaint: N/V, limited PO since whole brain rad in Narrative: Per admitting provider: Flaca Gonzalez is a 52 y.o. 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 She underwent a crainotomy in January for removal of a reported medulloblastoma. Ever since the conclusion of the whole brain radiation, she has been unable to eat, has been persistently dizzy and unable to function. She states she is unable to keep anything down, vomits bile and has had little urine or stool output. States her urine is orange to red. She has had several lower back surgeries and reports she has had a 2 week history of right leg numbness and weakness. She normally takes gabapentin, but has been unable to take it. She used to take marijuana gummies but has not been able to keep them down. She has been seen for this multiple times for this since the end of May of this year with no resolu tion of her symptoms. Last head MRI done on July 12 was negative for any new changes. Review of her weight history indicates she had a stable weight of the high 70s until her ED visit of 06/10. she has lost approximately 14 kilograms/31 lbs in the past 6 weeks. Her surgery was done at [facility] and her oncologist is Dr. Mott, last follow-up appointment was on May 25. She is afebrile, blood pressure 115/55, heart rate 93, respiratory rate 19, oxygen saturation of 97% on room air she weighs 65.7 kg with a BMI of 26. WBC is unremarkable, sodium 132 potassium 3.0 chloride 91 total bilirubin is 1.8 AST 37 ALT 47, TSH and COVID-19 PCR are pending. Discharge Providers Provider Date of admission: 07/26/22 05:37 Discharge Date: 08/02/22 Primary care physician: BERLIN Soto Consults: 07/26/22 05:27 Consult to Dietitian, Adult Stat Comment: had whole brain radiation 3 mos ago Reason For Exam: unable to tolerate PO intake 07/26/22 10:21 Consult to Dietitian, Adult Routine Comment: chronic nausea and vomitting Reason For Exam: 70 pound weight loss in 6 months 07/30/22 09:32 Consult to General Surgery Routine Comment: Consulting Provider: Benitez Velasco Reason for consultation: peg tube Has provider been notified: Yes 08/02/22 07:25 Consult to Occupational Therapy Evaluate & Treat Comment: Physician Instructions: Evaluate and treat Consult to Physical Therapy Evaluate & Treat Comment: Physician Instructions: Evaluate and Treat Discharge provider: Walker Alexis MD Summary Hospital Course Discharge Diagnosis: 1. Severe acute protein calorie malnutrition 2. Hypokalemia 3. Nausea and vomiting 4. History of medulloblastoma Hospital Course: Ms. Gonzalez was admitted with severe weight loss, over 10% of body weight. She had severe acute malnutrition. Initially she was nauseous and vomiting. This improved with medications. She initially had NG tube placed to evaluate if she could tolerate tube feeds. She removed it accidentally, and then refused to have it replaced. She was then trialed on oral intake. While she could keep food down without vomiting, she had very little appetite and could not maintain adequate calories. Therefore decision was made to place PEG tube. She tolerated this well . Dope House Operator Helper was consulted who provided recommendations for nutrition intake. Due to her nausea and vomiting there was some concern that feeding via PEG vs jejunum might result in continued vomiting; however this did not occur in the hospital. She was started on slow tube feeds and tolerated this well. She did have some sharp pain near the incision, gastrograffin study performed and showed no leak. She felt better with pain medications. On day of discharge she was trialed on bolus tube feeds which she tolerated well. She was discharged with home health referral for tube infusions. She had an appointment arranged with her PCP for the following week. Exam Vital Signs (past 8 hours): - 08/02/22 12:00 Temperature 97.8 F Pulse Rate 88 Respiratory Rate 17 Blood Pressure 109/75 Pulse Oximetry 100 Oxygen Flow Rate 0 Oxygen Delivery Method Room Air Oxygen Flow Rate 0 Narrative Exam Narrative: Gen: chronically ill appearing female, no acute distress. Resp: clear bilaterally Abd: soft, non-tender, non-distended, peg tube in place Objective Labs Result Diagrams: 08/02/22 06:30 08/02/22 06:30 Labs: Laboratory Results - last 24 hr 08/02/22 08/02/22 06:30 06:30 WBC 2.6 L RBC 3.99 L Hgb 11.9 L Hct 35.0 L MCV 87.7 MCH 29.8 MCHC 34.0 RDW 14.8 Plt Count 213 Sodium 137 Potassium 4.0 Chloride 102 Carbon Dioxide 30 BUN 7 Creatinine 0.59 Estimated GFR > 60 BUN/Creatinine Ratio 11.9 Glucose 123 H Calcium 8.3 L Phosphorus 4.5 Magnesium 2.3 PFSH Medical History No chronic problems Pulmonary embolism Surgical History History of lumbar surgery S/P T&A (status post tonsillectomy and adenoidectomy) Status post appendectomy Status post cholecystectomy Status post tubal ligation Social History household members: spouse and children Smoking Status: Never smoker alcohol intake: former Discharge Plan Discharge Plan Patient Disposition: Home Health Service Provider Discharge Comment: Ms. Gonzalez came to the hospital with low appetite and nausea and vomiting. She improved with treatment. She was started on tube feeds to improve her nutrition. She should follow up with her PCP next week. Nursing Discharge Comment: Patient has follow up appt with PCP on 08/11/22 at 1300 with Kayleen Mathur. Discharge orders & Medications Prescriptions: New meclizine 12.5 mg Tablet 25 mg PO TID PRN (Reason: Vertigo) Qty: 30 0RF folic acid 1 mg Tablet 1 mg PO DAILY Qty: 30 0RF multivitamin with folic acid [Tab-A-Nidhi] 400 mcg Tablet 1 tab PO DAILY Qty: 30 0RF ondansetron 4 mg Tablet,Disintegrating 4 mg sublingual Q8HR Qty: 30 0RF oxycodone 5 mg Tablet 5 mg PO Q4HR PRN (Reason: Pain, Moderate (4-6)) Qty: 20 0RF thiamine HCl (vitamin B1) 100 mg tablet 100 mg PO DAILY Qty: 30 0RF Continued gabapentin 300 mg capsule 300 mg PO Q8H Qty: 40 0RF Rx Instructions: increase to 2 caps h.s. prn potassium chloride 20 mEq tablet extended release 20 meq PO DAILY Qty: 7 0RF promethazine 25 mg suppository 25 mg VA Q6H PRN (Reason: nausea and vomiting) Qty: 12 0RF metoclopramide HCl [Reglan] 10 mg tablet 10 mg PO Q6H PRN (Reason: nausea and vomiting) Qty: 20 0RF Follow up/Referrals: Kayleen Mathur FNP-PARK [Primary Care Provider] - Diet/Activity/Treatments Diet: Tube Feeding Diet comment: tube feedings as a supplement to regular meals, try 4-6 small meals Activity: as tolerated, be up and about as much as possible. Skin/Wound/Dressing Care Skin care: change the dressing around the PEG tube when wet or soiled Report to your healthcare provider any signs of infection, such as:: chills, fever, increased pain, unusual drainage and unusual redness Discharge Data Primary Care Provider: Kayleen Mathur
== END 2022-08-02 16:42 | disposition home health service (06) | DRG 111 ==
LOC: ED 07-26 05:23 → AC 07-26 05:54 → ICU 07-26 06:26 → AC 07-31 13:53
PROVIDERS: Internal Medicine; Surgery; Admitting Provider Nurse Practitioner Family; Emergency Provider Emergency Medicine; PCP Nurse Practitioner Family; Visit Provider Nurse Practitioner Family
PROC: 0DH63UZ Insertion of Feeding Device into Stomach, Percutaneous Approach (ICD-10-PCS; CPT 43246; principal; 2022-07-31 10:15)
DX: H81.4 Vertigo of central origin (principal); E43 Unspecified severe protein-calorie malnutrition; E87.6 Hypokalemia; Z68.26 Body mass index [BMI] 26.0-26.9, adult; Z85.841 Personal history of malignant neoplasm of brain; Z20.822 Contact with and (suspected) exposure to COVID-19
CPT/HCPCS: 36415; 36569; 36592; 43246; 74018; 76080; 80048; 80053; 81015; 82962; 83690; 83735; 84100; 84132; 84134; 84443; 85007; 85025; 85027; 87040; 87077; 87086; 87147; 87186; 87635; 87797; 93005; 96365; 96366; 96375; 97162; 99232; 99284; C9803; C9113; J0696; J1200; J1642; J1650; J2060; J2270; J2405; J2543; J2704; J2765; J3010; J3475

== ENCOUNTER 2022-12-10 22:03 | Observation (INO) | payer OTHER, MEDICAID, SELFPAY ==
[2022-07-26 10:11] VITALS: BMI 26.5
[2022-12-10 22:33] VITALS: BP 100/55; PULSE 140; RESP 16; TEMP 38.9; O2SAT 95; BMI 26.9
--- NOTE | 2022-12-10 22:40 | DI.RAD.S_ITS ---
PROCEDURE: XR CHEST 1V INDICATIONS: weak TECHNIQUE: One view of the chest was acquired. COMPARISON: [facility], CR, XR CHEST FOR PICC 1V, 07/28/2022, 0:42. FINDINGS: Surgical changes and devices: None. Lungs and pleura: Evaluation limited by lordotic projection. Visualized lungs are clear. No pleural effusions or pneumothorax. Mediastinum: Mediastinal contours appear normal. Heart size is normal. Bones and chest wall: No suspicious bony lesions. Overlying soft tissues appear unremarkable. IMPRESSION: 1. No definite acute cardiopulmonary disease. Dictated by: Maxx Acevedo M.D. on 12/10/2022 at 23:35 Approved by: Maxx Acevedo M.D. on 12/10/2022 at 23:35
--- NOTE | 2022-12-10 22:40 | ED.SEPSIS ---
HPI - Sepsis General Chief Complaint: Fever Mode of arrival: Wheelchair Source: patient and family Evaluation Sepsis Screen: Possible Sepsis Risk Sepsis Infection Criteria Present: Suspected New Infection Narrative: 52-year-old female nonsmoker with history of prior pulmonary embolism, medulloblastoma status post craniotomy and whole-brain radiation presents with family in the chief complaint of sore throat, difficulty swallowing, fever and shortness of breath, poor oral intake, nausea, body aches and chills. She is had some headache but denies any blurred vision, numbness or tingling. She denies any recent travel, trauma or injury Review of Systems Review of Systems Narrative: GENERAL: See HPI HEENT: See HPI RESPIRATORY: See HPI CARDIOVASCULAR: See HPI GASTROINTESTINAL: Denies nausea, vomiting, abdominal pain, diarrhea, constipation, melena. : Denies dysuria, frequency, incontinence, hematuria, urinary retention. MUSCULOSKELETAL: denies weakness, joint pain, or bony pain SKIN: Denies rash, skin lesions, or other NEUROLOGIC: Denies weakness, headache, numbness, change in speech, confusion, seizures, incoordination. PSYCHIATRIC: No concerning psychosocial issues. 12 point review of systems is negative except for those stated above Patient History Medical History No chronic problems Pulmonary embolism Surgical History History of lumbar surgery S/P T&A (status post tonsillectomy and adenoidectomy) Status post appendectomy Status post cholecystectomy Status post tubal ligation Social History household members: spouse and children Smoking Status: Never smoker alcohol intake: former Smoking Status: Never smoker alcohol intake frequency: other Substance Use Type: marijuana Exam Narrative Exam Narrative: GENERAL: [52] year old patient appears stated age. Well-developed patient, in mild distress. HEAD: Atraumatic. Normocephalic. EYES: Pupils equal round and reactive. Extraocular motions intact. No scleral icterus. No injection or drainage. ENT: Airway patent, mucous membranes dry, posterior pharynx erythematous, no drainage or mass effect NECK: Trachea midline. Non tender CARDIOVASCULAR: Tachycardic but regular rhythm without murmurs, gallops, or rubs. RESPIRATORY: Clear to auscultation. Breath sounds equal bilaterally. No wheezes, rales, or rhonchi. GASTROINTESTINAL: Abdomen soft, non-tender, nondistended. EXTREMITIES: No edema or joint tenderness. BACK: Nontender without deformity or crepitance. No flank tenderness. NEURO: AOx3. SKIN: No rash or erythema of visible areas Initial Vital Signs Initial Vital Signs: Vital Signs Temperature 102.1 F H 12/10/22 22:33 Pulse Rate 140 H 12/10/22 22:33 Respiratory Rate 16 12/10/22 22:33 Blood Pressure 100/55 L 12/10/22 22:33 Pulse Oximetry 95 12/10/22 22:33 Oxygen Delivery Method Room Air 12/10/22 22:33 Course Orders Ordered: Discontinued Medications Acetaminophen (Acetaminophen 325 Mg Tablet) 650 mg PO Q6H PRN PRN Reason: Fever/Mild Pain (1-3) Acetaminophen (Acetaminophen 650 Mg Supp) 650 mg DC Q6HR PRN PRN Reason: Fever/Mild Pain (1-3) Amoxicillin/Clavulanate Potassium (Amoxicillin/Clav 875/125 Mg) 1 tab PO BID [facility] Benzocaine (Benzocaine/Menthol 1 Ronnie Pkt) 1 each PO Q1HR PRN PRN Reason: Sore Throat Last Admin: 12/12/22 03:06 Dose: 1 each Documented By: Admin: 12/11/22 17:46 Dose: 1 each Documented By: Admin: 12/11/22 15:42 Dose: 1 each Documented By: WILMA Benzocaine/Butamben/Tetracaine HCl (Tetracaine/Benzocaine/Butamben (Cetacaine) Bottle) 1 spray TOP PRN PRN PRN Reason: Sore Throat Last Admin: 12/11/22 17:46 Dose: 1 spray Documented By: WILMA Enoxaparin Sodium (Enoxaparin 40 Mg/0.4 Ml Syringe) 40 mg SUBCUT DAILY [facility] Last Admin: 12/12/22 08:21 Dose: 40 mg Documented By: Admin: 12/11/22 08:06 Dose: 40 mg Documented By: WILMA Lactated Ringer's (Lactated Ringers) 2,000.34 mls @ 666.78 mls/hr 30 ml/kg infuse over 3 hr (2000.34 ml) IV NOW ONE Stop: 12/11/22 01:39 Last Infusion: 12/11/22 01:16 Dose: 0 mls/hr Documented By: Admin: 12/10/22 23:06 Dose: 666.78 mls/hr Documented By: SAL Acetaminophen (Ofirmev) 1,000 mg in 100 mls @ 400 mls/hr IV NOW ONE Stop: 12/11/22 04:54 Last Infusion: 12/11/22 05:41 Dose: 0 mls/hr Documented By: Admin: 12/11/22 05:01 Dose: 400 mls/hr Documented By: SAL Sodium Chloride (Normal Saline 0.9%) 1,000 mls @ 150 mls/hr IV CONT DANIEL Last Infusion: 12/12/22 08:32 Dose: 0 mls/hr Documented By: Admin: 12/12/22 06:57 Dose: 150 mls/hr Documented By: Infusion: 12/12/22 06:44 Dose: 150 mls/hr Documented By: Admin: 12/12/22 00:03 Dose: 150 mls/hr Documented By: Infusion: 12/11/22 23:25 Dose: 150 mls/hr Documented By: Infusion: 12/11/22 23:25 Dose: 0 mls/hr Documented By: Admin: 12/11/22 15:42 Dose: 150 mls/hr Documented By: Infusion: 12/11/22 14:47 Dose: 150 mls/hr Documented By: Admin: 12/11/22 08:06 Dose: 150 mls/hr Documented By: WILMA Ampicillin Sodium/Sulbactam (Sodium 1.5 gm/ Sodium Chloride) 100 mls @ 200 mls/hr IV Q6H [facility] Last Infusion: 12/12/22 06:10 Dose: 0 mls/hr Documented By: Admin: 12/12/22 05:40 Dose: 200 mls/hr Documented By: Infusion: 12/12/22 01:05 Dose: 0 mls/hr Documented By: Admin: 12/12/22 00:02 Dose: 200 mls/hr Documented By: Infusion: 12/11/22 18:35 Dose: 0 mls/hr Documented By: Admin: 12/11/22 17:47 Dose: 200 mls/hr Documented By: Infusion: 12/11/22 15:42 Dose: 0 mls/hr Documented By: Admin: 12/11/22 13:08 Dose: 200 mls/hr Documented By: Infusion: 12/11/22 10:19 Dose: 0 mls/hr Documented By: Admin: 12/11/22 08:06 Dose: 200 mls/hr Documented By: WILMA Ketorolac Tromethamine (Ketorolac 30 Mg/Ml Vial) 15 mg IV NOW ONE Stop: 12/10/22 23:55 Last Admin: 12/11/22 00:03 Dose: 15 mg Documented By: SAL Naloxone HCl (Naloxone 0.4 Mg/Ml Vial) 0.2 mg IV Q2MIN PRN PRN Reason: Opiate Reversal Ondansetron HCl (Ondansetron 4 Mg/2 Ml Inj) 4 mg IV Q8HR PRN PRN Reason: Nausea And Vomiting Potassium Chloride (Potassium Chloride 20 Meq/15 Ml Udc) 40 meq PO NOW ONE Stop: 12/12/22 07:31 Last Admin: 12/12/22 08:21 Dose: 40 meq Documented By: Tramadol HCl (Tramadol 50 Mg Tablet) 50 mg PO QID PRN PRN Reason: Pain, Moderate (4-6) Reevaluation(s) Reevaluation #1: Patient feeling quite poor, attempted to drink, but will not tolerate it Vital Signs Vital signs: Vital Signs - 8 hr 12/10/22 22:33 12/10/22 23:01 12/10/22 23:02 Temperature 102.1 F H Pulse Rate 140 H 139 H 132 H Respiratory Rate 16 Blood Pressure 100/55 L Pulse Oximetry 95 87 L 98 Oxygen Delivery Method Room Air 12/10/22 23:02 12/10/22 23:30 12/10/22 23:30 Temperature Pulse Rate 127 H Respiratory Rate 17 Blood Pressure 123/68 124/69 Pulse Oximetry 99 Oxygen Delivery Method 12/11/22 00:00 12/11/22 00:00 12/11/22 00:36 Temperature 100 F H Pulse Rate 123 H Respiratory Rate 14 Blood Pressure 107/57 L Pulse Oximetry 99 Oxygen Delivery Method 12/11/22 00:30 12/11/22 00:30 12/11/22 01:00 Temperature Pulse Rate 116 H Respiratory Rate 17 Blood Pressure 120/59 L 116/69 Pulse Oximetry 94 Oxygen Delivery Method 12/11/22 01:00 12/11/22 01:30 12/11/22 01:30 Temperature Pulse Rate 121 H 116 H Respiratory Rate 23 11 L Blood Pressure 119/62 Pulse Oximetry 96 97 Oxygen Delivery Method 12/11/22 02:00 12/11/22 02:00 Temperature Pulse Rate 118 H Respiratory Rate 17 Blood Pressure 123/73 Pulse Oximetry 98 Oxygen Delivery Method Sepsis Evaluation (ED) Triage Screening Sepsis Screen: Possible Sepsis Risk Level 1 - Infection Sepsis Infection Criteria Present: Suspected New Infection Response It is my opinion that his patient have a likely infectious etiology for meeting sepsis criteria: Does Fluid calculation based on 30 mL/kg within 1hr of criteria: N/A Antibiotics initiated within 1 hr of Sepis dx: No Tissue Perfusion Reassessed within 6 hrs of infusion start time: No MDM - Sepsis Lab Data 12/12/22 04:18 12/12/22 04:18 Labs: Lab Results 12/10/22 12/10/22 12/10/22 Range/Units 22:54 23:45 23:45 WBC 6.4 (4.5-11.0) X10^3/uL RBC 4.54 (4.0-5.2) X10^6/uL Hgb 13.8 (12.0-16.0) g/dL Hct 39.9 (36-46) % MCV 88.0 (80-100) fL MCH 30.5 (26-34) PG MCHC 34.7 (30-36) % RDW 13.7 (11.6-14.8) % Plt Count 233 (150-400) X10^3/uL Neut % (Auto) 89.2 H (50-75) % Lymph % (Auto) 2.4 L (25-40) % Meigs % (Auto) 8.1 (3-14) % Eos % (Auto) 0.0 L (2-4) % Baso % (Auto) 0.3 (0-2) % Neut # (Auto) 5700 (5176-6969) /uL Lymph # (Auto) 200 L (2911-4901) /uL Meigs # (Auto) 500 (0-900) /uL Eos # (Auto) 0 (0-450) /uL Baso # (Auto) 0 (0-100) /uL D-Dimer 872 H (<500) ng/ml Sodium (137-145) mmol/L Potassium (3.4-5.1) mmol/L Chloride (98-107) mmol/L Carbon Dioxide (22-32) mmol/L BUN (7-17) mg/dL Creatinine (0.52-1.04) mg/dL Estimated GFR (>60) mL/min BUN/Creatinine Ratio (6-22) Glucose (70-100) mg/dL Lactate (0.7-2.1) mmol/L Calcium (8.4-10.2) mg/dL Total Bilirubin (0.2-1.3) mg/dL AST (14-36) IU/L ALT (<35) IU/L Alkaline Phosphatase (38-126) U/L Total Creatine Kinase (30-135) U/L CK-MB (CK-2) CK-MB (CK-2) Rel Index Troponin I (0.01-0.034) ng/mL Total Protein (6.3-8.2) g/dL Albumin (3.5-5.0) g/dL Globulin (1.7-4.1) g/dL Albumin/Globulin Ratio (1.0-2.8) Procalcitonin (<0.5) ng/mL SARS-CoV-2 (PCR) Positive H (Negative) Influenza A (RT-PCR) Flu a negative (NEGATIVE) Influenza B (RT-PCR) Flu b negative (NEGATIVE) RSV (PCR) Negative (Negative) 12/10/22 12/10/22 Range/Units 23:45 23:45 WBC (4.5-11.0) X10^3/uL RBC (4.0-5.2) X10^6/uL Hgb (12.0-16.0) g/dL Hct (36-46) % MCV (80-100) fL MCH (26-34) PG MCHC (30-36) % RDW (11.6-14.8) % Plt Count (150-400) X10^3/uL Neut % (Auto) (50-75) % Lymph % (Auto) (25-40) % Meigs % (Auto) (3-14) % Eos % (Auto) (2-4) % Baso % (Auto) (0-2) % Neut # (Auto) (2446-5242) /uL Lymph # (Auto) (0965-7285) /uL Meigs # (Auto) (0-900) /uL Eos # (Auto) (0-450) /uL Baso # (Auto) (0-100) /uL D-Dimer (<500) ng/ml Sodium 135 L (137-145) mmol/L Potassium 3.5 (3.4-5.1) mmol/L Chloride 97 L (98-107) mmol/L Carbon Dioxide 29 (22-32) mmol/L BUN 8 (7-17) mg/dL Creatinine 0.70 (0.52-1.04) mg/dL Estimated GFR > 60 (>60) mL/min BUN/Creatinine Ratio 11.4 (6-22) Glucose 112 H (70-100) mg/dL Lactate 1.1 (0.7-2.1) mmol/L Calcium 9.1 (8.4-10.2) mg/dL Total Bilirubin 0.8 (0.2-1.3) mg/dL AST 34 (14-36) IU/L ALT 27 (<35) IU/L Alkaline Phosphatase 85 (38-126) U/L Total Creatine Kinase 37 (30-135) U/L CK-MB (CK-2) TNP CK-MB (CK-2) Rel Index TNP Troponin I < 0.012 (0.01-0.034) ng/mL Total Protein 7.4 (6.3-8.2) g/dL Albumin 4.3 (3.5-5.0) g/dL Globulin 3.1 (1.7-4.1) g/dL Albumin/Globulin Ratio 1.4 (1.0-2.8) Procalcitonin 0.15 (<0.5) ng/mL SARS-CoV-2 (PCR) (Negative) Influenza A (RT-PCR) (NEGATIVE) Influenza B (RT-PCR) (NEGATIVE) RSV (PCR) (Negative) [facility] Narrative Medical decision making narrative: [52] year old patient presents with fever, tachycardia and sore throat Multiple etiologies for patient's symptoms considered including, but not limited to: [Strep pharyngitis, flu, COVID versus other] Prior Charts reviewed in our EMR Primary Historian: patient Labs reviewed and interpreted by myself: No significant leukocytosis or left shift, no signs of anemia. D-dimer elevated, will pursue CTA to rule out PE given her persistent tachycardia. Electrolytes and renal function within normal. Lactate 1.1. Imaging reviewed: CT angiogram without significant findings, no PE or pneumonia. Consultations: Hospitalist happy to accept patient Patient with concerns for underlying sepsis given fever, tachycardia and sore throat, respiratory panel positive for COVID. Thankfully patient is absent of any significant increased work of breathing but remains persistently tachycardic and unable to swallow. Rapid strep is negative and pharyngitis likely due to COVID, culture obtained. When attempting clear liquid challenge she either coughs or vomits it up and states that it hurts too much to swallow. Repeatedly she states she does not feel like something is blocking her ability to swallow. She has no signs of torticollis and deep space infection is thought unlikely, however advanced imaging is ordered by hospitalist to rule this out. Patient requires hospitalization for further evaluation and stabilization of her condition Discharge Plan Departure Patient Disposition: Admitted As Inpatient Clinical Impression: COVID-19, Pharyngitis Admit Date/Time: 12/11/22 04:20 Admit Provider: Walker Alexis
[2022-12-10 23:01] VITALS: PULSE 139; O2SAT 87
[2022-12-10 23:02] VITALS: BP 123/68; PULSE 132; O2SAT 98
[2022-12-10] MEDS: LACTATED RINGERS 666.78 ML IV (23:06)
[2022-12-10 23:30] VITALS: BP 124/69; PULSE 127; RESP 17; O2SAT 99
[2022-12-10 23:46] LABS: Influenza A - CEPHEID Flu A NEGATIVE (NEGATIVE); Influenza B - CEPHEID Flu B NEGATIVE (NEGATIVE); Respiratory Syncytial Virus Negative (Negative)
[2022-12-10 23:48] LABS: COVID-19 CEPHEID 4-PLEX PCR POSITIVE (Negative)
[2022-12-11] VITALS (31 sets, daily range): BP systolic 102–132; BP diastolic 55–73; PULSE 98–140; RESP 11–40; TEMP 37.3–39.9; O2SAT 22–100; BMI 26.9
[2022-12-11] LABS: Add Manual Diff / Slide Review NO; Basophils Absolute Auto 0 /uL (0-100); Basophils Percent Auto 0.3 % (0-2); Eosinophils Absolute Auto 0 /uL (0-450); Hematocrit 39.9 % (36-46); Hemoglobin 13.8 g/dL (12.0-16.0); Lymphocytes Absolute Auto 200 /uL (1100-4500); Lymphocytes Percent Auto 2.4 % (25-40); Mean Corpuscular HGB Conc 34.7 % (30-36); Mean Corpuscular Hemoglobin 30.5 PG (26-34); Monocytes Absolute Auto 500 /uL (0-900); Monocytes Percent Auto 8.1 % (3-14); Neutrophils Absolute Auto 5700 /uL (1500-7000); Neutrophils Percent Auto 89.2 % (50-75); Platelet Count 233 X10^3/uL (150-400); Red Blood Cell Count 4.54 X10^6/uL (4.0-5.2); Red Cell Distribution Width 13.7 % (11.6-14.8); White Blood Cell Count 6.4 X10^3/uL (4.5-11.0)
[2022-12-11] MEDS: KETOROLAC 30 MG/ML VIAL 15 MG IV (00:03)
[2022-12-11 00:17] LABS: D Dimer 872 ng/ml (<500)
[2022-12-11 00:23] LABS: Alanine Aminotransferase 27 IU/L (<35); Albumin 4.3 g/dL (3.5-5.0); Albumin Globulin Ratio 1.4 (1.0-2.8); Alkaline Phosphatase 85 U/L (38-126); Aspartate Aminotransferase 34 IU/L (14-36); BUN Creatinine Ratio 11.4 (6-22); Bilirubin Total 0.8 mg/dL (0.2-1.3); Blood Urea Nitrogen 8 mg/dL (7-17); Calcium 9.1 mg/dL (8.4-10.2); Carbon Dioxide 29 mmol/L (22-32); Chloride 97 mmol/L (98-107); Creatine Kinase 37 U/L (30-135); Estimated Glomerular Filt Rate > 60 mL/min (>60); Globulin 3.1 g/dL (1.7-4.1); Glucose 112 mg/dL (70-100); HEMOLYSIS < 15 (0-50); Lactate (Lactic Acid) 1.1 mmol/L (0.7-2.1); Potassium 3.5 mmol/L (3.4-5.1); Sodium 135 mmol/L (137-145); Total Protein 7.4 g/dL (6.3-8.2)
[2022-12-11 00:35] LABS: Troponin I < 0.012 ng/mL (0.01-0.034)
[2022-12-11 00:40] LABS: Procalcitonin 0.15 ng/mL (<0.5)
--- NOTE | 2022-12-11 01:51 | DI.CT.S_ITS ---
PROCEDURE: CT ANGIO CHEST PE PROTOCOL INDICATIONS: tachycardia, SOB, cough, critical Dimer TECHNIQUE: After the administration of intravenous contrast, 2 mm thick sections acquired from the pulmonary apices to the posterior costophrenic angles. 3-dimensional maximum intensity projection (MIP) coronal and sagittal reformats were then acquired through the thorax. For radiation dose reduction, the following was used: automated exposure control, adjustment of mA and/or kV according to patient size. COMPARISON: [facility], CT, CT ANGIO CHEST PE PROTOCOL, 07/19/2020, 23:02. FINDINGS: Image quality: Excellent. Pulmonary arteries: Pulmonary arteries are normal in size, and demonstrate no intraluminal filling defects to suggest central pulmonary embolism. Lungs and pleura: Lungs are clear. No pleural effusions or pneumothorax. Central and peripheral airways are patent. Mediastinum: Heart size is normal, without pericardial effusion. No mediastinal or hilar adenopathy. Thoracic aorta is normal in caliber and enhancement. Esophagus is normal in caliber, without hiatal hernia. Bones and chest wall: No suspicious bony lesions. Ribs and thoracic spine appear intact throughout. Thyroid gland is normal. No axillary or supraclavicular adenopathy. Bilateral breast prosthesis. Coronary calcs Abdomen: Visualized upper abdominal solid organs appear normal in the early arterial phase of enhancement. IMPRESSION: Negative for pulmonary embolism Comment: Final report is concordant with preliminary interpretation by [facility] Dictated by: Stef Willingham M.D. on 12/11/2022 at 8:35 Approved by: Stef Willingham M.D. on 12/11/2022 at 8:36
--- NOTE | 2022-12-11 04:34 | DI.CT.S_ITS ---
PROCEDURE: CT SOFT TISSUE NECK W CON INDICATIONS: difficulty swallowing, sore throat TECHNIQUE: After the administration of intravenous contrast, 3.0 mm axial sections acquired from the sella to the aortic arch. Additional oblique axial 3.0 mm sections acquired through the pharynx. 3 mm thick coronal and sagittal reformats were generated. For radiation dose reduction, the following was used: automated exposure control. COMPARISON: [facility], CR, XR CHEST 1V, 12/10/2022, 22:51. [facility], CT, CT ANGIO HEAD AND NECK, 07/12/2022, 21:27. FINDINGS: Image quality: Excellent. Lymph nodes: No enlarged lymph nodes seen throughout the neck. Vessels: Visualized vasculature appears patent. Neck spaces: There is diffuse edema of the hypopharynx involving the epiglottis, aryepiglottic fold and false cord. There is partial effacement of valleculla and piriform sinus and mild narrowing of the central airway but no obstruction. No fluid collections to suggest abscess. The oropharynx, nasopharynx, and pharynx demonstrate no mucosal lesions. Extramucosal spaces appear unremarkable. Glands: The parotid and submandibular glands appear normal. There is a 0.7 cm soft tissue nodule in the right thyroid lobe. Miscellaneous: Visualized brain and orbits appear normal. Lung apices appear clear. Superficial soft tissues appear normal. Bones: No suspicious bony lesions. Moderate degenerative disc disease at C4-C5 and C5-C6. Visualized sinuses and mastoids appear unremarkable. IMPRESSION: 1. Diffuse edema in the hypopharynx involving epiglottis, the ayepiglottic fold and false cord causing effacement of valleculla and pisiform sinus and mild narrowing of the central airway without complete obstruction. An infectious or inflammatory process is favored. Recommend clinical correlation. Consider ENT consultation if clinical symptoms worsen. 2. No fluid collections to suggest abscess. 3. No cervical lymphadenopathy. 4. A 0.7 cm nodule in the right thyroid lobe. No significant discrepancy with the night cleaner radiology preliminary report. Dictated by: Grisel Samuel M.D. on 12/11/2022 at 8:11 Approved by: Grisel Samuel M.D. on 12/11/2022 at 9:12
[2022-12-11] MEDS: ACETAMINOPHEN IV 1,000 MG/100 ML VIAL 400 MG IV (05:01)
--- NOTE | 2022-12-11 05:39 | P.HP_ITS ---
History of Present Illness History of Present Illness Date Patient Seen: 12/11/22 Time Patient Seen: 04:30 Chief complaint: weak/sore throat x1 day radiation treatment Narrative: Ms. Gonzalez is a 52W with PMH medulloblastoma s/p craniotomy, also s/p brain radiation, also recently needed a PEG tube for malnutrition who presents to the hospital with sore throat, fever, mild cough and shortness of breath. She has been having difficulty with eating and drinking with poor appetite. She does not have any feelings of food obstruction or impaction, she says it is difficult to eat due to pain. She has no sick contacts. She has not had the COVID vaccination. In the ED workup was done, vitals notable for temp of 102.1, hr 140s, blood pressure 100s/50s, o2 sat 98% on room air. Labs notable WBC 6.4, hgb 13.8, plts 233. Na 135, creatinine 0.70. D-dimer 872. Lactate 1.1. Trop negative. Procal 0.15. Rapid strep negative. Throat culture performed. COVID positive. CTA chest negative for PE. She was given fluids, toradol and tylenol and admitted for further treatment. Patient History Medical History No chronic problems Pulmonary embolism Surgical History History of lumbar surgery S/P T&A (status post tonsillectomy and adenoidectomy) Status post appendectomy Status post cholecystectomy Status post tubal ligation Family & Social History Social History: household members spouse,children Safety & Behavioral: Feels Safe in Current Yes Environment Been Physically Hurt or No Threatened By a Person Tobacco & Substance use: Smoking Status Never smoker alcohol intake former alcohol intake frequency other Substance Use Type marijuana Meds Home Medications and Allergies Home Medications Medication Instructions Recorded Confirmed Type gabapentin 300 mg capsule 300 mg PO Q8H shingles pain #40 08/19/19 10/12/22 Rx caps folic acid 1 mg tablet 1 mg PO DAILY #30 tabs 08/02/22 10/12/22 Rx multivitamin with folic acid 400 1 tab PO DAILY #30 tabs 08/02/22 10/12/22 Rx mcg tablet (Tab-A-Nidhi) ondansetron 4 mg disintegrating 4 mg sublingual Q8HR #30 tabs 08/02/22 10/12/22 Rx tablet oxycodone 5 mg tablet 5 mg PO Q4HR PRN Pain, Moderate 08/02/22 10/12/22 Rx (4-6) #20 tabs Allergies Allergy/AdvReac Type Severity Reaction Status Date / Time codeine Allergy Verified 10/12/22 09:21 Review of Systems Review of Systems Narrative: 14 systems reviewed and negative aside from what is noted in HPI Exam Vital Signs (past 8 hours): - 12/10/22 22:33 12/10/22 23:01 12/10/22 23:02 Temperature 102.1 F H Pulse Rate 140 H 139 H 132 H Respiratory Rate 16 Blood Pressure 100/55 L Pulse Oximetry 95 87 L 98 Oxygen Delivery Method Room Air 12/10/22 23:02 12/10/22 23:30 12/10/22 23:30 Temperature Pulse Rate 127 H Respiratory Rate 17 Blood Pressure 123/68 124/69 Pulse Oximetry 99 Oxygen Delivery Method 12/11/22 00:00 12/11/22 00:00 12/11/22 00:36 Temperature 100 F H Pulse Rate 123 H Respiratory Rate 14 Blood Pressure 107/57 L Pulse Oximetry 99 Oxygen Delivery Method 12/11/22 00:30 12/11/22 00:30 12/11/22 01:00 Temperature Pulse Rate 116 H Respiratory Rate 17 Blood Pressure 120/59 L 116/69 Pulse Oximetry 94 Oxygen Delivery Method 12/11/22 01:00 12/11/22 01:30 12/11/22 01:30 Temperature Pulse Rate 121 H 116 H Respiratory Rate 23 11 L Blood Pressure 119/62 Pulse Oximetry 96 97 Oxygen Delivery Method 12/11/22 02:00 12/11/22 02:00 12/11/22 02:30 Temperature Pulse Rate 118 H 118 H Respiratory Rate 17 15 Blood Pressure 123/73 Pulse Oximetry 98 100 Oxygen Delivery Method 12/11/22 03:00 12/11/22 03:30 12/11/22 04:00 Temperature Pulse Rate 120 H 136 H 133 H Respiratory Rate 40 H 30 H 23 Blood Pressure 123/73 Pulse Oximetry 100 97 Oxygen Delivery Method 12/11/22 04:23 12/11/22 04:30 Temperature 103.9 F H Pulse Rate 134 H Respiratory Rate 32 H Blood Pressure Pulse Oximetry 96 Oxygen Delivery Method Oxygen Delivery Method Room Air Narrative Exam Narrative: GEN: ill appearing, fatigued, hoarse voice HEENT: dry mucous membranes, mild erythematous throat with no masses noted NECK: trachea midline, no masses noted, no jvd CV: tachycardic, no murmurs PULM: clear bilaterally, no wheezes, rhonchi, rales ABD: soft, nontender, nondistended, no organomegayl, normal bowel sounds EXT: warm and well perfused, with no edema NEURO: awake, alert, oriented, no focal deficits Objective Labs 12/10/22 23:45 12/10/22 23:45 Labs: Laboratory Results - last 24 hr 12/10/22 12/10/22 12/10/22 22:54 23:45 23:45 WBC 6.4 RBC 4.54 Hgb 13.8 Hct 39.9 MCV 88.0 MCH 30.5 MCHC 34.7 RDW 13.7 Plt Count 233 Neut % (Auto) 89.2 H Lymph % (Auto) 2.4 L [place] % (Auto) 8.1 Eos % (Auto) 0.0 L Baso % (Auto) 0.3 Neut # (Auto) 5700 Lymph # (Auto) 200 L [place] # (Auto) 500 Eos # (Auto) 0 Baso # (Auto) 0 D-Dimer 872 H Sodium Potassium Chloride Carbon Dioxide BUN Creatinine Estimated GFR BUN/Creatinine Ratio Glucose Lactate Calcium Total Bilirubin AST ALT Alkaline Phosphatase Total Creatine Kinase CK-MB (CK-2) CK-MB (CK-2) Rel Index Troponin I Total Protein Albumin Globulin Albumin/Globulin Ratio Procalcitonin SARS-CoV-2 (PCR) Positive H Influenza A (RT-PCR) Flu a negative Influenza B (RT-PCR) Flu b negative RSV (PCR) Negative 12/10/22 12/10/22 23:45 23:45 WBC RBC Hgb Hct MCV MCH MCHC RDW Plt Count Neut % (Auto) Lymph % (Auto) [place] % (Auto) Eos % (Auto) Baso % (Auto) Neut # (Auto) Lymph # (Auto) [place] # (Auto) Eos # (Auto) Baso # (Auto) D-Dimer Sodium 135 L Potassium 3.5 Chloride 97 L Carbon Dioxide 29 BUN 8 Creatinine 0.70 Estimated GFR > 60 BUN/Creatinine Ratio 11.4 Glucose 112 H Lactate 1.1 Calcium 9.1 Total Bilirubin 0.8 AST 34 ALT 27 Alkaline Phosphatase 85 Total Creatine Kinase 37 CK-MB (CK-2) TNP CK-MB (CK-2) Rel Index TNP Troponin I < 0.012 Total Protein 7.4 Albumin 4.3 Globulin 3.1 Albumin/Globulin Ratio 1.4 Procalcitonin 0.15 SARS-CoV-2 (PCR) Influenza A (RT-PCR) Influenza B (RT-PCR) RSV (PCR) Assessment & Plan Assessment & Plan narrative: 1. Acute pharyngitis with SIRS positive and COVID positive -presents with fever and tachycardia -rapid stress test negative -throat culture negative -lactate negative, procal negative -COVID positive, unfortunately unvaccinated -no hypoxia, no indication for remdesivir or steroids -cta chest shows no evidence of PE -ct neck ordered -ordered for unasyn 2. History of medulloblastoma -history of cerebellar resection I have discussed plan of care with the patient. I have discussed plan with ED physician and bedside nurse. I have reviewed labs, chest xray and ct chest. CODE: Full Proxy: Dale Gonzalez, albertina Time Spent With Patient Critical Care time: I spent a total of [] minutes of critical care time on this patient's care today; this time is exclusive of procedural time. Quality [facility] - Meds 'Current medications' to include all prescriptions, [id number] products, herbals, cannabis/cannabidiol products, and vitamin/mineral/dietary (nutritional) supplements. I have utilized all available resources to obtain, update, or review the patient?s current medications. [If Yes, STOP here]: Yes
--- NOTE | 2022-12-11 06:18 | PC.NURSE ---
Received patient from ED in no distress. helped to bed patient needing steadying from wheelchair to bed. on room air with acceptable sats.
[2022-12-11] MEDS: ENOXAPARIN 40 MG/0.4 ML SYRINGE SUBCUT (08:06)
[2022-12-11] MEDS: SODIUM CHLORIDE 0.9% 1,000 ML 150 ML IV ×2 (08:06→15:42)
[2022-12-11] MEDS: AMPICILLIN/SULBACTAM 1.5 GM 1.5 GM in SODIUM CHLORIDE 0.9% 100 ML IV ×3 (08:06→17:47)
--- NOTE | 2022-12-11 09:03 | CM.DANOTE ---
Patient is a 52 yo female who was admitted on 12/11/22 for COVID+. Pt has [employer] and [employer] for insurance and her PCP is Kayleen Mathur at [facility] . EMR was reviewed. Per , pt with hx of full brain radiation this year for gleoblastoma and last tx was in March 2022 last year and since that time pt has had n/v and inability to have adequate intake and 31 lb weight loss in 6 weeks and had PEG placed in Jul 2022 and discharged home with [facility] for PEG feedings and [facility]. Pt's NeuroSurgeon/Onc is Dr. Mott at [facility]. Per RN, pt with significant sore throat but not respiratory issues and being treated with fluids, antibiotics, and sore throat tx. SW called pt's spouse due to pt's very sore throat and difficulty talking and COVID+ precautions and explained role. Spouse confirms they still live at home in [place] and spouse is back to work and sometimes has 12 hour shifts. Spouse states that pt's PEG tube was removed a couple months ago and she has healed from that and has been able to tolerate adequate intake and no longer have [facility] or [facility] as pt has progressed enough to be independent with ADL's and ambulation although sometimes needs assist with longer distances outside and spouse or friends still provide transport. Spouse does not anticipate any needs at d/c although he states since she started having symptoms from COVID yesterday she did become weaker than baseline and he would be agreeable with HH if needed at d/c. Plan: SW to follow closely for plan of likely d/c home with spouse and friend assist (spouse or friend can transport at d/c) and r/o HH needs closer to discharge and any further identified discharge planning needs. GUY Ledezma Discharge Planning/Care Management CM Discharge Assessment Start: 12/11/22 09:00 Freq: Status: Active Protocol: Document 12/11/22 09:00 BF (Rec: 12/11/22 09:02 [id number]) Discharge Planning Assessment Assigned Measuring Clerk GUY Mulligan DPOA/Assigned Designee Name spouse Dale Contact Information [phone] Advance Directives? No Advance Directives on File No History Provided By Patient,Significant Other, Medical Record Has Patient been admitted in last 30 No days? Comment last admission Jul 2022 discharged home with PEG, [facility], and [facility] Prior Living Arrangements House Household Members spouse,children Type of transporation used prior to Relies on Others admit Independent with ADL's Yes Is patient alert and oriented? Yes Needs Assistance With Home Chores / Shopping Caregiver for Another No DME Already Rented / Owned FWW / Walker Patient/Family Preference Home with Home Health Comment Home likely, r/o HH pending progress Barriers to Discharge No Comment r/o HH Discharge Plan Home Transportation Arrangement Likely spouse or friend if spouse is working 12 hr shift Referrals Initiated Home Health Additional Comment r/o HH pending progress Whiteboard Updated in Patient Room with Yes name and ext. # of Measuring Clerk Review Status In Process Please Provide Date Initial DC 12/11/22 Assessment Was Performed Next Review Type Continued Stay Review
[2022-12-11 10:48] LABS: Appearance Urine UA CLEAR; Bilirubin Urine UA NEGATIVE (NEGATIVE); Color Urine UA YELLOW; Glucose Urine UA NEGATIVE (Negative); Ketones Urine UA TRACE (NEGATIVE); Leukocyte Esterase Urine UA NEGATIVE (NEGATIVE); Nitrite Urine UA NEGATIVE (Negative); Occult Blood Urine UA TRACE-INTACT (Negative); Protein Urine UA NEGATIVE (Negative); Specific Gravity Urine UA 1.015 (1.000-1.035); Urobilinogen Urine UA 0.2 E.U./dL (0.2)
[2022-12-11 10:57] LABS: Amorphous Sediment Urine 1+; Bacteria Urine None Seen; Culture Indicated Urine Cult Not Indicated; RBC Urine 1-5/HPF (0-5/HPF); Squamous Epithelial Cell Urine 1-5 /HPF (0-5/HPF); WBC Urine None Seen (0-5/HPF)
[2022-12-11] MEDS: BENZOCAINE/MENTHOL 1 LOZ PKT 1 EACH PO ×2 (15:42→17:46)
[2022-12-11] MEDS: TETRACAINE/BENZOCAINE/BUTAMBEN (CETACAINE) BOTTLE 1 SPRAY TOP (17:46)
[2022-12-12] VITALS (7 sets, daily range): BP systolic 127–133; BP diastolic 59–68; PULSE 100; RESP 20–22; TEMP 36.9–37.1; O2SAT 89–96
[2022-12-12] MEDS: AMPICILLIN/SULBACTAM 1.5 GM 1.5 GM in SODIUM CHLORIDE 0.9% 100 ML IV ×2 (00:02→05:40)
[2022-12-12] MEDS: SODIUM CHLORIDE 0.9% 1,000 ML 150 ML IV ×2 (00:03→06:57)
[2022-12-12] MEDS: BENZOCAINE/MENTHOL 1 LOZ PKT 1 EACH PO (03:06)
[2022-12-12 05:54] LABS: Add Manual Diff / Slide Review NO; Basophils Absolute Auto 0 /uL (0-100); Eosinophils Absolute Auto 0 /uL (0-450); Hemoglobin 11.8 g/dL (12.0-16.0); Lymphocytes Absolute Auto 400 /uL (1100-4500); Lymphocytes Percent Auto 6.8 % (25-40); Mean Corpuscular HGB Conc 34.7 % (30-36); Mean Corpuscular Hemoglobin 30.5 PG (26-34); Mean Corpuscular Volume 87.7 fL (80-100); Monocytes Absolute Auto 600 /uL (0-900); Monocytes Percent Auto 9.1 % (3-14); Neutrophils Absolute Auto 5400 /uL (1500-7000); Neutrophils Percent Auto 84.1 % (50-75); Platelet Count 179 X10^3/uL (150-400); Red Blood Cell Count 3.88 X10^6/uL (4.0-5.2); Red Cell Distribution Width 14.1 % (11.6-14.8); White Blood Cell Count 6.4 X10^3/uL (4.5-11.0)
--- NOTE | 2022-12-12 06:10 | PC.NURSE ---
Patient not drinking fluids at present time, saying it hurts to much. given throat lozenges and spray.
[2022-12-12 06:14] LABS: Blood Urea Nitrogen 6 mg/dL (7-17); Calcium 8.1 mg/dL (8.4-10.2); Carbon Dioxide 26 mmol/L (22-32); Chloride 102 mmol/L (98-107); Estimated Glomerular Filt Rate > 60 mL/min (>60); Glucose 93 mg/dL (70-100); HEMOLYSIS < 15 (0-50); Sodium 136 mmol/L (137-145)
[2022-12-12] MEDS: POTASSIUM CHLORIDE 20 MEQ/15 ML UDC 40 MEQ PO (08:21)
[2022-12-12] MEDS: ENOXAPARIN 40 MG/0.4 ML SYRINGE SUBCUT (08:21)
--- NOTE | 2022-12-12 08:45 | P.DS_ITS ---
History of Present Illness History of Present Illness Date Patient Seen: 12/12/22 Time Patient Seen: 08:45 Chief complaint: weak/sore throat x1 day radiation treatment Narrative: Per admitting provider , Ms. Gonzalez is a 52W with PMH medulloblastoma s/p craniotomy, also s/p brain radiation, also recently needed a PEG tube for malnutrition who presents to the hospital with sore throat, fever, mild cough and shortness of breath. She has been having difficulty with eating and drinking with poor appetite. She does not have any feelings of food obstruction or impaction, she says it is difficult to eat due to pain. She has no sick contacts. She has not had the COVID vaccination. In the ED workup was done, vitals notable for temp of 102.1, hr 140s, blood pressure 100s/50s, o2 sat 98% on room air. Labs notable WBC 6.4, hgb 13.8, plts 233. Na 135, creatinine 0.70. D-dimer 872. Lactate 1.1. Trop negative. Procal 0.15. Rapid strep negative. Throat culture performed. COVID positive. CTA chest negative for PE. She was given fluids, toradol and tylenol and admitted for further treatment. Discharge Providers Provider Date of admission: 12/11/22 04:20 Discharge Date: 12/12/22 Primary care physician: Kayleen Mathur [facility] Discharge provider: Alvarez Mckee DO Summary Hospital Course Discharge Diagnosis: 1. Acute pharyngitis with SIRS positive and COVID positive 2. History of medulloblastoma 3. Hypokalemia, acute Hospital Course: This is a 52 year old female who was admitted with difficulty swallowing due to pharyngitis from likely COVID 19, but cannot rule out bacterial superinfection. She continued to have difficulty eating, and unasyn was initiated along with supportive care with slow improvement. She ultimately able to tolerate oral intake after about 24 hours, but continued to have a sore throat, and this will likely continue to improve as her voice and swallowing have slowly improved since admission. Patient was discharged home. Augmentin was prescribed for possible bacterial sinusitis or super infection as this cannot be completely ruled out and patient did improve with unasyn. Patient also sent tramadol temporarily as this did help her throat pain here. No other changes to her home medications are recommended. Patient should continue supportive care for pharyngitis at home. Time Spent with Patient Time spent: Greater than 30 minutes Exam Vital Signs (past 8 hours): - 12/12/22 02:00 12/12/22 03:11 12/12/22 05:40 Temperature 98.8 F Pulse Rate 100 H Respiratory Rate 22 Blood Pressure 133/68 Pulse Oximetry 94 96 94 Oxygen Delivery Method Room Air Room Air Oxygen Flow Rate 0 12/12/22 07:00 12/12/22 08:22 12/12/22 08:23 Temperature Pulse Rate 100 H Respiratory Rate Blood Pressure Pulse Oximetry 89 L 96 Oxygen Delivery Method Room Air Oxygen Flow Rate 12/12/22 08:23 12/12/22 08:00 Temperature 98.4 F Pulse Rate Respiratory Rate 20 Blood Pressure 127/59 L Pulse Oximetry 96 Oxygen Delivery Method Oxygen Flow Rate Oxygen Delivery Method Room Air Oxygen Flow Rate 0 Narrative Exam Narrative: GEN: ill appearing, fatigued, hoarse voice but improved HEENT: moist mucous membranes NECK: trachea midline, no masses noted, no jvd CV: mildly tachycardic, no murmurs PULM: clear bilaterally, no wheezes, rhonchi, rales ABD: soft, nontender, nondistended, no organomegayl, normal bowel sounds EXT: warm and well perfused, with no edema NEURO: awake, alert, oriented, no focal deficits Objective Labs 12/12/22 04:18 12/12/22 04:18 Labs: Laboratory Results - last 24 hr 12/11/22 12/12/22 12/12/22 10:40 04:18 04:18 WBC 6.4 RBC 3.88 L Hgb 11.8 L Hct 34.0 L MCV 87.7 MCH 30.5 MCHC 34.7 RDW 14.1 Plt Count 179 Neut % (Auto) 84.1 H Lymph % (Auto) 6.8 L [place] % (Auto) 9.1 Eos % (Auto) 0.0 L Baso % (Auto) 0.0 Neut # (Auto) 5400 Lymph # (Auto) 400 L [place] # (Auto) 600 Eos # (Auto) 0 Baso # (Auto) 0 Sodium 136 L Potassium 3.0 L Chloride 102 Carbon Dioxide 26 BUN 6 L Creatinine 0.46 L Estimated GFR > 60 BUN/Creatinine Ratio 13.0 Glucose 93 Calcium 8.1 L Urine Color Yellow Urine Appearance Clear Urine pH 6.0 Ur Specific [place] 1.015 Urine Protein Negative Urine Glucose (UA) Negative Urine Ketones Trace H Urine Occult Blood Trace-intact Urine Nitrate Negative Urine Bilirubin Negative Urine Urobilinogen 0.2 Ur Leukocyte Esterase Negative Urine RBC 1-5/hpf Urine WBC None seen Ur Squamous Epith Cells 1-5 /hpf Amorphous Sediment 1+ Urine Bacteria None seen Ur Culture Indicated? Cult not indicated PFSH Medical History No chronic problems Pulmonary embolism Surgical History History of lumbar surgery S/P T&A (status post tonsillectomy and adenoidectomy) Status post appendectomy Status post cholecystectomy Status post tubal ligation Social History household members: spouse and children Smoking Status: Never smoker alcohol intake: former Discharge Plan Discharge Plan Patient Disposition: Home Provider Discharge Comment: You were admitted to the hospital with swelling in your throat due to covid. It is unlikely due to a bacterial infection so this cannot be ruled out so please complete antibiotic course at home. Please return if you develop difficulty breathing. Discharge orders & Medications Prescriptions: New tramadol 50 mg Tablet 50 mg PO QID PRN (Reason: Pain, Moderate (4-6)) 7 Days Qty: 20 0RF amoxicillin-pot clavulanate 875-125 mg Tablet 1 tab PO BID 5 Days Qty: 10 0RF Continued nitrofurantoin macrocrystal 50 mg capsule 50 mg PO DAILY Patient Comments: TAKE ONE CAPSULE BY MOUTH ONE TIME DAILY FOR UTI PROPHYLAXIS mecobalamin (vitamin B12) 1,000 mcg Tablet,Disintegrating 1,000 mcg PO DAILY folic acid 1 mg Tablet 1 mg PO DAILY Qty: 30 0RF multivitamin with folic acid [Tab-A-Nidhi] 400 mcg Tablet 1 tab PO DAILY Qty: 30 0RF oxycodone 5 mg Tablet 5 mg PO Q4HR PRN (Reason: Pain, Moderate (4-6)) Qty: 20 0RF Follow up/Referrals: Kayleen Mathur FNP-BC [Primary Care Provider] - Diet/Activity/Treatments Diet: Diet as Tolerated Activity: As tolerated Visit Report/Discharge Packet Stand Alone Forms: Patient Portal/API, Stroke Signs & Symptoms Discharge Data Primary Care Provider: Kayleen Mathur
--- NOTE | 2022-12-12 12:30 | CM.DPC ---
DCP Discharge Home Per MD, pt is medically stable to d/c home today with new medications to help with her COVID sore throat. RN provided d/c instructions and pt's spouse works until this evening but local friend able to provide transport home. No identified barriers to discharge. Plan: Patient to d/c home today via friend POV and spouse will be home for assist this evening after work and no further d/c needs identified. GUY Ledezma
== END 2022-12-12 12:08 | disposition home or self-care (01) | DRG 137 ==
LOC: ED 23:55 → AC 12-11 05:11 → ICU 12-11 05:57 → AC 12-20 16:24
PROVIDERS: Admitting Provider Internal Medicine; Emergency Provider Emergency Medicine; PCP Nurse Practitioner Family; Referring Provider Emergency Medicine; Visit Provider Internal Medicine
DX: U07.1 COVID-19 (principal); R00.0 Tachycardia, unspecified; J02.9 Acute pharyngitis, unspecified; E87.6 Hypokalemia; R65.10 Systemic inflammatory response syndrome (SIRS) of non-infectious origin without acute organ dysfunction; Z85.841 Personal history of malignant neoplasm of brain
CPT/HCPCS: 0241U; 36415; 70491; 71045; 71275; 80048; 80053; 81001; 82550; 82553; 83605; 84145; 84484; 85025; 85379; 87040; 87070; 93005; 93010; 96374; 99284; G0378; J0131; J0295; J1650; J1885; Q9967

== ENCOUNTER → 2023-01-11 13:07 | Outpatient (CLI) | payer OTHER, MEDICAID, SELFPAY ==
[2022-07-26 10:11] VITALS: BMI 26.5
[2022-12-11 05:22] VITALS: BMI 26.9
--- NOTE | 2023-01-11 13:09 | DI.MRI.S_ITS ---
PROCEDURE: MR HEAD/BRAIN WO/W CON INDICATIONS: Malignant neoplasm of cerebellum TECHNIQUE: Noncontrast axial T1 spin echo, axial T2 fast spin echo, sagittal and axial FLAIR, coronal T2 fast spin echo, axial gradient echo, axial diffusion and ADC through the brain. After the administration of contrast, axial and coronal and sagittal 3D VIBE or T1 spin echo with fat saturation through the brain. COMPARISON: [facility], MR, MR BRAIN WITH/WITHOUT CONTRAST, 01/18/2022, 17:28. Located [facility], MR, MR HEAD/BRAIN WO/W CON, 04/25/2022, 13:17. Located [facility], MR, MR HEAD/BRAIN WO/W CON, 07/13/2022, 10:12. FINDINGS: Image quality: Excellent. CSF Spaces: Basal cisterns are patent. No extra-axial fluid collections. Ventricles are normal in size and shape. Brain: Left cerebellum resection changes are seen, with volume loss and surrounding gliotic change. No abnormal enhancement can be seen to suggest recurrence. There is again seen a tract involving the right frontal lobe. No midline shift. No intracranial bleeds or masses. No abnormal intracranial enhancement. The brainstem appears normal. Diffusion-weighted images demonstrate no acute ischemic insults. No chronic ischemic insults. Normal intravascular flow voids are present. Skull and face: Left posterior inferior craniotomy changes are seen. Calvarial marrow is normal in signal. Orbits appear normal. Sinuses: Sinuses and mastoids appear clear. IMPRESSION: Left cerebellar resection change seen, without findings of local recurrence. No new masses are seen. Right frontal lobe tract seen, likely related to prior ventriculostomy. Dictated by: Rex Butts M.D. on 01/11/2023 at 13:12 Approved by: Rex Butts M.D. on 01/11/2023 at 13:14
== END ==
PROVIDERS: PCP Nurse Practitioner Family; Referring Provider Psychiatry & Neurology Neurology; Visit Provider Psychiatry & Neurology Neurology
DX: C71.6 Malignant neoplasm of cerebellum (principal)
CPT/HCPCS: 70553

== ENCOUNTER → 2023-01-30 12:17 | Outpatient (CLI) | payer OTHER, MEDICAID, SELFPAY ==
[2022-12-11 05:22] VITALS: BMI 26.9
--- NOTE | 2023-01-30 12:22 | DI.RAD.S_ITS ---
PROCEDURE: XR LUMBAR SPINE 2-3V INDICATIONS: INTERVERTABRE DISC TECHNIQUE: 3 views of the lumbar spine were acquired. COMPARISON: [facility], CR, XR LUMBAR SPINE 2-3V, 03/03/2021, 10:39. FINDINGS: Bones: 5 [id number] vertebrae are present. Prior L5-S1 PLIF. Orthopedic hardware is in expected position. Orthopedic hardware is intact. Mild convex right curvature lumbar spine. There is normal bony alignment. No vertebral body compression fractures. No suspicious bony lesions. Soft tissues: Overlying bowel gas pattern is normal. No suspicious soft tissue calcifications. Cholecystectomy clips. IMPRESSION: Stable L5-S1 PLIF. Dictated by: Ann Alcantara MD, PhD on 01/30/2023 at 13:29 Approved by: Ann Alcantara MD, PhD on 01/30/2023 at 13:30
--- NOTE | 2023-01-30 12:23 | DI.RAD.S_ITS ---
PROCEDURE: XR CERVICAL SPINE 2V OR 3V INDICATIONS: CERVCLAGIA TECHNIQUE: 3 view(s) of the cervical spine were acquired. COMPARISON: None. FINDINGS: Bones: No fractures or dislocations to the T1 level. The lateral masses of C1 appear intact on the odontoid view. Moderate C4-C5, C5-C6 and C6-C7 degenerative disc disease. Mild C7-T1 degenerative disc disease. Mild facet hypertrophy throughout the cervical spine. No suspicious bony lesions. Postsurgical changes compatible prior left suboccipital craniotomy. Soft tissues: No prevertebral soft tissue swelling. IMPRESSION: 1. Multilevel degenerative disc disease. 2. Multilevel facet arthropathy. 3. No fracture. No acute osseous lesion. If symptoms and/or clinical suspicion for pathology persists, evaluation with MRI should be considered for further assessment. Dictated by: Ann Alcantara MD, PhD on 01/30/2023 at 13:30 Approved by: Ann Alcantara MD, PhD on 01/30/2023 at 13:32
== END ==
PROVIDERS: Family Provider Nurse Practitioner Family; PCP Nurse Practitioner Family; Referring Provider Nurse Practitioner Family; Visit Provider Nurse Practitioner Family
DX: M47.812 Spondylosis without myelopathy or radiculopathy, cervical region (principal); M51.36 Other intervertebral disc degeneration, lumbar region; M50.321 Other cervical disc degeneration at C4-C5 level; Z98.1 Arthrodesis status
CPT/HCPCS: 72040; 72100

== ENCOUNTER 2023-03-06 08:00 | Outpatient (RCR) | payer OTHER, MEDICAID, SELFPAY ==
[2022-12-11 05:22] VITALS: BMI 26.9
--- NOTE | 2023-02-12 14:39 | PT.OIE ---
Current Diagnoses Malignant neoplasm of cerebellum (02/12/23) Muscle weakness (generalized) (02/12/23) Unsteadiness on feet (02/12/23) Unspecified abnormalities of gait and mobility (02/12/23) Past Medical History (Last Reviewed 12/11/22 @ 03:23 by Wally Germain DO) No chronic problems Pulmonary embolism Past Surgical History (Last Reviewed 12/11/22 @ 03:23 by Wally Germain DO) History of lumbar surgery S/P T&A (status post tonsillectomy and adenoidectomy) Status post appendectomy Status post cholecystectomy Status post tubal ligation Visit Care Team Role Provider Type MARGE Soto Attending Provider Non-Staff Family Provider Primary Care Provider Referring Provider Specialty: Medical Address: [address] [place] [address], [id number] Email: Physical Therapy Initial Evaluation PT-OP-A Visit Information Start: 02/06/23 18:02 Freq: Status: Active Protocol: Document 02/12/23 12:35 LRN (Rec: 02/12/23 13:59 LRN [id number]) Out-Patient Physical Therapy Visit Information Visit Information Visit Type Initial Evaluation Visit Start Time 12:35 Visit Stop Time 13:20 Total Visit Minutes 45 Visit Number 10/05 Evaluation Information Evaluation Date 02/12/23 Precautions Precautions ALLERGY TO TAPES, Double vision (closes L eye to see), Neck pain since 08/2022. PT-OP-B Current Condition Start: 02/06/23 18:02 Freq: Status: Active Protocol: Document 02/12/23 12:35 LRN (Rec: 02/12/23 13:59 LRN [id number]) Current Condition History of Current Condition Onset Date 1 month ago has felt good enough to come to outpatient PT Current Complaints Feels just off balance and wobbly. History of Current Condition Last surgery January of 2022, took cancer out of brain. Was too dizzy to do therapy. So off balance that she has fallen all the time and was told she might not improve over time because of the amount of brain tissue taken out of the cerebellum. Falling all the time that the back and brain hurts. Lives in so hangs onto the wall. For 4 months ( Jul 2022-December 2022) was falling once a week, has fractured her ribs. Has passed out 3x in the last 6 months, last time was in mid- November 2022, so weak so legs gave out. Passes out with hot sensation and echoing and then passes out. Currently doesn't feel like she will pass out, and she feels just off balance and wobbly. States she is in bed 6 hrs of the day, looking on phone, watching TV or sleeps. Prior Treatments and Tests 8 weeks home health PT. Pt didn't feel it was helpful. November 2022 was hospitalized 3 days because of COVID. Jul had feeding tube placed and was removed Sep 2022. Future Testing and Treatments Planned See's neurosurgeon every 4 months, last time seen was December 2022. Treatment Goals Patient/Caregiver Goals Pt goals: - is to be able to walk without a cane. - able to walk down her mobile home hallway without having to use the crowe to keep her upright. - pt will be able to sit up > 1 hour in the living room to watch TV with her kids. - sit outside if good weather (4 steps and 16' to get to chair). Personal Factors Other Personal Factors That May Effect Surgery of the Low back (L4-L5 Therapy/Recovery ) with 2nd surgery due to screw pinching nerve (06/2020, 12/2020), f/b sepsis, and tumor surgery x 2, last in 02/12, Aug 2022 dizziness started. 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 Uses public transportation to attend therapy. PT-OP-C Subjective Start: 02/06/23 18:02 Freq: Status: Active Protocol: Document 02/12/23 12:35 LRN (Rec: 02/12/23 13:59 LRN [id number]) Patient Questionnaires ABC- Activity Specific Balance Confidence Scale ABC Score 20.6 ABC Functional Impairment 60 to <80% Impaired (Score 21- 40) Dizziness Handicap Inventory DHI Score 91 DHI Functional Impairment 80 to 99% Impaired (Score 80- 99) OP-PT Pain Assessment Pain Assessment Grid Paper Pain Assessment Grid Completed Yes Location Back Pain Location Details LB at sacral level where there is a plate and 9 screws (from front L4-5). Intensity 5 Scale Used Numeric (0 - 10) Frequency Constant PT-OP-D Balance Start: 02/06/23 18:02 Freq: Status: Active Protocol: Document 02/12/23 12:35 LRN (Rec: 02/12/23 13:59 LRN [id number]) OP-PT Balance Assessment Sitting Balance Static Sitting Balance Ability Good Standing Balance Static Standing Balance Ability Fair Dynamic Standing Balance Ability Poor Device Used Tripod Cane Standing Balance Comments Pt poor balance coming from sit>stand, but once in standing was fair with balance . Balance Tests Single Limb Standing Single Limb- Right 1 Single Limb- Left 1 Brownlee Fall Scale Copyright Permission PT-OP-E Functional Tests Start: 02/06/23 18:02 Freq: Status: Active Protocol: Document 02/12/23 12:35 LRN (Rec: 02/12/23 13:59 LRN [id number]) Functional Tests Timed Up and Go (TUG) Score 17 Comments Tripod cane TUG Impairment Rating 60 to <80% Impaired (Score 16- 17) PT-OP-G Mobility & Gait Start: 02/06/23 18:02 Freq: Status: Active Protocol: Document 02/12/23 12:35 LRN (Rec: 02/12/23 13:59 LRN [id number]) OP Gait Assessment Gait Gait Assistance Required: Standby Assistance Distance (Feet) 90 Able to Maintain Weight Bearing Status Yes During Gait Assistive Devices Assistive Device Tripod Cane/Hurry Cane Orthotic/Prosthetic Devices or Brace: No Gait Deviations General Gait Pattern Decreased Stride Length, Decreased Feet Clearance, Flexed Trunk,Wide Based Gait Factors Limiting Gait Function Factors Limiting Gait Function Decreased Activity Tolerance, Decreased Sensation,Decreased Strength,Incoordination,Poor Balance Comments Gait Comments Increased sway with gait with notable increased sway. PT-OP-H Neuro Start: 02/06/23 18:02 Freq: Status: Active Protocol: Document 02/12/23 12:35 LRN (Rec: 02/12/23 13:59 LRN [id number]) Sensation Evaluation Gross Sensation Gross Sensation WNL Comments Summary Comments R foot, lateral 3 digits are numb and tingly and the bottom of the foot tingly and numb since brain surgery. L foot is normal. Coordination Evaluation Lower Extremity Tests Right Alternate Heel to Knee; Heel to Toe Test Normal Performance Heel on Veronica Test Normal Performance Left Alternate Heel to Knee; Heel to Toe Test Moderate Impairment Heel on Veronica Test Normal Performance PT-OP-J Posture/Palpation/Skin Start: 02/06/23 18:02 Freq: Status: Active Protocol: Document 02/12/23 12:35 LRN (Rec: 02/12/23 13:59 LRN [id number]) Posture Evaluation Position Standing Hip Posture (L) Flexed,(R) Flexed Comments Posture Comments Wide stance. PT-OP-M Strength Start: 02/06/23 18:02 Freq: Status: Active Protocol: Document 02/12/23 12:35 LRN (Rec: 02/12/23 13:59 LRN [id number]) Trunk Strength Trunk Manual Muscle Testing Flexion 4- Good- Extension 3 Fair Rotation Left 3+ Fair+ Rotation Right 3 Fair Lateral Flexion Left 4- Good- Lateral Flexion Right 3 Fair Hand Long Chain Dyeing Machine Operator/Pinch Strength Hand Dominance Hand Dominance Right Hip Strength Hip Manual Muscle Testing Right Flexion (L2) 4 Good Left Flexion (L2) 4 Good Knee Strength Knee Manual Muscle Testing Right Flexion (S2) 4- Good- Extension (L3) 5 Normal Left Flexion (S2) 4- Good- Extension (L3) 5 Normal Ankle/Foot Strength Ankle and Foot Manual Muscle Testing Right Dorsiflexion (L4) 5 Normal Left Dorsiflexion (L4) 5 Normal PT-OP-Q Treatments Start: 02/06/23 18:02 Freq: Status: Active Protocol: Document 02/12/23 12:35 LRN (Rec: 02/12/23 13:59 LRN [id number]) Self-Care/Home Management Treatment Education Other Education Discussed results of evaluation, goals, and plan of care (POC). Pt agreeable to goals and POC. Discussed pt's HEP for home health and requested pt bring in her HEP for review. PT-OP-T Assessment and Plan Start: 02/06/23 18:02 Freq: Status: Active Protocol: Document 02/12/23 12:35 LRN (Rec: 02/12/23 13:59 LRN [id number]) Physical Therapy Assessment Rehab Potential Rehabilitation Potential Fair Evaluation Complexity Number of Personal Factors/Comorbidities 3 or More Number of Body Systems Impaired 4 or More Clinical Presentation at Evaluation Evolving Impairments Impairments Activity Tolerance,Balance, Coordination,Pain,Posture,ROM, Sensation,Strength,Transfers Goals Four Impairment Decreased balance and function Impairment ABC Scale Score 20.6 (60<80% impaired, score 21-40). Dizziness Handicap Inventory 80-99% impaired, score 80-99. TUG score 17 (60-80% impaired, score 16-17). Short Term Goal (STG) Improve function with pt able to walk down her mobile home hallway without having to use the crowe to keep her upright. STG Duration 03/29/23 Fpc Goal (LTG) Improve function with pt able to walk without a cane or improve function per ABC score 41-60% impaired with score 41 -60; or Dizziness Handicap Inventory 60-79% impaired, score 60-79. LTG Duration 05/13/23 Three Impairment Decreased LE coordination Fpc Goal (LTG) Pt will demonstrate improved coordination with increased foot tapping ability of L equal to R. LTG Duration 05/13/23 Two Impairment Decreased core and LE strength Impairment Trunk: Flex 4-/5, Ext 3/5, Rot 3/5 Devin, SB 4-/5 L, 3/5 R. Hip: Flex 4/5 Devin. Knee: Ext 5/5 Devin, Flex 4-/5 Devin. Ankle: DF 5/5 Devin. Short Term Goal (STG) Pt will be able to sit up > 1 hour in the living room to watch TV with her kids. STG Duration 03/29/23 Fpc Goal (LTG) Pt able to sit outside if good weather (4 steps and 16' to get to chair). LTG Duration 05/13/23 One Impairment Lacks appropriate self care HEP. Short Term Goal (STG) Pt will be independent in self care HEP of LE strengthening ex's. STG Duration 03/29/23 Fpc Goal (LTG) Pt will be independent in a self care HEP of core and balance. LTG Duration 05/13/23 Assessment Summary Assessment Pt is a 52 year old female who is as of 01/2022, s/p excision of Malignant neoplasm of cerebellum resulting in onset of dizziness and nausea that subsided in 11/2022 enough for pt to be able to come to outpatient physical therapy. The pt has recent history of falls and she also reports onset of passing out 3x in the last 6 months, last in mid- November 2022. She feels her legs are so weak that they give out, causing her to fall. She has a fall history of once a week and has fractured her ribs and hit her head with falls. The pt will benefit from skilled physical therapy to improve her core and LE strength, improve balance and coordination to improve her functional ability and safety with gait. Physical Therapy Plan Frequency and Duration Frequency of Treatment 1x/wkk, max 12 visit Plan of Care Start Date 02/12/23 Plan of Care End Date 05/13/23 Therapeutic Interventions Therapeutic Interventions Balance Training,Coordination Training,Gait Training,Home Exercise Program,Manual Therapy,Neuromuscular Re- education,Patient/Caregiver Education,Self-Care/Home Management,Taping,Therapeutic Activities,Therapeutic Exercises Modalities Cold Pack/Ice Massage,Hot Packs Next Visit Focus/Plan Next Note Type Treatment Note Next Visit Plan (Precaution: Latex Allergy). Check LE tone, Assess hip and ankle strength, Mishra score, recheck coordination, core & LE strengthening, general conditioning, balance training and self care HEP.
--- NOTE | 2023-02-23 17:18 | PT.OTN ---
Current Diagnoses Malignant neoplasm of cerebellum (02/23/23) Muscle weakness (generalized) (02/23/23) Unsteadiness on feet (02/23/23) Unspecified abnormalities of gait and mobility (02/23/23) Physical Therapy Treatment Note PT-OP-A Visit Information Start: 02/06/23 18:02 Freq: Status: Active Protocol: Document 02/23/23 08:48 LRN (Rec: 02/23/23 09:35 LRN [id number]) Out-Patient Physical Therapy Visit Information Visit Information Visit Type Treatment Note Visit Start Time 08:48 Visit Stop Time 09:28 Total Visit Minutes 42 Visit Number 11/05 Evaluation Information Evaluation Date 02/12/23 Precautions Precautions ALLERGY TO TAPES, Double vision (closes L eye to see), Neck pain since 08/2022. PT-OP-B Current Condition Start: 02/06/23 18:02 Freq: Status: Active Protocol: Document 02/12/23 12:35 LRN (Rec: 02/12/23 13:59 LRN [id number]) Current Condition History of Current Condition Onset Date 1 month ago has felt good enough to come to outpatient PT Current Complaints Feels just off balance and wobbly. History of Current Condition Last surgery January of 2022, took cancer out of brain. Was too dizzy to do therapy. So off balance that she has fallen all the time and was told she might not improve over time because of the amount of brain tissue taken out of the cerebellum. Falling all the time that the back and brain hurts. Lives in so hangs onto the wall. For 4 months ( Jul 2022-December 2022) was falling once a week, has fractured her ribs. Has passed out 3x in the last 6 months, last time was in mid- November 2022, so weak so legs gave out. Passes out with hot sensation and echoing and then passes out. Currently doesn't feel like she will pass out, and she feels just off balance and wobbly. States she is in bed 6 hrs of the day, looking on phone, watching TV or sleeps. Prior Treatments and Tests 8 weeks home health PT. Pt didn't feel it was helpful. November 2022 was hospitalized 3 days because of COVID. Jul had feeding tube placed and was removed Sep 2022. Future Testing and Treatments Planned See's neurosurgeon every 4 months, last time seen was December 2022. Treatment Goals Patient/Caregiver Goals Pt goals: - is to be able to walk without a cane. - able to walk down her mobile home hallway without having to use the crowe to keep her upright. - pt will be able to sit up > 1 hour in the living room to watch TV with her kids. - sit outside if good weather (4 steps and 16' to get to chair). Personal Factors Other Personal Factors That May Effect Surgery of the Low back (L4-L5 Therapy/Recovery ) with 2nd surgery due to screw pinching nerve (06/2020, 12/2020), f/b sepsis, and tumor surgery x 2, last in 02/12, Aug 2022 dizziness started. 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 Uses public transportation to attend therapy. PT-OP-C Subjective Start: 02/06/23 18:02 Freq: Status: Active Protocol: Document 02/23/23 08:48 LRN (Rec: 02/23/23 09:35 LRN [id number]) OP-PT Subjective Patient Comments Patient Comments Today is a good day, not as off balance, can walk steadier . States no complete falls this past week. PT-OP-D Balance Start: 02/06/23 18:02 Freq: Status: Active Protocol: Document 02/23/23 08:48 LRN (Rec: 02/23/23 09:35 LRN [id number]) Mishra Balance Assessment Evaluation Sitting to Standing Ability Independent w/out Hands Unsupported Stance Safely- 2 minutes Sitting Unsupported, Feet on Floor Safely- 2 minutes Standing to Sitting Ability Safely, Minimal Hand Use Transfer Ability Supervision, Verbal Cues Unsupported Stance- Eyes Closed Safely, 10 seconds Unsupported Stance- Eyes Open Independent, 1 minute Reaching Forward Standing Confidently, 10 inches Pick- Up Object From Floor Supervision Look Behind Shoulder - Standing Shifts Weight Well Turning 360 Degrees Supervision/Verbal Cues Unsupported Stance, Alternating Feet on (I)- 8 Steps in > 20 secs Stair Unsupported Tandem Stance Balance Lost- Step/Stand Unilateral Leg Stance Lifts Leg/Unable to Hold Total Score Mishra Total Score (out of 56 points) 42 Mishra Impairment Rating 20 to 39% Impaired (Score 34- 44) PT-OP-E Functional Tests Start: 02/06/23 18:02 Freq: Status: Active Protocol: Document 02/12/23 12:35 LRN (Rec: 02/12/23 13:59 LRN [id number]) Functional Tests Timed Up and Go (TUG) Score 17 Comments Tripod cane TUG Impairment Rating 60 to <80% Impaired (Score 16- 17) PT-OP-G Mobility & Gait Start: 02/06/23 18:02 Freq: Status: Active Protocol: Document 02/12/23 12:35 LRN (Rec: 02/12/23 13:59 LRN [id number]) OP Gait Assessment Gait Gait Assistance Required: Standby Assistance Distance (Feet) 90 Able to Maintain Weight Bearing Status Yes During Gait Assistive Devices Assistive Device Tripod Cane/Hurry Cane Orthotic/Prosthetic Devices or Brace: No Gait Deviations General Gait Pattern Decreased Stride Length, Decreased Feet Clearance, Flexed Trunk,Wide Based Gait Factors Limiting Gait Function Factors Limiting Gait Function Decreased Activity Tolerance, Decreased Sensation,Decreased Strength,Incoordination,Poor Balance Comments Gait Comments Increased sway with gait with notable increased sway. PT-OP-H Neuro Start: 02/06/23 18:02 Freq: Status: Active Protocol: Document 02/23/23 08:48 LRN (Rec: 02/23/23 09:35 LRN [id number]) Deep Tendon Reflex & Clonus Assessment Deep Tendon Reflex Right Achilles Deep Tendon Reflex 0 Absent Left Achilles Deep Tendon Reflex 2+ Normal Bilateral Patellar Deep Tendon Reflex 2+ Normal Ankle Clonus Bilateral Clonus Assessment Absent Muscle Tone Tone Assessment Right Lower Extremity Flexor Tone Description Normal Extensor Tone Description Normal Left Lower Extremity Flexor Tone Description Normal Extensor Tone Description Normal PT-OP-J Posture/Palpation/Skin Start: 02/06/23 18:02 Freq: Status: Active Protocol: Document 02/12/23 12:35 LRN (Rec: 02/12/23 13:59 LRN [id number]) Posture Evaluation Position Standing Hip Posture (L) Flexed,(R) Flexed Comments Posture Comments Wide stance. PT-OP-M Strength Start: 02/06/23 18:02 Freq: Status: Active Protocol: Document 02/23/23 08:48 LRN (Rec: 02/23/23 09:35 LRN [id number]) Ankle/Foot Strength Ankle and Foot Manual Muscle Testing Right Dorsiflexion (L4) 5 Normal Plantarflexion (S1) 5 Normal Inversion 5 Normal Eversion (S1) 5 Normal Left Dorsiflexion (L4) 5 Normal Plantarflexion (S1) 5 Normal Inversion 5 Normal Eversion (S1) 5 Normal PT-OP-Q Treatments Start: 02/06/23 18:02 Freq: Status: Active Protocol: Document 02/23/23 08:48 LRN (Rec: 02/23/23 09:35 LRN [id number]) Therapeutic Exercises Sitting Exercises Chair<>chair transfer Sitting Exercise Name Chair to chair transfer Reps/Minutes x 2 Sit<>Stand Sitting Exercise Name Sit<>Stand Reps/Minutes 2x 2 Ankle strengthening Sitting Exercise Name DF/EV/IV Side bilateral Reps/Minutes 15x each Standing Exercises Gastroc/Soleus stretch Standing Exercise Name Gastroc & Soleus stretch Side bilateral Reps/Minutes Holding 5 breaths x 2 each Comments Extra time needed to determine max tolerated stretch Ankle DF Standing Exercise Name Active ankle DF Side bilateral Reps/Minutes 10x 3 Ankle PF strengthening Standing Exercise Name Heel Raises Side bilateral Reps/Minutes 10x Neuro Re-Education Treatment Balance Activities SLS Details SLS Surface Level Equipment GB Comments Pt able to lift foot, but not able to hold balance. Unsupported Tandem Details Unsupported Tandem Surface Level Equipment GB Comments Pt not able to step/stand Alternating feet on Stair Details Alternating feet on Stair Surface Level Equipment GB, 6 step Reps/Duration 8 taps Comments > 20 secs Turning 360 deg's Details Turning 360 deg's Surface Level Equipment GB Reps/Duration 1x Comments 9 secs to Left 6 secs to Right Looking behind shoulder Details Looking behind shoulder - bilaterally without moving feet Surface Level Equipment GB, Clock on wall Reps/Duration 2x each Comments Pt has excellent trunk rotation, allowing her to rotate without LOB. Picking up object off floor Details Picking up object off floor Surface Level Equipment GB, Pt's [place] & phone Reps/Duration 3' Comments Supervision needed. Standing Reach Details Standing Reach Surface Level Equipment GB, yard stick Reps/Duration x 1 Comments LOB at 11 inches Standing EO/EC Details Standing balance EO/EC Surface Level Equipment GB Reps/Duration x 2 each Comments Mishra Assessed Self-Care/Home Management Treatment Activities Self-Care/Home Management Activities Issued & reviewed HEP: Ankle strengthening with TBand and standing. Gastroc & Soleus stretch in standing. [place] (Lev 2) TBand issued. PT-OP-T Assessment and Plan Start: 02/06/23 18:02 Freq: Status: Active Protocol: Document 02/23/23 08:48 LRN (Rec: 02/23/23 09:35 LRN [id number]) Physical Therapy Assessment Goals Four Impairment Decreased balance and function Impairment ABC Scale Score 20.6 (60<80% impaired, score 21-40). Dizziness Handicap Inventory 80-99% impaired, score 80-99. TUG score 17 (60-80% impaired, score 16-17). Short Term Goal (STG) Improve function with pt able to walk down her mobile home hallway without having to use the crowe to keep her upright. STG Duration 03/29/23 Hand Almond Blancher Goal (LTG) Improve function with pt able to walk without a cane or improve function per ABC score 41-60% impaired with score 41 -60; or Dizziness Handicap Inventory 60-79% impaired, score 60-79. LTG Duration 05/13/23 Three Impairment Decreased LE coordination Hand Almond Blancher Goal (LTG) Pt will demonstrate improved coordination with increased foot tapping ability of L equal to R. LTG Duration 05/13/23 Two Impairment Decreased core and LE strength Impairment Trunk: Flex 4-/5, Ext 3/5, Rot 3/5 Devin, SB 4-/5 L, 3/5 R. Hip: Flex 4/5 Devin. Knee: Ext 5/5 Devin, Flex 4-/5 Devin. Ankle: DF 5/5 Devin. Short Term Goal (STG) Pt will be able to sit up > 1 hour in the living room to watch TV with her kids. STG Duration 03/29/23 Hand Almond Blancher Goal (LTG) Pt able to sit outside if good weather (4 steps and 16' to get to chair). LTG Duration 05/13/23 One Impairment Lacks appropriate self care HEP. Short Term Goal (STG) Pt will be independent in self care HEP of LE strengthening ex's. 02/23/23: HEP: Ankle TBand ex' s and Lev 2 TBand issued. STG Duration 03/29/23 progressed 02/23/23 Usp Goal (LTG) Pt will be independent in a self care HEP of core and balance. LTG Duration 05/13/23 Progress Towards Goals Progress Comments Progressed HEP. Assessment Summary Assessment Pt shows normal tone in LE's, and except for L achilles DTR (0-Absent), reflexes are normal. Mishra Score is 42 (20 -39% impaired, score 34-44). Pt was able to perform 360 deg turn in 9 secs left, 6 secs right. Although pt has normal ankle strength, her LOB indicates need for further strengthening. Balance is worse when moving her head. Pt appears to have a good understanding of her issued HEP, Physical Therapy Plan Frequency and Duration Frequency of Treatment 1x/wkk, max 12 visit Plan of Care Start Date 02/12/23 Plan of Care End Date 05/13/23 Next Visit Focus/Plan Next Note Type Treatment Note Next Visit Plan (Precaution: Latex Allergy). Assess hip strength, recheck coordination, POC: EX: core & LE strengthening, general conditioning, balance training and self care HEP.
--- NOTE | 2023-03-02 16:49 | PT.OTN ---
Current Diagnoses Malignant neoplasm of cerebellum (03/02/23) Muscle weakness (generalized) (03/02/23) Unsteadiness on feet (03/02/23) Unspecified abnormalities of gait and mobility (03/02/23) Physical Therapy Treatment Note PT-OP-A Visit Information Start: 02/06/23 18:02 Freq: Status: Active Protocol: Document 03/02/23 15:19 NBM (Rec: 03/02/23 16:45 NBM [id number]) Out-Patient Physical Therapy Visit Information Visit Information Visit Type Treatment Note Visit Start Time 13:20 Visit Stop Time 14:05 Total Visit Minutes 45 Visit Number 12/03 Number of BOATWRIGHT Visits 1 Evaluation Information Evaluation Date 02/12/23 Precautions Precautions ALLERGY TO TAPES, Double vision (closes L eye to see), Neck pain since 08/2022. PT-OP-B Current Condition Start: 02/06/23 18:02 Freq: Status: Active Protocol: Document 02/12/23 12:35 LRN (Rec: 02/12/23 13:59 LRN [id number]) Current Condition History of Current Condition Onset Date 1 month ago has felt good enough to come to outpatient PT Current Complaints Feels just off balance and wobbly. History of Current Condition Last surgery January of 2022, took cancer out of brain. Was too dizzy to do therapy. So off balance that she has fallen all the time and was told she might not improve over time because of the amount of brain tissue taken out of the cerebellum. Falling all the time that the back and brain hurts. Lives in so hangs onto the wall. For 4 months ( Jul 2022-December 2022) was falling once a week, has fractured her ribs. Has passed out 3x in the last 6 months, last time was in mid- November 2022, so weak so legs gave out. Passes out with hot sensation and echoing and then passes out. Currently doesn't feel like she will pass out, and she feels just off balance and wobbly. States she is in bed 6 hrs of the day, looking on phone, watching TV or sleeps. Prior Treatments and Tests 8 weeks home health PT. Pt didn't feel it was helpful. November 2022 was hospitalized 3 days because of COVID. Jul had feeding tube placed and was removed Sep 2022. Future Testing and Treatments Planned See's neurosurgeon every 4 months, last time seen was December 2022. Treatment Goals Patient/Caregiver Goals Pt goals: - is to be able to walk without a cane. - able to walk down her mobile home hallway without having to use the crowe to keep her upright. - pt will be able to sit up > 1 hour in the living room to watch TV with her kids. - sit outside if good weather (4 steps and 16' to get to chair). Personal Factors Other Personal Factors That May Effect Surgery of the Low back (L4-L5 Therapy/Recovery ) with 2nd surgery due to screw pinching nerve (06/2020, 12/2020), f/b sepsis, and tumor surgery x 2, last in 02/12, Aug 2022 dizziness started. 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 Uses public transportation to attend therapy. PT-OP-C Subjective Start: 02/06/23 18:02 Freq: Status: Active Protocol: Document 03/02/23 15:19 NBM (Rec: 03/02/23 16:45 NB [id number]) OP-PT Subjective Patient Comments Patient Comments Pt reports she was very sore after looking behind her last week due to plate in back and laid in bed that day and the next. She is feeling better today but still sore. She did ex's a couple of times and it takes more concentration to do the ex where she crosses her legs. She reports no falls or near falls. She was able to go for a walk with at [place], but is unable to walk around because the ground is uneven.I feel like I can drive better than I can walk. she has a harder time picking up objects with her left hand. PT-OP-D Balance Start: 02/06/23 18:02 Freq: Status: Active Protocol: Document 02/23/23 08:48 LRN (Rec: 02/23/23 09:35 LRN [id number]) Mishra Balance Assessment Evaluation Sitting to Standing Ability Independent w/out Hands Unsupported Stance Safely- 2 minutes Sitting Unsupported, Feet on Floor Safely- 2 minutes Standing to Sitting Ability Safely, Minimal Hand Use Transfer Ability Supervision, Verbal Cues Unsupported Stance- Eyes Closed Safely, 10 seconds Unsupported Stance- Eyes Open Independent, 1 minute Reaching Forward Standing Confidently, 10 inches Pick- Up Object From Floor Supervision Look Behind Shoulder - Standing Shifts Weight Well Turning 360 Degrees Supervision/Verbal Cues Unsupported Stance, Alternating Feet on (I)- 8 Steps in > 20 secs Stair Unsupported Tandem Stance Balance Lost- Step/Stand Unilateral Leg Stance Lifts Leg/Unable to Hold Total Score Mishra Total Score (out of 56 points) 42 Mishra Impairment Rating 20 to 39% Impaired (Score 34- 44) PT-OP-E Functional Tests Start: 02/06/23 18:02 Freq: Status: Active Protocol: Document 02/12/23 12:35 LRN (Rec: 02/12/23 13:59 LRN [id number]) Functional Tests Timed Up and Go (TUG) Score 17 Comments Tripod cane TUG Impairment Rating 60 to <80% Impaired (Score 16- 17) PT-OP-G Mobility & Gait Start: 02/06/23 18:02 Freq: Status: Active Protocol: Document 02/12/23 12:35 LRN (Rec: 02/12/23 13:59 LRN [id number]) OP Gait Assessment Gait Gait Assistance Required: Standby Assistance Distance (Feet) 90 Able to Maintain Weight Bearing Status Yes During Gait Assistive Devices Assistive Device Tripod Cane/Hurry Cane Orthotic/Prosthetic Devices or Brace: No Gait Deviations General Gait Pattern Decreased Stride Length, Decreased Feet Clearance, Flexed Trunk,Wide Based Gait Factors Limiting Gait Function Factors Limiting Gait Function Decreased Activity Tolerance, Decreased Sensation,Decreased Strength,Incoordination,Poor Balance Comments Gait Comments Increased sway with gait with notable increased sway. PT-OP-H Neuro Start: 02/06/23 18:02 Freq: Status: Active Protocol: Document 02/23/23 08:48 LRN (Rec: 02/23/23 09:35 LRN [id number]) Deep Tendon Reflex & Clonus Assessment Deep Tendon Reflex Right Achilles Deep Tendon Reflex 0 Absent Left Achilles Deep Tendon Reflex 2+ Normal Bilateral Patellar Deep Tendon Reflex 2+ Normal Ankle Clonus Bilateral Clonus Assessment Absent Muscle Tone Tone Assessment Right Lower Extremity Flexor Tone Description Normal Extensor Tone Description Normal Left Lower Extremity Flexor Tone Description Normal Extensor Tone Description Normal PT-OP-J Posture/Palpation/Skin Start: 02/06/23 18:02 Freq: Status: Active Protocol: Document 02/12/23 12:35 LRN (Rec: 02/12/23 13:59 LRN [id number]) Posture Evaluation Position Standing Hip Posture (L) Flexed,(R) Flexed Comments Posture Comments Wide stance. PT-OP-M Strength Start: 02/06/23 18:02 Freq: Status: Active Protocol: Document 02/23/23 08:48 LRN (Rec: 02/23/23 09:35 LRN [id number]) Ankle/Foot Strength Ankle and Foot Manual Muscle Testing Right Dorsiflexion (L4) 5 Normal Plantarflexion (S1) 5 Normal Inversion 5 Normal Eversion (S1) 5 Normal Left Dorsiflexion (L4) 5 Normal Plantarflexion (S1) 5 Normal Inversion 5 Normal Eversion (S1) 5 Normal PT-OP-Q Treatments Start: 02/06/23 18:02 Freq: Status: Active Protocol: Document 03/02/23 15:19 NBM (Rec: 03/02/23 16:45 NBM [id number]) Therapeutic Exercises Sitting Exercises HS stretch Sitting Exercise Name seated hamstring stretch Side bilateral Equipment Used mesh chair Reps/Minutes 2x5SH ea Comments cues for form and gentle stretch only Sit<>Stand Sitting Exercise Name Sit<>Stand Side bilateral Reps/Minutes x10 Comments eccentric control and glute engagement improves w/ cueing Ankle strengthening Sitting Exercise Name DF/EV/IV Side bilateral Reps/Minutes 15x each Standing Exercises Gastroc/Soleus stretch Standing Exercise Name Gastroc & Soleus stretch Side bilateral Reps/Minutes Holding 5 breaths x 2 each Comments cues for initial form, neutral foot position Ankle DF Standing Exercise Name Active ankle DF Side bilateral Reps/Minutes 10x 3 Ankle PF strengthening Standing Exercise Name Heel Raises Side bilateral Reps/Minutes 10x Gait Training Gait Activity // bars Description home simulation for eneven ground outside RV. Device Used Therapads (green, blue, black) Level of Assistance GB CGA>Jerome for balance recovery, //bars Surface uneven Distance/Duration 10 ft x4 Treatment Focus balance Comments cues for gluteal activation focus on stance leg, upright posture, looking up - ankle strategy and balance improves w/ cues for gluteal activation . Lateral LOB x2 w/ Jerome for balance recovery. Neuro Re-Education Treatment Balance Activities SLS Details SLS devin Surface Level Equipment //bars>GB Reps/Duration trials Comments Pt able to lift foot without [employer], but not able to hold balance. RLE challenged>LLE -2HHA>1HHA>no [employer] (unable to maintain) -2-finger touch bilaterally Self-Care/Home Management Treatment Education Patient Education Home Exercise Program,Posture Other Education HEP review: Pt is encouraged to perform ex's in morning when she is not tired and it is easier to concentrate to incorporate them into routine. PT-OP-R Modalities Start: 03/02/23 16:49 Freq: Status: Active Protocol: Document 03/02/23 15:19 NB (Rec: 03/02/23 16:49 [facility] [id number]) Hot Pack/Cold Pack Treatment Hot Pack Location lumbar Patient Position Hooklying Treatment Duration (minutes) 15 Patient Tolerance Good Comments LE Bolster support PT-OP-T Assessment and Plan Start: 02/06/23 18:02 Freq: Status: Active Protocol: Document 03/02/23 15:19 [facility] (Rec: 03/02/23 16:45 [facility] [id number]) Physical Therapy Assessment Impairments Impairments Activity Tolerance,Balance, Coordination,Pain,Posture,ROM, Sensation,Strength,Transfers Goals Four Impairment Decreased balance and function Impairment ABC Scale Score 20.6 (60<80% impaired, score 21-40). Dizziness Handicap Inventory 80-99% impaired, score 80-99. TUG score 17 (60-80% impaired, score 16-17). Short Term Goal (STG) Improve function with pt able to walk down her mobile home hallway without having to use the crowe to keep her upright. STG Duration 03/29/23 Track Inspector Goal (LTG) Improve function with pt able to walk without a cane or improve function per ABC score 41-60% impaired with score 41 -60; or Dizziness Handicap Inventory 60-79% impaired, score 60-79. LTG Duration 05/13/23 Three Impairment Decreased LE coordination Track Inspector Goal (LTG) Pt will demonstrate improved coordination with increased foot tapping ability of L equal to R. LTG Duration 05/13/23 Two Impairment Decreased core and LE strength Impairment Trunk: Flex 4-/5, Ext 3/5, Rot 3/5 Devin, SB 4-/5 L, 3/5 R. Hip: Flex 4/5 Devin. Knee: Ext 5/5 Devin, Flex 4-/5 Devin. Ankle: DF 5/5 Devin. Short Term Goal (STG) Pt will be able to sit up > 1 hour in the living room to watch TV with her kids. STG Duration 03/29/23 Track Inspector Goal (LTG) Pt able to sit outside if good weather (4 steps and 16' to get to chair). LTG Duration 05/13/23 One Impairment Lacks appropriate self care HEP. Short Term Goal (STG) Pt will be independent in self care HEP of LE strengthening ex's. 02/23/23: HEP: Ankle TBand ex' s and Lev 2 TBand issued. 03/02/23: HEP review: Ankle Tb ( orange), Heel and Toe raises, Gastroc/Soleus stretch at wall . Pt encouraged to perform ex' s in morning when she is not tired to incorporate into routine. STG Duration 03/29/23 progressed 02/23/23 Track Inspector Goal (LTG) Pt will be independent in a self care HEP of core and balance. LTG Duration 05/13/23 Assessment Summary Assessment Pt presents with unsteady gait without assistive device, and improving low back soreness onset 02/23/23 which pt attributes to turning to look behind her. Treatment focus on HEP review and balance. Pt is able to perform HEP with minimal cues for initial form but does require consistent cues for controlled eccentric movement with ex's. Pt encouraged to perform ex's in morning when she is not tired to incorporate into routine. Pt's balance and self- awareness on uneven surfaces improves in parallel bars w/ cues for gluteal activation and upright posture. Single leg balance is more challenging on RLE than LLE. Eccentric control and gluteal engagement improves w/ cueing for Sit to Stands. Physical Therapy Plan Frequency and Duration Frequency of Treatment 1x/wkk, max 12 visit Plan of Care Start Date 02/12/23 Plan of Care End Date 05/13/23 Therapeutic Interventions Therapeutic Interventions Balance Training,Coordination Training,Gait Training,Home Exercise Program,Manual Therapy,Neuromuscular Re- education,Patient/Caregiver Education,Self-Care/Home Management,Taping,Therapeutic Activities,Therapeutic Exercises Modalities Cold Pack/Ice Massage,Hot Packs Next Visit Focus/Plan Next Note Type Treatment Note Next Visit Plan (Precaution: Latex Allergy). Reassess HEP and progress HEP as appropriate (sit to stands, hip strengthening). Continue POC. POC: Assess hip strength, recheck coordination, POC: EX: core & LE strengthening, general conditioning, balance training and self care HEP.
--- NOTE | 2023-03-06 17:52 | PT.OTN ---
Current Diagnoses Malignant neoplasm of cerebellum (03/06/23) Muscle weakness (generalized) (03/06/23) Unsteadiness on feet (03/06/23) Unspecified abnormalities of gait and mobility (03/06/23) Physical Therapy Treatment Note PT-OP-A Visit Information Start: 02/06/23 18:02 Freq: Status: Active Protocol: Document 03/06/23 08:03 LRN (Rec: 03/06/23 08:49 LRN [id number]) Out-Patient Physical Therapy Visit Information Visit Information Visit Type Treatment Note Visit Start Time 08:04 Visit Stop Time 08:43 Total Visit Minutes 39 Visit Number 01/03 Evaluation Information Evaluation Date 02/12/23 Precautions Precautions ALLERGY TO TAPES, Double vision (closes L eye to see), Neck pain since 08/2022. PT-OP-B Current Condition Start: 02/06/23 18:02 Freq: Status: Active Protocol: Document 02/12/23 12:35 LRN (Rec: 02/12/23 13:59 LRN [id number]) Current Condition History of Current Condition Onset Date 1 month ago has felt good enough to come to outpatient PT Current Complaints Feels just off balance and wobbly. History of Current Condition Last surgery January of 2022, took cancer out of brain. Was too dizzy to do therapy. So off balance that she has fallen all the time and was told she might not improve over time because of the amount of brain tissue taken out of the cerebellum. Falling all the time that the back and brain hurts. Lives in so hangs onto the wall. For 4 months ( Jul 2022-December 2022) was falling once a week, has fractured her ribs. Has passed out 3x in the last 6 months, last time was in mid- November 2022, so weak so legs gave out. Passes out with hot sensation and echoing and then passes out. Currently doesn't feel like she will pass out, and she feels just off balance and wobbly. States she is in bed 6 hrs of the day, looking on phone, watching TV or sleeps. Prior Treatments and Tests 8 weeks home health PT. Pt didn't feel it was helpful. November 2022 was hospitalized 3 days because of COVID. Jul had feeding tube placed and was removed Sep 2022. Future Testing and Treatments Planned See's neurosurgeon every 4 months, last time seen was December 2022. Treatment Goals Patient/Caregiver Goals Pt goals: - is to be able to walk without a cane. - able to walk down her mobile home hallway without having to use the crowe to keep her upright. - pt will be able to sit up > 1 hour in the living room to watch TV with her kids. - sit outside if good weather (4 steps and 16' to get to chair). Personal Factors Other Personal Factors That May Effect Surgery of the Low back (L4-L5 Therapy/Recovery ) with 2nd surgery due to screw pinching nerve (06/2020, 12/2020), f/b sepsis, and tumor surgery x 2, last in 02/12, Aug 2022 dizziness started. 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 Uses public transportation to attend therapy. PT-OP-C Subjective Start: 02/06/23 18:02 Freq: Status: Active Protocol: Document 03/06/23 08:03 LRN (Rec: 03/06/23 08:49 LRN [id number]) OP-PT Subjective Patient Comments Patient Comments No falls. Has been using heat to the back, but it has nothing to do with the dizziness and falls. Dizziness isn't too bad currently. Doing ex's in AM, but is wiped out by the end. First time she will have OT after PT. PT-OP-D Balance Start: 02/06/23 18:02 Freq: Status: Active Protocol: Document 02/23/23 08:48 LRN (Rec: 02/23/23 09:35 LRN [id number]) Mishra Balance Assessment Evaluation Sitting to Standing Ability Independent w/out Hands Unsupported Stance Safely- 2 minutes Sitting Unsupported, Feet on Floor Safely- 2 minutes Standing to Sitting Ability Safely, Minimal Hand Use Transfer Ability Supervision, Verbal Cues Unsupported Stance- Eyes Closed Safely, 10 seconds Unsupported Stance- Eyes Open Independent, 1 minute Reaching Forward Standing Confidently, 10 inches Pick- Up Object From Floor Supervision Look Behind Shoulder - Standing Shifts Weight Well Turning 360 Degrees Supervision/Verbal Cues Unsupported Stance, Alternating Feet on (I)- 8 Steps in > 20 secs Stair Unsupported Tandem Stance Balance Lost- Step/Stand Unilateral Leg Stance Lifts Leg/Unable to Hold Total Score Mishra Total Score (out of 56 points) 42 Mishra Impairment Rating 20 to 39% Impaired (Score 34- 44) PT-OP-E Functional Tests Start: 02/06/23 18:02 Freq: Status: Active Protocol: Document 02/12/23 12:35 LRN (Rec: 02/12/23 13:59 LRN [id number]) Functional Tests Timed Up and Go (TUG) Score 17 Comments Tripod cane TUG Impairment Rating 60 to <80% Impaired (Score 16- 17) PT-OP-G Mobility & Gait Start: 02/06/23 18:02 Freq: Status: Active Protocol: Document 02/12/23 12:35 LRN (Rec: 02/12/23 13:59 LRN [id number]) OP Gait Assessment Gait Gait Assistance Required: Standby Assistance Distance (Feet) 90 Able to Maintain Weight Bearing Status Yes During Gait Assistive Devices Assistive Device Tripod Cane/Hurry Cane Orthotic/Prosthetic Devices or Brace: No Gait Deviations General Gait Pattern Decreased Stride Length, Decreased Feet Clearance, Flexed Trunk,Wide Based Gait Factors Limiting Gait Function Factors Limiting Gait Function Decreased Activity Tolerance, Decreased Sensation,Decreased Strength,Incoordination,Poor Balance Comments Gait Comments Increased sway with gait with notable increased sway. PT-OP-H Neuro Start: 02/06/23 18:02 Freq: Status: Active Protocol: Document 02/23/23 08:48 LRN (Rec: 02/23/23 09:35 LRN [id number]) Deep Tendon Reflex & Clonus Assessment Deep Tendon Reflex Right Achilles Deep Tendon Reflex 0 Absent Left Achilles Deep Tendon Reflex 2+ Normal Bilateral Patellar Deep Tendon Reflex 2+ Normal Ankle Clonus Bilateral Clonus Assessment Absent Muscle Tone Tone Assessment Right Lower Extremity Flexor Tone Description Normal Extensor Tone Description Normal Left Lower Extremity Flexor Tone Description Normal Extensor Tone Description Normal PT-OP-J Posture/Palpation/Skin Start: 02/06/23 18:02 Freq: Status: Active Protocol: Document 02/12/23 12:35 LRN (Rec: 02/12/23 13:59 LRN [id number]) Posture Evaluation Position Standing Hip Posture (L) Flexed,(R) Flexed Comments Posture Comments Wide stance. PT-OP-M Strength Start: 02/06/23 18:02 Freq: Status: Active Protocol: Document 02/23/23 08:48 LRN (Rec: 02/23/23 09:35 LRN [id number]) Ankle/Foot Strength Ankle and Foot Manual Muscle Testing Right Dorsiflexion (L4) 5 Normal Plantarflexion (S1) 5 Normal Inversion 5 Normal Eversion (S1) 5 Normal Left Dorsiflexion (L4) 5 Normal Plantarflexion (S1) 5 Normal Inversion 5 Normal Eversion (S1) 5 Normal PT-OP-Q Treatments Start: 02/06/23 18:02 Freq: Status: Active Protocol: Document 03/06/23 08:03 LRN (Rec: 03/06/23 08:49 LRN [id number]) Therapeutic Exercises Supine Exercises Hip Flex Supine Exercise Name SLR Side bilateral Reps/Minutes 8x each Hip Ext Supine Exercise Name Hip Ext Side bilateral Reps/Minutes 8x each Hip AB/AD Supine Exercise Name Active Hip AB/AD Side bilateral Reps/Minutes 8x each Sitting Exercises HS stretch Sitting Exercise Name seated hamstring stretch Side bilateral Reps/Minutes 60 SH x 2 Comments cues for form and gentle stretch only Sit<>Stand Sitting Exercise Name Sit<>Stand, f/b rest period Side bilateral Reps/Minutes x10 x 2 slow, 10x 2 quick pop ups w/seat elevated Comments eccentric control and glute engagement improves w/ cueing Ankle strengthening Sitting Exercise Name DF/EV/IV Side bilateral Equipment Used Lev 2 TB single strip Reps/Minutes 15x each Standing Exercises Gastroc/Soleus stretch Standing Exercise Name Gastroc & Soleus stretch Side bilateral Reps/Minutes Holding 5 breaths x 2 each Comments cues for initial form, neutral foot position Self-Care/Home Management Treatment Education Patient Education Home Exercise Program Activities Self-Care/Home Management Activities Issued & reviewed HEP: Sitting hamstring/LE neural stretch; hip strengthening: supine active knee flex or SLR , sidelie hip AB/AD and prone hip ext. PT-OP-R Modalities Start: 03/02/23 16:49 Freq: Status: Active Protocol: Document 03/02/23 15:19 NBM (Rec: 03/02/23 16:49 NBM [id number]) Hot Pack/Cold Pack Treatment Hot Pack Location lumbar Patient Position Hooklying Treatment Duration (minutes) 15 Patient Tolerance Good Comments LE Bolster support PT-OP-T Assessment and Plan Start: 02/06/23 18:02 Freq: Status: Active Protocol: Document 03/06/23 08:03 LRN (Rec: 03/06/23 08:49 LRN [id number]) Physical Therapy Assessment Goals Four Impairment Decreased balance and function Impairment ABC Scale Score 20.6 (60<80% impaired, score 21-40). Dizziness Handicap Inventory 80-99% impaired, score 80-99. TUG score 17 (60-80% impaired, score 16-17). Short Term Goal (STG) Improve function with pt able to walk down her mobile home hallway without having to use the crowe to keep her upright. STG Duration 03/29/23 Rack Room Worker Goal (LTG) Improve function with pt able to walk without a cane or improve function per ABC score 41-60% impaired with score 41 -60; or Dizziness Handicap Inventory 60-79% impaired, score 60-79. 03/06/23: Pt ambulated into therapy without cane. LTG Duration 05/13/23 progressing 03/06/23 . Three Impairment Decreased LE coordination Rack Room Worker Goal (LTG) Pt will demonstrate improved coordination with increased foot tapping ability of L equal to R. LTG Duration 05/13/23 Two Impairment Decreased core and LE strength Impairment Trunk: Flex 4-/5, Ext 3/5, Rot 3/5 Devin, SB 4-/5 L, 3/5 R. Hip: Flex 4/5 Devin. Knee: Ext 5/5 Devin, Flex 4-/5 Devin. Ankle: DF 5/5 Devin. Short Term Goal (STG) Pt will be able to sit up > 1 hour in the living room to watch TV with her kids. STG Duration 03/29/23 Rack Room Worker Goal (LTG) Pt able to sit outside if good weather (4 steps and 16' to get to chair). LTG Duration 05/13/23 One Impairment Lacks appropriate self care HEP. Short Term Goal (STG) Pt will be independent in self care HEP of LE strengthening ex's. 02/23/23: HEP: Ankle TBand ex' s and Lev 2 TBand issued. 03/02/23: HEP review: Ankle Tb ( orange), Heel and Toe raises, Gastroc/Soleus stretch at wall . Pt encouraged to perform ex' s in morning when she is not tired to incorporate into routine. 03/06/23: HEP issued: hip flex, sidelie AB/AD, prone hip ext, and sitting hamstring/LE neural stretch. STG Duration 03/29/23 progressed 03/06/23 Detention Goal (LTG) Pt will be independent in a self care HEP of core and balance. LTG Duration 05/13/23 Assessment Summary Assessment Good recall of HEP: sit to stands and hamstring/gastroc stretch. Pt had fair tolerance to hip strengthening due to LBP. Pt able to tolerate ex with cuing to slightly flatten low back to prevent trunk extension. Pt walking into clinic today without use of cane; therefore pt appears to be feeling more secure with gait. Physical Therapy Plan Next Visit Focus/Plan Next Note Type Treatment Note Next Visit Plan (Precaution: Latex Allergy). Assess gait safety w/o cane. Issue HEP of ankle strengthening and give SLR for hip flexion strengthening if needed. Progress core/LE strengthening. Can add general conditioning after HEP established. POC: Assess hip strength, recheck coordination, POC: EX: core & LE strengthening, general conditioning, balance training and self care HEP.
--- NOTE | 2023-03-16 11:35 | PT-OP ANOTE ---
received from Libby Mckeon OT that pt reported shad a MRI 03/15/23 (looking @ L5-S1 new injury?) & has a follow up appt w/ today, 03/16/23.
--- NOTE | 2023-05-14 13:57 | PT.OPDS ---
Current Diagnoses Malignant neoplasm of cerebellum (03/06/23) Muscle weakness (generalized) (03/06/23) Unsteadiness on feet (03/06/23) Unspecified abnormalities of gait and mobility (03/06/23) Visit Care Team Role Provider Type MARGE Soto Attending Provider Non-Staff Family Provider Primary Care Provider Referring Provider Specialty: Medical Address: [address] [place] [address], [place], [address] Email: Visit Number Visit Number 01/03 Discharge Summary PT-OP-B Current Condition Start: 02/06/23 18:02 Freq: Status: Active Protocol: Document 02/12/23 12:35 LRN (Rec: 02/12/23 13:59 LRN [id number]) Current Condition History of Current Condition Onset Date 1 month ago has felt good enough to come to outpatient PT Current Complaints Feels just off balance and wobbly. History of Current Condition Last surgery January of 2022, took cancer out of brain. Was too dizzy to do therapy. So off balance that she has fallen all the time and was told she might not improve over time because of the amount of brain tissue taken out of the cerebellum. Falling all the time that the back and brain hurts. Lives in so hangs onto the wall. For 4 months ( Jul 2022-December 2022) was falling once a week, has fractured her ribs. Has passed out 3x in the last 6 months, last time was in mid- November 2022, so weak so legs gave out. Passes out with hot sensation and echoing and then passes out. Currently doesn't feel like she will pass out, and she feels just off balance and wobbly. States she is in bed 6 hrs of the day, looking on phone, watching TV or sleeps. Prior Treatments and Tests 8 weeks home health PT. Pt didn't feel it was helpful. November 2022 was hospitalized 3 days because of COVID. Jul had feeding tube placed and was removed Sep 2022. Future Testing and Treatments Planned See's neurosurgeon every 4 months, last time seen was December 2022. Treatment Goals Patient/Caregiver Goals Pt goals: - is to be able to walk without a cane. - able to walk down her mobile home hallway without having to use the crowe to keep her upright. - pt will be able to sit up > 1 hour in the living room to watch TV with her kids. - sit outside if good weather (4 steps and 16' to get to chair). Personal Factors Other Personal Factors That May Effect Surgery of the Low back (L4-L5 Therapy/Recovery ) with 2nd surgery due to screw pinching nerve (06/2020, 12/2020), f/b sepsis, and tumor surgery x 2, last in 02/12, Aug 2022 dizziness started. 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 Uses public transportation to attend therapy. PT-OP-C Subjective Start: 02/06/23 18:02 Freq: Status: Active Protocol: Document 03/06/23 08:03 LRN (Rec: 03/06/23 08:49 LRN [id number]) OP-PT Subjective Patient Comments Patient Comments No falls. Has been using heat to the back, but it has nothing to do with the dizziness and falls. Dizziness isn't too bad currently. Doing ex's in AM, but is wiped out by the end. First time she will have OT after PT. PT-OP-D Balance Start: 02/06/23 18:02 Freq: Status: Active Protocol: Document 02/23/23 08:48 LRN (Rec: 02/23/23 09:35 LRN [id number]) Mishra Balance Assessment Evaluation Sitting to Standing Ability Independent w/out Hands Unsupported Stance Safely- 2 minutes Sitting Unsupported, Feet on Floor Safely- 2 minutes Standing to Sitting Ability Safely, Minimal Hand Use Transfer Ability Supervision, Verbal Cues Unsupported Stance- Eyes Closed Safely, 10 seconds Unsupported Stance- Eyes Open Independent, 1 minute Reaching Forward Standing Confidently, 10 inches Pick- Up Object From Floor Supervision Look Behind Shoulder - Standing Shifts Weight Well Turning 360 Degrees Supervision/Verbal Cues Unsupported Stance, Alternating Feet on (I)- 8 Steps in > 20 secs Stair Unsupported Tandem Stance Balance Lost- Step/Stand Unilateral Leg Stance Lifts Leg/Unable to Hold Total Score Mishra Total Score (out of 56 points) 42 Mishra Impairment Rating 20 to 39% Impaired (Score 34- 44) PT-OP-E Functional Tests Start: 02/06/23 18:02 Freq: Status: Active Protocol: Document 02/12/23 12:35 LRN (Rec: 02/12/23 13:59 LRN [id number]) Functional Tests Timed Up and Go (TUG) Score 17 Comments Tripod cane TUG Impairment Rating 60 to <80% Impaired (Score 16- 17) PT-OP-G Mobility & Gait Start: 02/06/23 18:02 Freq: Status: Active Protocol: Document 02/12/23 12:35 LRN (Rec: 02/12/23 13:59 LRN [id number]) OP Gait Assessment Gait Gait Assistance Required: Standby Assistance Distance (Feet) 90 Able to Maintain Weight Bearing Status Yes During Gait Assistive Devices Assistive Device Tripod Cane/Hurry Cane Orthotic/Prosthetic Devices or Brace: No Gait Deviations General Gait Pattern Decreased Stride Length, Decreased Feet Clearance, Flexed Trunk,Wide Based Gait Factors Limiting Gait Function Factors Limiting Gait Function Decreased Activity Tolerance, Decreased Sensation,Decreased Strength,Incoordination,Poor Balance Comments Gait Comments Increased sway with gait with notable increased sway. PT-OP-H Neuro Start: 02/06/23 18:02 Freq: Status: Active Protocol: Document 02/23/23 08:48 LRN (Rec: 02/23/23 09:35 LRN [id number]) Deep Tendon Reflex & Clonus Assessment Deep Tendon Reflex Right Achilles Deep Tendon Reflex 0 Absent Left Achilles Deep Tendon Reflex 2+ Normal Bilateral Patellar Deep Tendon Reflex 2+ Normal Ankle Clonus Bilateral Clonus Assessment Absent Muscle Tone Tone Assessment Right Lower Extremity Flexor Tone Description Normal Extensor Tone Description Normal Left Lower Extremity Flexor Tone Description Normal Extensor Tone Description Normal PT-OP-J Posture/Palpation/Skin Start: 02/06/23 18:02 Freq: Status: Active Protocol: Document 02/12/23 12:35 LRN (Rec: 02/12/23 13:59 LRN [id number]) Posture Evaluation Position Standing Hip Posture (L) Flexed,(R) Flexed Comments Posture Comments Wide stance. PT-OP-M Strength Start: 02/06/23 18:02 Freq: Status: Active Protocol: Document 02/23/23 08:48 LRN (Rec: 02/23/23 09:35 LRN [id number]) Ankle/Foot Strength Ankle and Foot Manual Muscle Testing Right Dorsiflexion (L4) 5 Normal Plantarflexion (S1) 5 Normal Inversion 5 Normal Eversion (S1) 5 Normal Left Dorsiflexion (L4) 5 Normal Plantarflexion (S1) 5 Normal Inversion 5 Normal Eversion (S1) 5 Normal PT-OP-T Assessment and Plan Start: 02/06/23 18:02 Freq: Status: Active Protocol: Document 05/14/23 13:54 LRN (Rec: 05/14/23 13:57 LRN [id number]) Physical Therapy Assessment Goals Four Impairment Decreased balance and function Impairment ABC Scale Score 20.6 (60<80% impaired, score 21-40). Dizziness Handicap Inventory 80-99% impaired, score 80-99. TUG score 17 (60-80% impaired, score 16-17). Short Term Goal (STG) Improve function with pt able to walk down her mobile home hallway without having to use the crowe to keep her upright. STG Duration 03/29/23 Electric Mule Driver Goal (LTG) Improve function with pt able to walk without a cane or improve function per ABC score 41-60% impaired with score 41 -60; or Dizziness Handicap Inventory 60-79% impaired, score 60-79. 03/06/23: Pt ambulated into therapy without cane. LTG Duration 05/13/23 progressing 03/06/23 . Three Impairment Decreased LE coordination Electric Mule Driver Goal (LTG) Pt will demonstrate improved coordination with increased foot tapping ability of L equal to R. LTG Duration 05/13/23 Two Impairment Decreased core and LE strength Impairment Trunk: Flex 4-/5, Ext 3/5, Rot 3/5 Devin, SB 4-/5 L, 3/5 R. Hip: Flex 4/5 Devin. Knee: Ext 5/5 Devin, Flex 4-/5 Devin. Ankle: DF 5/5 Devin. Short Term Goal (STG) Pt will be able to sit up > 1 hour in the living room to watch TV with her kids. STG Duration 03/29/23 Retirement Goal (LTG) Pt able to sit outside if good weather (4 steps and 16' to get to chair). LTG Duration 05/13/23 One Impairment Lacks appropriate self care HEP. Short Term Goal (STG) Pt will be independent in self care HEP of LE strengthening ex's. 02/23/23: HEP: Ankle TBand ex' s and Lev 2 TBand issued. 03/02/23: HEP review: Ankle Tb ( orange), Heel and Toe raises, Gastroc/Soleus stretch at wall . Pt encouraged to perform ex' s in morning when she is not tired to incorporate into routine. 03/06/23: HEP issued: hip flex, sidelie AB/AD, prone hip ext, and sitting hamstring/LE neural stretch. STG Duration 03/29/23 progressed 03/06/23 Electric Mule Driver Goal (LTG) Pt will be independent in a self care HEP of core and balance. LTG Duration 05/13/23 Assessment Summary Assessment Pt was seen for 3 treatment visits with the last visit on 03/06/23. The pt called on requesting cancellation of all visits due to fractured back with MD wanting to DC therapy for now. Physical Therapy Plan Discharge Physical Therapy Discharge Reasons Patient Request Discharge Comments Pt had change in medical status and DC from PT requested. Thank you for your referral.
== END 2023-05-17 12:32 | disposition home or self-care (01) ==
LOC: PHYS 08:00
PROVIDERS: Family Provider Nurse Practitioner Family; PCP Nurse Practitioner Family; Referring Provider Nurse Practitioner Family; Visit Provider Nurse Practitioner Family
DX: C71.6 Malignant neoplasm of cerebellum (principal); M62.81 Muscle weakness (generalized); R26.9 Unspecified abnormalities of gait and mobility; R26.81 Unsteadiness on feet
CPT/HCPCS: 97110; 97112; 97116; 97162

== ENCOUNTER → 2023-03-14 13:06 | Outpatient (CLI) | payer OTHER, MEDICAID, SELFPAY ==
[2022-12-11 05:22] VITALS: BMI 26.9
--- NOTE | 2023-03-14 15:45 | DI.MRI.S_ITS ---
PROCEDURE: MR LUMBAR SPINE WO CON INDICATIONS: intervertebral disc degeneration, lumbar region TECHNIQUE: Noncontrast sagittal T1 spin echo and T2 fast echo, coronal T2, sagittal STIR, and T2 fast spin echo through the lumbar spine. COMPARISON: [facility], CR, XR LUMBAR SPINE 2-3V, 01/30/2023, 12:20. [facility], CT, CT CHEST ABD PEL W CON, 06/20/2022, 11:21. [facility], MR, MR LUMBAR SPINE WO/W CON, 04/25/2022, 13:17. [facility], MR, MR LUMBAR SPINE WO CON, 12/22/2020, 8:27. FINDINGS: Image quality: Degraded by metallic artifact. Alignment and Curvature: 5 lumbar type vertebral bodies are present by plain film. 5 mm of anterolisthesis of L5 on S1. Mild diffuse rightward curvature of the mid lumbar spine. Bone Marrow: There are several new small low T1/high STIR signal intensity foci within the marrow space, predominantly within the lower thoracic and upper lumbar spine, most of which measure less than 10 mm diameter. There is mild wedging of L5, new compared to 04/25/2022 as well as 06/20/2022. There is new moderate ill-defined T2 signal elevation within the L5 vertebral body. Anterior and posterior fusion hardware at L5-S1. Spinal Cord: Conus medullaris terminates at the L1-L2 disc space level. Visualized cord demonstrates normal signal and size. Paraspinous Soft Tissues: No paravertebral masses. T12-L1: Normal appearance. L1-L2: Normal appearance. L2-L3: Normal appearance. L3-L4: Mild disc desiccation and diffuse disc bulge. Mild facet and ligamentum flavum hypertrophy. Mild canal stenosis. Mild bilateral foraminal stenosis. No significant change. L4-L5: Mild disc desiccation and diffuse disc bulge. Mild facet and ligamentum flavum hypertrophy. Mild canal stenosis. Mild bilateral foraminal stenosis. No significant change. L5-S1: Fusion hardware is present. Moderate disc height loss and desiccation. Mild diffuse disc bulge. Mild bilateral facet hypertrophy. Mild canal stenosis. Moderate bilateral foraminal stenosis. IMPRESSION: 1. New mild L5 compression fracture which appears recent. This area is suboptimally evaluated secondary to metallic artifact. 2. Postsurgical sequelae. 3. Scattered new small lesions within the thoracolumbar spine as described above, which are indeterminate, but could represent early/mild metastatic disease in the appropriate clinical setting. Whole-body bone scan may be helpful for further assessment. 4. Multilevel degenerative disc and facet disease, as well as ligamentum flavum hypertrophy and epidural lipomatosis. 5. Mild multilevel canal stenoses. 6. Multilevel foraminal stenoses, worst at L5-S1 where there are moderate foraminal stenoses. Dictated by: Kaycee Mahajan M.D. on 03/15/2023 at 8:56 Approved by: Kaycee Mahajan M.D. on 03/15/2023 at 9:03
== END ==
PROVIDERS: Family Provider Nurse Practitioner Family; PCP Nurse Practitioner Family; Referring Provider Nurse Practitioner Family; Visit Provider Nurse Practitioner Family
DX: M48.56XA Collapsed vertebra, not elsewhere classified, lumbar region, initial encounter for fracture (principal); M51.36 Other intervertebral disc degeneration, lumbar region; M51.37 Other intervertebral disc degeneration, lumbosacral region; M48.07 Spinal stenosis, lumbosacral region; M48.061 Spinal stenosis, lumbar region without neurogenic claudication; M47.816 Spondylosis without myelopathy or radiculopathy, lumbar region; M47.817 Spondylosis without myelopathy or radiculopathy, lumbosacral region; M89.9 Disorder of bone, unspecified; Z98.1 Arthrodesis status
CPT/HCPCS: 72148

== ENCOUNTER → 2023-04-18 06:44 | Outpatient (CLI) | payer SELFPAY ==
[2022-12-11 05:22] VITALS: BMI 26.9
--- NOTE | 2023-04-18 | DI.NM.S_ITS ---
PROCEDURE: NM PET CT FUSION WHOLE BODY RADIOPHARMACEUTICAL: 10.69 mCi F-18 fluorodeoxyglucose IV. INDICATIONS: Malignant neoplasm of cerebellum TECHNIQUE: After intravenous administration of F-18 fluoro-deoxyglucose (FDG), noncontrast CT images were obtained for attenuation correction and anatomic localization. A series of overlapping emission PET images was then obtained. The patient's pretest fasting blood glucose level as measured by glucometer was 97 mg/dl. The area imaged spanned from the skull base, vertex to the upper thighs. COMPARISON: [facility], MR, MR LUMBAR SPINE WO CON, 03/14/2023, 14:33. [facility], [place], PET NECK TO MID THIGH, 03/22/2021, 15:00. [facility], MR, MR HEAD/BRAIN WO/W CON, 01/11/2023, 13:15. FINDINGS: Head and neck: Lymph nodes: No enlarged lymph nodes; no abnormal bernard uptake. Neck spaces: Unremarkable. Vasculature: Unremarkable. Salivary and thyroid glands: Unremarkable. Sinuses and mastoids: Unremarkable. Intracranial contents: Left cerebellar craniotomy and resection changes are present. However, there is a focus of increased uptake in the left anterolateral aspect of the resection cavity with SUV max 8.3. A mass is not clearly identified within this region. However, evaluation is limited given lack of contrast. No abnormal focus of enhancement within this region was present on the 01/11/2023 MRI brain. Thorax: Lymph nodes: No enlarged lymph nodes; no abnormal bernard tracer uptake. Lungs and pleura: Unremarkable. Heart and vessels: Heart is borderline enlarged with minimal effusion. Esophagus: Unremarkable. Miscellaneous: Bilateral breast implants. Abdomen and pelvis: Lymph nodes: No enlarged lymph nodes; no abnormal bernard tracer uptake. Liver: Unremarkable. Gallbladder: Unremarkable. Spleen: Unremarkable. Pancreas: Unremarkable. Adrenals: Unremarkable. Kidneys: Non obstructing right renal calculus. Bowel: Unremarkable. Peritoneum: Unremarkable. Liver: unremarkable. Aorta and vessels: Unremarkable. Pelvic organs: Unremarkable. Bones and extremities: No abnormal osseous uptake. No lytic or blastic bony lesions. Lower lumbar fusion. Skin and body wall: unremarkable. IMPRESSION: Left cerebellar postsurgical change with small focus of hypermetabolic activity described above highly concerning for recurrent disease. However, correlation on noncontrast CT is markedly limited and recommend MR brain with contrast for further evaluation. Dictated by: Cyndee Garibay M.D. on 04/18/2023 at 13:50 Approved by: Cyndee Garibay M.D. on 04/18/2023 at 14:34
== END ==
PROVIDERS: Family Provider Nurse Practitioner Family; PCP Nurse Practitioner Family; Referring Provider Nurse Practitioner Family; Visit Provider Nurse Practitioner Family
DX: C71.6 Malignant neoplasm of cerebellum (principal)

== ENCOUNTER → 2023-04-23 11:14 | Outpatient (CLI) | payer OTHER, MEDICAID, SELFPAY ==
[2022-12-11 05:22] VITALS: BMI 26.9
--- NOTE | 2023-04-23 11:15 | DI.MRI.S_ITS ---
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 After the administration of contrast, axial and sagittal T1 spin echo with fat saturation through the thoracic spine. COMPARISON: [facility], MR, MR THORACIC SPINE WO/W CON, 05/01/2021, 10:00. [facility], MR, MR CERVICAL SPINE WO/W CON, 04/23/2023, 11:18. [facility], MR, MR LUMBAR SPINE WO/W CON, 04/23/2023, 11:18. [facility], NM, NM PET CT FUSION WHOLE BODY, 04/18/2023, 8:11. [facility], MR, MR LUMBAR SPINE WO CON, 03/14/2023, 14:33. [facility], , MR THORACIC SPINE WO/W CON, 04/25/2022, 13:17. FINDINGS: Image quality: This examination is limited by involuntary motion artifact. Alignment and curvature: There is normal bony alignment. Marrow: Marrow is of normal overall signal. Small T12 compression deformity seen, with 20% loss of height along the inferior endplate. No posterior displacement fracture fragments can be seen. There is increased STIR signal with decreased T1 weighted signal. An expected amount of enhancement can be seen within this vertebral body. Spinal cord: Visualized spinal cord is of normal signal and size, without abnormal enhancement. Paraspinous soft tissues: No paravertebral masses or abnormal enhancement. Miscellaneous: Central canal and foramina appear widely patent at all scanned levels. IMPRESSION: Motion limited study demonstrating no findings of intrathecal enhancement to suggest metastatic disease from medulloblastoma. Interval T12 compression deformity with 20% loss of height at the inferior endplate. Increased enhancement is seen within this vertebral body, which is attributed to an expected reparative response. Dictated by: Rex Butts M.D. on 04/23/2023 at 13:46 Approved by: Rex Butts M.D. on 04/23/2023 at 13:49
--- NOTE | 2023-04-23 11:15 | DI.MRI.S_ITS ---
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 After the administration of contrast, axial and sagittal T1 spin echo with fat saturation through the cervical spine. COMPARISON: [facility], MR, MR CERVICAL SPINE WO/W CON, 05/01/2021, 10:19. [facility], CR, XR CERVICAL SPINE 2V OR 3V, 01/30/2023, 12:20. [facility], MR, MR THORACIC SPINE WO/W CON, 04/23/2023, 11:18. [facility], MR, MR LUMBAR SPINE WO/W CON, 04/23/2023, 11:18. [facility], NM, NM PET CT FUSION WHOLE BODY, 04/18/2023, 8:11. [facility], MR, MR CERVICAL SPINE WO/W CON, 04/25/2022, 13:17. FINDINGS: Image quality: This examination is limited by involuntary motion artifact. Alignment and curvature: There is straightening of the normal cervical lordosis. No focal AP alignment abnormality is seen. Marrow: Marrow is normal in overall signal, without suspicious enhancement. Spinal cord: Visualized spinal cord has normal size and signal. No cerebellar tonsillar herniation. No abnormal intramedullary enhancement. Paraspinous soft tissues: No paravertebral masses or suspicious enhancement. Postoperative change can be seen involving the left occipital region, with partial left cerebellar resection. Scrutiny is given to the left cerebellum itself. To the limits of this study of the cervical spine, no deaf left cerebellar recurrence is identified. Focal degenerative change is seen involving the C1-C2 interface anteriorly. Potential partial erosion of the dens can be seen. C2-3: The disc height is well-preserved. Loss of disc signal is seen at this level. No significant neural foraminal or central canal narrowing can be seen. C3-4: The disc height is well-preserved. Loss of disc signal is seen at this level. A mild degree of generalized disc osteophyte complex is seen. There is a mild central disc osteophyte protrusion. Mild facet joint hypertrophy is seen. No significant neural foraminal narrowing can be seen. Mild to moderate central canal narrowing is seen, with a mild degree of mass effect upon the ventral spinal cord. When comparison is made with the prior images, these findings are similar. C4-5: Moderate loss of disc height is seen. Loss of disc signal is seen. Moderate generalized disc osteophyte complex is seen. There is a mild central disc osteophyte protrusion seen. Uncovertebral joint hypertrophy is seen at this level. Moderate facet joint hypertrophy is seen. There is moderate to severe right-sided and moderate left-sided neural foraminal narrowing. Moderate central canal narrowing is seen. There is associated mass effect upon the ventral spinal cord. When comparison is made with the prior images, these findings are similar. C5-6: At least moderate loss of disc height and disc signal can be seen. Moderate generalized disc osteophyte complex is seen. There is a mild central disc osteophyte protrusion. Mild to moderate facet hypertrophy is seen. There is at least moderate bilateral neural foraminal narrowing seen. Mild to moderate central canal narrowing is seen. No significant change from the prior. C6-7: Moderate loss of disc height is seen. Loss of disc signal is seen. No significant neural foraminal or central canal narrowing can be seen. No significant change from the prior. C7-T1: No significant abnormality is seen. IMPRESSION: No findings of cervical metastases from metal blastoma can be seen. Prior left cerebellar resection change seen. Multiple levels of cervical spine degenerative change can be seen, which are similar to the prior MRI. Dictated by: Rex Butts M.D. on 04/23/2023 at 13:49 Approved by: Rex Butts M.D. on 04/23/2023 at 13:56
--- NOTE | 2023-04-23 11:15 | DI.MRI.S_ITS ---
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 In cases with scoliosis, additional coronal T2 fast spin echo may be performed. After the administration of contrast, sagittal and axial T1 spin echo with fat saturation through the lumbar spine. COMPARISON: [facility], MR, MR LUMBAR SPINE WO CON, 03/14/2023, 14:33. [facility], MR, MR LUMBAR SPINE WO/W CON, 05/01/2021, 10:00. [facility], , MR LUMBAR SPINE WO/W CON, 04/25/2022, 13:17. [facility], , MR CERVICAL SPINE WO/W CON, 04/23/2023, 11:18. [facility], , MR THORACIC SPINE WO/W CON, 04/23/2023, 11:18. [facility], [place], NM PET CT FUSION WHOLE BODY, 04/18/2023, 8:11. FINDINGS: Image quality: This examination is limited by involuntary motion artifact. There is artifact associated with the metallic hardware. Alignment and curvature: There is normal bony alignment. Marrow: Marrow is of normal overall signal. Since the prior examination, there has been a fracture of the inferior endplate T12, with approximately 20% loss of height centrally. There is decreased T1 weighted signal and increased STIR signal seen. There is increased enhancement seen within the T12 vertebral body. No posterior displacement of fracture fragments can be seen. Spinal cord: Conus medullaris terminates at the L1 level. Visualized spinal cord demonstrates normal signal, without suspicious enhancement. Paraspinous soft tissues: No paravertebral masses or abnormal enhancement. T12-L1: Normal appearance. L1-L2: Normal appearance. L2-L3: Normal appearance. L3-L4: Mild loss of disc height is seen. Loss of disc signal is seen. Mild generalized disc bulge is seen. Mild to moderate facet hypertrophy can be seen. Mild bilateral neural foraminal narrowing is seen. Minimal central canal narrowing is seen. No significant change from the prior. L4-L5: The disc height and disk signal are relatively well-preserved. Mild to moderate disc bulge is seen. Mild to moderate facet hypertrophy can be seen. There is moderate left-sided and mild right-sided neural foraminal narrowing. Mild central canal narrowing is seen. When comparison is made with the prior images, these findings are similar. L5-S1: Postoperative changes can be seen anteriorly and posteriorly at this level. Mild generalized disc bulge is seen. Mild facet joint hypertrophy is seen. There is at least moderate left-sided and moderate right-sided neural foraminal narrowing. Mild central canal narrowing is seen. No significant change from the prior. IMPRESSION: No suspicious intrathecal enhancement can be seen to suggest metastatic disease from medulloblastoma. Interval T12 fracture seen, with 20% loss of height along the inferior endplate. There is abnormal signal seen, including increased enhancement. The increased enhancement is attributed to a reparative response. Underlying degenerative changes are seen, which are not significantly changed compared to the recent prior MRI. Dictated by: Rex Butts M.D. on 04/23/2023 at 13:41 Approved by: Rex Butts M.D. on 04/23/2023 at 13:46
== END ==
PROVIDERS: Family Provider Nurse Practitioner Family; PCP Nurse Practitioner Family; Referring Provider Psychiatry & Neurology Neurology; Visit Provider Psychiatry & Neurology Neurology
DX: C71.6 Malignant neoplasm of cerebellum (principal); M48.54XA Collapsed vertebra, not elsewhere classified, thoracic region, initial encounter for fracture; M47.812 Spondylosis without myelopathy or radiculopathy, cervical region; M47.816 Spondylosis without myelopathy or radiculopathy, lumbar region; M47.817 Spondylosis without myelopathy or radiculopathy, lumbosacral region; M54.50 Low back pain, unspecified
CPT/HCPCS: 72156; 72157; 72158; A9579

== ENCOUNTER 2023-04-24 09:45 | Outpatient (RCR) | payer OTHER, MEDICAID, SELFPAY ==
[2022-12-11 05:22] VITALS: BMI 26.9
--- NOTE | 2023-03-06 16:00 | OT.OP.EVAL ---
Visit Care Team Role Provider Type MARGE Soto Family Provider Non-Staff Primary Care Provider Specialty: Medical Address: [address], [place], [address] Email: CHRIS Brown Attending Provider Non-Staff Referring Provider Specialty: Nursing Address: [address] [place] [address], [id number] Email: Occupational Therapy Initial Evaluation OT Outpatient Adult Evaluation Start: 03/06/23 16:37 Freq: Status: Active Protocol: Document 03/06/23 16:38 AMS (Rec: 03/06/23 16:54 AMS [id number]) General Information - Adult Visit Number 10/05 Plan of Care Dates 03/06/23 ? 05/29/23 Insurance Information [employer]; Max 12 OT visits including eval Visit Start Time 09:45 Visit Stop Time 10:30 Total Visit Minutes 45 Treatment Setting Outpatient Care Note Type Initial Evaluation Identification Confirmed Yes Identification Confirmed By Self Goals Treatment Initiated HEP. [facility] Goals 1. Flaca will be modified independent with execution of her home exercise program utilizing provided written and visual instructions from therapist. 2. Flaca will present with improved functional abilities of the left hand; this will be evidenced by the followina. Flaca will be able to complete the 9-hole peg test with the left hand under 35.0 seconds compared to initial completion in 46.7 seconds. 2b. Flaca will obtain a QuickDASH UE Outcome Measure Score less than 50.0. Assessment/Plan Treatment Assessment Flaca is a 52 year-old right hand dominant female referred to outpatient OT secondary to distal L UE motor coordination difficulties. Past Medical History: s/p excision of malignant neoplasm of cerebellum resulting in dizziness and nausea; tape allergies; headaches; memory loss; back pain; neck pain; shortness of breath; past surgeries include 2 back surgeries, 2 surgeries for removal of brain tumors, and tonsil, appendix and gallbladder surgeries, and c- section(s). (+) fall history w / subsequent injuries. She is currently receiving outpatient PT here at [facility]; PT is addressing trunk/core strength, balance, gait/ coordination and LE weakness. Patient Goals = Improve L hand weakness and motor coordination Evaluation Findings: Flaca resides w/ her and 2 sons in a RV locally; she reports independence w/ basic ADLS, including dressing , g/h, self-feeding, toileting and bathing. RV is equipped w / shower seat, HSH, and a grab bar, and slightly taller toilet seat. 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 She is able to manage earrings and tying of shoe laces w/ increased time. She has recently started doing laundry w/ her kids' help and does some meal prep (~20 minutes). Typical day = is comprised of getting up and eating muffin/cereal for breakfast; doing PT exercises then laying down again; 12:30/ 1:00 having lunch; then sitting outside for 45 min to an hour; has a snack and then lays back down again. She then takes a shower and eats dinner prepared by her when he gets home from work; she goes to bed at 8:30/9:00 p .m. She does not use a computer but watches programs on her personal cell phone. QuickDASH UE Outcome Measure Score = 72.73. Flaca denies hand/UE pain/discomfort and/or numbness. Indication of 5 out of 10 on Pain Assessment Grid relative to R lateral trunk/ ribs and lower back. Midline shift to the left w/ bringing arms to midline infront of body and bringing arms to midline above head. B AROM WNL ; able to oppose thumbs bilaterally to each digit. Increased time to execute opposition w/ eyes closed w/ left hand. Decreased fluidity/ smoothness w/ nose <-> finger test and increased time needed to execute L > R; increased errors nose <-> finger L UE w/ eyes closed. Decreased speed and efficiency w/ execution of 9-HPT bilaterally compared to same-aged female peers; marked reduction in speed of reduction with the L hand (> 8 SD below the mean). Adequate separation of the 2 sides of the hand w/ multiple sized coins placed in palm; inconsistent w/ translation of coin along 2nd digit to pad w / thumb coordination; increased time spent. 40.0# of force w/ L loss prevention investigator dynamometer II strength test (> 1 SD below the mean compared to same- aged female peers); 50.0# of force w/ R loss prevention investigator dynamometer II strength test (> 1 SD below the mean compared to same-aged female peers); 14.0# of force R lateral srivastava pinch (> 1 SD below the mean compared to same-aged female peers); 8.0# of force L lateral srivastava pinch ( 3 SD below the mean compared to same-aged female peers); 8. 5# of force R tip pinch (> 1 SD below the mean compared to same-aged female peers); 5.0# of force L tip pinch (> 2 SD below the mean compared to same-aged female peers); 7.0# of force R 3-jaw pinch (> 3 SD below the mean compared to same-aged female peers); 8.0# of force L 3-jaw pinch (> 2 SD below the mean compared to same-aged female peers). Flaca would likely benefit from outpatient OT secondary to increased reliance on R UE, impaired orientation to midline relative to UEs, decreased kinesthetic awareness of L UE in space, decreased motor coordination of the L hand, and decreased activity tolerance, to support her ability to engage in meaningful activities with active incorporation of the L UE in a variety of environments. Home Exercise Program 03/07/23 = instructed in coin manipulation to support translation/separation of the 2 sides of the hand. Length of treatment (weeks) 12 Plan of Care Start Date 03/06/23 Plan of Care End Date 05/29/23 Treatment Frequency Once a Week Therapeutic Contents Active Range of Motion, Adaptive Equipment Education, Client Education,Cognitive Skills Development,Functional Activities,Home Exercise Program,Joint Protection, Manual Therapy,Education, Neurodevelopment Treatment, Neuromuscular Re-Education, Self-Care,Stretching/ Flexibility Activities, Therapeutic Activities, Therapeutic Exercises,Sensory Re-education Additional Types of Modalities Heat/Ice
--- NOTE | 2023-03-16 15:01 | OT.OP.TRT ---
Visit Care Team Role Provider Type BERLIN Soto Family Provider Non-Staff Primary Care Provider Specialty: Medical Address: [address], [place], [address] Email: CHRIS Borwn Attending Provider Non-Staff Referring Provider Specialty: Nursing Address: [address] [place] [address], [id number] Email: Occupational Therapy Treatment Note OT Outpatient Treatment Note - Adult Start: 03/06/23 16:37 Freq: Status: Active Protocol: Document 03/16/23 14:50 AMS (Rec: 03/16/23 15:01 AMS [id number]) OT Outpatient Adult Treatment Note Session Time Visit Start Time 10:45 Visit Stop Time 11:25 Total Visit Minutes 40 Visit Information Visit Number 2 Plan of Care Dates 03/06/23 ? 05/29/23 Insurance Information [employer]; Max 12 OT visits including eval Setting Treatment Setting Outpatient Care Visit Type Note Type Initial Evaluation General Information General Information Flaca is a 52 year-old right hand dominant female referred to outpatient OT secondary to distal L UE motor coordination difficulties. Past Medical History: s/p excision of malignant neoplasm of cerebellum resulting in dizziness and nausea; tape allergies; headaches; memory loss; back pain; neck pain; shortness of breath; past surgeries include 2 back surgeries, 2 surgeries for removal of brain tumors, and tonsil, appendix and gallbladder surgeries, and c- section(s). (+) fall history w / subsequent injuries. She is currently receiving outpatient PT here at [facility]; PT is addressing trunk/core strength, balance, gait/ coordination and LE weakness. - Subjective Identification Type Name Identification Reconciled With Medical Record Observations Flaca reported that she underwent MRI 03/15/23 w/ suspected injury to L5-S1 (w/ prior h/o back surgeries for L3-L4, L4-L5). Flaca reported that she will be following up w/ MD this afternoon. She stated that she has spent a lot of time on heat lately. Patient Expectation/Goals Improve L hand weakness/motor coordination Patient/Caregiver Compliance with Home Good Exercise Program - Objective Objective Measurements Please refer to below for progress towards meeting established OT goals: Education Research Analyst Goals 1. Flaca will be modified independent with execution of her home exercise program utilizing provided written and visual instructions from therapist. 2. Flaca will present with improved functional abilities of the left hand; this will be evidenced by the followina. Flaca will be able to complete the 9-hole peg test with the left hand under 35.0 seconds compared to initial completion in 46.7 seconds. 2b. Flaca will obtain a QuickDASH UE Outcome Measure Score less than 50.0. - - Assessment Assessment of Improvement Information obtained from patient was conveyed to primary PT. Loss of balance w/ leaning into wall L side; able to regain balance ( observed w/ exiting treatment room). Upgraded home exercise program; progressed to inhand coordination of 2 medium sized bouncy balls (around the world CW and CCW, finger opposition w/ ball, moving ball from radial <-> ulnar side of hand w/ ball traveling on tips/pads of fingers, and rotation of ball at fingertips ) and pencil flips in CW and CCW directions. Decreased size of in-hand manipulation to small buttons from coins/beads w/ overall, good coordination (despite dropping coins/ buttons/beads intermittently w / multiple > 3+ objects in hand). Activities were chosen based on space taken in the home, low energy/exertion and ability to execute while supine if need be d/t back pain. Overall, great session. Recommend exploring strengthening exercises based on goals at time of next session. Flaca would likely benefit from outpatient OT secondary to increased reliance on R UE, impaired orientation to midline relative to UEs, decreased kinesthetic awareness of L UE in space, decreased motor coordination of the L hand, and decreased activity tolerance, to support her ability to engage in meaningful activities with active incorporation of the L UE in a variety of environments. Home Exercise Program 03/16/23 = pencil flips CW/CCW; 2 medium sized bouncy balls ( around the world CW and CCW, finger opposition w/ ball, moving ball from radial <-> ulnar side of hand w/ ball traveling on tips/pads of fingers, and rotation of ball at fingertips) 03/07/23 = instructed in coin manipulation to support translation/separation of the 2 sides of the hand. - Plan Therapy Recommendations Continue with Current Program, Advance per Rehabilitation Protocol
--- NOTE | 2023-03-23 09:37 | OT.OP.TRT ---
Visit Care Team Role Provider Type MARGE Soto Family Provider Non-Staff Primary Care Provider Specialty: Medical Address: [address], [place], [address] Email: CHRIS Brown Attending Provider Non-Staff Referring Provider Specialty: Nursing Address: [address] [place] [address], [phone] Email: Occupational Therapy Treatment Note OT Outpatient Treatment Note - Adult Start: 03/06/23 16:37 Freq: Status: Active Protocol: Document 03/23/23 09:30 AMS (Rec: 03/23/23 09:37 AMS [id number]) OT Outpatient Adult Treatment Note Session Time Visit Start Time 08:30 Visit Stop Time 09:15 Total Visit Minutes 45 Visit Information Visit Number 12/03 Plan of Care Dates 03/06/23 ? 05/29/23 Insurance Information [employer]; Max 12 OT visits including eval Setting Treatment Setting Outpatient Care Visit Type Note Type Treatment Note General Information General Information Flaca is a 52 year-old right hand dominant female referred to outpatient OT secondary to distal L UE motor coordination difficulties. Past Medical History: s/p excision of malignant neoplasm of cerebellum resulting in dizziness and nausea; tape allergies; headaches; memory loss; back pain; neck pain; shortness of breath; past surgeries include 2 back surgeries, 2 surgeries for removal of brain tumors, and tonsil, appendix and gallbladder surgeries, and c- section(s). (+) fall history w / subsequent injuries. She is currently receiving outpatient PT here at [facility]; PT is addressing trunk/core strength, balance, gait/ coordination and LE weakness. - Subjective Identification Type Name Identification Reconciled With Medical Record Observations Report of need to get MRI scan w/ contrast and PET scan. Instructed to rest. Patient Expectation/Goals Improve L hand weakness/motor coordination Patient/Caregiver Compliance with Home Good Exercise Program - Objective Objective Measurements Please refer to below for progress towards meeting established OT goals: [facility] Goals 1. Flaca will be modified independent with execution of her home exercise program utilizing provided written and visual instructions from therapist. 2. Flaca will present with improved functional abilities of the left hand; this will be evidenced by the followina. Flaca will be able to complete the 9-hole peg test with the left hand under 35.0 seconds compared to initial completion in 46.7 seconds. 2b. Flaca will obtain a QuickDASH UE Outcome Measure Score less than 50.0. - Treatment 1 Descriptor Fine motor coordination/Object manipulation Separation of 2 sides of the hand. Translation. Object rotation. Graded release. Manipulation of washers/ electrical caps. Coins. Buttons. 2 small balls. Lite brite pieces (vertical orientation on TT). Small clothespins. - Assessment Assessment of Improvement Introduced light resistance w/ small clothespins; no c/o of pain/discomfort and/or difficulty manipulating. Advanced fine motor/obj manipulation w/ reduction of size of objects being manipulated and addressing graded/controlled release of small objects (rotation and vertical positioning of Lite Brite small pieces on TT). Overall, great session. Recommend exploring strengthening exercises based on goals at time of next session (resistant clothespins , theraputty). Flaca would likely benefit from outpatient OT secondary to increased reliance on R UE, impaired orientation to midline relative to UEs, decreased kinesthetic awareness of L UE in space, decreased motor coordination of the L hand, and decreased activity tolerance, to support her ability to engage in meaningful activities with active incorporation of the L UE in a variety of environments. Home Exercise Program 03/23/23 = Rec cont w/ 2 medium sized bouncy ball (see below) , coin/button manipulation w/ consideration of washers/small clothespins as alternatives. 03/16/23 = pencil flips CW/CCW; 2 medium sized bouncy balls ( around the world CW and CCW, finger opposition w/ ball, moving ball from radial <-> ulnar side of hand w/ ball traveling on tips/pads of fingers, and rotation of ball at fingertips) 03/07/23 = instructed in coin manipulation to support translation/separation of the 2 sides of the hand. - Plan Therapy Recommendations Continue with Current Program, Advance per Rehabilitation Protocol
--- NOTE | 2023-03-26 14:48 | OT.OP.TRT ---
Visit Care Team Role Provider Type MARGE Soto Family Provider Non-Staff Primary Care Provider Specialty: Medical Address: [address], [place], [address] Email: CHRIS Brown Attending Provider Non-Staff Referring Provider Specialty: Nursing Address: [address] [place] [address], [id number] Email: Occupational Therapy Treatment Note OT Outpatient Treatment Note - Adult Start: 03/06/23 16:37 Freq: Status: Active Protocol: Document 03/26/23 14:42 AMS (Rec: 03/26/23 14:48 AMS [id number]) OT Outpatient Adult Treatment Note Session Time Visit Start Time 12:25 Visit Stop Time 13:10 Total Visit Minutes 45 Visit Information Visit Number 01/03 Plan of Care Dates 03/06/23 ? 05/29/23 Insurance Information [employer]; Max 12 OT visits including eval Setting Treatment Setting Outpatient Care Visit Type Note Type Treatment Note General Information General Information Flaca is a 52 year-old right hand dominant female referred to outpatient OT secondary to distal L UE motor coordination difficulties. Past Medical History: s/p excision of malignant neoplasm of cerebellum resulting in dizziness and nausea; tape allergies; headaches; memory loss; back pain; neck pain; shortness of breath; past surgeries include 2 back surgeries, 2 surgeries for removal of brain tumors, and tonsil, appendix and gallbladder surgeries, and c- section(s). (+) fall history w / subsequent injuries. She is currently receiving outpatient PT here at [facility]; PT is addressing trunk/core strength, balance, gait/ coordination and LE weakness. - Subjective Identification Type Name Identification Reconciled With Medical Record Observations Report of using coins, buttons , and washers for home program . 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 Flaca will be modified independent with execution of her home exercise program utilizing provided written and visual instructions from therapist. 2. Flaca will present with improved functional abilities of the left hand; this will be evidenced by the followina. Flaca will be able to complete the 9-hole peg test with the left hand under 35.0 seconds compared to initial completion in 46.7 seconds. 2b. Flaca will obtain a QuickDASH UE Outcome Measure Score less than 50.0. - Treatment 1 Descriptor Fine motor coordination/Object manipulation Separation of 2 sides of the hand. Translation. Object rotation. Graded release. Manipulation of washers/ electrical caps. Coins. Buttons. Small clothespins. Tweezers; transferring of TB squares. Green resistant theraputty. - Assessment Assessment of Improvement Report of hand still 'shaking' when trying to feed self. No difficulties observed w/ transferring TB squares w/ the L hand w/ tweezers. Report of practicing w/ buttons, coins, and washers in the home with the left hand. Upgraded HEP; instructed in green medium resistance theraputty use; provided theraputty for personal home use. Denied any questions. Overall, great session. Recommend considering re-assessing fine motor coordination/obj manipulation w/ 9-HPT w/ the left hand. Flaca would likely benefit from outpatient OT secondary to increased reliance on R UE, impaired orientation to midline relative to UEs, decreased kinesthetic awareness of L UE in space, decreased motor coordination of the L hand, and decreased activity tolerance, to support her ability to engage in meaningful activities with active incorporation of the L UE in a variety of environments. Home Exercise Program 03/26/23 = Provided green resistant theraputty; instructed in care/storage. Instructed in gross digit flex , srivastava pinch, 3-jaw pinch, and 2nd digit/thumb (pincer grasp) . 03/23/23 = Rec cont w/ 2 medium sized bouncy ball (see below) , coin/button manipulation w/ consideration of washers/small clothespins as alternatives. 03/16/23 = pencil flips CW/CCW; 2 medium sized bouncy balls ( around the [place] CW and CCW, finger opposition w/ ball, moving ball from radial <-> ulnar side of hand w/ ball traveling on tips/pads of fingers, and rotation of ball at fingertips) 03/07/23 = instructed in coin manipulation to support translation/separation of the 2 sides of the hand. - Plan Therapy Recommendations Continue with Current Program, Advance per Rehabilitation Protocol
--- NOTE | 2023-04-20 13:41 | OT.OP.TRT ---
Visit Care Team Role Provider Type MARGE Soto Family Provider Non-Staff Primary Care Provider Specialty: Medical Address: [address], [place], [address] Email: CHRIS Brown Attending Provider Non-Staff Referring Provider Specialty: Nursing Address: [address] [place] [address], [id number] Email: Occupational Therapy Treatment Note OT Outpatient Treatment Note - Adult Start: 03/06/23 16:37 Freq: Status: Active Protocol: Document 04/20/23 13:32 AMS (Rec: 04/20/23 13:39 AMS [id number]) OT Outpatient Adult Treatment Note Session Time Visit Start Time 10:45 Visit Stop Time 11:30 Total Visit Minutes 45 Visit Information Visit Number 02/02 Plan of Care Dates 03/06/23 ? 05/29/23 Insurance Information [employer]; Max 12 OT visits including eval Setting Treatment Setting Outpatient Care Visit Type Note Type Treatment Note General Information General Information Flaca is a 52 year-old right hand dominant female referred to outpatient OT secondary to distal L UE motor coordination difficulties. Past Medical History: s/p excision of malignant neoplasm of cerebellum resulting in dizziness and nausea; tape allergies; headaches; memory loss; back pain; neck pain; shortness of breath; past surgeries include 2 back surgeries, 2 surgeries for removal of brain tumors, and tonsil, appendix and gallbladder surgeries, and c- section(s). (+) fall history w / subsequent injuries. She is currently receiving outpatient PT here at [facility]; PT is addressing trunk/core strength, balance, gait/ coordination and LE weakness. - Subjective Identification Type Name Identification Reconciled With Medical Record Observations Report of shakiness of the left hand/distal UE. 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 Flaca will be modified independent with execution of her home exercise program utilizing provided written and visual instructions from therapist. 2. Flaca will present with improved functional abilities of the left hand; this will be evidenced by the followina. Flaca will be able to complete the 9-hole peg test with the left hand under 35.0 seconds compared to initial completion in 46.7 seconds. = completed in 47.0 seconds 2b. Flaca will obtain a QuickDASH UE Outcome Measure Score less than 50.0. - Treatment 1 Descriptor Fine motor coordination/Object manipulation Separation of 2 sides of the hand. Translation. Object rotation. Graded release. Manipulation of washers/ electrical caps. Coins. Buttons. Small clothespins. Tweezers; transferring of TB squares. Green resistant theraputty. - Assessment Assessment of Improvement Report of hand still 'shaking' when attempting to utilize non-dominant hand. Re- administered 9-HPT w/ the left hand; Flaca complete the assessment w/ her L hand in 47 .0 seconds. Thus, she completed the assessment approximately in the same time w/ no significant changes in performance. Recommend considering weighted objects to address 'shakiness'; overall, did quite well w/ ability to utilize the non- dominant hand w/ object manipulation without time constraints w/ exception of dropping buttons and/or coins on 2 or 3 separate occasions. Flaca would likely benefit from outpatient OT secondary to increased reliance on R UE, impaired orientation to midline relative to UEs, decreased kinesthetic awareness of L UE in space, decreased motor coordination of the L hand, and decreased activity tolerance, to support her ability to engage in meaningful activities with active incorporation of the L UE in a variety of environments. Home Exercise Program 03/26/23 = Provided green resistant theraputty; instructed in care/storage. Instructed in gross digit flex , srivastava pinch, 3-jaw pinch, and 2nd digit/thumb (pincer grasp) . 03/23/23 = Rec cont w/ 2 medium sized bouncy ball (see below) , coin/button manipulation w/ consideration of washers/small clothespins as alternatives. 03/16/23 = pencil flips CW/CCW; 2 medium sized bouncy balls ( around the world CW and CCW, finger opposition w/ ball, moving ball from radial <-> ulnar side of hand w/ ball traveling on tips/pads of fingers, and rotation of ball at fingertips) 03/07/23 = instructed in coin manipulation to support translation/separation of the 2 sides of the hand. - Plan Therapy Recommendations Continue with Current Program, Advance per Rehabilitation Protocol
--- NOTE | 2023-04-24 10:36 | OT.OP.TRT ---
Visit Care Team Role Provider Type BERLIN Soto Family Provider Non-Staff Primary Care Provider Specialty: Medical Address: [address], [place], [address] Email: CHRIS Brown Attending Provider Non-Staff Referring Provider Specialty: Nursing Address: [address] [place] [address], [id number] Email: Occupational Therapy Treatment Note OT Outpatient Treatment Note - Adult Start: 03/06/23 16:37 Freq: Status: Active Protocol: Document 04/24/23 10:30 AMS (Rec: 04/24/23 10:35 AMS [id number]) OT Outpatient Adult Treatment Note Session Time Visit Start Time 09:45 Visit Stop Time 10:30 Total Visit Minutes 45 Visit Information Visit Number 03/05 Plan of Care Dates 03/06/23 ? 05/29/23 Insurance Information [employer]; Max 12 OT visits including eval Setting Treatment Setting Outpatient Care Visit Type Note Type Treatment Note General Information General Information Flaca is a 52 year-old right hand dominant female referred to outpatient OT secondary to distal L UE motor coordination difficulties. Past Medical History: s/p excision of malignant neoplasm of cerebellum resulting in dizziness and nausea; tape allergies; headaches; memory loss; back pain; neck pain; shortness of breath; past surgeries include 2 back surgeries, 2 surgeries for removal of brain tumors, and tonsil, appendix and gallbladder surgeries, and c- section(s). (+) fall history w / subsequent injuries. She is currently receiving outpatient PT here at [facility]; PT is addressing trunk/core strength, balance, gait/ coordination and LE weakness. - Subjective Identification Type Name Identification Reconciled With Medical Record Observations Report of concerns re: results of diagnostic imaging of spine. Patient Expectation/Goals Improve L hand weakness/motor coordination Patient/Caregiver Compliance with Home Good Exercise Program - Objective Objective Measurements Please refer to below for progress towards meeting established OT goals: Snf Goals 1. Flaca will be modified independent with execution of her home exercise program utilizing provided written and visual instructions from therapist. 2. Flaca will present with improved functional abilities of the left hand; this will be evidenced by the followina. Flaca will be able to complete the 9-hole peg test with the left hand under 35.0 seconds compared to initial completion in 46.7 seconds. = completed in 47.0 seconds 2b. Flaca will obtain a QuickDASH UE Outcome Measure Score less than 50.0. - Treatment 1 Descriptor Fine motor coordination/Object manipulation Separation of 2 sides of the hand. Translation. Object rotation. Graded release. Manipulation of washers/ electrical caps. Coins ( stacking x 2). Small clothespins. Tweezers; transferring of small beads. Resistant clothespins. N/A 04/24/23 = Green resistant theraputty. - Assessment Assessment of Improvement Good proximal stabilization of L UE w/ utilization of tweezers; no observed shakiness w/ tweezers use. Able to intermittently grasp individual 'beads' w/ tweezers without beads being stabilized against available surfaces. Able to carefully stack coins x 2 of various sizes w/ the left hand, as well as place individual pony beads on small vertical pegs. No frustration observed w/ completion of fine motor tasks w/ the left hand. Recommend considering weighted objects to address 'shakiness' if observed in treatment session. Flaca would likely benefit from outpatient OT secondary to increased reliance on R UE, impaired orientation to midline relative to UEs, decreased kinesthetic awareness of L UE in space, decreased motor coordination of the L hand, and decreased activity tolerance, to support her ability to engage in meaningful activities with active incorporation of the L UE in a variety of environments. Home Exercise Program 03/26/23 = Provided green resistant theraputty; instructed in care/storage. Instructed in gross digit flex , srivastava pinch, 3-jaw pinch, and 2nd digit/thumb (pincer grasp) . 03/23/23 = Rec cont w/ 2 medium sized bouncy ball (see below) , coin/button manipulation w/ consideration of washers/small clothespins as alternatives. 03/16/23 = pencil flips CW/CCW; 2 medium sized bouncy balls ( around the [place] CW and CCW, finger opposition w/ ball, moving ball from radial <-> ulnar side of hand w/ ball traveling on tips/pads of fingers, and rotation of ball at fingertips) 03/07/23 = instructed in coin manipulation to support translation/separation of the 2 sides of the hand. - Plan Therapy Recommendations Continue with Current Program, Advance per Rehabilitation Protocol
--- NOTE | 2023-05-31 08:52 | OT.OP.DC ---
Visit Care Team Role Provider Type BERLIN SotoBC Family Provider Non-Staff Primary Care Provider Address: [address], [place], [address] Email: CHRIS Brown Attending Provider Non-Staff Referring Provider Address: [address] [place], [address] Email: OT Outpatient OT Outpatient Adult Evaluation Start: 03/06/23 16:37 Freq: Status: Active Protocol: Document 03/06/23 16:38 AMS (Rec: 03/06/23 16:54 AMS [id number]) General Information - Adult Visit Information Visit Number 10/05 Plan of Care Dates 03/06/23 ? 05/29/23 Insurance Information [employer]; Max 12 OT visits including eval Session Time Visit Start Time 09:45 Visit Stop Time 10:30 Total Visit Minutes 45 Setting Treatment Setting Outpatient Care Visit Type Note Type Initial Evaluation Identification Identification Confirmed Yes Identification Confirmed By Self Goals Treatment Treatment Initiated HEP. Test Administrator Goals Jail Goals 1. Flaca will be modified independent with execution of her home exercise program utilizing provided written and visual instructions from therapist. 2. Flaca will present with improved functional abilities of the left hand; this will be evidenced by the followina. Flaca will be able to complete the 9-hole peg test with the left hand under 35.0 seconds compared to initial completion in 46.7 seconds. 2b. Flaca will obtain a QuickDASH UE Outcome Measure Score less than 50.0. Assessment/Plan Assessment Treatment Assessment Flaca is a 52 year-old right hand dominant female referred to outpatient OT secondary to distal L UE motor coordination difficulties. Past Medical History: s/p excision of malignant neoplasm of cerebellum resulting in dizziness and nausea; tape allergies; headaches; memory loss; back pain; neck pain; shortness of breath; past surgeries include 2 back surgeries, 2 surgeries for removal of brain tumors, and tonsil, appendix and gallbladder surgeries, and c- section(s). (+) fall history w / subsequent injuries. She is currently receiving outpatient PT here at [facility]; PT is addressing trunk/core strength, balance, gait/ coordination and LE weakness. Patient Goals = Improve L hand weakness and motor coordination Evaluation Findings: Flaca resides w/ her and 2 sons in a RV locally; she reports independence w/ basic ADLS, including dressing , g/h, self-feeding, toileting and bathing. RV is equipped w / shower seat, HSH, and a grab bar, and slightly taller toilet seat. 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 She is able to manage earrings and tying of shoe laces w/ increased time. She has recently started doing laundry w/ her kids' help and does some meal prep (~20 minutes). Typical day = is comprised of getting up and eating muffin/cereal for breakfast; doing PT exercises then laying down again; 12:30/ 1:00 having lunch; then sitting outside for 45 min to an hour; has a snack and then lays back down again. She then takes a shower and eats dinner prepared by her when he gets home from work; she goes to bed at 8:30/9:00 p .m. She does not use a computer but watches programs on her personal cell phone. QuickDASH UE Outcome Measure Score = 72.73. Flaca denies hand/UE pain/discomfort and/or numbness. Indication of 5 out of 10 on Pain Assessment Grid relative to R lateral trunk/ ribs and lower back. Midline shift to the left w/ bringing arms to midline infront of body and bringing arms to midline above head. B AROM WNL ; able to oppose thumbs bilaterally to each digit. Increased time to execute opposition w/ eyes closed w/ left hand. Decreased fluidity/ smoothness w/ nose <-> finger test and increased time needed to execute L > R; increased errors nose <-> finger L UE w/ eyes closed. Decreased speed and efficiency w/ execution of 9-HPT bilaterally compared to same-aged female peers; marked reduction in speed of reduction with the L hand (> 8 SD below the mean). Adequate separation of the 2 sides of the hand w/ multiple sized coins placed in palm; inconsistent w/ translation of coin along 2nd digit to pad w / thumb coordination; increased time spent. 40.0# of force w/ L nursing coordinator dynamometer II strength test (> 1 SD below the mean compared to same- aged female peers); 50.0# of force w/ R nursing coordinator dynamometer II strength test (> 1 SD below the mean compared to same-aged female peers); 14.0# of force R lateral srivastava pinch (> 1 SD below the mean compared to same-aged female peers); 8.0# of force L lateral srivastava pinch ( 3 SD below the mean compared to same-aged female peers); 8. 5# of force R tip pinch (> 1 SD below the mean compared to same-aged female peers); 5.0# of force L tip pinch (> 2 SD below the mean compared to same-aged female peers); 7.0# of force R 3-jaw pinch (> 3 SD below the mean compared to same-aged female peers); 8.0# of force L 3-jaw pinch (> 2 SD below the mean compared to same-aged female peers). Flaca would likely benefit from outpatient OT secondary to increased reliance on R UE, impaired orientation to midline relative to UEs, decreased kinesthetic awareness of L UE in space, decreased motor coordination of the L hand, and decreased activity tolerance, to support her ability to engage in meaningful activities with active incorporation of the L UE in a variety of environments. Home Exercise Program 03/07/23 = instructed in coin manipulation to support translation/separation of the 2 sides of the hand. Plan Length of treatment (weeks) 12 Plan of Care Start Date 03/06/23 Plan of Care End Date 05/29/23 Treatment Frequency Once a Week Therapeutic Contents Active Range of Motion, Adaptive Equipment Education, Client Education,Cognitive Skills Development,Functional Activities,Home Exercise Program,Joint Protection, Manual Therapy,Education, Neurodevelopment Treatment, Neuromuscular Re-Education, Self-Care,Stretching/ Flexibility Activities, Therapeutic Activities, Therapeutic Exercises,Sensory Re-education Additional Types of Modalities Heat/Ice Functional Wrist/Hand Scan Hand Side Sensory Assessment Sensory Profile2 OT Outpatient Treatment Note - Adult Start: 03/06/23 16:37 Freq: Status: Active Protocol: Document 05/31/23 08:50 AMS (Rec: 05/31/23 08:52 [facility] [id number]) OT Outpatient Adult Treatment Note Visit Information Visit Number 6/12 Plan of Care Dates 03/06/23 ? 05/29/23 Insurance Information [employer]; Max 12 OT visits including eval Setting Treatment Setting Outpatient Care Visit Type Note Type Discharge Summary - Subjective Observations Flaca has not been seen since 04/24/23 in the outpatient setting by OT and POC 05/29/23; thus, recommend d/c from outpatient OT at this time and therapist to re- evaluate as deemed appropriate by PCP with new referral. - Objective Objective Measurements Please refer to below for progress towards meeting established OT goals: Test Administrator Goals ALL GOALS D/C 05/31/23 1. Flaca will be modified independent with execution of her home exercise program utilizing provided written and visual instructions from therapist. 2. Flaca will present with improved functional abilities of the left hand; this will be evidenced by the followina. Flaca will be able to complete the 9-hole peg test with the left hand under 35.0 seconds compared to initial completion in 46.7 seconds. = completed in 47.0 seconds 2b. Flaca will obtain a QuickDASH UE Outcome Measure Score less than 50.0. - - Assessment Assessment of Improvement Flaca has not been seen since 04/24/23 in the outpatient setting by OT and POC 05/29/23; thus, recommend d/c from outpatient OT at this time and therapist to re- evaluate as deemed appropriate by PCP with new referral. - Plan Therapy Recommendations Discharge from Occupational Therapy
== END 2023-05-31 14:55 | disposition home or self-care (01) ==
LOC: OT 09:45
PROVIDERS: Family Provider Nurse Practitioner Family; PCP Nurse Practitioner Family; Referring Provider Nurse Practitioner; Visit Provider Nurse Practitioner
DX: C71.6 Malignant neoplasm of cerebellum (principal); R53.1 Weakness; R27.8 Other lack of coordination
CPT/HCPCS: 97110; 97165; 97530

== ENCOUNTER → 2023-05-18 18:40 | Outpatient (CLI) | payer OTHER, MEDICAID, SELFPAY ==
[2022-12-11 05:22] VITALS: BMI 26.9
--- NOTE | 2023-05-18 | DI.MRI.S_ITS ---
PROCEDURE: MR HEAD/BRAIN WO/W CON INDICATIONS: MEDULLOBLASTOMA TECHNIQUE: Noncontrast axial T1 spin echo, axial T2 fast spin echo, sagittal and axial FLAIR, coronal T2 fast spin echo, axial gradient echo, axial diffusion and ADC through the brain. After the administration of contrast, axial and coronal and sagittal 3D VIBE or T1 spin echo with fat saturation through the brain. COMPARISON: [facility], CT, CT HEAD/BRAIN WO CON, 03/13/2021, 16:15. [facility], MR, MR HEAD/BRAIN WO/W CON, 07/13/2022, 10:12. CT, CT ANGIO HEAD AND NECK, 07/12/2022, 21:27. CT, CT HEAD/BRAIN WO CON, 07/12/2022, 18:00. CT, CT HEAD/BRAIN WO CON, 06/20/2022, 9:59. [facility], MR, MR HEAD/BRAIN WO/W CON, 04/25/2022, 13:17. [facility], CT, CT ANGIO HEAD AND NECK, 02/21/2022, 19:27. [facility], MR, MR BRAIN WITH/WITHOUT CONTRAST, 01/18/2022, 17:28. CT, CT HEAD/BRAIN WO CON, 11/07/2021, 12:00. [facility], MR, MR HEAD/BRAIN WO/W CON, 10/17/2021, 10:26. Outside Film, NM, PET NECK TO MID THIGH, 03/22/2021, 15:00. Outside Film, MR, MR BRAIN WITH/WITHOUT CONTRAST, 03/19/2021, 1:40. [facility], , MR HEAD/BRAIN WO/W CON, 01/11/2023, 13:15. FINDINGS: Image quality: Excellent. CSF Spaces: Basal cisterns are patent. No extra-axial fluid collections. Ventricles are normal in size and shape. Right frontal ventriculostomy tract is again noted. Brain: No midline shift. No intracranial masses. Left cerebellar resection cavity is present with encephalomalacia. No new areas of abnormal signal or enhancement are identified. Overall appearance is stable compared to prior exam. No abnormal intracranial enhancement. The brainstem appears normal. Diffusion-weighted images demonstrate no acute ischemic insults. No chronic ischemic insults. Normal intravascular flow voids are present. Skull and face: Calvarial marrow is normal in signal. Orbits appear normal. Sinuses: Sinuses and mastoids appear clear. IMPRESSION: Left cerebellar resection cavity, stable in appearance. No evidence of recurrent or residual disease. Dictated by: Cyndee Garibay M.D. on 05/21/2023 at 12:33 Approved by: Cyndee Garibay M.D. on 05/21/2023 at 12:37
== END ==
PROVIDERS: Family Provider Nurse Practitioner Family; PCP Nurse Practitioner Family; Referring Provider Nurse Practitioner; Visit Provider Nurse Practitioner
DX: C71.6 Malignant neoplasm of cerebellum (principal); G93.89 Other specified disorders of brain
CPT/HCPCS: 70553; A9579

== ENCOUNTER 2023-08-11 17:09 | Emergency (ER) | payer OTHER, MEDICAID, SELFPAY ==
[2022-12-11 05:22] VITALS: BMI 26.9
[2023-08-11 17:26] VITALS: BP 138/78; PULSE 95; RESP 17; TEMP 36.6; O2SAT 100; BMI 24.7
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
== END 2023-08-11 18:44 | disposition home or self-care (01) ==
PROVIDERS: Emergency Provider Physician Assistant Medical; Family Provider Nurse Practitioner Family; PCP Nurse Practitioner Family
DX: S13.4XXA Sprain of ligaments of cervical spine, initial encounter (principal); V89.2XXA Person injured in unspecified motor-vehicle accident, traffic, initial encounter; Y93.89 Activity, other specified
CPT/HCPCS: 72100; 99281; 99283

== ENCOUNTER → 2023-10-16 16:05 | Outpatient (CLI) | payer OTHER, MEDICAID, SELFPAY ==
[2022-12-11 05:22] VITALS: BMI 26.9
--- NOTE | 2023-10-16 16:06 | DI.MRI.S_ITS ---
PROCEDURE: MR HEAD/BRAIN WO/W CON INDICATIONS: Medulloblastoma TECHNIQUE: Noncontrast axial T1 spin echo, axial T2 fast spin echo, sagittal and axial FLAIR, coronal T2 fast spin echo, axial gradient echo, axial diffusion and ADC through the brain. After the administration of contrast, axial and coronal and sagittal 3D VIBE or T1 spin echo with fat saturation through the brain. COMPARISON: [facility], MR, MR HEAD/BRAIN WO/W CON, 05/18/2023, 18:57. [facility], MR, MR HEAD/BRAIN WO/W CON, 01/11/2023, 13:15. [facility], MR, MR HEAD/BRAIN WO/W CON, 07/13/2022, 10:12. FINDINGS: Image quality: Excellent. CSF Spaces: Basal cisterns are patent. No extra-axial fluid collections. Ventricles are normal in size and shape. A prior ventriculostomy tract can be seen involving the right frontal region. Brain: Resection change can be seen involving the left cerebellum. There is volume loss and encephalomalacia. No abnormal enhancement can be seen along the margins of the resection cavity. No new masses or areas of abnormal enhancement can be seen. No midline shift. No intracranial bleeds. The brainstem appears normal. Diffusion-weighted images demonstrate no acute infarct. No chronic ischemic insults. Normal intravascular flow voids are present. Skull and face: Left posterior inferior craniotomy change is seen. Calvarial marrow is normal in signal. Orbits appear normal. Sinuses: Sinuses and mastoids appear clear. IMPRESSION: Stable left cerebellar resection cavity, without local recurrence. No new masses are seen. Dictated by: Rex Butts M.D. on 10/16/2023 at 16:50 Approved by: Rex Butts M.D. on 10/16/2023 at 16:52
== END ==
PROVIDERS: Family Provider Nurse Practitioner Family; PCP Nurse Practitioner Family; Referring Provider Psychiatry & Neurology Neurology; Visit Provider Psychiatry & Neurology Neurology
DX: C71.6 Malignant neoplasm of cerebellum (principal)
CPT/HCPCS: 70553; A9579

== ENCOUNTER 2024-02-18 12:34 | Emergency (ER) | payer OTHER, MEDICAID, SELFPAY ==
[2022-12-11 05:22] VITALS: BMI 26.9
[2024-02-18] VITALS (18 sets, daily range): BP systolic 98–150; BP diastolic 53–73; PULSE 69–95; RESP 12–20; TEMP 37; O2SAT 98–100; BMI 24.5
--- NOTE | 2024-02-18 12:44 | DI.RAD.S_ITS ---
PROCEDURE: XR CHEST 1V INDICATIONS: chest pain TECHNIQUE: One view of the chest was acquired. COMPARISON: [facility], CR, XR CHEST 1V, 12/10/2022, 22:51. FINDINGS: Surgical changes and devices: Lower thoracic vertebral augmentation with cement is partially evaluated. Lungs and pleura: Lungs are clear. No pleural effusions or pneumothorax. Mediastinum: Mediastinal contours appear normal. Heart size is normal. Bones and chest wall: No suspicious bony lesions. Overlying soft tissues appear unremarkable. IMPRESSION: No acute cardiopulmonary abnormality is seen. Approved by: Adina Lewis M.D.,Ph.D. on 02/18/2024 at 12:21
[2024-02-18 12:55] LABS: Red Cell Distribution Width 12.8 % (11.6-14.8)
[2024-02-18 13:04] LABS: PTT Partial Thromboplastin Tim 23 SECONDS (25.1-36.5)
[2024-02-18 13:07] LABS: Estimated Glomerular Filt Rate > 60 mL/min (>60)
[2024-02-18 13:19] LABS: Troponin I < 0.012 ng/mL (0.01-0.034)
[2024-02-18] MEDS: ASPIRIN 81 MG CHEW TAB 324 MG PO (14:27)
[2024-02-18 14:29] LABS: Hematocrit 39.2 % (36-46); Hemoglobin 13.2 g/dL (12.0-16.0); Mean Corpuscular HGB Conc 33.6 % (30-36); Mean Corpuscular Hemoglobin 30.4 PG (26-34); Mean Corpuscular Volume 90.4 fL (80-100); Platelet Count 302 X10^3/uL (150-400); Red Blood Cell Count 4.34 X10^6/uL (4.0-5.2)
[2024-02-18 14:30] LABS: Lymphocytes Percent Auto 16.8 % (25-40); Monocytes Percent Auto 6.5 % (3-14); Neutrophils Percent Auto 74.2 % (50-75)
[2024-02-18 14:31] LABS: Add Manual Diff / Slide Review NO; Lymphocytes Absolute Auto 700 /uL (1100-4500); Neutrophils Absolute Auto 3000 /uL (1500-7000)
--- NOTE | 2024-02-18 14:31 | PC.NURSE ---
Pt describes chest pain as constant, throbbing, sharp that radiates from left shoulder to left chest and across to her right chest and into LEFT neck. Denies any recent trauma. Pt has hx of blood clots after a surgery. Call light within reach and encouraged to use call light for any needs or changes in symptoms.
[2024-02-18 14:32] LABS: Basophils Absolute Auto 0 /uL (0-100); Eosinophils Absolute Auto 100 /uL (0-450); Monocytes Absolute Auto 300 /uL (0-900)
[2024-02-18 14:34] LABS: HEMOLYSIS 15 (0-50); INR 0.9 (0.9-1.3); Prothrombin Time 10.8 SECONDS (9.4-12.5)
[2024-02-18 14:37] LABS: BUN Creatinine Ratio 17.4 (6-22); Blood Urea Nitrogen 12 mg/dL (7-17); Carbon Dioxide 31 mmol/L (22-32); Chloride 106 mmol/L (98-107); Creatine Kinase 60 U/L (30-135); Glucose 95 mg/dL (70-100); Potassium 3.9 mmol/L (3.4-5.1); Sodium 141 mmol/L (137-145)
[2024-02-18 14:38] LABS: Alanine Aminotransferase 11 IU/L (<35); Albumin 4.1 g/dL (3.5-5.0); Albumin Globulin Ratio 1.6 (1.0-2.8); Alkaline Phosphatase 74 U/L (38-126); Aspartate Aminotransferase 20 IU/L (14-36); Bilirubin Total 0.6 mg/dL (0.2-1.3); Calcium 8.9 mg/dL (8.4-10.2); Globulin 2.5 g/dL (1.7-4.1); Lipase 103 U/L (23-300); Magnesium 2.1 mg/dL (1.6-2.3); Total Protein 6.6 g/dL (6.3-8.2)
--- NOTE | 2024-02-18 14:54 | ED.CHESTPAIN ---
HPI - Chest Pain General Chief Complaint: Chest Pain Stated Complaint: chest pain, unable to lift left arm Time Seen by Provider: 02/18/24 14:54 Source: patient Mode of arrival: Ambulatory Limitations: no limitations History of Present Illness HPI narrative: 53-year-old female with history of previous brain cancer surgery, also has history of blood clot but it was after low back surgery 3 or 4 years ago, treated with anticoagulation that was later discontinued. She now has had 2 days duration of left-sided scapular area discomfort, increased through the day today, worse with inspiration, worse with arm movements, concerned she might have a blood clot. She is completed her cancer treatment therapies, surgeries, proton therapy, and is undergoing surveillance MRI brain studies every 6 months. No swelling to the arm. Denies neck pain, is able to move her neck well. No numbness or tingling of the left arm. Related Data Home Medications Medication Instructions Recorded Confirmed mecobalamin (vitamin B12) 1,000 1,000 mcg PO DAILY 12/11/22 12/11/22 mcg disintegrating tablet,sublingual nitrofurantoin macrocrystal 50 mg 50 mg PO DAILY 12/11/22 12/11/22 capsule Previous Rx's Medication Instructions Recorded folic acid 1 mg tablet 1 mg PO DAILY #30 tabs 08/02/22 multivitamin with folic acid 400 1 tab PO DAILY #30 tabs 08/02/22 mcg tablet (Tab-A-Nidhi) oxycodone 5 mg tablet 5 mg PO Q4HR PRN Pain, Moderate 08/02/22 (4-6) #20 tabs methocarbamol 500 mg tablet 500 mg PO TID rhomboid muscle 02/18/24 strain 7 days #21 tabs naproxen 500 mg tablet 500 mg PO BID 7 days #14 tabs 02/18/24 Allergies Allergy/AdvReac Type Severity Reaction Status Date / Time codeine AdvReac Mild Nausea Verified 02/18/24 15:00 Patient History Medical History No chronic problems Pulmonary embolism Surgical History History of lumbar surgery Status post cholecystectomy Status post appendectomy S/P T&A (status post tonsillectomy and adenoidectomy) Status post tubal ligation Social History household members: spouse and children Smoking Status: Never smoker alcohol intake: former Smoking Status: Never smoker tobacco type: vaping alcohol intake frequency: other Substance Use Type: marijuana Exam Narrative Exam Narrative: GENERAL: Well-developed patient, in mild distress. HEAD: Atraumatic. Normocephalic. EYES: Pupils equal round and reactive. Extraocular motions intact. No scleral icterus. No injection or drainage. ENT: Nose without bleeding, purulent drainage. Throat without erythema, tonsillar hypertrophy or exudate. Airway patent. NECK: Trachea midline. Non tender CARDIOVASCULAR: Regular rate and rhythm without murmurs, gallops, or rubs. RESPIRATORY: Clear to auscultation. Breath sounds equal bilaterally. No wheezes, rales, or rhonchi. Left superior anterior chest wall discomfort GASTROINTESTINAL: Abdomen soft, non-tender, nondistended. EXTREMITIES: No edema or joint tenderness. Some tenderness along the left superior trapezius, some tenderness also along the left superior rhomboid, not over the scapula per se. No skin changes, no rash or vesicles. No redness erythema or warmth to the skin. BACK: Nontender without deformity or crepitance. No flank tenderness. NEURO: AOx3. SKIN: No rash or erythema of visible areas Initial Vital Signs Initial Vital Signs: Vital Signs Temperature 98.6 F 02/18/24 12:37 Pulse Rate 95 H 02/18/24 12:37 Respiratory Rate 18 02/18/24 12:37 Blood Pressure 150/70 H 02/18/24 12:37 Pulse Oximetry 100 02/18/24 12:37 Oxygen Delivery Method Room Air 02/18/24 12:37 Course Orders Ordered: ED Orders 02/18/24 12:40 Complete Blood Count AUTO DIFF Stat Comprehensive Metabolic Panel Stat Lipase Stat Magnesium Stat PTT Partial Thromboplastin Everardo Stat Prothrombin Time INR Stat Troponin & CK Cardiac Panel Stat 02/18/24 12:44 XR chest 1V Stat EKG-12 Lead Stat 02/18/24 16:10 CBC Auto Diff [Complete Blood Count AUTO DIFF] Stat CMP [Comprehensive Metabolic Panel] Stat Lipase Stat MAG [Magnesium] Stat PTT Partial Thromboplastin Everardo Stat Trop I [Troponin I] Stat Discontinued Medications Aspirin (Aspirin 81 Mg Chew Tab) 324 mg PO NOW ONE Stop: 02/18/24 12:45 Last Admin: 02/18/24 14:27 Dose: 324 mg Documented By: MAGGY Diazepam (Diazepam 10 Mg/2 Ml Syringe) 5 mg IV NOW ONE Stop: 02/18/24 16:03 Last Admin: 02/18/24 16:22 Dose: 5 mg Documented By: MAGGY Morphine Sulfate (Morphine 4 Mg/Ml Inj) 4 mg IV NOW ONE Stop: 02/18/24 15:02 Last Admin: 02/18/24 15:21 Dose: 4 mg Documented By: MAGGY Ondansetron HCl (Ondansetron 4 Mg/2 Ml Inj) 4 mg IV NOW ONE Stop: 02/18/24 15:01 Last Admin: 02/18/24 15:21 Dose: 4 mg Documented By: MAGGY Vital Signs Vital signs: Vital Signs - 8 hr 02/18/24 12:37 02/18/24 14:23 02/18/24 14:25 Temperature 98.6 F Pulse Rate 95 H 90 84 Respiratory Rate 18 17 Blood Pressure 150/70 H Pulse Oximetry 100 100 Oxygen Delivery Method Room Air 02/18/24 14:25 02/18/24 14:30 02/18/24 14:30 Temperature Pulse Rate 85 Respiratory Rate 14 Blood Pressure 107/71 114/73 Pulse Oximetry 100 Oxygen Delivery Method 02/18/24 15:00 02/18/24 15:00 02/18/24 15:30 Temperature Pulse Rate 79 75 Respiratory Rate 12 12 Blood Pressure 115/66 Pulse Oximetry 100 99 Oxygen Delivery Method Room Air 02/18/24 16:14 02/18/24 16:24 02/18/24 16:24 Temperature Pulse Rate 72 Respiratory Rate 13 14 Blood Pressure 98/55 L 102/59 L Pulse Oximetry 100 Oxygen Delivery Method Room Air 02/18/24 16:26 02/18/24 16:26 02/18/24 16:30 Temperature Pulse Rate 78 76 Respiratory Rate Blood Pressure 105/59 L Pulse Oximetry 99 98 Oxygen Delivery Method 02/18/24 16:30 02/18/24 16:45 02/18/24 16:45 Temperature Pulse Rate 71 Respiratory Rate Blood Pressure 104/62 102/62 Pulse Oximetry 99 Oxygen Delivery Method Room Air 02/18/24 17:00 02/18/24 17:02 02/18/24 17:15 Temperature Pulse Rate 89 70 Respiratory Rate 12 Blood Pressure 110/53 L Pulse Oximetry 98 100 Oxygen Delivery Method 02/18/24 17:15 02/18/24 17:30 02/18/24 17:30 Temperature Pulse Rate 73 Respiratory Rate Blood Pressure 109/55 L 115/65 Pulse Oximetry 100 Oxygen Delivery Method 02/18/24 17:45 02/18/24 17:45 02/18/24 18:00 Temperature Pulse Rate 70 69 Respiratory Rate 14 Blood Pressure 104/64 Pulse Oximetry 100 100 Oxygen Delivery Method Room Air 02/18/24 18:00 02/18/24 18:15 02/18/24 18:15 Temperature Pulse Rate 71 Respiratory Rate 20 Blood Pressure 113/63 109/67 Pulse Oximetry 100 Oxygen Delivery Method Room Air MDM - Chest Pain Lab Data Attestation: I reviewed the patient's lab results. 02/18/24 16:10 02/18/24 16:10 Labs: Lab Results 02/18/24 02/18/24 Range/Units 12:40 16:10 WBC 4.0 L 4.0 L (4.5-11.0) X10^3/uL RBC 4.34 3.99 L (4.0-5.2) X10^6/uL Hgb 13.2 12.2 (12.0-16.0) g/dL Hct 39.2 36.2 (36-46) % MCV 90.4 90.6 (80-100) fL MCH 30.4 30.7 (26-34) PG MCHC 33.6 33.8 (30-36) % RDW 12.8 12.6 (11.6-14.8) % Plt Count 302 289 (150-400) X10^3/uL Neut % (Auto) 74.2 68.4 (50-75) % Lymph % (Auto) 16.8 L 20.7 L (25-40) % [place] % (Auto) 6.5 8.2 (3-14) % Eos % (Auto) 2.0 2.1 (2-4) % Baso % (Auto) 0.0 0.6 (0-2) % Neut # (Auto) 3000 2700 (3141-3716) /uL Lymph # (Auto) 700 L 800 L (5979-0557) /uL [place] # (Auto) 300 300 (0-900) /uL Eos # (Auto) 100 100 (0-450) /uL Baso # (Auto) 0 0 (0-100) /uL PT 10.8 (9.4-12.5) SECONDS INR 0.9 (0.9-1.3) APTT 23 L 32 D (25.1-36.5) SECONDS Sodium 141 138 (137-145) mmol/L Potassium 3.9 4.2 (3.4-5.1) mmol/L Chloride 106 107 (98-107) mmol/L Carbon Dioxide 31 32 (22-32) mmol/L BUN 12 14 (7-17) mg/dL Creatinine 0.69 0.62 (0.52-1.04) mg/dL Estimated GFR > 60 > 60 (>60) mL/min BUN/Creatinine Ratio 17.4 22.6 H (6-22) Glucose 95 93 (70-100) mg/dL Calcium 8.9 8.2 L (8.4-10.2) mg/dL Magnesium 2.1 2.1 (1.6-2.3) mg/dL Total Bilirubin 0.6 0.4 (0.2-1.3) mg/dL AST 20 19 (14-36) IU/L ALT 11 9 (<35) IU/L Alkaline Phosphatase 74 67 (38-126) U/L Total Creatine Kinase 60 (30-135) U/L Troponin I < 0.012 < 0.012 (0.01-0.034) ng/mL Total Protein 6.6 6.0 L (6.3-8.2) g/dL Albumin 4.1 3.6 (3.5-5.0) g/dL Globulin 2.5 2.4 (1.7-4.1) g/dL Albumin/Globulin Ratio 1.6 1.5 (1.0-2.8) Lipase 103 266 D (23-300) U/L Imaging Data Chest x-ray: Radiologist's Impression: [address] [address] XRay Report Signed Patient: Flaca Gonzalez MR#: [id number] : 1970 Acct:[id number] Age/Sex: 53 / F Date of Service: 02/18/24 Loc: ED Accession Number: [id number] Procedure: XR chest 1V Ordering Provider: Florentino Hoyos MD PROCEDURE: XR CHEST 1V INDICATIONS: chest pain TECHNIQUE: One view of the chest was acquired. COMPARISON: [facility], CR, XR CHEST 1V, 12/10/2022, 22:51. FINDINGS: Surgical changes and devices: Lower thoracic vertebral augmentation with cement is partially evaluated. Lungs and pleura: Lungs are clear. No pleural effusions or pneumothorax. Mediastinum: Mediastinal contours appear normal. Heart size is normal. Bones and chest wall: No suspicious bony lesions. Overlying soft tissues appear unremarkable. IMPRESSION: No acute cardiopulmonary abnormality is seen. Approved by: Adina Lewis M.D.,Ph.D. on 02/18/2024 at 12:21 ECG Data Attestation: I personally reviewed and interpreted this ECG as follows: Interpretation: Normal sinus rhythm with rate of 87, no obvious ST segment elevation or depression symptoms. Normal CT, QRS, QTC intervals. MDM Narrative Medical decision making narrative: 53-year-old with history of brain cancer, prior remote PE in context of postop lumbar surgery 3 years ago, off anticoagulation, has 2 days' duration of left upper anterior chest discomfort, and scapular discomfort, worse with left upper extremity movements, worse with deep breathing. Consider PE but exam consistent with muscular cause. IV Valium muscle relaxant trial. Labs were sent to check creatinine case CT angiogram chest was considered, apparently there was a mixup in lab with her/other patient tubes, redraw is pending. We will hold on ordering CT angiogram of the chest for now, pending interval response to muscle relaxant. Reassess symptoms while awaiting lab results. Patient had significant response to IV Valium muscle relaxant, declined CT angiogram of the chest. Home trial of anti-inflammatory pain medication, also Robaxin muscle relaxant. Patient agreeable to this plan. Return precautions discussed. Improved, stable discharged home Discharge Plan Departure Patient Disposition: Home Clinical Impression: Muscle strain, Pectoralis muscle strain, Rhomboid muscle strain, Strain of left trapezius muscle Activity Restrictions/Additional Instructions: Left upper chest and shoulder blade area discomfort, worse with movement, tenderness to musculature superior pectoralis muscle of the chest, also along the superior trapezius muscle on the left, also along the rhomboid muscles around the shoulder blade. Exam seems most consistent with muscular cause discomfort. We did discuss CT angiogram testing to rule out pulmonary embolus, as he had had a pulmonary embolus in the past, we are waiting on repeat lab test but you felt significantly improved with muscle relaxant and anti-inflammatory pain medication. We held doing the CT angiogram study for now. Consider continued use of muscle relaxant with Robaxin, prescription sent to your pharmacy. Consider further anti-inflammatory pain medications with use of naproxen, prescription sent to your pharmacy. Consider recheck if symptoms with your regular doctor in the next couple of days. Return to this/nearest emergency department for any change worsening symptoms or any concerns prior Prescriptions: New naproxen 500 mg tablet 500 mg PO BID 7 Days Qty: 14 0RF methocarbamol 500 mg tablet 500 mg PO TID 7 Days Qty: 21 0RF No Action nitrofurantoin macrocrystal 50 mg capsule 50 mg PO DAILY Patient Comments: TAKE ONE CAPSULE BY MOUTH ONE TIME DAILY FOR UTI PROPHYLAXIS mecobalamin (vitamin B12) 1,000 mcg Tablet,Disintegrating 1,000 mcg PO DAILY folic acid 1 mg Tablet 1 mg PO DAILY Qty: 30 0RF multivitamin with folic acid [Tab-A-Nidhi] 400 mcg Tablet 1 tab PO DAILY Qty: 30 0RF oxycodone 5 mg Tablet 5 mg PO Q4HR PRN (Reason: Pain, Moderate (4-6)) Qty: 20 0RF Referrals: Kayleen Mathur FNP-BC [Primary Care Provider] - Stand Alone Forms: Patient Portal/API
--- NOTE | 2024-02-18 15:19 | PC.NURSE ---
LEFT 20 G IV burning during push of IV Zofran. Stopped push of medication. IV removed. Notified pharmacy, charge and provider. IV site has 4x4 with coban, heat from blanket and elevation. Per pharmacy no acute concerns with infiltration.
[2024-02-18] MEDS: ONDANSETRON 4 MG/2 ML INJ IV (15:21)
[2024-02-18] MEDS: MORPHINE 4 MG/ML INJ IV (15:21)
[2024-02-18] MEDS: diazePAM 10 MG/2 ML SYRINGE 5 MG IV (16:22)
[2024-02-18 16:26] LABS: Add Manual Diff / Slide Review NO; Basophils Absolute Auto 0 /uL (0-100); Basophils Percent Auto 0.6 % (0-2); Eosinophils Absolute Auto 100 /uL (0-450); Eosinophils Percent Auto 2.1 % (2-4); Hematocrit 36.2 % (36-46); Hemoglobin 12.2 g/dL (12.0-16.0); Lymphocytes Absolute Auto 800 /uL (1100-4500); Lymphocytes Percent Auto 20.7 % (25-40); Mean Corpuscular HGB Conc 33.8 % (30-36); Mean Corpuscular Hemoglobin 30.7 PG (26-34); Mean Corpuscular Volume 90.6 fL (80-100); Monocytes Absolute Auto 300 /uL (0-900); Monocytes Percent Auto 8.2 % (3-14); Neutrophils Absolute Auto 2700 /uL (1500-7000); Neutrophils Percent Auto 68.4 % (50-75); Platelet Count 289 X10^3/uL (150-400); Red Blood Cell Count 3.99 X10^6/uL (4.0-5.2); Red Cell Distribution Width 12.6 % (11.6-14.8)
[2024-02-18 16:39] LABS: PTT Partial Thromboplastin Tim 32 SECONDS (25.1-36.5)
[2024-02-18 16:40] LABS: Lipase 266 U/L (23-300); Magnesium 2.1 mg/dL (1.6-2.3)
[2024-02-18 16:41] LABS: Alanine Aminotransferase 9 IU/L (<35); Albumin 3.6 g/dL (3.5-5.0); Albumin Globulin Ratio 1.5 (1.0-2.8); Alkaline Phosphatase 67 U/L (38-126); Aspartate Aminotransferase 19 IU/L (14-36); BUN Creatinine Ratio 22.6 (6-22); Bilirubin Total 0.4 mg/dL (0.2-1.3); Blood Urea Nitrogen 14 mg/dL (7-17); Calcium 8.2 mg/dL (8.4-10.2); Carbon Dioxide 32 mmol/L (22-32); Chloride 107 mmol/L (98-107); Estimated Glomerular Filt Rate > 60 mL/min (>60); Globulin 2.4 g/dL (1.7-4.1); Glucose 93 mg/dL (70-100); HEMOLYSIS 29 (0-50); Potassium 4.2 mmol/L (3.4-5.1); Sodium 138 mmol/L (137-145)
[2024-02-18 16:52] LABS: Troponin I < 0.012 ng/mL (0.01-0.034)
== END 2024-02-18 18:30 | disposition home or self-care (01) ==
PROVIDERS: Emergency Provider Emergency Medicine; Family Provider Nurse Practitioner Family; PCP Nurse Practitioner Family
DX: S46.812A Strain of other muscles, fascia and tendons at shoulder and upper arm level, left arm, initial encounter (principal); S29.011A Strain of muscle and tendon of front wall of thorax, initial encounter; X58.XXXA Exposure to other specified factors, initial encounter
CPT/HCPCS: 36415; 71045; 80053; 82550; 83690; 83735; 84484; 85025; 85610; 85730; 93005; 96374; 96375; 99284; J2270; J2405; J3360

== ENCOUNTER → 2024-02-28 08:56 | Outpatient (CLI) | payer OTHER, MEDICAID, SELFPAY ==
[2022-12-11 05:22] VITALS: BMI 26.9
--- NOTE | 2024-02-28 08:57 | DI.MRI.S_ITS ---
PROCEDURE: MR HEAD/BRAIN WO/W CON INDICATIONS: MEDULLOBLASTOMA TECHNIQUE: Noncontrast axial T1 spin echo, axial T2 fast spin echo, sagittal and axial FLAIR, coronal T2 fast spin echo, axial gradient echo, axial diffusion and ADC through the brain. After the administration of contrast, axial and coronal and sagittal 3D VIBE or T1 spin echo with fat saturation through the brain. COMPARISON: [facility], MR, MR HEAD/BRAIN WO/W CON, 10/16/2023, 16:20. [facility], MR, MR HEAD/BRAIN WO/W CON, 01/11/2023, 13:15. [facility], MR, MR HEAD/BRAIN WO/W CON, 05/18/2023, 18:57. FINDINGS: Image quality: Excellent. CSF Spaces: Basal cisterns are patent. No extra-axial fluid collections. Ventricles are normal in size and shape. Brain: Postoperative change can be seen involving the left cerebellum, with a resection cavity, with surrounding gliotic change. Along the margins of the resection cavity, no abnormal enhancement can be seen. No new masses are seen elsewhere. No midline shift. The brainstem appears normal. Diffusion-weighted images demonstrate no acute infarct. No chronic ischemic insults. Normal intravascular flow voids are present. Skull and face: Left posterior craniotomy change is seen. Calvarial marrow is normal in signal. Orbits appear normal. Sinuses: Sinuses and mastoids appear clear. IMPRESSION: Normal, stable resection cavity involving the left cerebellum, without findings of recurrent tumor. No masses or abnormal enhancement can be seen elsewhere. Dictated by: Rex Butts M.D. on 02/28/2024 at 10:59 Approved by: Rex Butts M.D. on 02/28/2024 at 11:00
== END ==
LOC: MRI 08:57
PROVIDERS: Family Provider Nurse Practitioner Family; PCP Nurse Practitioner Family; Referring Provider Nurse Practitioner; Visit Provider Nurse Practitioner
DX: C71.6 Malignant neoplasm of cerebellum (principal)
CPT/HCPCS: 70553; A9579

== ENCOUNTER → 2024-05-02 11:26 | Outpatient (CLI) | payer OTHER, MEDICAID, SELFPAY ==
[2022-12-11 05:22] VITALS: BMI 26.9
== END ==
PROVIDERS: Family Provider Nurse Practitioner Family; PCP Nurse Practitioner Family; Visit Provider Physician Assistant Surgical
DX: R30.0 Dysuria (principal)
CPT/HCPCS: 81002; 87086

== ENCOUNTER → 2024-06-11 15:47 | Outpatient (CLI) | payer OTHER, MEDICAID, SELFPAY ==
[2022-12-11 05:22] VITALS: BMI 26.9
== END ==
PROVIDERS: Family Provider Nurse Practitioner Family; PCP Nurse Practitioner Family; Referring Provider Nurse Practitioner Family; Visit Provider Nurse Practitioner Family
DX: J02.9 Acute pharyngitis, unspecified (principal)
CPT/HCPCS: 87070

== ENCOUNTER → 2024-07-14 12:17 | Outpatient (CLI) | payer OTHER, MEDICAID, SELFPAY ==
[2022-12-11 05:22] VITALS: BMI 26.9
--- NOTE | 2024-07-14 | DI.MRI.S_ITS ---
PROCEDURE: MR HEAD/BRAIN WO/W CON INDICATIONS: MEDULLOBLASTOMA TECHNIQUE: Noncontrast axial T1 spin echo, axial T2 fast spin echo, sagittal and axial FLAIR, coronal T2 fast spin echo, axial gradient echo, axial diffusion and ADC through the brain. After the administration of contrast, axial and coronal and sagittal 3D VIBE or T1 spin echo with fat saturation through the brain. COMPARISON: [facility], , MR HEAD/BRAIN WO/W CON, 02/28/2024, 9:47. FINDINGS: Image quality: Excellent. CSF Spaces: Basal cisterns are patent. No extra-axial fluid collections. Ventricles are normal in size and shape. Brain: Redemonstration of postsurgical changes involving the left cerebellum with resection cavity with surrounding gliosis. No abnormal enhancement surrounding the resection cavity. Tract from prior right frontal ventriculostomy catheter is noted. No midline shift. No intracranial bleeds or masses. No abnormal intracranial enhancement. The brainstem appears normal. Diffusion-weighted images demonstrate no acute infarct. No chronic ischemic insults. Normal intravascular flow voids are present. Skull and face: Left-sided craniotomy changes. Calvarial marrow is normal in signal. Orbits appear normal. Sinuses: Sinuses and mastoids appear clear. IMPRESSION: Stable resection cavity within the left cerebellum. No findings concerning for recurrent tumor. No abnormal intracranial enhancement. Dictated by: Albert Cruz M.D. on 07/14/2024 at 13:16 Approved by: Albert Cruz M.D. on 07/14/2024 at 13:21
== END ==
PROVIDERS: Family Provider Nurse Practitioner Family; PCP Nurse Practitioner Family; Referring Provider Nurse Practitioner; Visit Provider Nurse Practitioner
DX: C71.6 Malignant neoplasm of cerebellum (principal)
CPT/HCPCS: 70553; A9579

== ENCOUNTER → 2024-08-09 15:46 | Outpatient (CLI) | payer OTHER, MEDICAID, SELFPAY ==
[2022-12-11 05:22] VITALS: BMI 26.9
--- NOTE | 2024-08-09 15:48 | DI.RAD.S_ITS ---
PROCEDURE: XR RIBS RT MIN 3V W CXR 1V INDICATIONS: Right rib pain TECHNIQUE: 2 views of the ribs were acquired, along with a single view chest. COMPARISON: None. FINDINGS: Surgical changes and devices: None. Bones and chest wall: No acute displaced fracture is seen. T12 vertebral augmentations sequela. Lungs and pleura: No dense consolidation or pleural effusions. Mediastinum: Cholecystectomy clips. Normal heart size. IMPRESSION: No acute displaced fracture or dislocation. T12 augmentation sequelae. If there is high concern for occult injury, consider repeat radiography or cross-sectional imaging. Dictated by: Pio Banerjee M.D. on 08/10/2024 at 9:10 Approved by: Pio Banerjee M.D. on 08/10/2024 at 9:11
== END ==
PROVIDERS: Family Provider Nurse Practitioner Family; PCP Nurse Practitioner Family; Referring Provider Nurse Practitioner Family; Visit Provider Nurse Practitioner Family
DX: R07.81 Pleurodynia (principal); Z90.49 Acquired absence of other specified parts of digestive tract
CPT/HCPCS: 71101

== ENCOUNTER → 2024-09-30 14:52 | Outpatient (CLI) | payer OTHER, SELFPAY ==
[2022-12-11 05:22] VITALS: BMI 26.9
--- NOTE | 2024-09-30 14:53 | DI.RAD.S_ITS ---
PROCEDURE: XR KNEE LT 3V INDICATIONS: Left knee pain/injury TECHNIQUE: 3 views of the knee were acquired. COMPARISON: None. FINDINGS: Bones: No fractures or dislocations. No suspicious bony lesions. Soft tissues: No joint effusion. No suspicious soft tissue calcifications. IMPRESSION: No acute bony abnormality or significant effusion. If there are persistent symptoms or clinical suspicion for pathology, then repeat radiographs or advanced imaging (CT or MRI) may be considered for further evaluation. Dictated by: Geovany Toledo M.D. on 09/30/2024 at 15:27 Approved by: Geovany Toledo M.D. on 09/30/2024 at 15:28
== END ==
PROVIDERS: Family Provider Nurse Practitioner Family; PCP Nurse Practitioner Family; Referring Provider Physician Assistant Surgical; Visit Provider Physician Assistant Surgical
DX: S89.92XA Unspecified injury of left lower leg, initial encounter (principal); X58.XXXA Exposure to other specified factors, initial encounter
CPT/HCPCS: 73562

== ENCOUNTER → 2024-11-24 12:37 | Outpatient (CLI) | payer OTHER, SELFPAY ==
[2022-12-11 05:22] VITALS: BMI 26.9
--- NOTE | 2024-11-24 12:38 | DI.MRI.S_ITS ---
PROCEDURE: MR LUMBAR SPINE WO/W CON INDICATIONS: LUMBOSACRAL SPONDYLOSIS TECHNIQUE: Noncontrast sagittal T1 spin echo and T2 fast echo, sagittal STIR, and T2 fast spin echo through the lumbar spine. In cases with scoliosis, additional coronal T2 fast spin echo may be performed. COMPARISON: [facility], CR, XR LUMBAR SPINE 2-3V, 08/11/2023, 18:04. [facility], MR, MR LUMBAR SPINE WO/W CON, 04/23/2023, 11:18. FINDINGS: Image quality: Excellent. Alignment and Curvature: There is normal bony alignment. Bone Marrow: Discectomy and fusion at L5-S1 with both anterior fixation screws and posterior jaclyn and screw instrumentation , stable from the prior. T12 vertebroplasty changes Spinal Cord: Conus medullaris terminates at the L1 level. Visualized cord demonstrates normal signal and size. Paraspinous Soft Tissues: No paravertebral masses. T12-L1: Normal appearance. L1-L2: Normal appearance. L2-L3: Normal appearance. L3-L4: Mild disc bulge and arthropathy. No central stenosis. Mild right and no left foraminal stenosis L4-L5: Disc bulge and arthropathy. Mild central stenosis. Mild bilateral foraminal stenosis. L5-S1: Discectomy and fusion with posterior decompression. No central stenosis. Moderate left and mild right foraminal stenosis IMPRESSION: Multilevel degenerative disc disease and arthropathy results in varying degrees of central and foraminal stenosis including moderate foraminal stenosis L5-S1 Instrumented discectomy and fusion L5-S1 T12 vertebroplasty. Approved by: Miguel Carmichael M.D. on 11/24/2024 at 15:42
== END ==
PROVIDERS: Family Provider Nurse Practitioner Family; PCP Nurse Practitioner Family; Referring Provider Nurse Practitioner Family; Visit Provider Nurse Practitioner Family
DX: M47.27 Other spondylosis with radiculopathy, lumbosacral region (principal); M47.26 Other spondylosis with radiculopathy, lumbar region; M51.16 Intervertebral disc disorders with radiculopathy, lumbar region; M48.07 Spinal stenosis, lumbosacral region; M48.061 Spinal stenosis, lumbar region without neurogenic claudication; S32.009K Unspecified fracture of unspecified lumbar vertebra, subsequent encounter for fracture with nonunion; Z98.1 Arthrodesis status
CPT/HCPCS: 72158; A9579

== ENCOUNTER 2025-02-04 18:02 | Emergency (ER) | payer OTHER, SELFPAY ==
[2022-12-11 05:22] VITALS: BMI 26.9
[2025-02-04] VITALS (11 sets, daily range): BP systolic 117–130; BP diastolic 58–75; PULSE 74–86; RESP 16–26; TEMP 36.9; O2SAT 90–100; BMI 23.3
--- NOTE | 2025-02-04 19:59 | DI.CT.S_ITS ---
PROCEDURE: CT LUMBAR SPINE WO CON INDICATIONS: fall, pain TECHNIQUE: Noncontrast 3 mm thick sections acquired from the T12 level to the sacrum. Sagittal and coronal reformats were constructed. For radiation dose reduction, the following was used: automated exposure control. COMPARISON: [facility], CT, CT LUMBAR SPINE WITHOUT CONTRAST, 06/04/2023, 11:25. FINDINGS: Image quality: Excellent. Bones: Stable appearance of anterior and posterior spinal fixation at L5-S1. There is vertebroplasty at the T12 level. There is acute cortical disruption of the anterior aspect of the S2 vertebral segment. This extends bilaterally in zones 1 2 and 3. No displaced osseous fragment. Stable appearance of multilevel degenerative changes. Soft tissues: No retroperitoneal masses or hematomas. Visualized aorta is normal in caliber. IMPRESSION: 1. There is acute sacral fracture at the S2 level, without displacement. 2. Stable postoperative changes in the L5-S1 region. No acute osseous lesions in the lumbar spine. Dictated by: Leighton Mercedes M.D. on 02/04/2025 at 20:41 Approved by: Leighton Mercedes M.D. on 02/04/2025 at 20:52
[2025-02-04] MEDS: HYDROMORPHONE 0.5 MG INJ IV (20:04)
--- NOTE | 2025-02-04 20:17 | PC.NURSE ---
Pt to imaging via ED stretcher with prosthetic lab technician
--- NOTE | 2025-02-04 20:22 | ED_ITS ---
HPI - Fall General Chief Complaint: Fall Stated Complaint: Slip, trip and fall with low back pain Time Seen by Provider: 02/04/25 20:22 Source: patient and EMS Mode of arrival: EMS History of Present Illness HPI Narrative: 54-year-old female past medical history of lumbar surgery, with chronic low back pain presents by EMS for evaluation of mechanical trip and fall, states that she went out to her car slipped on the gravel fell on her buttock, denies head trauma denies any blood thinners, she states that she is having pain to her low back but denies any cauda equina symptoms, she was given a proximally 100 mcg of fentanyl prior to arrival as well as 4 mg of Zofran by EMS. Related Data Home Medications Medication Instructions Recorded Confirmed mecobalamin (vitamin B12) 1,000 1,000 mcg PO DAILY 12/11/22 09/30/24 mcg disintegrating tablet,sublingual nitrofurantoin macrocrystal 50 mg 50 mg PO DAILY 12/11/22 09/30/24 capsule baclofen 10 mg tablet 10 mg PO 3XD 06/11/24 09/30/24 estradiol 0.01% (0.1 mg/gram) vaginal 06/11/24 09/30/24 vaginal cream estradiol 0.5 mg tablet 0.5 mg PO DAILY 06/11/24 09/30/24 gabapentin 100 mg capsule mg PO 06/11/24 09/30/24 hydroxyzine HCl 25 mg tablet 25 mg PO BID 06/11/24 09/30/24 levetiracetam 500 mg tablet 500 mg PO BID 06/11/24 09/30/24 lidocaine 5 % topical patch 1 patch topical DAILY 06/11/24 09/30/24 naproxen 500 mg tablet 500 mg PO BID 06/11/24 09/30/24 oxycodone 10 mg tablet 10 mg PO 4XD PRN 06/11/24 09/30/24 progesterone micronized 100 mg 100 mg PO ONCE PM 06/11/24 09/30/24 capsule sertraline 100 mg tablet 100 mg PO DAILY 06/11/24 09/30/24 sertraline 50 mg tablet 50 mg PO DAILY 06/11/24 09/30/24 zonisamide 100 mg capsule 200 mg PO BID 06/11/24 09/30/24 Previous Rx's Medication Instructions Recorded folic acid 1 mg tablet 1 mg PO DAILY #30 tabs 08/02/22 multivitamin with folic acid 400 1 tab PO DAILY #30 tabs 08/02/22 mcg tablet (Tab-A-Nidhi) diazepam 5 mg tablet (Valium) 5 mg PO BID PRN muscle spasm 3 02/04/25 days #6 tabs Allergies Allergy/AdvReac Type Severity Reaction Status Date / Time codeine AdvReac Mild Nausea Verified 08/09/24 15:32 Review of Systems Review of Systems Narrative: General: Denies fever, chills, weight loss HEENT: Denies headache, eye drainage, eye irritation, head trauma, sore throat, voice change Cardiovascular: Denies any chest pain, palpitations, tachycardia Respiratory: Denies any shortness of breath, cough, wheeze, stridor GI/: Denies any abdominal pain, nausea, vomiting, diarrhea, bright red blood per rectum, melanotic stools, urinary frequency, urinary retention, dysuria, hematuria MSK: Positive low back pain Skin: Denies any rashes, lesions, discoloration Neuro: Denies any headache, lightheadedness, dizziness, fainting, weakness Psych: Denies SI/HI Patient History Medical History No chronic problems Pulmonary embolism Surgical History History of lumbar surgery Status post cholecystectomy Status post appendectomy S/P T&A (status post tonsillectomy and adenoidectomy) Status post tubal ligation Social History household members: spouse and children Smoking Status: Current every day smoker alcohol intake: former Smoking Status: Current every day smoker tobacco type: vaping alcohol intake frequency: other Exam Narrative Exam Narrative: General: Cooperative, well-developed, not in acute distress HEENT: Normocephalic, atraumatic, PERRLA, normal sclera, eyelids normal Neck: Active full range of motion, atraumatic Chest: Normal to inspection, negative crepitus, no overlying erythema ecchymosis Respiratory: Normal respiratory effort, not in acute respiratory distress, clear to auscultation bilaterally negative cough, wheeze, tachypnea, rhonchi, rales Cardiology: Regular rate rhythm negative gallop, murmur, rubs GI/: No tenderness to palpation, soft, non rigid, normal to inspection, exam deferred MSK: patient able to move bilateral lower extremities neurovascularly intact, there is mild tenderness to palpation of the paraspinal muscles of lumbar region but no gross deformity Skin: No rashes or lesions noted Neuro: Alert awake oriented x3, moves all 4 extremities spontaneously, cranial nerves intact, able to answer all questions appropriately follows commands appropriately Psych: Cooperative, negative suicidal or homicidal ideations Initial Vital Signs Initial Vital Signs: Vital Signs Temperature 98.5 F 02/04/25 18:03 Pulse Rate 78 02/04/25 18:03 Respiratory Rate 18 02/04/25 18:03 Blood Pressure 130/75 02/04/25 18:03 Pulse Oximetry 96 02/04/25 18:03 Oxygen Delivery Method Room Air 02/04/25 18:03 Course Orders Ordered: ED Orders 02/04/25 19:59 CT lumbar spine wo con Stat Discontinued Medications Dexamethasone (Dexamethasone 10 Mg/Ml Vial) 10 mg IV NOW ONE Stop: 02/04/25 20:30 Last Admin: 02/04/25 20:42 Dose: 10 mg Documented By: PAYAL Diazepam (Diazepam 10 Mg/2 Ml Syringe) 5 mg IV NOW ONE Stop: 02/04/25 20:30 Last Admin: 02/04/25 20:43 Dose: 5 mg Documented By: PAYAL Hydromorphone HCl (Hydromorphone 0.5 Mg Inj) 0.5 mg IV NOW ONE Stop: 02/04/25 20:00 Last Admin: 02/04/25 20:04 Dose: 0.5 mg Documented By: PAYAL Oxycodone/Acetaminophen (Oxycodone/Apap 5/325 Prepack) 1 bottle MISC DIRECTED ONE Stop: 02/04/25 21:24 Last Admin: 02/04/25 21:30 Dose: 1 bottle Documented By: PAYAL Vital Signs Vital signs: Vital Signs - 8 hr 02/04/25 18:03 02/04/25 18:05 02/04/25 18:05 Temperature 98.5 F Pulse Rate 78 79 Respiratory Rate 18 Blood Pressure 130/75 130/75 Pulse Oximetry 96 98 Oxygen Delivery Method Room Air 02/04/25 18:30 02/04/25 18:30 02/04/25 19:00 Temperature Pulse Rate 76 74 Respiratory Rate Blood Pressure 129/65 Pulse Oximetry 93 96 Oxygen Delivery Method 02/04/25 19:00 02/04/25 19:30 02/04/25 19:31 Temperature Pulse Rate 78 81 Respiratory Rate Blood Pressure 129/71 Pulse Oximetry 90 L 91 Oxygen Delivery Method 02/04/25 19:31 02/04/25 20:00 02/04/25 20:00 Temperature Pulse Rate 86 Respiratory Rate 26 H Blood Pressure 120/60 125/60 Pulse Oximetry 100 Oxygen Delivery Method Room Air 02/04/25 20:30 02/04/25 20:50 02/04/25 21:00 Temperature Pulse Rate 75 78 Respiratory Rate 18 Blood Pressure 126/68 Pulse Oximetry 97 99 Oxygen Delivery Method 02/04/25 21:00 02/04/25 21:30 02/04/25 21:30 Temperature Pulse Rate 84 Respiratory Rate 18 16 Blood Pressure 117/60 122/58 L Pulse Oximetry 100 Oxygen Delivery Method Room Air MDM - Fall Differential Diagnosis Differential diagnosis: Likely other (Lumbar strain, muscle spasm, lumbar fracture) Imaging Data CT lumbar: Radiologist's Impression: [place] [address] CT Scan Report Signed Patient: Flaca Gonzalez MR#: [id number] : 1970 Acct:[id number] Age/Sex: 54 / F Date of Service: 02/04/25 Loc: ED Accession Number: [id number] Procedure: CT lumbar spine wo con Ordering Provider: Alvarez Gimenez D.O. PROCEDURE: CT LUMBAR SPINE WO CON INDICATIONS: fall, pain TECHNIQUE: Noncontrast 3 mm thick sections acquired from the T12 level to the sacrum. Sagittal and coronal reformats were constructed. For radiation dose reduction, the following was used: automated exposure control. COMPARISON: [facility], CT, CT LUMBAR SPINE WITHOUT CONTRAST, 06/04/2023, 11:25. FINDINGS: Image quality: Excellent. Bones: Stable appearance of anterior and posterior spinal fixation at L5-S1. There is vertebroplasty at the T12 level. There is acute cortical disruption of the anterior aspect of the S2 vertebral segment. This extends bilaterally in zones 1 2 and 3. No displaced osseous fragment. Stable appearance of multilevel degenerative changes. Soft tissues: No retroperitoneal masses or hematomas. Visualized aorta is normal in caliber. IMPRESSION: 1. There is acute sacral fracture at the S2 level, without displacement. 2. Stable postoperative changes in the L5-S1 region. No acute osseous lesions in the lumbar spine. MDM Narrative Medical decision making narrative: 54-year-old female with a history of lumbar fusion presenting for mechanical trip and fall, states that she was walking at her house slipped on gravel landed on her buttock, arrives by EMS patient stating only pain to her lumbar region denies any numbness weakness tingling to lower extremity denies any saddle paresthesias, exam patient is neurovascularly intact but length to her left side secondary to pain, tenderness to palpation paraspinal muscles but no gross deformity. Patient did get 100 mcg of fentanyl prior to arrival, patient was given Dilaudid Valium here and had a CT scan of the lumbar region did show an acute nondisplaced fracture of the S2 but stable spinal fixation, I did have a discussion with orthopedic surgeon Dr. Polk, states so long as patient is neurovascularly intact nothing to do surgically no indication of transfer just supportive care and to have patient follow up with her spine surgeon who performed it initially, I informed this to the patient she understands verbalized understanding and agrees to being discharged home with outpatient follow up Discharge Plan Departure Patient Disposition: Home Clinical Impression: Sacral fracture Activity Restrictions/Additional Instructions: Please follow up with your spine surgeon who performed your lumbar fixation previously Please follow up with your primary care doctor Please read the discharge instructions sheet carefully and bring all papers to all doctor follow-up visits, as it may contain information that your doctor may want to see. Disease processes change and evolve, if your symptoms worsen or if you develop any new symptoms that are concerning to you please return for evaluation. Your evaluation today does not show any evidence of any life- threatening/serious illnesses requiring admission to the hospital or surgery. Please follow-up with your doctor for re-evaluation in approximately 1 day. Seek immediate medical attention for any worrisome symptoms. *If you do not have a primary care provider please contact the [facility] Resource line at [phone]. They will ask some questions about your medical history and help get you set up with a doctor in the community. Prescriptions: New diazepam [Valium] 5 mg tablet 5 mg PO BID PRN (Reason: muscle spasm) 3 Days Qty: 6 0RF No Action progesterone micronized 100 mg capsule 100 mg PO ONCE PM sertraline 100 mg tablet 100 mg PO DAILY estradiol 0.5 mg tablet 0.5 mg PO DAILY estradiol 0.01 % (0.1 mg/gram) cream vaginal gabapentin 100 mg capsule PO sertraline 50 mg tablet 50 mg PO DAILY hydroxyzine HCl 25 mg tablet 25 mg PO BID lidocaine 5 % adhesive patch,medicated 1 patch topical DAILY baclofen 10 mg tablet 10 mg PO 3XD levetiracetam 500 mg tablet 500 mg PO BID naproxen 500 mg tablet 500 mg PO BID oxycodone 10 mg tablet 10 mg PO 4XD PRN zonisamide 100 mg capsule 200 mg PO BID nitrofurantoin macrocrystal 50 mg capsule 50 mg PO DAILY Patient Comments: TAKE ONE CAPSULE BY MOUTH ONE TIME DAILY FOR UTI PROPHYLAXIS mecobalamin (vitamin B12) 1,000 mcg Tablet,Disintegrating 1,000 mcg PO DAILY folic acid 1 mg Tablet 1 mg PO DAILY Qty: 30 0RF multivitamin with folic acid [Tab-A-Nidhi] 400 mcg Tablet 1 tab PO DAILY Qty: 30 0RF Referrals: Kayleen Mathur FNP-BC [Primary Care Provider] - Stand Alone Forms: Patient Portal/API/Survey
[2025-02-04] MEDS: DEXAMETHASONE 10 MG/ML VIAL IV (20:42)
[2025-02-04] MEDS: diazePAM 10 MG/2 ML SYRINGE 5 MG IV (20:43)
[2025-02-04] MEDS: OXYCODONE/APAP 5/325 PREPACK 1 BOTTLE MISC (21:30)
== END 2025-02-04 22:04 | disposition home or self-care (01) ==
PROVIDERS: Emergency Provider Student in an Organized Health Care Education/Training Program; Family Provider Nurse Practitioner Family; PCP Nurse Practitioner Family
DX: S32.19XA Other fracture of sacrum, initial encounter for closed fracture (principal); W01.0XXA Fall on same level from slipping, tripping and stumbling without subsequent striking against object, initial encounter
CPT/HCPCS: 72131; 96374; 96375; 99283; 99284; J1100; J1171; J3360

== ENCOUNTER 2025-02-12 19:50 | Observation (INO) | payer OTHER, SELFPAY ==
[2022-12-11 05:22] VITALS: BMI 26.9
[2025-02-12 20:20] VITALS: BP 118/58; PULSE 98; RESP 18; TEMP 36.7; O2SAT 100; BMI 23.3
[2025-02-12] MEDS: OXYCODONE IR 5 MG TABLET 20 MG PO (21:18)
[2025-02-12] MEDS: ACETAMINOPHEN 325 MG TABLET 975 MG PO (21:33)
[2025-02-13] VITALS (55 sets, daily range): BP systolic 100–146; BP diastolic 58–86; PULSE 77–121; RESP 16–18; TEMP 36.6–37; O2SAT 95–100; BMI 23.3
--- NOTE | 2025-02-13 00:45 | ED.BACK ---
HPI - Back Pain/Injury <Audra Lei, DO - Last Filed: 02/19/25 07:15> General Chief Complaint: Back Pain/Injury Stated Complaint: fell 1 week ago Time Seen by Provider: 02/13/25 00:44 Source: patient, EMS, RN notes reviewed and old records reviewed Mode of arrival: Ambulatory Limitations: no limitations History of Present Illness HPI Narrative: 54-year-old female past medical history of lumbar surgery, chronic low back pain complaint of sacral/tailbone pain after a mechanical ground level fall last was seen here in the emergency department found to have coccyx fracture patient has been taking chronic pain medications but doses were increased to oxycodone 20 mg q.i.d. from t.i.d., gabapentin was increased to 1 mg t.i.d. and tizanidine 3-4 times daily rather than q.h.s., patient continues with ibuprofen q.8 hours. Has had multiple back surgeries in the past in 2021 patient has had lower lumbar surgery at [facility] in [facility] that has a complication with the screws and went back to the OR and then developed an infection on subsequently went back after that and required IV antibiotics. Patient notes increasing pain, she notes new pain down her lower extremities she describes some paresthesias starting last Sunday. Patient states she was had some urinary incontinence no fecal incontinence. She states that it is too painful to her stand or weightbear. She denies any new traumas, falls or injuries. Did have her home medications increased by her primary care. 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 Patient reports an allergy to codeine. Related Data Home Medications Medication Instructions Recorded Confirmed mecobalamin (vitamin B12) 1,000 1,000 mcg PO DAILY 12/11/22 02/13/25 mcg disintegrating tablet,sublingual estradiol 0.5 mg tablet 0.5 mg PO DAILY 06/11/24 02/14/25 hydroxyzine HCl 25 mg tablet 25 mg PO PRN PRN Itching 06/11/24 02/13/25 progesterone micronized 100 mg 100 mg PO ONCE PM 06/11/24 02/14/25 capsule sertraline 100 mg tablet 100 mg PO DAILY 06/11/24 02/13/25 tizanidine 4 mg tablet 4 mg PO Q6H PRN muscle spasm 02/13/25 02/13/25 Previous Rx's Medication Instructions Recorded gabapentin 100 mg capsule 100 mg PO DAILY #30 caps 02/18/25 gabapentin 100 mg capsule 200 mg (2 x 100 mg) PO BEDTIME 30 02/18/25 days #30 caps gabapentin 100 mg capsule 300 mg (3 x 100 mg) PO 1600 #30 02/18/25 caps ibuprofen 600 mg tablet 600 mg PO Q8H #60 tabs 02/18/25 lidocaine 5 % topical patch 1 patch topical DAILY #30 ea 02/18/25 oxycodone 10 mg tablet 10 mg PO Q4HR PRN Pain #20 tabs 02/18/25 Allergies Allergy/AdvReac Type Severity Reaction Status Date / Time codeine AdvReac Mild Nausea Verified 02/14/25 06:10 Review of Systems <Audra Lei DO - Last Filed: 02/19/25 07:15> Review of Systems ROS Unobtainable: All systems reviewed & are unremarkable except as noted in HPI and below Patient History <Audra Lei DO - Last Filed: 02/19/25 07:15> Medical History Pulmonary embolism No chronic problems Surgical History History of lumbar surgery Status post cholecystectomy Status post appendectomy S/P T&A (status post tonsillectomy and adenoidectomy) Status post tubal ligation Social History household members: spouse Smoking Status: Never smoker alcohol intake: former tobacco type: vaping alcohol intake frequency: other Exam <Audra Lei DO - Last Filed: 02/19/25 07:15> Narrative Exam Narrative: GENERAL: Alert and oriented x three, female in mild distress. Patient is lying on her left side from majority of exam. HEENT: Head normocephalic, atraumatic, EOMI, pupils reactive, face symmetric, moist mucous membranes NECK: Supple, full range of motion CARDIOVASCULAR: Regular rate and rhythm without murmurs, rubs or gallops. RESPIRATORY: Breath sounds equal bilaterally, no wheezes rales or rhonchi. ABDOMEN: Soft, nontender. Normoactive bowel sounds all 4 quadrants. No guarding or rebound, rigidity, no mass : No CVA tenderness BACK: No cervical, thoracic vertebral point tenderness, patient does have some L3 tenderness on exam, no other vertebral tenderness on exam.. Patient also some tenderness over the sacrum itself. No tenderness of the bilateral hips. She was discomfort with pelvic squeeze. Patient has has normal range of motion of her lower extremities. Does have increased pain with certain movements such as external rotation of her hips. She finds it uncomfortable to try to lay on her back. Patient's gait is deferred. Rectal exam is normal Chaperoned by SADIE Dorsey. Muscle strength is 5/5 in lower extremities, patellar DTRs are brisk bilateral lower extremities. Dorsalis pedis and tibialis pulses are 2+ and lower extremities. Sensation is intact in the lower extremities. EXTREMITIES: Normal range of motion, no clubbing or edema. Neurovascularly intact NEUROLOGICAL: Cranial nerves II through XII grossly intact. Moving all extremities SKIN: Warm, dry, no petechiae, no rashes or lesions. Initial Vital Signs Initial Vital Signs: Vital Signs Temperature 98.1 F 02/12/25 20:20 Pulse Rate 98 H 02/12/25 20:20 Respiratory Rate 18 02/12/25 20:20 Blood Pressure 118/58 L 02/12/25 20:20 Pulse Oximetry 100 02/12/25 20:20 Oxygen Delivery Method Room Air 02/12/25 20:20 <Florentino Hoyos MD - Last Filed: 02/15/25 06:56> Initial Vital Signs Initial Vital Signs: Vital Signs Temperature 98.1 F 02/12/25 20:20 Pulse Rate 98 H 02/12/25 20:20 Respiratory Rate 18 02/12/25 20:20 Blood Pressure 118/58 L 02/12/25 20:20 Pulse Oximetry 100 02/12/25 20:20 Oxygen Delivery Method Room Air 02/12/25 20:20 <Markel Grady DO - Last Filed: 02/14/25 20:43> Initial Vital Signs Initial Vital Signs: Vital Signs Temperature 98.1 F 02/12/25 20:20 Pulse Rate 98 H 02/12/25 20:20 Respiratory Rate 18 02/12/25 20:20 Blood Pressure 118/58 L 02/12/25 20:20 Pulse Oximetry 100 02/12/25 20:20 Oxygen Delivery Method Room Air 02/12/25 20:20 Course <Audra Kareem Lei, DO - Last Filed: 02/19/25 07:15> Orders Ordered: Discontinued Medications Acetaminophen (Acetaminophen 325 Mg Tablet) 975 mg PO NOW ONE Stop: 02/12/25 21:24 Last Admin: 02/12/25 21:33 Dose: 975 mg Documented By: CHENTE Acetaminophen (Acetaminophen 325 Mg Tablet) 975 mg PO NOW ONE Stop: 02/13/25 05:54 Last Admin: 02/13/25 06:01 Dose: 975 mg Documented By: CHENTE Acetaminophen (Acetaminophen 325 Mg Tablet) 650 mg PO Q6H PRN PRN Reason: Fever/Mild Pain (1-3) Last Admin: 02/14/25 21:26 Dose: 650 mg Documented By: VALENTINE Acetaminophen (Acetaminophen 325 Mg Tablet) 975 mg PO Q6H [facility] Last Admin: 02/16/25 05:09 Dose: 975 mg Documented By: Admin: 02/15/25 22:05 Dose: 975 mg Documented By: Admin: 02/15/25 17:06 Dose: 975 mg Documented By: LUIS Acetaminophen (Acetaminophen 325 Mg Tablet) 975 mg PO Q8H [facility] Last Admin: 02/18/25 08:49 Dose: 975 mg Documented By: Admin: 02/18/25 00:58 Dose: 975 mg Documented By: Admin: 02/17/25 15:59 Dose: 975 mg Documented By: Admin: 02/17/25 08:43 Dose: 975 mg Documented By: Admin: 02/17/25 00:10 Dose: 975 mg Documented By: Admin: 02/16/25 17:34 Dose: 975 mg Documented By: Admin: 02/16/25 08:56 Dose: 975 mg Documented By: DAYNE Hydrocodone Bitart/Acetaminophen (Hydrocodone/Acet 5/325 Tablet) 1 tab PO Q4H PRN PRN Reason: Pain, Moderate (4-6) Cyanocobalamin (Cyanocobalamin (Vitamin B-12) 500 Mcg Tablet) 1,000 mcg PO DAILY [facility] Last Admin: 02/18/25 08:49 Dose: 1,000 mcg Documented By: Admin: 02/17/25 08:45 Dose: 1,000 mcg Documented By: Admin: 02/16/25 08:57 Dose: 1,000 mcg Documented By: Admin: 02/15/25 09:21 Dose: 1,000 mcg Documented By: MALLORYV Docusate Sodium (Docusate 100 Mg Capsule) 100 mg PO BID [facility] Last Admin: 02/18/25 08:49 Dose: 100 mg Documented By: Admin: 02/17/25 20:38 Dose: 100 mg Documented By: Admin: 02/17/25 08:44 Dose: 100 mg Documented By: Admin: 02/16/25 20:57 Dose: 100 mg Documented By: Admin: 02/16/25 08:55 Dose: 100 mg Documented By: Admin: 02/16/25 00:33 Dose: 100 mg Documented By: Enoxaparin Sodium (Enoxaparin 40 Mg/0.4 Ml Syringe) 40 mg SUBCUT DAILY [facility] Last Admin: 02/18/25 08:50 Dose: 40 mg Documented By: Admin: 02/17/25 08:43 Dose: 40 mg Documented By: Admin: 02/16/25 08:54 Dose: 40 mg Documented By: Admin: 02/15/25 09:21 Dose: 40 mg Documented By: LUIS Estradiol (Estradiol 1 Mg Tablet) 0.5 mg PO DAILY [facility] Last Admin: 02/18/25 08:50 Dose: 0.5 mg Documented By: Admin: 02/17/25 08:43 Dose: 0.5 mg Documented By: Admin: 02/16/25 08:56 Dose: 0.5 mg Documented By: Admin: 02/15/25 09:21 Dose: 0.5 mg Documented By: LUIS Gabapentin (Gabapentin 100 Mg Capsule) 200 mg PO NOW ONE Stop: 02/13/25 01:12 Last Admin: 02/13/25 01:42 Dose: 200 mg Documented By: CHENTE Gabapentin (Gabapentin 100 Mg Capsule) 100 mg PO NOW ONE Stop: 02/13/25 09:46 Last Admin: 02/13/25 10:32 Dose: 100 mg Documented By: JOSE C Gabapentin (Gabapentin 100 Mg Capsule) 100 mg PO 1600 [facility] Last Admin: 02/14/25 16:54 Dose: 100 mg Documented By: Admin: 02/13/25 17:33 Dose: 100 mg Documented By: JOSE C Gabapentin (Gabapentin 100 Mg Capsule) 200 mg PO BEDTIME [facility] Last Admin: 02/17/25 20:39 Dose: 200 mg Documented By: Admin: 02/16/25 20:57 Dose: 200 mg Documented By: Admin: 02/15/25 21:01 Dose: 200 mg Documented By: Admin: 02/14/25 21:24 Dose: 200 mg Documented By: Admin: 02/13/25 21:23 Dose: 200 mg Documented By: VALENTINE Gabapentin (Gabapentin 100 Mg Capsule) 100 mg PO TID [facility] Last Admin: 02/14/25 22:36 Dose: Not Given Documented By: TO Gabapentin (Gabapentin 100 Mg Capsule) 100 mg PO BEDTIME [facility] Gabapentin (Gabapentin 100 Mg Capsule) 100 mg PO DAILY [facility] Last Admin: 02/18/25 08:49 Dose: 100 mg Documented By: Admin: 02/17/25 08:45 Dose: 100 mg Documented By: Admin: 02/16/25 08:57 Dose: 100 mg Documented By: Admin: 02/15/25 09:22 Dose: 100 mg Documented By: LUIS Gabapentin (Gabapentin 100 Mg Capsule) 300 mg PO 1600 [facility] Last Admin: 02/17/25 15:58 Dose: 300 mg Documented By: Admin: 02/16/25 17:32 Dose: 300 mg Documented By: Admin: 02/15/25 17:05 Dose: 300 mg Documented By: LUIS Hydromorphone HCl (Hydromorphone 0.5 Mg Inj) 0.5 mg IV Q4H PRN PRN Reason: Pain, Severe (7-10) Hydromorphone HCl (Hydromorphone 0.5 Mg Inj) 0.5 mg IV Q2H PRN PRN Reason: Pain, Severe (7-10) Hydroxyzine HCl (Hydroxyzine Hcl 25 Mg Tablet) 25 mg PO PRN PRN PRN Reason: Itching Last Admin: 02/17/25 16:03 Dose: 25 mg Documented By: Admin: 02/16/25 11:22 Dose: 25 mg Documented By: GRACEILA Ibuprofen (Ibuprofen 600 Mg Tablet) 600 mg PO Q8H [facility] Last Admin: 02/18/25 08:49 Dose: 600 mg Documented By: Admin: 02/18/25 00:59 Dose: 600 mg Documented By: Admin: 02/17/25 15:59 Dose: 600 mg Documented By: Admin: 02/17/25 08:44 Dose: 600 mg Documented By: Admin: 02/17/25 00:10 Dose: 600 mg Documented By: Admin: 02/16/25 17:33 Dose: 600 mg Documented By: Admin: 02/16/25 08:55 Dose: 600 mg Documented By: Admin: 02/16/25 00:32 Dose: 600 mg Documented By: Admin: 02/15/25 17:06 Dose: 600 mg Documented By: LUIS Ketorolac Tromethamine (Ketorolac 30 Mg/Ml Vial) 15 mg IV NOW ONE Stop: 02/13/25 01:11 Last Admin: 02/13/25 01:43 Dose: 15 mg Documented By: CHENTE Lidocaine (Lidocaine 5% Patch) 1 each TOP DAILY [facility] Last Admin: 02/18/25 08:48 Dose: 1 each Documented By: Admin: 02/17/25 08:42 Dose: 1 each Documented By: Admin: 02/16/25 09:02 Dose: 1 each Documented By: DAYNE Morphine Sulfate (Morphine 4 Mg/Ml Inj) 4 mg IV NOW ONE Stop: 02/13/25 01:11 Last Admin: 02/13/25 01:43 Dose: 4 mg Documented By: CHENTE Naloxone HCl (Naloxone 0.4 Mg/Ml Vial) 0.2 mg IV Q2MIN PRN PRN Reason: Opiate Reversal Naloxone HCl (Naloxone 0.4 Mg/Ml Vial) 0.2 mg IV Q2MIN PRN PRN Reason: Opiate Reversal Ondansetron HCl (Ondansetron 4 Mg/2 Ml Inj) 4 mg IV Q8HR PRN PRN Reason: Nausea And Vomiting Last Admin: 02/16/25 05:44 Dose: 4 mg Documented By: Oxycodone HCl (Oxycodone Ir 5 Mg Tablet) 20 mg PO NOW ONE Stop: 02/12/25 20:57 Last Admin: 02/12/25 21:18 Dose: 20 mg Documented By: CHENTE Oxycodone HCl (Oxycodone Ir 5 Mg Tablet) 20 mg PO NOW ONE Stop: 02/13/25 05:57 Last Admin: 02/13/25 06:02 Dose: 20 mg Documented By: CHENTE Oxycodone HCl (Oxycodone Ir 5 Mg Tablet) 20 mg PO QID [facility] Last Admin: 02/13/25 13:58 Dose: Not Given Documented By: Admin: 02/13/25 10:17 Dose: 20 mg Documented By: LM Oxycodone HCl (Oxycodone Ir 5 Mg Tablet) 20 mg PO 1000,1400,1800,2200 [facility] Last Admin: 02/18/25 10:03 Dose: 20 mg Documented By: Admin: 02/17/25 21:45 Dose: 20 mg Documented By: Admin: 02/17/25 17:53 Dose: 20 mg Documented By: Admin: 02/17/25 14:07 Dose: 20 mg Documented By: Admin: 02/17/25 10:14 Dose: 20 mg Documented By: Admin: 02/16/25 21:59 Dose: 20 mg Documented By: Admin: 02/16/25 17:34 Dose: 20 mg Documented By: Admin: 02/16/25 13:50 Dose: 20 mg Documented By: Admin: 02/16/25 09:48 Dose: 20 mg Documented By: Admin: 02/15/25 22:05 Dose: 20 mg Documented By: Admin: 02/15/25 17:06 Dose: 20 mg Documented By: Admin: 02/15/25 15:49 Dose: Not Given Documented By: Admin: 02/15/25 09:21 Dose: 20 mg Documented By: Admin: 02/14/25 22:04 Dose: 20 mg Documented By: Admin: 02/14/25 18:45 Dose: Not Given Documented By: Admin: 02/14/25 13:54 Dose: 20 mg Documented By: Admin: 02/14/25 09:09 Dose: 20 mg Documented By: Admin: 02/13/25 23:18 Dose: Not Given Documented By: Admin: 02/13/25 23:05 Dose: Not Given Documented By: Admin: 02/13/25 14:33 Dose: 20 mg Documented By: LM Oxycodone HCl (Oxycodone Ir 10 Mg Tablet) 20 mg PO QID PRN PRN Reason: Pain (Scale Score 7-10) Last Admin: 02/15/25 14:07 Dose: 20 mg Documented By: Admin: 02/15/25 04:46 Dose: 20 mg Documented By: TO Oxycodone HCl (Oxycodone Ir 10 Mg Tablet) 10 mg PO Q4HR PRN PRN Reason: Pain Last Admin: 02/18/25 10:52 Dose: 10 mg Documented By: Admin: 02/18/25 05:51 Dose: 10 mg Documented By: Admin: 02/17/25 08:44 Dose: 10 mg Documented By: Admin: 02/16/25 20:58 Dose: 10 mg Documented By: Admin: 02/16/25 05:10 Dose: 10 mg Documented By: Admin: 02/16/25 00:33 Dose: 10 mg Documented By: Polyethylene Glycol (Polyethylene Glycol 3350 17 Gm Powd.Pack) 17 gm PO DAILY [facility] Last Admin: 02/18/25 08:48 Dose: 17 gm Documented By: Admin: 02/17/25 08:43 Dose: 17 gm Documented By: Admin: 02/16/25 08:54 Dose: 17 gm Documented By: Admin: 02/15/25 17:07 Dose: 17 gm Documented By: LUIS Progesterone (Progesterone, Micronized 100 Mg Capsule) 100 mg PO BEDTIME [facility] Last Admin: 02/17/25 20:38 Dose: 100 mg Documented By: Admin: 02/16/25 20:58 Dose: 100 mg Documented By: Admin: 02/15/25 21:09 Dose: Not Given Documented By: Admin: 02/14/25 23:40 Dose: Not Given Documented By: TO Sertraline HCl (Sertraline 50 Mg Tablet) 100 mg PO BEDTIME [facility] Last Admin: 02/14/25 21:23 Dose: 100 mg Documented By: VALENTINE Sertraline HCl (Sertraline 50 Mg Tablet) 100 mg PO DAILY [facility] Last Admin: 02/18/25 08:49 Dose: 100 mg Documented By: Admin: 02/17/25 08:43 Dose: 100 mg Documented By: Admin: 02/16/25 08:57 Dose: 100 mg Documented By: Admin: 02/15/25 09:22 Dose: 100 mg Documented By: LDV Sodium Chloride (Sodium Chloride 0.9% Flush) 10 ml IV PRN PRN PRN Reason: Flush Sodium Chloride (Sodium Chloride 0.9% Flush) 10 ml IV BID [facility] Last Admin: 02/18/25 08:50 Dose: 10 ml Documented By: Admin: 02/17/25 20:39 Dose: 10 ml Documented By: Admin: 02/17/25 10:14 Dose: 10 ml Documented By: Admin: 02/16/25 20:58 Dose: 10 ml Documented By: Admin: 02/16/25 08:54 Dose: 10 ml Documented By: Admin: 02/15/25 22:06 Dose: 10 ml Documented By: Tizanidine HCl (Tizanidine 4 Mg Tablet) 4 mg PO NOW ONE Stop: 02/13/25 01:13 Last Admin: 02/13/25 01:42 Dose: 4 mg Documented By: CHENTE Tizanidine HCl (Tizanidine 4 Mg Tablet) 4 mg PO Q6HR PRN PRN Reason: Spasms Last Admin: 02/14/25 16:54 Dose: 4 mg Documented By: Admin: 02/13/25 17:34 Dose: 4 mg Documented By: JOSE C Admin: 02/13/25 10:32 Dose: 4 mg Documented By: JOSE C Tizanidine HCl (Tizanidine 4 Mg Tablet) 4 mg PO Q6H PRN PRN Reason: muscle spasm Last Admin: 02/18/25 05:51 Dose: 4 mg Documented By: Admin: 02/16/25 20:57 Dose: 4 mg Documented By: Admin: 02/16/25 05:09 Dose: 4 mg Documented By: Admin: 02/15/25 21:01 Dose: 4 mg Documented By: Vital Signs Vital signs: Vital Signs - 8 hr 02/14/25 13:00 02/14/25 13:30 02/14/25 14:00 Pulse Rate 100 H 97 H 92 H Respiratory Rate Blood Pressure Pulse Oximetry 92 97 97 02/14/25 14:30 02/14/25 14:58 02/14/25 14:58 Pulse Rate 92 H 93 H Respiratory Rate Blood Pressure 129/75 Pulse Oximetry 95 95 02/14/25 15:00 02/14/25 15:30 02/14/25 16:00 Pulse Rate 90 85 Respiratory Rate Blood Pressure 126/62 Pulse Oximetry 96 97 02/14/25 16:00 02/14/25 16:30 02/14/25 17:00 Pulse Rate 79 81 83 Respiratory Rate Blood Pressure Pulse Oximetry 99 99 98 02/14/25 17:30 02/14/25 18:00 02/14/25 18:30 Pulse Rate 86 90 87 Respiratory Rate Blood Pressure Pulse Oximetry 99 96 97 02/14/25 19:00 02/14/25 19:30 02/14/25 20:00 Pulse Rate 83 85 Respiratory Rate Blood Pressure 120/78 Pulse Oximetry 100 99 02/14/25 20:00 Pulse Rate 80 Respiratory Rate 18 Blood Pressure Pulse Oximetry 98 <Florentino Hoyos MD - Last Filed: 02/15/25 06:56> Orders Ordered: Discontinued Medications Acetaminophen (Acetaminophen 325 Mg Tablet) 975 mg PO NOW ONE Stop: 02/12/25 21:24 Last Admin: 02/12/25 21:33 Dose: 975 mg Documented By: CHENTE Acetaminophen (Acetaminophen 325 Mg Tablet) 975 mg PO NOW ONE Stop: 02/13/25 05:54 Last Admin: 02/13/25 06:01 Dose: 975 mg Documented By: CHENTE Acetaminophen (Acetaminophen 325 Mg Tablet) 650 mg PO Q6H PRN PRN Reason: Fever/Mild Pain (1-3) Last Admin: 02/14/25 21:26 Dose: 650 mg Documented By: VALENTINE Acetaminophen (Acetaminophen 325 Mg Tablet) 975 mg PO Q6H [facility] Last Admin: 02/16/25 05:09 Dose: 975 mg Documented By: Admin: 02/15/25 22:05 Dose: 975 mg Documented By: Admin: 02/15/25 17:06 Dose: 975 mg Documented By: LUIS Acetaminophen (Acetaminophen 325 Mg Tablet) 975 mg PO Q8H [facility] Last Admin: 02/18/25 08:49 Dose: 975 mg Documented By: Admin: 02/18/25 00:58 Dose: 975 mg Documented By: Admin: 02/17/25 15:59 Dose: 975 mg Documented By: Admin: 02/17/25 08:43 Dose: 975 mg Documented By: Admin: 02/17/25 00:10 Dose: 975 mg Documented By: Admin: 02/16/25 17:34 Dose: 975 mg Documented By: Admin: 02/16/25 08:56 Dose: 975 mg Documented By: HW Hydrocodone Bitart/Acetaminophen (Hydrocodone/Acet 5/325 Tablet) 1 tab PO Q4H PRN PRN Reason: Pain, Moderate (4-6) Cyanocobalamin (Cyanocobalamin (Vitamin B-12) 500 Mcg Tablet) 1,000 mcg PO DAILY [facility] Last Admin: 02/18/25 08:49 Dose: 1,000 mcg Documented By: Admin: 02/17/25 08:45 Dose: 1,000 mcg Documented By: Admin: 02/16/25 08:57 Dose: 1,000 mcg Documented By: Admin: 02/15/25 09:21 Dose: 1,000 mcg Documented By: LUIS Docusate Sodium (Docusate 100 Mg Capsule) 100 mg PO BID [facility] Admin: 02/18/25 08:49 Dose: 100 mg Documented By: Admin: 02/17/25 20:38 Dose: 100 mg Documented By: Admin: 02/17/25 08:44 Dose: 100 mg Documented By: Admin: 02/16/25 20:57 Dose: 100 mg Documented By: Admin: 02/16/25 08:55 Dose: 100 mg Documented By: Admin: 02/16/25 00:33 Dose: 100 mg Documented By: Enoxaparin Sodium (Enoxaparin 40 Mg/0.4 Ml Syringe) 40 mg SUBCUT DAILY [facility] Admin: 02/18/25 08:50 Dose: 40 mg Documented By: Admin: 02/17/25 08:43 Dose: 40 mg Documented By: Admin: 02/16/25 08:54 Dose: 40 mg Documented By: Admin: 02/15/25 09:21 Dose: 40 mg Documented By: MALLORYV Estradiol (Estradiol 1 Mg Tablet) 0.5 mg PO DAILY [facility] Admin: 02/18/25 08:50 Dose: 0.5 mg Documented By: Admin: 02/17/25 08:43 Dose: 0.5 mg Documented By: Admin: 02/16/25 08:56 Dose: 0.5 mg Documented By: Admin: 02/15/25 09:21 Dose: 0.5 mg Documented By: LUIS Gabapentin (Gabapentin 100 Mg Capsule) 200 mg PO NOW ONE Stop: 02/13/25 01:12 Last Admin: 02/13/25 01:42 Dose: 200 mg Documented By: CHENTE Gabapentin (Gabapentin 100 Mg Capsule) 100 mg PO NOW ONE Stop: 02/13/25 09:46 Last Admin: 02/13/25 10:32 Dose: 100 mg Documented By: JOSE C Gabapentin (Gabapentin 100 Mg Capsule) 100 mg PO 1600 [facility] Last Admin: 02/14/25 16:54 Dose: 100 mg Documented By: Admin: 02/13/25 17:33 Dose: 100 mg Documented By: JOSE C Gabapentin (Gabapentin 100 Mg Capsule) 200 mg PO BEDTIME [facility] Last Admin: 02/17/25 20:39 Dose: 200 mg Documented By: Admin: 02/16/25 20:57 Dose: 200 mg Documented By: Admin: 02/15/25 21:01 Dose: 200 mg Documented By: Admin: 02/14/25 21:24 Dose: 200 mg Documented By: Admin: 02/13/25 21:23 Dose: 200 mg Documented By: VALENTINE Gabapentin (Gabapentin 100 Mg Capsule) 100 mg PO TID [facility] Last Admin: 02/14/25 22:36 Dose: Not Given Documented By: TO Gabapentin (Gabapentin 100 Mg Capsule) 100 mg PO BEDTIME [facility] Gabapentin (Gabapentin 100 Mg Capsule) 100 mg PO DAILY [facility] Last Admin: 02/18/25 08:49 Dose: 100 mg Documented By: Admin: 02/17/25 08:45 Dose: 100 mg Documented By: Admin: 02/16/25 08:57 Dose: 100 mg Documented By: Admin: 02/15/25 09:22 Dose: 100 mg Documented By: LUIS Gabapentin (Gabapentin 100 Mg Capsule) 300 mg PO 1600 [facility] Last Admin: 02/17/25 15:58 Dose: 300 mg Documented By: Admin: 02/16/25 17:32 Dose: 300 mg Documented By: Admin: 02/15/25 17:05 Dose: 300 mg Documented By: LUIS Hydromorphone HCl (Hydromorphone 0.5 Mg Inj) 0.5 mg IV Q4H PRN PRN Reason: Pain, Severe (7-10) Hydromorphone HCl (Hydromorphone 0.5 Mg Inj) 0.5 mg IV Q2H PRN PRN Reason: Pain, Severe (7-10) Hydroxyzine HCl (Hydroxyzine Hcl 25 Mg Tablet) 25 mg PO PRN PRN PRN Reason: Itching Last Admin: 02/17/25 16:03 Dose: 25 mg Documented By: Admin: 02/16/25 11:22 Dose: 25 mg Documented By: GRACIELA Ibuprofen (Ibuprofen 600 Mg Tablet) 600 mg PO Q8H [facility] Last Admin: 02/18/25 08:49 Dose: 600 mg Documented By: Admin: 02/18/25 00:59 Dose: 600 mg Documented By: Admin: 02/17/25 15:59 Dose: 600 mg Documented By: Admin: 02/17/25 08:44 Dose: 600 mg Documented By: Admin: 02/17/25 00:10 Dose: 600 mg Documented By: Admin: 02/16/25 17:33 Dose: 600 mg Documented By: Admin: 02/16/25 08:55 Dose: 600 mg Documented By: Admin: 02/16/25 00:32 Dose: 600 mg Documented By: Admin: 02/15/25 17:06 Dose: 600 mg Documented By: LUIS Ketorolac Tromethamine (Ketorolac 30 Mg/Ml Vial) 15 mg IV NOW ONE Stop: 02/13/25 01:11 Last Admin: 02/13/25 01:43 Dose: 15 mg Documented By: CHENTE Lidocaine (Lidocaine 5% Patch) 1 each TOP DAILY [facility] Last Admin: 02/18/25 08:48 Dose: 1 each Documented By: Admin: 02/17/25 08:42 Dose: 1 each Documented By: Admin: 02/16/25 09:02 Dose: 1 each Documented By: DAYNE Morphine Sulfate (Morphine 4 Mg/Ml Inj) 4 mg IV NOW ONE Stop: 02/13/25 01:11 Last Admin: 02/13/25 01:43 Dose: 4 mg Documented By: CHENTE Naloxone HCl (Naloxone 0.4 Mg/Ml Vial) 0.2 mg IV Q2MIN PRN PRN Reason: Opiate Reversal Naloxone HCl (Naloxone 0.4 Mg/Ml Vial) 0.2 mg IV Q2MIN PRN PRN Reason: Opiate Reversal Ondansetron HCl (Ondansetron 4 Mg/2 Ml Inj) 4 mg IV Q8HR PRN PRN Reason: Nausea And Vomiting Last Admin: 02/16/25 05:44 Dose: 4 mg Documented By: Oxycodone HCl (Oxycodone Ir 5 Mg Tablet) 20 mg PO NOW ONE Stop: 02/12/25 20:57 Last Admin: 02/12/25 21:18 Dose: 20 mg Documented By: CHENTE Oxycodone HCl (Oxycodone Ir 5 Mg Tablet) 20 mg PO NOW ONE Stop: 02/13/25 05:57 Last Admin: 02/13/25 06:02 Dose: 20 mg Documented By: CHENTE Oxycodone HCl (Oxycodone Ir 5 Mg Tablet) 20 mg PO QID [facility] Last Admin: 02/13/25 13:58 Dose: Not Given Documented By: Admin: 02/13/25 10:17 Dose: 20 mg Documented By: JOSE C Oxycodone HCl (Oxycodone Ir 5 Mg Tablet) 20 mg PO 1000,1400,1800,2200 [facility] Last Admin: 02/18/25 10:03 Dose: 20 mg Documented By: Admin: 02/17/25 21:45 Dose: 20 mg Documented By: Admin: 02/17/25 17:53 Dose: 20 mg Documented By: Admin: 02/17/25 14:07 Dose: 20 mg Documented By: Admin: 02/17/25 10:14 Dose: 20 mg Documented By: Admin: 02/16/25 21:59 Dose: 20 mg Documented By: Admin: 02/16/25 17:34 Dose: 20 mg Documented By: Admin: 02/16/25 13:50 Dose: 20 mg Documented By: Admin: 02/16/25 09:48 Dose: 20 mg Documented By: Admin: 02/15/25 22:05 Dose: 20 mg Documented By: Admin: 02/15/25 17:06 Dose: 20 mg Documented By: Admin: 02/15/25 15:49 Dose: Not Given Documented By: Admin: 02/15/25 09:21 Dose: 20 mg Documented By: Admin: 02/14/25 22:04 Dose: 20 mg Documented By: Admin: 02/14/25 18:45 Dose: Not Given Documented By: Admin: 02/14/25 13:54 Dose: 20 mg Documented By: Admin: 02/14/25 09:09 Dose: 20 mg Documented By: Admin: 02/13/25 23:18 Dose: Not Given Documented By: Admin: 02/13/25 23:05 Dose: Not Given Documented By: Admin: 02/13/25 14:33 Dose: 20 mg Documented By: JOSE C Oxycodone HCl (Oxycodone Ir 10 Mg Tablet) 20 mg PO QID PRN PRN Reason: Pain (Scale Score 7-10) Last Admin: 02/15/25 14:07 Dose: 20 mg Documented By: Admin: 02/15/25 04:46 Dose: 20 mg Documented By: TO Oxycodone HCl (Oxycodone Ir 10 Mg Tablet) 10 mg PO Q4HR PRN PRN Reason: Pain Last Admin: 02/18/25 10:52 Dose: 10 mg Documented By: Admin: 02/18/25 05:51 Dose: 10 mg Documented By: Admin: 02/17/25 08:44 Dose: 10 mg Documented By: Admin: 02/16/25 20:58 Dose: 10 mg Documented By: Admin: 02/16/25 05:10 Dose: 10 mg Documented By: Admin: 02/16/25 00:33 Dose: 10 mg Documented By: Polyethylene Glycol (Polyethylene Glycol 3350 17 Gm Powd.Pack) 17 gm PO DAILY [facility] Last Admin: 02/18/25 08:48 Dose: 17 gm Documented By: Admin: 02/17/25 08:43 Dose: 17 gm Documented By: Admin: 02/16/25 08:54 Dose: 17 gm Documented By: Admin: 02/15/25 17:07 Dose: 17 gm Documented By: LUIS Progesterone (Progesterone, Micronized 100 Mg Capsule) 100 mg PO BEDTIME [facility] Last Admin: 02/17/25 20:38 Dose: 100 mg Documented By: Admin: 02/16/25 20:58 Dose: 100 mg Documented By: Admin: 02/15/25 21:09 Dose: Not Given Documented By: Admin: 02/14/25 23:40 Dose: Not Given Documented By: TO Sertraline HCl (Sertraline 50 Mg Tablet) 100 mg PO BEDTIME [facility] Last Admin: 02/14/25 21:23 Dose: 100 mg Documented By: VALENTINE Sertraline HCl (Sertraline 50 Mg Tablet) 100 mg PO DAILY [facility] Last Admin: 02/18/25 08:49 Dose: 100 mg Documented By: Admin: 02/17/25 08:43 Dose: 100 mg Documented By: Admin: 02/16/25 08:57 Dose: 100 mg Documented By: Admin: 02/15/25 09:22 Dose: 100 mg Documented By: LDV Sodium Chloride (Sodium Chloride 0.9% Flush) 10 ml IV PRN PRN PRN Reason: Flush Sodium Chloride (Sodium Chloride 0.9% Flush) 10 ml IV BID DANIEL Last Admin: 02/18/25 08:50 Dose: 10 ml Documented By: Admin: 02/17/25 20:39 Dose: 10 ml Documented By: Admin: 02/17/25 10:14 Dose: 10 ml Documented By: Admin: 02/16/25 20:58 Dose: 10 ml Documented By: Admin: 02/16/25 08:54 Dose: 10 ml Documented By: Admin: 02/15/25 22:06 Dose: 10 ml Documented By: Tizanidine HCl (Tizanidine 4 Mg Tablet) 4 mg PO NOW ONE Stop: 02/13/25 01:13 Last Admin: 02/13/25 01:42 Dose: 4 mg Documented By: CHENTE Tizanidine HCl (Tizanidine 4 Mg Tablet) 4 mg PO Q6HR PRN PRN Reason: Spasms Last Admin: 02/14/25 16:54 Dose: 4 mg Documented By: Admin: 02/13/25 17:34 Dose: 4 mg Documented By: JOSE C Admin: 02/13/25 10:32 Dose: 4 mg Documented By: JOSE C Tizanidine HCl (Tizanidine 4 Mg Tablet) 4 mg PO Q6H PRN PRN Reason: muscle spasm Last Admin: 02/18/25 05:51 Dose: 4 mg Documented By: Admin: 02/16/25 20:57 Dose: 4 mg Documented By: Admin: 02/16/25 05:09 Dose: 4 mg Documented By: Admin: 02/15/25 21:01 Dose: 4 mg Documented By: Vital Signs Vital signs: Vital Signs - 8 hr 02/14/25 13:00 02/14/25 13:30 02/14/25 14:00 Pulse Rate 100 H 97 H 92 H Respiratory Rate Blood Pressure Pulse Oximetry 92 97 97 02/14/25 14:30 02/14/25 14:58 02/14/25 14:58 Pulse Rate 92 H 93 H Respiratory Rate Blood Pressure 129/75 Pulse Oximetry 95 95 02/14/25 15:00 02/14/25 15:30 02/14/25 16:00 Pulse Rate 90 85 Respiratory Rate Blood Pressure 126/62 Pulse Oximetry 96 97 02/14/25 16:00 02/14/25 16:30 02/14/25 17:00 Pulse Rate 79 81 83 Respiratory Rate Blood Pressure Pulse Oximetry 99 99 98 02/14/25 17:30 02/14/25 18:00 02/14/25 18:30 Pulse Rate 86 90 87 Respiratory Rate Blood Pressure Pulse Oximetry 99 96 97 02/14/25 19:00 02/14/25 19:30 02/14/25 20:00 Pulse Rate 83 85 Respiratory Rate Blood Pressure 120/78 Pulse Oximetry 100 99 02/14/25 20:00 Pulse Rate 80 Respiratory Rate 18 Blood Pressure Pulse Oximetry 98 <Markel Grady, DO - Last Filed: 02/14/25 20:43> Orders Ordered: Discontinued Medications Acetaminophen (Acetaminophen 325 Mg Tablet) 975 mg PO NOW ONE Stop: 02/12/25 21:24 Last Admin: 02/12/25 21:33 Dose: 975 mg Documented By: CHENTE Acetaminophen (Acetaminophen 325 Mg Tablet) 975 mg PO NOW ONE Stop: 02/13/25 05:54 Last Admin: 02/13/25 06:01 Dose: 975 mg Documented By: CHENTE Acetaminophen (Acetaminophen 325 Mg Tablet) 650 mg PO Q6H PRN PRN Reason: Fever/Mild Pain (1-3) Last Admin: 02/14/25 21:26 Dose: 650 mg Documented By: VALENTINE Acetaminophen (Acetaminophen 325 Mg Tablet) 975 mg PO Q6H [facility] Last Admin: 02/16/25 05:09 Dose: 975 mg Documented By: Admin: 02/15/25 22:05 Dose: 975 mg Documented By: Admin: 02/15/25 17:06 Dose: 975 mg Documented By: LUIS Acetaminophen (Acetaminophen 325 Mg Tablet) 975 mg PO Q8H [facility] Last Admin: 02/18/25 08:49 Dose: 975 mg Documented By: Admin: 02/18/25 00:58 Dose: 975 mg Documented By: Admin: 02/17/25 15:59 Dose: 975 mg Documented By: Admin: 02/17/25 08:43 Dose: 975 mg Documented By: Admin: 02/17/25 00:10 Dose: 975 mg Documented By: Admin: 02/16/25 17:34 Dose: 975 mg Documented By: Admin: 02/16/25 08:56 Dose: 975 mg Documented By: HW Hydrocodone Bitart/Acetaminophen (Hydrocodone/Acet 5/325 Tablet) 1 tab PO Q4H PRN PRN Reason: Pain, Moderate (4-6) Cyanocobalamin (Cyanocobalamin (Vitamin B-12) 500 Mcg Tablet) 1,000 mcg PO DAILY [facility] Last Admin: 02/18/25 08:49 Dose: 1,000 mcg Documented By: Admin: 02/17/25 08:45 Dose: 1,000 mcg Documented By: Admin: 02/16/25 08:57 Dose: 1,000 mcg Documented By: Admin: 02/15/25 09:21 Dose: 1,000 mcg Documented By: LUIS Docusate Sodium (Docusate 100 Mg Capsule) 100 mg PO BID [facility] Admin: 02/18/25 08:49 Dose: 100 mg Documented By: Admin: 02/17/25 20:38 Dose: 100 mg Documented By: Admin: 02/17/25 08:44 Dose: 100 mg Documented By: Admin: 02/16/25 20:57 Dose: 100 mg Documented By: Admin: 02/16/25 08:55 Dose: 100 mg Documented By: Admin: 02/16/25 00:33 Dose: 100 mg Documented By: Enoxaparin Sodium (Enoxaparin 40 Mg/0.4 Ml Syringe) 40 mg SUBCUT DAILY [facility] Admin: 02/18/25 08:50 Dose: 40 mg Documented By: Admin: 02/17/25 08:43 Dose: 40 mg Documented By: Admin: 02/16/25 08:54 Dose: 40 mg Documented By: Admin: 02/15/25 09:21 Dose: 40 mg Documented By: LUIS Estradiol (Estradiol 1 Mg Tablet) 0.5 mg PO DAILY [facility] Last Admin: 02/18/25 08:50 Dose: 0.5 mg Documented By: Admin: 02/17/25 08:43 Dose: 0.5 mg Documented By: Admin: 02/16/25 08:56 Dose: 0.5 mg Documented By: Admin: 02/15/25 09:21 Dose: 0.5 mg Documented By: LUIS Gabapentin (Gabapentin 100 Mg Capsule) 200 mg PO NOW ONE Stop: 02/13/25 01:12 Last Admin: 02/13/25 01:42 Dose: 200 mg Documented By: CHENTE Gabapentin (Gabapentin 100 Mg Capsule) 100 mg PO NOW ONE Stop: 02/13/25 09:46 Last Admin: 02/13/25 10:32 Dose: 100 mg Documented By: JOSE C Gabapentin (Gabapentin 100 Mg Capsule) 100 mg PO 1600 [facility] Last Admin: 02/14/25 16:54 Dose: 100 mg Documented By: Admin: 02/13/25 17:33 Dose: 100 mg Documented By: JOSE C Gabapentin (Gabapentin 100 Mg Capsule) 200 mg PO BEDTIME [facility] Last Admin: 02/17/25 20:39 Dose: 200 mg Documented By: Admin: 02/16/25 20:57 Dose: 200 mg Documented By: Admin: 02/15/25 21:01 Dose: 200 mg Documented By: Admin: 02/14/25 21:24 Dose: 200 mg Documented By: Admin: 02/13/25 21:23 Dose: 200 mg Documented By: VALENTINE Gabapentin (Gabapentin 100 Mg Capsule) 100 mg PO TID [facility] Last Admin: 02/14/25 22:36 Dose: Not Given Documented By: TO Gabapentin (Gabapentin 100 Mg Capsule) 100 mg PO BEDTIME [facility] Gabapentin (Gabapentin 100 Mg Capsule) 100 mg PO DAILY [facility] Last Admin: 02/18/25 08:49 Dose: 100 mg Documented By: Admin: 02/17/25 08:45 Dose: 100 mg Documented By: Admin: 02/16/25 08:57 Dose: 100 mg Documented By: Admin: 02/15/25 09:22 Dose: 100 mg Documented By: LUIS Gabapentin (Gabapentin 100 Mg Capsule) 300 mg PO 1600 [facility] Last Admin: 02/17/25 15:58 Dose: 300 mg Documented By: Admin: 02/16/25 17:32 Dose: 300 mg Documented By: Admin: 02/15/25 17:05 Dose: 300 mg Documented By: MALLORYV Hydromorphone HCl (Hydromorphone 0.5 Mg Inj) 0.5 mg IV Q4H PRN PRN Reason: Pain, Severe (7-10) Hydromorphone HCl (Hydromorphone 0.5 Mg Inj) 0.5 mg IV Q2H PRN PRN Reason: Pain, Severe (7-10) Hydroxyzine HCl (Hydroxyzine Hcl 25 Mg Tablet) 25 mg PO PRN PRN PRN Reason: Itching Last Admin: 02/17/25 16:03 Dose: 25 mg Documented By: Admin: 02/16/25 11:22 Dose: 25 mg Documented By: GRACIELA Ibuprofen (Ibuprofen 600 Mg Tablet) 600 mg PO Q8H [facility] Last Admin: 02/18/25 08:49 Dose: 600 mg Documented By: Admin: 02/18/25 00:59 Dose: 600 mg Documented By: Admin: 02/17/25 15:59 Dose: 600 mg Documented By: Admin: 02/17/25 08:44 Dose: 600 mg Documented By: Admin: 02/17/25 00:10 Dose: 600 mg Documented By: Admin: 02/16/25 17:33 Dose: 600 mg Documented By: Admin: 02/16/25 08:55 Dose: 600 mg Documented By: Admin: 02/16/25 00:32 Dose: 600 mg Documented By: Admin: 02/15/25 17:06 Dose: 600 mg Documented By: LUIS Ketorolac Tromethamine (Ketorolac 30 Mg/Ml Vial) 15 mg IV NOW ONE Stop: 02/13/25 01:11 Last Admin: 02/13/25 01:43 Dose: 15 mg Documented By: CHENTE Lidocaine (Lidocaine 5% Patch) 1 each TOP DAILY [facility] Last Admin: 02/18/25 08:48 Dose: 1 each Documented By: Admin: 02/17/25 08:42 Dose: 1 each Documented By: Admin: 02/16/25 09:02 Dose: 1 each Documented By: DAYNE Morphine Sulfate (Morphine 4 Mg/Ml Inj) 4 mg IV NOW ONE Stop: 02/13/25 01:11 Last Admin: 02/13/25 01:43 Dose: 4 mg Documented By: CHENTE Naloxone HCl (Naloxone 0.4 Mg/Ml Vial) 0.2 mg IV Q2MIN PRN PRN Reason: Opiate Reversal Naloxone HCl (Naloxone 0.4 Mg/Ml Vial) 0.2 mg IV Q2MIN PRN PRN Reason: Opiate Reversal Ondansetron HCl (Ondansetron 4 Mg/2 Ml Inj) 4 mg IV Q8HR PRN PRN Reason: Nausea And Vomiting Last Admin: 02/16/25 05:44 Dose: 4 mg Documented By: Oxycodone HCl (Oxycodone Ir 5 Mg Tablet) 20 mg PO NOW ONE Stop: 02/12/25 20:57 Last Admin: 02/12/25 21:18 Dose: 20 mg Documented By: CHENTE Oxycodone HCl (Oxycodone Ir 5 Mg Tablet) 20 mg PO NOW ONE Stop: 02/13/25 05:57 Last Admin: 02/13/25 06:02 Dose: 20 mg Documented By: CHENTE Oxycodone HCl (Oxycodone Ir 5 Mg Tablet) 20 mg PO QID [facility] Last Admin: 02/13/25 13:58 Dose: Not Given Documented By: Admin: 02/13/25 10:17 Dose: 20 mg Documented By: JOSE C Oxycodone HCl (Oxycodone Ir 5 Mg Tablet) 20 mg PO 1000,1400,1800,2200 [facility] Last Admin: 02/18/25 10:03 Dose: 20 mg Documented By: Admin: 02/17/25 21:45 Dose: 20 mg Documented By: Admin: 02/17/25 17:53 Dose: 20 mg Documented By: Admin: 02/17/25 14:07 Dose: 20 mg Documented By: Admin: 02/17/25 10:14 Dose: 20 mg Documented By: Admin: 02/16/25 21:59 Dose: 20 mg Documented By: Admin: 02/16/25 17:34 Dose: 20 mg Documented By: Admin: 02/16/25 13:50 Dose: 20 mg Documented By: Admin: 02/16/25 09:48 Dose: 20 mg Documented By: Admin: 02/15/25 22:05 Dose: 20 mg Documented By: Admin: 02/15/25 17:06 Dose: 20 mg Documented By: Admin: 02/15/25 15:49 Dose: Not Given Documented By: Admin: 02/15/25 09:21 Dose: 20 mg Documented By: Admin: 02/14/25 22:04 Dose: 20 mg Documented By: Admin: 02/14/25 18:45 Dose: Not Given Documented By: Admin: 02/14/25 13:54 Dose: 20 mg Documented By: Admin: 02/14/25 09:09 Dose: 20 mg Documented By: Admin: 02/13/25 23:18 Dose: Not Given Documented By: Admin: 02/13/25 23:05 Dose: Not Given Documented By: Admin: 02/13/25 14:33 Dose: 20 mg Documented By: JOSE C Oxycodone HCl (Oxycodone Ir 10 Mg Tablet) 20 mg PO QID PRN PRN Reason: Pain (Scale Score 7-10) Last Admin: 02/15/25 14:07 Dose: 20 mg Documented By: Admin: 02/15/25 04:46 Dose: 20 mg Documented By: TO Oxycodone HCl (Oxycodone Ir 10 Mg Tablet) 10 mg PO Q4HR PRN PRN Reason: Pain Last Admin: 02/18/25 10:52 Dose: 10 mg Documented By: Admin: 02/18/25 05:51 Dose: 10 mg Documented By: Admin: 02/17/25 08:44 Dose: 10 mg Documented By: Admin: 02/16/25 20:58 Dose: 10 mg Documented By: Admin: 02/16/25 05:10 Dose: 10 mg Documented By: Admin: 02/16/25 00:33 Dose: 10 mg Documented By: Polyethylene Glycol (Polyethylene Glycol 3350 17 Gm Powd.Pack) 17 gm PO DAILY [facility] Last Admin: 02/18/25 08:48 Dose: 17 gm Documented By: Admin: 02/17/25 08:43 Dose: 17 gm Documented By: Admin: 02/16/25 08:54 Dose: 17 gm Documented By: Admin: 02/15/25 17:07 Dose: 17 gm Documented By: LUIS Progesterone (Progesterone, Micronized 100 Mg Capsule) 100 mg PO BEDTIME [facility] Last Admin: 02/17/25 20:38 Dose: 100 mg Documented By: Admin: 02/16/25 20:58 Dose: 100 mg Documented By: Admin: 02/15/25 21:09 Dose: Not Given Documented By: Admin: 02/14/25 23:40 Dose: Not Given Documented By: TO Sertraline HCl (Sertraline 50 Mg Tablet) 100 mg PO BEDTIME [facility] Last Admin: 02/14/25 21:23 Dose: 100 mg Documented By: VALENTINE Sertraline HCl (Sertraline 50 Mg Tablet) 100 mg PO DAILY [facility] Last Admin: 02/18/25 08:49 Dose: 100 mg Documented By: Admin: 02/17/25 08:43 Dose: 100 mg Documented By: Admin: 02/16/25 08:57 Dose: 100 mg Documented By: Admin: 02/15/25 09:22 Dose: 100 mg Documented By: LDV Sodium Chloride (Sodium Chloride 0.9% Flush) 10 ml IV PRN PRN PRN Reason: Flush Sodium Chloride (Sodium Chloride 0.9% Flush) 10 ml IV BID [facility] Last Admin: 02/18/25 08:50 Dose: 10 ml Documented By: Admin: 02/17/25 20:39 Dose: 10 ml Documented By: Admin: 02/17/25 10:14 Dose: 10 ml Documented By: Admin: 02/16/25 20:58 Dose: 10 ml Documented By: Admin: 02/16/25 08:54 Dose: 10 ml Documented By: Admin: 02/15/25 22:06 Dose: 10 ml Documented By: Tizanidine HCl (Tizanidine 4 Mg Tablet) 4 mg PO NOW ONE Stop: 02/13/25 01:13 Last Admin: 02/13/25 01:42 Dose: 4 mg Documented By: CHENTE Tizanidine HCl (Tizanidine 4 Mg Tablet) 4 mg PO Q6HR PRN PRN Reason: Spasms Last Admin: 02/14/25 16:54 Dose: 4 mg Documented By: Admin: 02/13/25 17:34 Dose: 4 mg Documented By: JOSE C Admin: 02/13/25 10:32 Dose: 4 mg Documented By: LM Tizanidine HCl (Tizanidine 4 Mg Tablet) 4 mg PO Q6H PRN PRN Reason: muscle spasm Last Admin: 02/18/25 05:51 Dose: 4 mg Documented By: Admin: 02/16/25 20:57 Dose: 4 mg Documented By: Admin: 02/16/25 05:09 Dose: 4 mg Documented By: Admin: 02/15/25 21:01 Dose: 4 mg Documented By: Vital Signs Vital signs: Vital Signs - 8 hr 02/14/25 13:00 02/14/25 13:30 02/14/25 14:00 Pulse Rate 100 H 97 H 92 H Respiratory Rate Blood Pressure Pulse Oximetry 92 97 97 02/14/25 14:30 02/14/25 14:58 02/14/25 14:58 Pulse Rate 92 H 93 H Respiratory Rate Blood Pressure 129/75 Pulse Oximetry 95 95 02/14/25 15:00 02/14/25 15:30 02/14/25 16:00 Pulse Rate 90 85 Respiratory Rate Blood Pressure 126/62 Pulse Oximetry 96 97 02/14/25 16:00 02/14/25 16:30 02/14/25 17:00 Pulse Rate 79 81 83 Respiratory Rate Blood Pressure Pulse Oximetry 99 99 98 02/14/25 17:30 02/14/25 18:00 02/14/25 18:30 Pulse Rate 86 90 87 Respiratory Rate Blood Pressure Pulse Oximetry 99 96 97 02/14/25 19:00 02/14/25 19:30 02/14/25 20:00 Pulse Rate 83 85 Respiratory Rate Blood Pressure 120/78 Pulse Oximetry 100 99 02/14/25 20:00 Pulse Rate 80 Respiratory Rate 18 Blood Pressure Pulse Oximetry 98 MDM - Back Pain/Injury <Audra Lei, - Last Filed: 02/19/25 07:15> Lab Data 02/15/25 04:40 02/15/25 04:40 Labs: Lab Results 02/13/25 Range/Units 01:50 WBC 5.5 (4.5-11.0) X10^3/uL RBC 4.58 (4.0-5.2) X10^6/uL Hgb 13.9 (12.0-16.0) g/dL Hct 40.1 (36-46) % MCV 87.6 (80-100) fL MCH 30.4 (26-34) PG MCHC 34.7 (30-36) % RDW 13.0 (11.6-14.8) % Plt Count 405 H (150-400) X10^3/uL Neut % (Auto) 81.7 H (50-75) % Lymph % (Auto) 9.5 L (25-40) % Cloud % (Auto) 7.7 (3-14) % Eos % (Auto) 0.8 L (2-4) % Baso % (Auto) 0.3 (0-2) % Neut # (Auto) 4500 (6425-3978) /uL Lymph # (Auto) 500 L (7335-8699) /uL Cloud # (Auto) 400 (0-900) /uL Eos # (Auto) 0 (0-450) /uL Baso # (Auto) 0 (0-100) /uL Sodium 139 (137-145) mmol/L Potassium 3.8 (3.4-5.1) mmol/L Chloride 100 (98-107) mmol/L Carbon Dioxide 25 (22-32) mmol/L BUN 16 (7-17) mg/dL Creatinine 0.67 (0.52-1.04) mg/dL Estimated GFR > 60 (>60) mL/min BUN/Creatinine Ratio 23.9 H (6-22) Glucose 82 (70-99) mg/dL Calcium 9.5 (8.4-10.2) mg/dL [facility] Narrative Medical decision making narrative: 54-year-old female who had sacral fracture found after a ground level fall 02/04/2025 landing. Since then she was had increased pain she describes increased pain down the backs of her thighs some new paresthesias and she describes urinary incontinence but also describes having trouble getting to the bathroom. Patient has not had any fecal incontinence. On exam she was good muscle strength no weakness DTRs are slightly brisk, rectal tone is intact. Discussed with the patient we will repeat imaging with a dedicated pelvic CT and lumbar spine. While in the waiting your patient received her oral home dose of oxycodone and acetaminophen. Patient was given her home gabapentin tizanidine which which was bit overdue for as well as a dose of IV Toradol and IV narcotic. Patient had lumbar spine CT 02/05/2024 showed acute cortical destruction anterior aspect S2 vertebral segment. Extends by Saturdays in zones 1 2 and 3. No displaced osseous fragment. stable postop changes L5-S1 no acute osseous lesions in the lumbar spine. No acute osseous lesions in the lumbar spine. Reviewed patient's vision on 02/04 case was discussed with the orthopedic surgery no surgical interventions if neurovascularly intact. Labs show normal white count hemoglobin with platelets of 405. Chemistries are appropriate normal BUN and creatinine. CT L-spine shows similar appearing bilateral sacral ala fracture, kyphoplasty cement noted within T12, chronic compression fracture lungs. Endplate of L5. Fusion hardware L5-S1 appears intact. No significant change of the bilateral sacral ala fracture noted. Visualized retroperitoneum demonstrates no acute ear suspicious abnormality. Right renal calculi noted. CT pelvis shows similar appearing bilateral sacral ala fracture without significant displacement. First-degree changes are present L5-S1 stable. Visualized pelvic contents demonstrate no acute or suspicious abnormality. Proximal femoral are normally bilaterally. Patient has not had any urine output, bladder scan is 200-250mL @ 0610 0400 Rechecked after medications. Patient was sleeping. Spoke with Dr. Polk orthopedic surgery at 0432 images reviewed. Patient notes increased pain and some paresthesias down her bilateral lower extremities, patient states new urinary incontinence as Tuesday 02/06. Would recommend transfer to facility with spine patient was having new incontinence. 0440: Patient is sleeping easily awakens. Reviewed recommendations from local orthopedic surgery. Spoke with patient clarified again if she was having true incontinence versus not able to make it to the bathroom. She states she feels like it gets full but she does not realize when she was starts to urinate but does have a sensation that her bladder is full. Patient and I discussed has had her prior back surgeries at [facility]. We will consult for continuity. Call out to [facility], spoke with Dr. Aguirre neurosurgery at 0610. Reviewed imaging, workup and exam findings from today. He was going to review with Orthopedic surgery at [facility] and they will recontact. 02/13/25, 07Romain Hedrick. Signout from Dr Lei. 54-year-old female has history of 02/04/2025 ground level fall and sacral fracture, status post anterior posterior approach surgery, wound dehiscence, debridement, 3 surgeries through neurosurgical service at [facility] primarily followed by Dr. Douglass, having difficulty with adequate pain control, most recently had medication change oxycodone 20 mg t.i.d. increased to 4 times daily, increased gabapentin dose from b.i.d. to 3 times daily, increase tizanidine dose from b.i.d. to 3 times daily. There seemed to be question about possible urinary incontinence, however on subsequent evaluation by nursing the patient seems to delineate discomfort trying to use the toilet, and preference to go ahead and urinate in her diaper. CT pelvis and CT lumbar spine done tonight, showing post surgical changes. Dr. Lei spoke with Neurosurgery [facility] Dr. Aguirre on-call, did not feel that there is likely incontinence related to the sacral fracture, but could consult his orthopedic colleagues. Dr. Aguirre was to contact ortho and call back with recommendation. Assumed care. 08, call back from Dr. Aguirre, no response from orthopedic surgery but does there is much for them to do, can reach them through the official hospitalist service. 08, patient informed, and seemed to reiterate that she has pain when she tries to use the commode, is able to urinate but prefers to urinate in the diapers, no true incontinence of urine. She seems well established with the neurosurgical service at [facility] who does not feel like any intervention is needed surgically at this time. We will continue regular scheduled medications oxycodone and gabapentin and tizanidine, she feels that she might need assistance at home or alternate placement. We will consult PT and social media designer. 929, case discussed with Orthopedic surgery [facility] Dr Bhardwaj, who was able to look at the images, believes that there is a small fracture below the level of previous surgical repair, could be amenable to surgery if that is a cause of persisting pain, but no indication for emergent trasnfer at this time. Recommends that patient be seen as an outpatient by Dr. Almanzar, [facility], [address] [place] [address], . Possible consultation on Sunday during their clinic at that time, he authorized a clinic referral. Case discussed with charge nurse, we will continue regular scheduled oxycodone and gabapentin and tizanidine doses. Await consultations with PT/[employer] for further short-term disposition plan. 1430, PT assessment, recommends SNF placement. [employer] aware and is consulting. 1630, SNF reviewing case. 1929: Patient signed out to myself. At this time patient has been set up for outpatient referral to the orthopedic group at [facility]. Patient does not meet any inpatient criteria but it was having pain and difficulty with ambulation at home so seeking SNF placement, there was 48 our policy for hospital if patient was still boarding we will contact hospitalist. <Florentino Hoyos MD - Last Filed: 02/15/25 06:56> Lab Data Labs: Lab Results 02/13/25 Range/Units 01:50 WBC 5.5 (4.5-11.0) X10^3/uL RBC 4.58 (4.0-5.2) X10^6/uL Hgb 13.9 (12.0-16.0) g/dL Hct 40.1 (36-46) % MCV 87.6 (80-100) fL MCH 30.4 (26-34) PG MCHC 34.7 (30-36) % RDW 13.0 (11.6-14.8) % Plt Count 405 H (150-400) X10^3/uL Neut % (Auto) 81.7 H (50-75) % Lymph % (Auto) 9.5 L (25-40) % Cloud % (Auto) 7.7 (3-14) % Eos % (Auto) 0.8 L (2-4) % Baso % (Auto) 0.3 (0-2) % Neut # (Auto) 4500 (9532-8344) /uL Lymph # (Auto) 500 L (8247-8971) /uL Cloud # (Auto) 400 (0-900) /uL Eos # (Auto) 0 (0-450) /uL Baso # (Auto) 0 (0-100) /uL Sodium 139 (137-145) mmol/L Potassium 3.8 (3.4-5.1) mmol/L Chloride 100 (98-107) mmol/L Carbon Dioxide 25 (22-32) mmol/L BUN 16 (7-17) mg/dL Creatinine 0.67 (0.52-1.04) mg/dL Estimated GFR > 60 (>60) mL/min BUN/Creatinine Ratio 23.9 H (6-22) Glucose 82 (70-99) mg/dL Calcium 9.5 (8.4-10.2) mg/dL MDM Narrative Medical decision making narrative: 54-year-old female who had sacral fracture found after a ground level fall 02/04/2025 landing. Since then she was had increased pain she describes increased pain down the backs of her thighs some new paresthesias and she describes urinary incontinence but also describes having trouble getting to the bathroom. Patient has not had any fecal incontinence. On exam she was good muscle strength no weakness DTRs are slightly brisk, rectal tone is intact. Discussed with the patient we will repeat imaging with a dedicated pelvic CT and lumbar spine. While in the waiting your patient received her oral home dose of oxycodone and acetaminophen. Patient was given her home gabapentin tizanidine which which was bit overdue for as well as a dose of IV Toradol and IV narcotic. Patient had lumbar spine CT 02/05/2024 showed acute cortical destruction anterior aspect S2 vertebral segment. Extends by Saturdays in zones 1 2 and 3. No displaced osseous fragment. stable postop changes L5-S1 no acute osseous lesions in the lumbar spine. No acute osseous lesions in the lumbar spine. Reviewed patient's vision on 02/04 case was discussed with the orthopedic surgery no surgical interventions if neurovascularly intact. Labs show normal white count hemoglobin with platelets of 405. Chemistries are appropriate normal BUN and creatinine. CT L-spine shows similar appearing bilateral sacral ala fracture, kyphoplasty cement noted within T12, chronic compression fracture lungs. Endplate of L5. Fusion hardware L5-S1 appears intact. No significant change of the bilateral sacral ala fracture noted. Visualized retroperitoneum demonstrates no acute ear suspicious abnormality. Right renal calculi noted. CT pelvis shows similar appearing bilateral sacral ala fracture without significant displacement. First-degree changes are present L5-S1 stable. Visualized pelvic contents demonstrate no acute or suspicious abnormality. Proximal femoral are normally bilaterally. Patient has not had any urine output, bladder scan is 200-250mL @ 0610 0400 Rechecked after medications. Patient was sleeping. Spoke with Dr. Polk orthopedic surgery at 0432 images reviewed. Patient notes increased pain and some paresthesias down her bilateral lower extremities, patient states new urinary incontinence as Tuesday 02/06. Would recommend transfer to facility with spine patient was having new incontinence. 0440: Patient is sleeping easily awakens. Reviewed recommendations from local orthopedic surgery. Spoke with patient clarified again if she was having true incontinence versus not able to make it to the bathroom. She states she feels like it gets full but she does not realize when she was starts to urinate but does have a sensation that her bladder is full. Patient and I discussed has had her prior back surgeries at [facility]. We will consult for continuity. Call out to [facility], spoke with Dr. Aguirre neurosurgery at 0610. Reviewed imaging, workup and exam findings from today. He was going to review with Orthopedic surgery at [facility] and they will recontact. 02/13/25, [id number]. Signout from Dr Lei. 54-year-old female has history of 02/04/2025 ground level fall and sacral fracture, status post anterior posterior approach surgery, wound dehiscence, debridement, 3 surgeries through neurosurgical service at [facility] primarily followed by Dr. Douglass, having difficulty with adequate pain control, most recently had medication change oxycodone 20 mg t.i.d. increased to 4 times daily, increased gabapentin dose from b.i.d. to 3 times daily, increase tizanidine dose from b.i.d. to 3 times daily. There seemed to be question about possible urinary incontinence, however on subsequent evaluation by nursing the patient seems to delineate discomfort trying to use the toilet, and preference to go ahead and urinate in her diaper. CT pelvis and CT lumbar spine done tonight, showing post surgical changes. Dr. Lei spoke with Neurosurgery [facility] Dr. Aguirre on-call, did not feel that there is likely incontinence related to the sacral fracture, but could consult his orthopedic colleagues. Dr. Aguirre was to contact ortho and call back with recommendation. Assumed care. 0800, call back from Dr. Aguirre, no response from orthopedic surgery but does there is much for them to do, can reach them through the official hospitalist service. 0830, patient informed, and seemed to reiterate that she has pain when she tries to use the commode, is able to urinate but prefers to urinate in the diapers, no true incontinence of urine. She seems well established with the neurosurgical service at [facility] who does not feel like any intervention is needed surgically at this time. We will continue regular scheduled medications oxycodone and gabapentin and tizanidine, she feels that she might need assistance at home or alternate placement. We will consult PT and social media designer. 929, case discussed with Orthopedic surgery [facility] Dr Bhardwaj, who was able to look at the images, believes that there is a small fracture below the level of previous surgical repair, could be amenable to surgery if that is a cause of persisting pain, but no indication for emergent trasnfer at this time. Recommends that patient be seen as an outpatient by Dr. Almanzar, [facility], [address] [place] [address], . Possible consultation on Sunday during their clinic at that time, he authorized a clinic referral. Case discussed with charge nurse, we will continue regular scheduled oxycodone and gabapentin and tizanidine doses. Await consultations with PT/[employer] for further short-term disposition plan. 143, PT assessment, recommends SNF placement. [employer] aware and is consulting. 163, SNF reviewing case. 193: Quique. Patient signed out to myself. At this time patient has been set up for outpatient referral to the orthopedic group at [facility]. Patient does not meet any inpatient criteria but it was having pain and difficulty with ambulation at home so seeking SNF placement, there was 48 our policy for hospital if patient was still boarding we will contact hospitalist. 02/14/25, 0700, Romain. Signout from Dr Lei. Uneventful overnight. Awaiting SNF placement. Consider social admission if still here at 48 hours, which would be after 8pm tonight. Reassumed care. 183, signed out to Dr Grady, anticipate social admit at 48h hermelinda which would be after 8pm tonight. SNF placement in progress. <Markel Grady, DO - Last Filed: 02/14/25 20:43> Lab Data Labs: Lab Results 02/13/25 Range/Units 01:50 WBC 5.5 (4.5-11.0) X10^3/uL RBC 4.58 (4.0-5.2) X10^6/uL Hgb 13.9 (12.0-16.0) g/dL Hct 40.1 (36-46) % MCV 87.6 (80-100) fL MCH 30.4 (26-34) PG MCHC 34.7 (30-36) % RDW 13.0 (11.6-14.8) % Plt Count 405 H (150-400) X10^3/uL Neut % (Auto) 81.7 H (50-75) % Lymph % (Auto) 9.5 L (25-40) % Cloud % (Auto) 7.7 (3-14) % Eos % (Auto) 0.8 L (2-4) % Baso % (Auto) 0.3 (0-2) % Neut # (Auto) 4500 (2443-3986) /uL Lymph # (Auto) 500 L (5555-1194) /uL Cloud # (Auto) 400 (0-900) /uL Eos # (Auto) 0 (0-450) /uL Baso # (Auto) 0 (0-100) /uL Sodium 139 (137-145) mmol/L Potassium 3.8 (3.4-5.1) mmol/L Chloride 100 (98-107) mmol/L Carbon Dioxide 25 (22-32) mmol/L BUN 16 (7-17) mg/dL Creatinine 0.67 (0.52-1.04) mg/dL Estimated GFR > 60 (>60) mL/min BUN/Creatinine Ratio 23.9 H (6-22) Glucose 82 (70-99) mg/dL Calcium 9.5 (8.4-10.2) mg/dL [facility] Narrative Medical decision making narrative: 54-year-old female who had sacral fracture found after a ground level fall 02/04/2025 landing. Since then she was had increased pain she describes increased pain down the backs of her thighs some new paresthesias and she describes urinary incontinence but also describes having trouble getting to the bathroom. Patient has not had any fecal incontinence. On exam she was good muscle strength no weakness DTRs are slightly brisk, rectal tone is intact. Discussed with the patient we will repeat imaging with a dedicated pelvic CT and lumbar spine. While in the waiting your patient received her oral home dose of oxycodone and acetaminophen. Patient was given her home gabapentin tizanidine which which was bit overdue for as well as a dose of IV Toradol and IV narcotic. Patient had lumbar spine CT 02/05/2024 showed acute cortical destruction anterior aspect S2 vertebral segment. Extends by Saturdays in zones 1 2 and 3. No displaced osseous fragment. stable postop changes L5-S1 no acute osseous lesions in the lumbar spine. No acute osseous lesions in the lumbar spine. Reviewed patient's vision on 02/04 case was discussed with the orthopedic surgery no surgical interventions if neurovascularly intact. Labs show normal white count hemoglobin with platelets of 405. Chemistries are appropriate normal BUN and creatinine. CT L-spine shows similar appearing bilateral sacral ala fracture, kyphoplasty cement noted within T12, chronic compression fracture lungs. Endplate of L5. Fusion hardware L5-S1 appears intact. No significant change of the bilateral sacral ala fracture noted. Visualized retroperitoneum demonstrates no acute ear suspicious abnormality. Right renal calculi noted. CT pelvis shows similar appearing bilateral sacral ala fracture without significant displacement. First-degree changes are present L5-S1 stable. Visualized pelvic contents demonstrate no acute or suspicious abnormality. Proximal femoral are normally bilaterally. Patient has not had any urine output, bladder scan is 200-250mL @ 0610 0400 Rechecked after medications. Patient was sleeping. Spoke with Dr. Polk orthopedic surgery at 0432 images reviewed. Patient notes increased pain and some paresthesias down her bilateral lower extremities, patient states new urinary incontinence as Tuesday 02/06. Would recommend transfer to facility with spine patient was having new incontinence. 0440: Patient is sleeping easily awakens. Reviewed recommendations from local orthopedic surgery. Spoke with patient clarified again if she was having true incontinence versus not able to make it to the bathroom. She states she feels like it gets full but she does not realize when she was starts to urinate but does have a sensation that her bladder is full. Patient and I discussed has had her prior back surgeries at [facility]. We will consult for continuity. Call out to [facility], spoke with Dr. Aguirre neurosurgery at 0610. Reviewed imaging, workup and exam findings from today. He was going to review with Orthopedic surgery at [facility] and they will recontact. 02/13/25, 07Romain Hedrick. Signout from Dr Lei. 54-year-old female has history of 02/04/2025 ground level fall and sacral fracture, status post anterior posterior approach surgery, wound dehiscence, debridement, 3 surgeries through neurosurgical service at [facility] primarily followed by Dr. Douglass, having difficulty with adequate pain control, most recently had medication change oxycodone 20 mg t.i.d. increased to 4 times daily, increased gabapentin dose from b.i.d. to 3 times daily, increase tizanidine dose from b.i.d. to 3 times daily. There seemed to be question about possible urinary incontinence, however on subsequent evaluation by nursing the patient seems to delineate discomfort trying to use the toilet, and preference to go ahead and urinate in her diaper. CT pelvis and CT lumbar spine done tonight, showing post surgical changes. Dr. Lei spoke with Neurosurgery [facility] Dr. Aguirre on-call, did not feel that there is likely incontinence related to the sacral fracture, but could consult his orthopedic colleagues. Dr. Aguirre was to contact ortho and call back with recommendation. Assumed care. 799, call back from Dr. Aguirre, no response from orthopedic surgery but does there is much for them to do, can reach them through the official hospitalist service. 829, patient informed, and seemed to reiterate that she has pain when she tries to use the commode, is able to urinate but prefers to urinate in the diapers, no true incontinence of urine. She seems well established with the neurosurgical service at [facility] who does not feel like any intervention is needed surgically at this time. We will continue regular scheduled medications oxycodone and gabapentin and tizanidine, she feels that she might need assistance at home or alternate placement. We will consult PT and social media designer. 929, case discussed with Orthopedic surgery [facility] Dr Bhardwaj, who was able to look at the images, believes that there is a small fracture below the level of previous surgical repair, could be amenable to surgery if that is a cause of persisting pain, but no indication for emergent trasnfer at this time. Recommends that patient be seen as an outpatient by Dr. Almanzar, [facility], [address] [place] [address], . Possible consultation on Sunday during their clinic at that time, he authorized a clinic referral. Case discussed with charge nurse, we will continue regular scheduled oxycodone and gabapentin and tizanidine doses. Await consultations with PT/[employer] for further short-term disposition plan. 1430, PT assessment, recommends SNF placement. [employer] aware and is consulting. 1630, SNF reviewing case. 193: Quique. Patient signed out to myself. At this time patient has been set up for outpatient referral to the orthopedic group at [facility]. Patient does not meet any inpatient criteria but it was having pain and difficulty with ambulation at home so seeking SNF placement, there was 48 our policy for hospital if patient was still boarding we will contact hospitalist. 02/14/25, 0700, Romain. Signout from Dr Lei. Uneventful overnight. Awaiting SNF placement. Consider social admission if still here at 48 hours, which would be after 8pm tonight. Reassumed care. 1829, signed out to Dr Grady, anticipate social admit at 48h hermelinda which would be after 8pm tonight. SNF placement in progress. Patient signed out to me at shift change pending final disposition. All lab work,vital signs, nurse triage note, medication list, imaging studies, and all previous ER visits have been reviewed. Patient is still awaiting sniff placement patient has been in the ER for more than 48 hours now and will be a social admit. Case discussed with Dr. Catherine who has graciously accepted patient for inpatient admission. Patient has a Sunday appointment with Dr. Almanzar at [facility] medical group in [facility] on Sunday please confirm her appointment time prior to discharge. Discharge Plan Departure Patient Disposition: Admitted As Inpatient Clinical Impression: Closed sacral fracture Admit Date/Time: 02/14/25 20:45 Admit Provider: Roberto Catherine
--- NOTE | 2025-02-13 01:10 | DI.CT.S_ITS ---
PROCEDURE: CT PEL WO CON INDICATIONS: sacral fx 02/04, worsening, no pain down legs. TECHNIQUE: Noncontrast 3 mm axial sections acquired through the bony pelvis, with coronal and sagittal reformatting. COMPARISON: , CT, CT LUMBAR SPINE WO CON, 02/04/2025, 20:10. FINDINGS: Image quality: Excellent. Bones: Subacute appearing bilateral sacral left fractures with interval slight increase in the extent of depression at right sacral alar fracture site now measures up to 3.5 mm. Extent of depression in left sacral alae fracture site is not significantly changed. No new pelvic fracture or dislocation. Postfusion changes are noted at L5-S1 level. Chronic appearing mild superior endplate compression deformity at L5 level is again seen and unchanged. No evidence of hardware loosening or failure. Soft tissues: There is no soft tissue mass or drainable fluid collection. No large soft tissue hematoma is seen. No presacral mass or for hematoma. No peritoneal free fluid or free air. No abnormal bowel wall thickening. Bladder wall thickness is normal. IMPRESSION: 1. Interval slight increase in depression at right sacral alar fracture site. Stable appearance of left sacral alar fracture. No new fracture or dislocation is seen in bony pelvis. 2. Stable postsurgical changes in lower lumbar spine. 3. No peritoneal free fluid or free air. No soft tissue mass or drainable fluid collection. Dictated by: Mick Martinez M.D. on 02/13/2025 at 8:28 Approved by: Mick Martinez M.D. on 02/13/2025 at 8:31
--- NOTE | 2025-02-13 01:10 | DI.CT.S_ITS ---
PROCEDURE: CT LUMBAR SPINE WO CON INDICATIONS: sacral fx 02/04, worsening, no pain down legs. TECHNIQUE: Noncontrast 3 mm thick sections acquired from the T12 level to the sacrum. Sagittal and coronal reformats were constructed. For radiation dose reduction, the following was used: automated exposure control. COMPARISON: [facility], CT, CT LUMBAR SPINE WO CON, 02/04/2025, 20:10. FINDINGS: Image quality: Excellent. Bones: Postfusion changes are again seen at L5-S1 level unchanged from prior study. Prior kyphoplasty at T12 level is again seen. Overall lumbar spine alignment is unchanged from prior study. No acute vertebral body compression fracture. No obvious hardware loosening or failure. Chronic appearing superior endplate compression at L5 level is again seen and unchanged. Again noted are bilateral sacral alar insufficiency fractures with overall unchanged appearance in left sacrum and increased depression in right sacrum compared to previous study now measures up to 3.5 mm. No new fracture or dislocation. Multilevel spondylitic changes are again noted throughout lumbar spine not significantly changed from prior study. Soft tissues: No retroperitoneal masses or hematomas. Nonobstructing right renal calculi are again seen. No peritoneal free fluid or free air. Visualized aorta is normal in caliber. IMPRESSION: 1. Interval slight increase in depression at right sacral alar fracture site as described above. Stable appearance of left sacral alar fracture. 2. Stable appearance of lumbar spine not significantly changed from recent CT study. No new vertebral body compression fracture. Dictated by: Mick Martinez M.D. on 02/13/2025 at 8:23 Approved by: Mick Martinez M.D. on 02/13/2025 at 8:28
--- NOTE | 2025-02-13 01:17 | PC.NURSE ---
This tech went out to the lobby to grab patient and bring them back to a room. Pt was lying on the floor out in the lobby on blankets. I stated to the patient I need you to get up off the floor and into the wheelchair so I can take you back. Pt proceeded to tell this tech I cannot get up off the floor. This tech stated that you got yourself onto the floor, you can get back into the wheelchair. In order for you to be seen, you need to get up so I can take you back to a room. Pt then got herself back up and into the wheelchair. We got to room 10 @0030, locked the wheelchair for patient safety and began assisting patient into the bed by having my arm under her arm and directing her on where to sit on the bed. Pt then proceeded to throw herself towards the head of the bed instead of sitting down and missed the stretcher. She fell into the basket on the wall that contains all of the blood pressure cuffs and tele stickers. Pt hit her left forearm on the basket and fell to the floor. This tech assisted the pt off of the floor and into the bed. Pt got into the bed on her knees and flopped onto her side. Pt then stated You said that you were not going to help me. I explained to the patient that I never stated that, that I told her I was here to help her but that she would need to get herself off of the floor since she put herself there to begin with. At this time pt refused vitals. Call light and warm blankets were provided to patient and call light is within patient reach. SADIE Way and SADIE Dorsey notified of this situation.
[2025-02-13] MEDS: TIZANIDINE 4 MG TABLET PO ×3 (01:42→17:34)
[2025-02-13] MEDS: GABAPENTIN 100 MG CAPSULE 200 MG PO ×2 (01:42→21:23)
[2025-02-13] MEDS: KETOROLAC 30 MG/ML VIAL 15 MG IV (01:43)
[2025-02-13] MEDS: MORPHINE 4 MG/ML INJ IV (01:43)
[2025-02-13 02:03] LABS: Add Manual Diff / Slide Review NO; Basophils Absolute Auto 0 /uL (0-100); Basophils Percent Auto 0.3 % (0-2); Eosinophils Absolute Auto 0 /uL (0-450); Eosinophils Percent Auto 0.8 % (2-4); Hematocrit 40.1 % (36-46); Hemoglobin 13.9 g/dL (12.0-16.0); Lymphocytes Absolute Auto 500 /uL (1100-4500); Lymphocytes Percent Auto 9.5 % (25-40); Mean Corpuscular HGB Conc 34.7 % (30-36); Mean Corpuscular Hemoglobin 30.4 PG (26-34); Mean Corpuscular Volume 87.6 fL (80-100); Monocytes Absolute Auto 400 /uL (0-900); Monocytes Percent Auto 7.7 % (3-14); Neutrophils Absolute Auto 4500 /uL (1500-7000); Neutrophils Percent Auto 81.7 % (50-75); Platelet Count 405 X10^3/uL (150-400); Red Blood Cell Count 4.58 X10^6/uL (4.0-5.2); White Blood Cell Count 5.5 X10^3/uL (4.5-11.0)
[2025-02-13 02:15] LABS: BUN Creatinine Ratio 23.9 (6-22); Blood Urea Nitrogen 16 mg/dL (7-17); Calcium 9.5 mg/dL (8.4-10.2); Carbon Dioxide 25 mmol/L (22-32); Chloride 100 mmol/L (98-107); Estimated Glomerular Filt Rate > 60 mL/min (>60); Glucose 82 mg/dL (70-99); HEMOLYSIS < 15 (0-50); Potassium 3.8 mmol/L (3.4-5.1); Sodium 139 mmol/L (137-145)
[2025-02-13] MEDS: ACETAMINOPHEN 325 MG TABLET 975 MG PO (06:01)
[2025-02-13] MEDS: OXYCODONE IR 5 MG TABLET 20 MG PO ×3 (06:02→14:33)
--- NOTE | 2025-02-13 06:20 | PC.NURSE ---
Patient educated on bladder scan amount and that it does not qualify for gonsales catheter need at this time. Brief clean and dry. Patient verbalized that she is wearing briefs because of level of pain and pressure from getting up and sitting on toilet is too severe and too much pressure. Patient explains she is aware of needing to empty bladder and has been able to urinate/void into brief and uses sanitizing wipes to clean up. Patient provided barrier cream to include in her pericare routine and reviewed importance of pericare for prevention of skin breakdown, skin irritation, or urinary tract infections. Patient relays she has frequent UTI at times sometimes monthly or more often and sees physician for that. Patient continues to deny incontinence of bladder and bowel and use of briefs is related to pain levels and not inability to void or inability to sense need to void.
--- NOTE | 2025-02-13 10:27 | PC.NURSE ---
Pt c/o muscle spams and pain to hip/lower back, pt given oxycode for pain and informed pt that other meds are coming from pharmacy, pt verbalized understanding. Pt A&Ox4, RA, breathing even/equal/unlabored at this time. Call light within reach, bed repositioned and pt repostioned to place of comfort at this time
[2025-02-13] MEDS: GABAPENTIN 100 MG CAPSULE PO ×2 (10:32→17:33)
--- NOTE | 2025-02-13 11:21 | PC.NURSE ---
Pt resting on stretcher in position of comfort, A&Ox4, breathing even/equal/unlabored at this time. Call light within reach, no needs at this time
--- NOTE | 2025-02-13 13:18 | PT.IIE ---
Surgical History (Last Reviewed 02/13/25 @ 01:16 by Audra Lei DO) History of lumbar surgery S/P T&A (status post tonsillectomy and adenoidectomy) Status post appendectomy Status post cholecystectomy Status post tubal ligation Medical History (Last Reviewed 02/13/25 @ 01:16 by Audra Lei DO) No chronic problems Pulmonary embolism Physical Therapy Inpatient Evaluation/Re-Eval M1 PT/OT-IP Prior Functional Status Start: 02/13/25 14:57 Freq: Status: Active Protocol: Document 02/13/25 13:18 AB (Rec: 02/13/25 15:12 AB [id number]) Medical Review Prior Functional Status Medical History Reviewed Yes Communication able to make needs known; with memory issues Mobility and Gait pt stated that she was independent with all mobilities and able to ambulate without AD ~ 2 weeks ago when she had a falls. pt with h/o frequent falls. pt with h/o back surgeries and stated that she had back pain for a long time and has been going to the pain clinic for management of pain. Social History Household Members spouse Living Arrangements RV Number of Floors (Floors) One Floor Number of Stairs To Enter/Railing? 4 steps L rail ascending pt stated that FWW will not fit in the RV Home Environment High Toilet,Walk in Shower Home Equipment Straight Cane,Hand Held Shower Additional Social History Comment pt stated that she is in the process of her spouse; spouse works and will not be able to assist pt pt has an adjustable bed; no bedrails M2 PT-IP Current Condition Start: 02/13/25 14:57 Freq: Status: Active Protocol: Document 02/13/25 13:18 AB (Rec: 02/13/25 15:12 AB [id number]) Physical Therapy Current Condition Current Condition Evaluation Date 02/12/25 Treatment Diagnosis sacral fractures; back pain; difficulty in walking Onset Date 02/13/25 M3 PT-IP Subjective Start: 02/13/25 14:57 Freq: Status: Active Protocol: Document 02/13/25 13:18 AB (Rec: 02/13/25 15:12 AB [id number]) Subjective Physical Therapy Visit Type Type Initial Evaluation Visit Start Time 13:18 Visit Stop Time 14:10 Number of RESPIRATORY TECH Visits 0 Physical Therapy Visit Comments Patient Comments agreeable to do PT Therapy Pain Assessment Pain When Pain Assessed At Rest Pain Present Pain Present Pain Reported Location lower back Intensity 8 Scale Used increases with mobility Description Radiating Pain Behaviors Facial Grimacing,Guarding, Holding Area,Moaning,Wincing Pain Management Techniques Distraction,Modification of Treatment,Re-positioning, Timing of Activity with Medications M4 PT-IP Mobility and Gait Start: 02/13/25 14:57 Freq: Status: Active Protocol: Document 02/13/25 13:18 AB (Rec: 02/13/25 15:12 AB [id number]) PT-Bed Mobility Assessment Rolling Type of Rolling Log Rolling Level of Assist Maximal Assistance Supine to Sit Supine to Sit Maximum Assistance Sit to Supine Sit to Supine Maximum Assistance PT-Transfer Assessment Sit to and From Stand Sit to and from Stand Moderate Assistance,1 Person Assistance,Use of Upper Extremities Equipment Transfer Assistive Device Gait Belt,Front Wheeled Walker Orthotic/Prosthetic Devices or Brace: No Comments Mobility Comments pt in bed and agreed to do PT. obtained PLOF and home set up. BP: 144/93 . educated pt on back precautions and log roll bed mobility. pt completed log roll supine to sit max A and max cues. c/o increase pain with mobility requiring mod A for sitting balance on EOB initially. pt screaming and increase guarding due to pain. sit to stand mod A and able to march in place x 3. c/o increasing back pain with slight LE buckling and instructed to sit on EOB. pt very restless due to pain. sit to stand again mod A and took side steps towards HOB for positioning using FWW max A and cues. log roll sit to supine max A and max cues. positioned pt in bed . call light and table placed within reach. Gait Assessment Gait Gait Assistance Required: Maximum Assistance Distance (Feet) 2 Able to Maintain Weight Bearing Status Yes During Gait Assistive Devices Assistive Device Gait Belt,Front Wheeled Walker Orthotic/Prosthetic Devices or Brace: No Gait Deviations General Gait Pattern Decreased Stride Length, Decreased Feet Clearance Factors Limiting Gait Function Factors Limiting Gait Function Decreased Activity Tolerance, Decreased Strength,Difficulty Following Directions,Limited Range of Motion,Pain,Poor Balance,Poor Safety Awareness Comments Gait Comments side stepping to position towards HOB PT-Balance Assessment Sitting Balance and Reactions Static Sitting Balance Ability Fair Dynamic Sitting Balance Ability Fair Standing Balance and Reactions Static Standing Balance Ability Poor Dynamic Standing Balance Ability Poor Device Used FWW M5 PT-IP Objective Assessments Start: 02/13/25 14:57 Freq: Status: Active Protocol: Document 02/13/25 13:18 AB (Rec: 02/13/25 15:12 AB [id number]) Orientation Orientation/Cognition Level of Alertness Confusional State Orientation Name,Place,Situation Safety Awareness Decreased Safety Awareness Memory Description Short Term Impaired,Assessment Expert Impaired Gross Range of Motion Lower Extremity ROM Assessment Within Functional Limits Strength Lower Extremity Strength Assessment Bilaterally Impaired Hip 3-/5 Knee 3+/5 Coordination Assessment Gross Coordination Gross Coordination WNL Sensation Assessment Sensation Gross Sensation WNL Muscle Tone Muscle Tone WNL Yes M6 PT-IP Treatment Start: 02/13/25 14:57 Freq: Status: Active Protocol: Document 02/13/25 13:18 AB (Rec: 02/13/25 15:12 AB [id number]) Physical Therapy Treatment Education Education Provided Precautions,Safety M7 PT-IP Assessment and Plan Start: 02/13/25 14:57 Freq: Status: Active Protocol: Document 02/13/25 13:18 AB (Rec: 02/13/25 15:12 AB [id number]) PT Summary Assessment and Plan Potential Rehabilitation Potential Fair Status of Condition at Evaluation Unstable Summary Impairments Pain,ROM,Strength,Balance, Coordination,Sensation,Tone, Cognition,Bed Mobility, Transfers,Gait,Activity Tolerance Assessment Summary pt seen in the ED. pt with c/o back pain and has sacral fxs. pt is WBAT per ED doctor. pt requiring max A for bed mobility. pt unable to do much activity due to c/o increase LBP radiating down B thighs. pt unable to ambulate much and only was able to take side steps towards HOB using FWW max A and max cues. pt require 24/7 assist and will need SNF rehab at this time. will continue to assess. Goals Bed Mobility Goal Standby Assistance Transfer Goal Standby Assistance,Front Wheeled Walker Gait Goal Standby Assistance,Front Wheel Walker Gait Distance 50 Other Goals improve bed mobility, transfers, ambulation using fWW 150 ft mod I up/down 4 steps L rail ascending SBA Days to Meet Goals 10 Frequency of Treatment Frequency Of Treatment Once a Day Treatment Plan Physical Therapy Treatment Plan Bed Mobility Training,Transfer Training,Gait Training, Therapeutic Exercise,Balance Retraining,Post Op Education, Discharge Planning,Hot or Cold Pack,Neuromuscular Re-ed, Coordination Retraining,Manual Therapy Precautions Lumbar Precautions Log Roll,No Twisting,Limit Bending,Lifting Restriction of 10 lbs,Gait Belt above Incisional Area Weight Bearing Status Weight Bearing Status Weight Bear as Tolerated Recommendations To Nursing Amount of Assist Needed 2 Person Assist Discharge Recommendations PT Discharge Recommendations SNF Rehab Transportation Needs at Discharge Wheelchair/Cabulance,Stretcher /Ambulance - PT assist 1
--- NOTE | 2025-02-13 13:45 | PC.NURSE ---
Pt laying in position of comfort, RA, A&Ox4, breathing even/equal/unlabored at this time. Call within reach, no needs at this time. PT at bedside for evaluation
--- NOTE | 2025-02-13 15:56 | PC.NURSE ---
Pt bladder scanned for 371, pt states willing to try purwick. Hygiene provided to pt, purwick placed. Upon placement of purwick, pt void 275ml urine. Pt placed in position of comfort, NAD, RA, A&Ox4, breathing even/equal/unlabored at this time. Call light within reach, no other needs at this time.
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
--- NOTE | 2025-02-13 17:45 | PC.NURSE ---
Pt laying in bed in position of comfort eating burger that pt doordashed for herself, RA, NAD, A&Ox4, breathing even/equal/unlabored at this time. Call light within reach, no needs at this time.
--- NOTE | 2025-02-13 23:18 | PC.NURSE ---
Moved patient over into hospital bed for comfort, placed SCD's on patient, call light is within reach. Patient at this time has refused oxycodone at 1800 & 2200, see MAR stating that her pain is only 5/10 and she doesn't require it at this time.
[2025-02-14] VITALS (46 sets, daily range): BP systolic 111–136; BP diastolic 62–78; PULSE 77–104; RESP 16–18; TEMP 36.1–36.8; O2SAT 92–100; BMI 23.3
[2025-02-14] MEDS: OXYCODONE IR 5 MG TABLET 20 MG PO ×3 (09:09→22:04)
--- NOTE | 2025-02-14 11:15 | PT.IPTN ---
Physical Therapy Treatment Note M2 PT-IP Current Condition Start: 02/13/25 14:57 Freq: Status: Active Protocol: Document 02/13/25 13:18 AB (Rec: 02/13/25 15:12 AB [id number]) Physical Therapy Current Condition Current Condition Evaluation Date 02/12/25 Treatment Diagnosis sacral fractures; back pain; difficulty in walking Onset Date 02/13/25 M3 PT-IP Subjective Start: 02/13/25 14:57 Freq: Status: Active Protocol: Document 02/14/25 11:15 AB (Rec: 02/14/25 12:01 AB Desktop) Subjective Physical Therapy Visit Type Type Treatment Note Visit Start Time 11:15 Visit Stop Time 11:40 Number of BEHAVIORAL SCIENCES DEPARTMENT CHAIR Visits 0 Physical Therapy Visit Comments Patient Comments agreeable to do PT Therapy Pain Assessment Pain When Pain Assessed At Rest Pain Present Pain Present Pain Reported Location lower back Intensity 5 Scale Used increases with movement Description Radiating Pain Behaviors Calling Out,Facial Grimacing, Guarding,Wincing Pain Management Techniques Distraction,Modification of Treatment,Re-positioning, Timing of Activity with Medications M4 PT-IP Mobility and Gait Start: 02/13/25 14:57 Freq: Status: Active Protocol: Document 02/14/25 11:15 AB (Rec: 02/14/25 12:01 AB Desktop) PT-Bed Mobility Assessment Rolling Type of Rolling Log Rolling Level of Assist Minimal Assistance Supine to Sit Supine to Sit Maximum Assistance,1 Person Assistance,Bedrails Sit to Supine Sit to Supine Maximum Assistance,Bedrails PT-Transfer Assessment Sit to and From Stand Sit to and from Stand Maximum Assistance,1 Person Assistance,Use of Upper Extremities Equipment Transfer Assistive Device Gait Belt,Front Wheeled Walker Orthotic/Prosthetic Devices or Brace: No Comments Mobility Comments pt in bed and agreeable to do PT. pt stated that she did a BM and needs to be cleaned up. nurse came in to assist. pt completed rolling L<>R min A and cues while nurse assisted with hygiene care. pt completed log roll supine to sit max A and max cues. required 2 attempts to completed. presents with increase guarding with pt stiffing whole trunk. cued to relax. c/o increase back pain with extension to B LE. Assisted with brief management : sit to stand from EOB max A and max cues and assisted with brief. nurse in room also assisted pt with brief management. instructed pt to take side steps towards HOB and completed ~ 4-5 stes using FWW max A and max cues. pt refused further activities and just wants to go back to bed. log roll sit to supine max A and max cues. positioned pt in bed. call light and table placed within reach. Gait Assessment Comments Gait Comments able to side steps towards HOB M5 PT-IP Objective Assessments Start: 02/13/25 14:57 Freq: Status: Active Protocol: Document 02/13/25 13:18 AB (Rec: 02/13/25 15:12 AB [id number]) Orientation Orientation/Cognition Level of Alertness Confusional State Orientation Name,Place,Situation Safety Awareness Decreased Safety Awareness Memory Description Short Term Impaired,Halfway Impaired Gross Range of Motion Lower Extremity ROM Assessment Within Functional Limits Strength Lower Extremity Strength Assessment Bilaterally Impaired Hip 3-/5 Knee 3+/5 Coordination Assessment Gross Coordination Gross Coordination WNL Sensation Assessment Sensation Gross Sensation WNL Muscle Tone Muscle Tone WNL Yes M6 PT-IP Treatment Start: 02/13/25 14:57 Freq: Status: Active Protocol: Document 02/14/25 11:15 AB (Rec: 02/14/25 12:01 AB Desktop) Physical Therapy Treatment Education Education Provided Precautions,Safety M7 PT-IP Assessment and Plan Start: 02/13/25 14:57 Freq: Status: Active Protocol: Document 02/14/25 11:15 AB (Rec: 02/14/25 12:01 AB Desktop) PT Summary Assessment and Plan Potential Rehabilitation Potential Fair Summary Impairments Pain,ROM,Strength,Balance, Coordination,Sensation,Tone, Cognition,Bed Mobility, Transfers,Gait,Activity Tolerance Progress Towards Goals Slow Progress due to Pain,Slow Progress due to Medical Issues,Slow Progress due to Activity Tolerance Assessment Summary pt requiring max A for bed mobility and sit to stand and only able to take a few sidesteps using FWW max A to position in bed. pt will benefit from SNF rehab to improve overall mobility and strength. Goals Bed Mobility Goal Standby Assistance Transfer Goal Standby Assistance,Front Wheeled Walker Gait Goal Standby Assistance,Front Wheel Walker Gait Distance 50 Other Goals improve bed mobility, transfers, ambulation using fWW 150 ft mod I up/down 4 steps L rail ascending SBA Days to Meet Goals 10 Frequency of Treatment Frequency Of Treatment Once a Day Treatment Plan Physical Therapy Treatment Plan Bed Mobility Training,Transfer Training,Gait Training, Therapeutic Exercise,Balance Retraining,Post Op Education, Discharge Planning,Hot or Cold Pack,Neuromuscular Re-ed, Coordination Retraining,Manual Therapy Precautions Lumbar Precautions Log Roll,No Twisting,Limit Bending,Lifting Restriction of 10 lbs Weight Bearing Status Weight Bearing Status Weight Bear as Tolerated Recommendations To Nursing Amount of Assist Needed 2 Person Assist Discharge Recommendations PT Discharge Recommendations SNF Rehab Transportation Needs at Discharge Wheelchair/Cabulance,Stretcher /Ambulance - PT assist 1-2
--- NOTE | 2025-02-14 11:33 | PC.NURSE ---
Large loose BM. bed change provided and henry care provided.
--- NOTE | 2025-02-14 13:59 | CM.SWNOTE ---
ED DULSER Note DULSER calls [facility] and leaves VM, likely no intake staff over the weekend. Awaiting [employer] insurance auth at this time. DULSER fills out with patient and faxes LTC Medicaid and HCS application to [facility]. PT met with patient again today and continues to recommend SNF rehab, patient does not have anyone at home to assist her with care needs, patient continues to require pain management. Plan: patient likely to board in ED and be admitted upon social admit guidelines awaiting SNF rehab placement, [facility] with [facility]. LTC applications pending. Nikki Camilo, PRODUCTION MACHINE COMPUTER OPERATOR
[2025-02-14] MEDS: TIZANIDINE 4 MG TABLET PO (16:54)
[2025-02-14] MEDS: GABAPENTIN 100 MG CAPSULE PO (16:54)
[2025-02-14] MEDS: SERTRALINE 50 MG TABLET 100 MG PO (21:23)
[2025-02-14] MEDS: GABAPENTIN 100 MG CAPSULE 200 MG PO (21:24)
[2025-02-14] MEDS: ACETAMINOPHEN 325 MG TABLET 650 MG PO (21:26)
--- NOTE | 2025-02-14 21:55 | PM.HP.1 ---
History of Present Illness History of Present Illness Chief complaint: fell 1 week ago Narrative: 54-year-old female with past medical history of neuropathy, depression, hormonal replacement therapy with progesterone, chronic lower back pain and lumbar surgery presents with a a fall and worsening lower back pain. Per the patient report, the patient had a mechanical ground-level fall and was seen in our ER February 04, 2025. The patient was prescribed pain medication and was discharged home. However the patient continues to have ongoing pain with some urinary incontinence but denies any bowel incontinence. The patient was having trouble ambulating around and going to the bathroom. The patient denies any focal weakness. However due to ongoing pain the patient again presented back to our ER. Otherwise the patient denies any recent fever, chills, nausea, vomiting, diarrhea, chest pain or shortness of breath. In our emergency room, the patient had a repeated pelvic CT and lumbar spine. Which shows similar appearing bilateral sacral ala fracture. Orthopedic surgeon was consulted due to increased pain and some paresthesia down her bilateral lower extremities with new urinary incontinence. They recommended to transfer to a facility with spine as patient does have a new urinary incontinence. However neurosurgery from [place] was called again and did not feel that there is likely incontinence related to sacral fracture. However orthopedic surgeon was consulted again and felt that there is a small fracture below the level previous surgical repair which could be amenable to surgery if that was causing persistent pain. However there is no indication for emergent transfer at this time and recommended that the patient be admitted here for PT OT and possible placement for rehab/SNF. Also recommended for outpatient follow-up with Dr. Naik from [facility]. Of note the patient has been down in our ER for more than 48 hours and has not been able to have placement yet. Our ER physician requested that we admit the patient to continue to wait for placement. [facility] Medical History Pulmonary embolism No chronic problems Surgical History History of lumbar surgery Status post cholecystectomy Status post appendectomy S/P T&A (status post tonsillectomy and adenoidectomy) Status post tubal ligation Social History household members: spouse Smoking Status: Never smoker alcohol intake: former Meds Home Medications and Allergies Home Medications Medication Instructions Recorded Confirmed Type mecobalamin (vitamin B12) 1,000 1,000 mcg PO DAILY 12/11/22 02/13/25 History mcg disintegrating tablet,sublingual estradiol 0.5 mg tablet 0.5 mg PO DAILY 06/11/24 02/14/25 History gabapentin 100 mg capsule See Rx Instructions .Route .COMPLEX 06/11/24 02/13/25 History hydroxyzine HCl 25 mg tablet 25 mg PO PRN PRN Itching 06/11/24 02/13/25 History oxycodone 10 mg tablet 20 mg PO 4XD PRN Pain (Scale Score 06/11/24 02/13/25 History 7-10) progesterone micronized 100 mg 100 mg PO ONCE PM 06/11/24 02/14/25 History capsule sertraline 100 mg tablet 100 mg PO DAILY 06/11/24 02/13/25 History tizanidine 4 mg tablet 4 mg PO Q6H PRN muscle spasm 02/13/25 02/13/25 History Allergies Allergy/AdvReac Type Severity Reaction Status Date / Time codeine AdvReac Mild Nausea Verified 02/14/25 06:10 Review of Systems Review of Systems ROS: Yes All systems reviewed with the patient and are negative except as otherwise documented Exam Vital Signs (past 8 hours): - 02/14/25 14:00 02/14/25 14:30 02/14/25 14:58 Temperature Pulse Rate 92 H 92 H 93 H Respiratory Rate Blood Pressure Pulse Oximetry 97 95 95 Oxygen Flow Rate 02/14/25 14:58 02/14/25 15:00 02/14/25 15:30 Temperature Pulse Rate 90 85 Respiratory Rate Blood Pressure 129/75 Pulse Oximetry 96 97 Oxygen Flow Rate 02/14/25 16:00 02/14/25 16:00 02/14/25 16:30 Temperature Pulse Rate 79 81 Respiratory Rate Blood Pressure 126/62 Pulse Oximetry 99 99 Oxygen Flow Rate 02/14/25 17:00 02/14/25 17:30 02/14/25 18:00 Temperature Pulse Rate 83 86 90 Respiratory Rate Blood Pressure Pulse Oximetry 98 99 96 Oxygen Flow Rate 02/14/25 18:30 02/14/25 19:00 02/14/25 19:30 Temperature Pulse Rate 87 83 85 Respiratory Rate Blood Pressure Pulse Oximetry 97 100 99 Oxygen Flow Rate 02/14/25 20:00 02/14/25 20:00 02/14/25 20:30 Temperature Pulse Rate 80 82 Respiratory Rate 18 Blood Pressure 120/78 Pulse Oximetry 98 98 Oxygen Flow Rate 02/14/25 21:00 02/14/25 21:29 02/14/25 21:29 Temperature Pulse Rate 86 86 Respiratory Rate Blood Pressure 117/67 Pulse Oximetry 98 99 Oxygen Flow Rate 02/14/25 21:48 Temperature 96.9 F L Pulse Rate 77 Respiratory Rate 18 Blood Pressure 133/76 Pulse Oximetry 100 Oxygen Flow Rate 0 Oxygen Delivery Method Room Air Oxygen Flow Rate 0 Narrative Exam Narrative: Physical Exam: GENERAL: The patient is not in any acute distressed. Awake and alert. HEENT: Nonicteric sclerae, PERRLA, EOMI. Oropharynx clear. Moist mucous membranes. Conjunctivae appear well perfused. HEART: Regular rate and rhythm without murmurs. No lower extremities edema. LUNGS: Clear to auscultation bilaterally. No wheezing, crackles or rhonchi ABDOMEN: Soft, positive bowel sounds, nontender. SKIN: No rash, no excessive bruising, petechiae, or purpura. NEUROLOGIC: AxO x 3. Cranial nerves II-XII intact without motor/sensory deficit. Objective Labs 02/15/25 04:40 02/15/25 04:40 Assessment & Plan Assessment & Plan narrative: 54-year-old female with past medical history of neuropathy, depression, hormonal replacement therapy with progesterone, chronic lower back pain and lumbar surgery presents with a a fall and worsening lower back pain. Per the patient report, the patient had a mechanical ground-level fall and was seen in our ER February 04, 2025. The patient was prescribed pain medication and was discharged home. However the patient continues to have ongoing pain with some urinary incontinence but denies any bowel incontinence. The patient was having trouble ambulating around and going to the bathroom. The patient denies any focal weakness. However due to ongoing pain the patient again presented back to our ER. Otherwise the patient denies any recent fever, chills, nausea, vomiting, diarrhea, chest pain or shortness of breath. In our emergency room, the patient had a repeated pelvic CT and lumbar spine. Which shows similar appearing bilateral sacral ala fracture. Orthopedic surgeon was consulted due to increased pain and some paresthesia down her bilateral lower extremities with new urinary incontinence. They recommended to transfer to a facility with spine as patient does have a new urinary incontinence. However neurosurgery from [place] was called again and did not feel that there is likely incontinence related to sacral fracture. However orthopedic surgeon was consulted again and felt that there is a small fracture below the level previous surgical repair which could be amenable to surgery if that was causing persistent pain. However there is no indication for emergent transfer at this time and recommended that the patient be admitted here for PT OT and possible placement for rehab/SNF. Also recommended for outpatient follow-up with Dr. Naik from [facility]. Of note the patient has been down in our ER for more than 48 hours and has not been able to have placement yet. Our ER physician requested that we admit the patient to continue to wait for placement. Bilateral sacral ala fracture. Admit the patient to medical inpatient. Continue PT, OT and pain control. Neurosurgery from [place] was consulted and did not feel that there is likely incontinence related to sacral fracture. However orthopedic surgeon was consulted again and felt that there is a small fracture below the level previous surgical repair which could be amenable to surgery if that was causing persistent pain. However there is no indication for emergent transfer at this time and recommended that the patient be admitted here for PT OT and possible placement for rehab/SNF. Also recommended for outpatient follow-up with Dr. Naik from [facility]. Of note the patient has been down in our ER for more than 48 hours and has not been able to have placement yet. Our ER physician requested that we admit the patient to continue to wait for placement. Neuropathy. Resume home gabapentin. Chronic low back pain. Resume home opioid pain medication and also increase available pain medication due to acute on chronic lower back pain. DVT prophylaxis Lovenox. CODE STATUS full code. Disposition awaiting placement to SNF/rehab in 1 to 2 days - As the provider of this telehealth evaluation, requested by the patient's evaluating physician, I attest that I introduced myself to the patient, provided my credentials and determined that telemedicine via a real-time, 2 way interactive audio and video platform is an appropriate and effective means of providing this service. - I reviewed the patient's chart and had a discussion with the member of the patient's treatment team. - The patient and I mutually agreed with continuation of this evaluation via telemedicine. The patient consented for the telemedicine evaluation. - This virtual encounter was taken place from [place] by Dr. Roberto Catherine. The patient was evaluated at [facility]. The encounter was approximately 35 minutes. The nurse was present during the entire time of the encounter and was able to move the stethoscope in appropriate directions. Time-Based Coding :: [TOTAL MINUTES] spent with patient and on the chart (including review of chart, obtaining history, exam, reviewing outside data, placing orders, documenting exam and treatment plan, and counseling patient) on [DATE].
[2025-02-15 04:37] VITALS: BP 132/84; PULSE 94; RESP 18; TEMP 36.1; O2SAT 98
[2025-02-15] MEDS: OXYCODONE IR 10 MG TABLET 20 MG PO ×2 (04:46→14:07)
[2025-02-15 05:21] LABS: Add Manual Diff / Slide Review NO; Basophils Absolute Auto 0 /uL (0-100); Basophils Percent Auto 0.8 % (0-2); Eosinophils Absolute Auto 100 /uL (0-450); Eosinophils Percent Auto 2.1 % (2-4); Hematocrit 40.9 % (36-46); Hemoglobin 13.9 g/dL (12.0-16.0); Lymphocytes Absolute Auto 800 /uL (1100-4500); Lymphocytes Percent Auto 21.3 % (25-40); Mean Corpuscular HGB Conc 33.9 % (30-36); Mean Corpuscular Hemoglobin 29.8 PG (26-34); Monocytes Absolute Auto 500 /uL (0-900); Monocytes Percent Auto 11.7 % (3-14); Neutrophils Absolute Auto 2500 /uL (1500-7000); Neutrophils Percent Auto 64.1 % (50-75); Platelet Count 429 X10^3/uL (150-400); Red Blood Cell Count 4.65 X10^6/uL (4.0-5.2); Red Cell Distribution Width 13.2 % (11.6-14.8); White Blood Cell Count 3.9 X10^3/uL (4.5-11.0)
[2025-02-15 05:33] LABS: BUN Creatinine Ratio 23.1 (6-22); Blood Urea Nitrogen 12 mg/dL (7-17); Calcium 9.3 mg/dL (8.4-10.2); Carbon Dioxide 29 mmol/L (22-32); Chloride 101 mmol/L (98-107); Estimated Glomerular Filt Rate > 60 mL/min (>60); Glucose 101 mg/dL (70-99); HEMOLYSIS < 15 (0-50); Potassium 3.6 mmol/L (3.4-5.1); Sodium 137 mmol/L (137-145)
[2025-02-15 08:00] VITALS: BP 130/71; PULSE 89; RESP 16; TEMP 36.6; O2SAT 96
[2025-02-15] MEDS: OXYCODONE IR 5 MG TABLET 20 MG PO ×3 (09:21→22:05)
[2025-02-15] MEDS: CYANOCOBALAMIN (VITAMIN B-12) 500 MCG TABLET 1000 MCG PO (09:21)
[2025-02-15] MEDS: ENOXAPARIN 40 MG/0.4 ML SYRINGE SUBCUT (09:21)
[2025-02-15] MEDS: estradioL 1 MG TABLET 0.5 MG PO (09:21)
[2025-02-15] MEDS: GABAPENTIN 100 MG CAPSULE PO (09:22)
[2025-02-15] MEDS: SERTRALINE 50 MG TABLET 100 MG PO (09:22)
--- NOTE | 2025-02-15 11:40 | PT.IPTN ---
Physical Therapy Treatment Note M2 PT-IP Current Condition Start: 02/13/25 14:57 Freq: Status: Active Protocol: Document 02/13/25 13:18 AB (Rec: 02/13/25 15:12 AB [id number]) Physical Therapy Current Condition Current Condition Evaluation Date 02/12/25 Treatment Diagnosis sacral fractures; back pain; difficulty in walking Onset Date 02/13/25 M3 PT-IP Subjective Start: 02/13/25 14:57 Freq: Status: Active Protocol: Document 02/15/25 11:16 MB (Rec: 02/15/25 11:39 MB Desktop) Subjective Physical Therapy Visit Type Type Treatment Note Visit Start Time 11:16 Visit Stop Time 11:33 Number of LINSEED OIL PRESS TENDER Visits 0 Physical Therapy Visit Comments Patient Comments Agreeable to PT. Therapy Pain Assessment Pain When Pain Assessed During Mobility Pain Present Pain Present Pain Reported Location Sacrum and Posterior thighs Intensity 10 Scale Used Numeric (0 - 10) Pain Management Techniques Re-positioning M4 PT-IP Mobility and Gait Start: 02/13/25 14:57 Freq: Status: Active Protocol: Document 02/15/25 11:16 MB (Rec: 02/15/25 11:39 MB Desktop) PT-Bed Mobility Assessment Rolling Type of Rolling Log Rolling,Bilateral Level of Assist Standby Assistance Supine to Sit Supine to Sit Standby Assistance,1 Person Assistance,Head of Bed Elevated,Bedrails Sit to Supine Sit to Supine Standby Assistance,1 Person Assistance,Head of Bed Elevated,Bedrails Scooting Scooting to Edge of Bed Standby Assistance PT-Transfer Assessment Sit to and From Stand Sit to and from Stand Contact Guard Assistance,1 Person Assistance,Use of Upper Extremities Equipment Transfer Assistive Device Gait Belt,Front Wheeled Walker Orthotic/Prosthetic Devices or Brace: No Transfers Transfer Destination Bed Transfer Technique Stepping with RW Transfer Ability Level of Assist Contact Guard Assistance,1 Person Assistance,Use of Upper Extremities Comments Mobility Comments Increased pain and tends to twist right arm over body to the left so that both hands are on left bed rail. Pt prefers getting OOB to the left Gait Assessment Gait Gait Assistance Required: Contact Guard Assist,1 Person Assist Distance (Feet) 2 Assistive Devices Assistive Device Gait Belt,Front Wheeled Walker Gait Deviations General Gait Pattern Antalgic,Flexed Trunk,Step-to Gait Factors Limiting Gait Function Factors Limiting Gait Function Difficulty Following Directions,Pain,Poor Safety Awareness Comments Gait Comments 2' forward, 2' retropulsion, several left side steps in the walker PT-Balance Assessment Sitting Balance and Reactions Static Sitting Balance Ability Fair Dynamic Sitting Balance Ability Fair Standing Balance and Reactions Static Standing Balance Ability Fair Dynamic Standing Balance Ability Fair Device Used RW M5 PT-IP Objective Assessments Start: 02/13/25 14:57 Freq: Status: Active Protocol: Document 02/13/25 13:18 AB (Rec: 02/13/25 15:12 AB [id number]) Orientation Orientation/Cognition Level of Alertness Confusional State Orientation Name,Place,Situation Safety Awareness Decreased Safety Awareness Memory Description Short Term Impaired,Group Home Impaired Gross Range of Motion Lower Extremity ROM Assessment Within Functional Limits Strength Lower Extremity Strength Assessment Bilaterally Impaired Hip 3-/5 Knee 3+/5 Coordination Assessment Gross Coordination Gross Coordination WNL Sensation Assessment Sensation Gross Sensation WNL Muscle Tone Muscle Tone WNL Yes M6 PT-IP Treatment Start: 02/13/25 14:57 Freq: Status: Active Protocol: Document 02/14/25 11:15 AB (Rec: 02/14/25 12:01 AB Desktop) Physical Therapy Treatment Education Education Provided Precautions,Safety M7 PT-IP Assessment and Plan Start: 02/13/25 14:57 Freq: Status: Active Protocol: Document 02/15/25 11:16 MB (Rec: 02/15/25 11:39 MB Desktop) PT Summary Assessment and Plan Potential Rehabilitation Potential Fair Status of Condition at Evaluation Evolving Summary Impairments Pain,ROM,Strength,Balance, Coordination,Bed Mobility, Transfers,Gait,Activity Tolerance Progress Towards Goals Slow Progress due to Pain Assessment Summary Pt is progressing with mobility and only requires CGA for mobility today. Standing tolerance with walker and stepping tolerance are very low d/t high pain with B sacral fractures. Goals Bed Mobility Goal Independent Transfer Goal Independent,Front Wheeled Walker Gait Goal Standby Assistance,Front Wheel Walker Gait Distance 50 Other Goals Likely limited gait distance for functional distances only given high pain with B sacral fractures up/down 4 steps L rail ascending SBA Days to Meet Goals 10 Frequency of Treatment Frequency Of Treatment Once a Day Treatment Plan Physical Therapy Treatment Plan Bed Mobility Training,Transfer Training,Gait Training, Therapeutic Exercise,Balance Retraining,Post Op Education, Discharge Planning,Hot or Cold Pack,Neuromuscular Re-ed, Coordination Retraining,Manual Therapy Precautions Lumbar Precautions Log Roll,No Twisting,Limit Bending,Lifting Restriction of 10 lbs Weight Bearing Status Weight Bearing Status Weight Bear as Tolerated Recommendations To Nursing Amount of Assist Needed 1 Person Assist Discharge Recommendations PT Discharge Recommendations SNF Rehab Transportation Needs at Discharge Wheelchair/Cabulance,Stretcher /Ambulance - PT assist 1
--- NOTE | 2025-02-15 15:35 | CM.DPNOTE ---
DCP Note UNDERWEAR TRIMMER reviewed EMR per chart review, pt social admit pending placement. UNDERWEAR TRIMMER emailed [facility] updated clinicals. per Verena, has not started auth yet. sounds like they can accept pt and will start auth today. CM team will confirm in am ,could be delayed in auth due to holiday, UNDERWEAR TRIMMER unable to meet with pt today due to triaging needs. P: dc to SNF pending ins auth. will continue to follow closely for DCP coordination GUY Saleh
[2025-02-15 16:00] VITALS: BP 131/77; PULSE 97; RESP 18; TEMP 36.4; O2SAT 98
--- NOTE | 2025-02-15 16:28 | P.PN_ITS ---
Subjective Subjective Interval history: 54-year-old female with past medical history of neuropathy, depression, hormonal replacement therapy with progesterone, chronic lower back pain and lumbar surgery admitted overnight with intractable pain. Patient reported she sustained a fall at home approximately 11 days ago. She was seen in the emergency department on February [address] revealed an acute sacral fracture at the S2 level without displacement. She states she usually takes oxycodone 20 mg up to 3 times a day. This was increased to 4 times daily. The ER physician additionally give her a prescription for diazepam for spasms. Additionally, tizanidine was increased from bedtime to up to 3-4 times daily for spasms. She returned to the emergency department on February 13. She states that she waited in the lobby for about 6 hours. Due to her discomfort she laid on the floor of the lobby. She reports that 1 nursing came to get her, she had to get herself up off the floor into a wheelchair. She then was taken back to an exam room and notes that when she got up from the wheelchair to get on the exam table, she fell backwards and hit an IV pole and fell on the floor. She says that since that time her back pain has been more severe and she has had pain extending down her legs bilaterally. Per the emergency department note, the patient had reported those symptoms started the day after her ER visit. She did not report the fall to the emergency room physician at that time. Upon review of the ED records, there is a note from the DRILL PRESS SET UP OPERATOR who brought the patient back from the lobby. Repeat CT done the evening revealed interval slight increase in depression at right sacral ala fracture site with stable appearance of left sacral alar fracture. Patient reports her pain has been more intense since her fall on the evening she presented to the ER. She describes the pain as extending down her legs bilaterally. She denies any numbness or tingling. She did have a bowel movement a couple days ago but none since. She has difficulty sitting on a commode due to pain. She is urinating using a PureWick. Exam Vital Signs (past 8 hours): Oxygen Delivery Method Room Air Oxygen Flow Rate 0 Narrative Exam Narrative: GEN: Middle-aged female, Alert and oriented x 3, NAD HEENT:NC, Face symmetric CHEST: Respiratory excursions symmetric, CTAB CV: RRR, no M/R/G ABD: Soft, NT/ND, BT present in all 4 quadrants, no organomegaly or masses EXTR: warm, well perfused, no C/C/E SKIN: warm and dry, no rash NEURO: Alert and oriented x 3, nonfocal Objective Labs 02/15/25 04:40 02/15/25 04:40 Labs: Laboratory Results - last 24 hr 02/15/25 04:40 WBC 3.9 L RBC 4.65 Hgb 13.9 Hct 40.9 MCV 88.0 MCH 29.8 MCHC 33.9 RDW 13.2 Plt Count 429 H Neut % (Auto) 64.1 Lymph % (Auto) 21.3 L [place] % (Auto) 11.7 Eos % (Auto) 2.1 Baso % (Auto) 0.8 Neut # (Auto) 2500 Lymph # (Auto) 800 L [place] # (Auto) 500 Eos # (Auto) 100 Baso # (Auto) 0 Sodium 137 Potassium 3.6 Chloride 101 Carbon Dioxide 29 BUN 12 Creatinine 0.52 Estimated GFR > 60 BUN/Creatinine Ratio 23.1 H Glucose 101 H Calcium 9.3 PFSH Medical History Pulmonary embolism No chronic problems Surgical History History of lumbar surgery Status post cholecystectomy Status post appendectomy S/P T&A (status post tonsillectomy and adenoidectomy) Status post tubal ligation Social History household members: spouse Smoking Status: Never smoker alcohol intake: former Assessment & Plan Assessment & Plan narrative: 1. Bilateral sacral ala fractures Patient has radicular pain which she describes as the most severe discomfort she has. It has limited her mobility. She is on gabapentin 100 mg twice daily and 200 mg at bedtime. Will increase her dose to 100 mg in the morning 300 mid day and 300 at bedtime. Would rapidly titrate up to a therapeutic dose. Will add ibuprofen 600 mg t.i.d. with food for anti-inflammatory effect. Will add lidocaine patch for localized pain relief. Additionally will add acetaminophen 975 mg scheduled 3 times daily. Will change the as needed oxycodone from 20 mg q.i.d. as needed to 10 mg q.4 hours as needed. Continue oxycodone 20 mg scheduled 4 times daily. Advised that the goal is to get her pain controlled so she can get up and mobilize benson. 2. Constipation Add MiraLax 3. Previous DVT She is at risk for recurrence. Continue Lovenox 4. Perimenopause Continue HRT Code status Full Prophylaxis Lovenox Disposition Pending insurance authorization for fpc Time-Based Coding :: [TOTAL MINUTES] spent with patient and on the chart (including review of chart, obtaining history, exam, reviewing outside data, placing orders, documenting exam and treatment plan, and counseling patient) on [DATE].
[2025-02-15] MEDS: GABAPENTIN 100 MG CAPSULE 300 MG PO (17:05)
[2025-02-15] MEDS: ACETAMINOPHEN 325 MG TABLET 975 MG PO ×2 (17:06→22:05)
[2025-02-15] MEDS: IBUPROFEN 600 MG TABLET PO (17:06)
[2025-02-15] MEDS: polyethylene glycoL 3350 17 GM POWD.PACK PO (17:07)
[2025-02-15 20:06] VITALS: BP 123/71; PULSE 86; RESP 18; TEMP 36.1; O2SAT 100
[2025-02-15] MEDS: TIZANIDINE 4 MG TABLET PO (21:01)
[2025-02-15] MEDS: GABAPENTIN 100 MG CAPSULE 200 MG PO (21:01)
[2025-02-15] MEDS: SODIUM CHLORIDE 0.9% FLUSH 10 ML IV (22:06)
[2025-02-16] MEDS: IBUPROFEN 600 MG TABLET PO ×3 (00:32→17:33)
[2025-02-16] MEDS: DOCUSATE 100 MG CAPSULE PO ×3 (00:33→20:57)
[2025-02-16] MEDS: OXYCODONE IR 10 MG TABLET PO ×3 (00:33→20:58)
[2025-02-16 04:00] VITALS: BP 104/65; PULSE 83; RESP 16; TEMP 36.6; O2SAT 99
[2025-02-16] MEDS: ACETAMINOPHEN 325 MG TABLET 975 MG PO ×3 (05:09→17:34)
[2025-02-16] MEDS: TIZANIDINE 4 MG TABLET PO ×2 (05:09→20:57)
[2025-02-16] MEDS: ONDANSETRON 4 MG/2 ML INJ IV (05:44)
[2025-02-16 08:00] VITALS: BP 100/60; PULSE 59; RESP 16; TEMP 36.6; O2SAT 99
[2025-02-16] MEDS: ENOXAPARIN 40 MG/0.4 ML SYRINGE SUBCUT (08:54)
[2025-02-16] MEDS: SODIUM CHLORIDE 0.9% FLUSH 10 ML IV ×2 (08:54→20:58)
[2025-02-16] MEDS: polyethylene glycoL 3350 17 GM POWD.PACK PO (08:54)
[2025-02-16] MEDS: estradioL 1 MG TABLET 0.5 MG PO (08:56)
[2025-02-16] MEDS: CYANOCOBALAMIN (VITAMIN B-12) 500 MCG TABLET 1000 MCG PO (08:57)
[2025-02-16] MEDS: GABAPENTIN 100 MG CAPSULE PO (08:57)
[2025-02-16] MEDS: SERTRALINE 50 MG TABLET 100 MG PO (08:57)
[2025-02-16] MEDS: LIDOCAINE 5% PATCH 1 EACH TOP (09:02)
[2025-02-16] MEDS: OXYCODONE IR 5 MG TABLET 20 MG PO ×4 (09:48→21:59)
[2025-02-16] MEDS: hydrOXYzine HCL 25 MG TABLET PO (11:22)
--- NOTE | 2025-02-16 11:26 | CM.DPNOTE ---
DCP note CHIEF SCIENTIFIC OFFICER reviewed EMR CHIEF SCIENTIFIC OFFICER emailed Verena at [facility] inquiring about updates, have not heard back at the time of this note. unlikely to today due to holiday. CHIEF SCIENTIFIC OFFICER met with pt in room. confirmed preference to dc to [facility] for SNF. udpated on auth pending. pt continues to report it is unsafe for her to return home at this time. P: anticipate dc to SNF at [facility] when auth secured. will continue to follow closely for DCP coordination GUY Saleh
--- NOTE | 2025-02-16 11:43 | PT.IPTN ---
Physical Therapy Treatment Note M2 PT-IP Current Condition Start: 02/13/25 14:57 Freq: Status: Active Protocol: Document 02/13/25 13:18 AB (Rec: 02/13/25 15:12 AB [id number]) Physical Therapy Current Condition Current Condition Evaluation Date 02/12/25 Treatment Diagnosis sacral fractures; back pain; difficulty in walking Onset Date 02/13/25 M3 PT-IP Subjective Start: 02/13/25 14:57 Freq: Status: Active Protocol: Document 02/16/25 11:36 MB (Rec: 02/16/25 11:43 MB Desktop) Subjective Physical Therapy Visit Type Type Treatment Note Visit Start Time 11:25 Visit Stop Time 11:35 Number of SAFETY LEAD Visits 0 Physical Therapy Visit Comments Patient Comments Pt is agreeable to PT. Therapy Pain Assessment Pain When Pain Assessed During Mobility Pain Present Pain Present Pain Reported Location Sacrum and Posterior thighs Intensity 10 Scale Used Numeric (0 - 10) Pain Management Techniques Re-positioning M4 PT-IP Mobility and Gait Start: 02/13/25 14:57 Freq: Status: Active Protocol: Document 02/16/25 11:36 MB (Rec: 02/16/25 11:43 MB Desktop) PT-Bed Mobility Assessment Rolling Type of Rolling Log Rolling,Bilateral Level of Assist Independent Supine to Sit Supine to Sit Standby Assistance,1 Person Assistance,Head of Bed Elevated,Bedrails Sit to Supine Sit to Supine Standby Assistance,1 Person Assistance,Head of Bed Elevated,Bedrails Scooting Scooting to Edge of Bed Standby Assistance PT-Transfer Assessment Sit to and From Stand Sit to and from Stand Contact Guard Assistance,1 Person Assistance,Use of Upper Extremities Equipment Transfer Assistive Device Gait Belt,Front Wheeled Walker Orthotic/Prosthetic Devices or Brace: No Transfers Transfer Destination Bed Transfer Technique Stepping with RW Transfer Ability Level of Assist Contact Guard Assistance,1 Person Assistance,Use of Upper Extremities Comments Mobility Comments Tried pillow between legs to help keep sacrum stable for supine to sit from log rolling position and it does not help pain today, did reposition when back in side lying Gait Assessment Gait Gait Assistance Required: Contact Guard Assist,1 Person Assist Distance (Feet) 4 Assistive Devices Assistive Device Gait Belt,Front Wheeled Walker Gait Deviations General Gait Pattern Antalgic,Flexed Trunk,Step-to Gait Factors Limiting Gait Function Factors Limiting Gait Function Difficulty Following Directions,Pain,Poor Safety Awareness Comments Gait Comments 4' forward, 4' retropulsion, several left side steps in the walker PT-Balance Assessment Sitting Balance and Reactions Static Sitting Balance Ability Fair Dynamic Sitting Balance Ability Fair Standing Balance and Reactions Static Standing Balance Ability Fair Dynamic Standing Balance Ability Fair Device Used RW M5 PT-IP Objective Assessments Start: 02/13/25 14:57 Freq: Status: Active Protocol: Document 02/13/25 13:18 AB (Rec: 02/13/25 15:12 AB [id number]) Orientation Orientation/Cognition Level of Alertness Confusional State Orientation Name,Place,Situation Safety Awareness Decreased Safety Awareness Memory Description Short Term Impaired,Adhesive Primer Impaired Gross Range of Motion Lower Extremity ROM Assessment Within Functional Limits Strength Lower Extremity Strength Assessment Bilaterally Impaired Hip 3-/5 Knee 3+/5 Coordination Assessment Gross Coordination Gross Coordination WNL Sensation Assessment Sensation Gross Sensation WNL Muscle Tone Muscle Tone WNL Yes M6 PT-IP Treatment Start: 02/13/25 14:57 Freq: Status: Active Protocol: Document 02/16/25 11:36 MB (Rec: 02/16/25 11:43 MB Desktop) Physical Therapy Treatment Education Education Provided Safety M7 PT-IP Assessment and Plan Start: 02/13/25 14:57 Freq: Status: Active Protocol: Document 02/16/25 11:36 MB (Rec: 02/16/25 11:43 MB Desktop) PT Summary Assessment and Plan Potential Rehabilitation Potential Fair Status of Condition at Evaluation Evolving Summary Impairments Pain,ROM,Strength,Balance, Coordination,Bed Mobility, Transfers,Gait,Activity Tolerance Progress Towards Goals Slow Progress due to Pain Assessment Summary Pt con't to make small progress with mobility and requires CGA for mobility today with slight increase in gait distance. Ongoing high pain. Goals Bed Mobility Goal Independent Transfer Goal Independent,Front Wheeled Walker Gait Goal Standby Assistance,Front Wheel Walker Gait Distance 50 Other Goals Likely limited gait distance for functional distances only given high pain with B sacral fractures up/down 4 steps L rail ascending SBA Days to Meet Goals 10 Frequency of Treatment Frequency Of Treatment Once a Day Treatment Plan Physical Therapy Treatment Plan Bed Mobility Training,Transfer Training,Gait Training, Therapeutic Exercise,Balance Retraining,Post Op Education, Discharge Planning,Hot or Cold Pack,Neuromuscular Re-ed, Coordination Retraining,Manual Therapy Precautions Lumbar Precautions Log Roll,No Twisting,Limit Bending,Lifting Restriction of 10 lbs Weight Bearing Status Weight Bearing Status Weight Bear as Tolerated Recommendations To Nursing Amount of Assist Needed 1 Person Assist Discharge Recommendations PT Discharge Recommendations SNF Rehab Transportation Needs at Discharge Wheelchair/Cabulance,Stretcher /Ambulance - PT assist 1
--- NOTE | 2025-02-16 15:20 | PM.PN.1 ---
Subjective Subjective Interval history: S: She was doing little bit better day by day. She was still having significant pain with any rotation, sitting, or standing. She was able to ambulate to the bathroom and back today. She has not had a bowel movement since Sunday. No difficulties with urination. Her appetite is good. Exam Vital Signs (past 8 hours): - 02/16/25 08:00 Temperature 97.8 F Pulse Rate 59 L Respiratory Rate 16 Blood Pressure 100/60 Pulse Oximetry 99 Oxygen Flow Rate 0 Oxygen Delivery Method Room Air Oxygen Flow Rate 0 Narrative Exam Narrative: NAD, alert and oriented. Fluent speech. Lungs are clear, normal rate and effort. Heart is regular, no murmur gallop or rub. Abdomen is soft, non distended. Extremities are free of edema. Objective Labs 02/15/25 04:40 02/15/25 04:40 [facility] Medical History Pulmonary embolism No chronic problems Surgical History History of lumbar surgery Status post cholecystectomy Status post appendectomy S/P T&A (status post tonsillectomy and adenoidectomy) Status post tubal ligation Social History household members: spouse Smoking Status: Never smoker alcohol intake: former Assessment & Plan Assessment & Plan narrative: 1. Bilateral sacral fractures, Improving. Patient has radicular pain which she describes as the most severe discomfort she has. It has limited her mobility. She is on gabapentin 100 mg twice daily and 200 mg at bedtime. Will increase her dose to 100 mg in the morning 300 mid day and 300 at bedtime. Would rapidly titrate up to a therapeutic dose. Will add ibuprofen 600 mg t.i.d. with food for anti-inflammatory effect. Will add lidocaine patch for localized pain relief. Acetaminophen 975 mg scheduled 3 times daily. Will change the as needed oxycodone from 20 mg q.i.d. as needed to 10 mg q.4 hours as needed. Continue oxycodone 20 mg scheduled 4 times daily. 2. Constipation, active. Add MiraLax 3. Previous DVT, stable. She is at risk for recurrence. Continue Lovenox 4. Perimenopause Continue HRT PLAN: -continue with the current pain regimen without change. -continue physical therapy. -attempting to get acceptance and approval for detention facility rehabilitation. Code status Full Prophylaxis Lovenox Time-Based Coding :: [TOTAL MINUTES] spent with patient and on the chart (including review of chart, obtaining history, exam, reviewing outside data, placing orders, documenting exam and treatment plan, and counseling patient) on [DATE].
--- NOTE | 2025-02-16 15:54 | OT.IPNOTE ---
OT eval and treat received. Chart reviewed and discussed case with nursing. Per nursing, pt just fell asleep and requests that she be allowed to rest at this time. Will hold today and continue to follow.
[2025-02-16] MEDS: GABAPENTIN 100 MG CAPSULE 300 MG PO (17:32)
[2025-02-16 19:00] VITALS: BP 113/65; PULSE 76; RESP 18; TEMP 36.1; O2SAT 97
[2025-02-16] MEDS: GABAPENTIN 100 MG CAPSULE 200 MG PO (20:57)
[2025-02-16] MEDS: PROGESTERONE, MICRONIZED 100 MG CAPSULE PO (20:58)
[2025-02-17] MEDS: ACETAMINOPHEN 325 MG TABLET 975 MG PO ×3 (00:10→15:59)
[2025-02-17] MEDS: IBUPROFEN 600 MG TABLET PO ×3 (00:10→15:59)
[2025-02-17 07:00] VITALS: BP 127/62; PULSE 84; RESP 18; TEMP 36.4; O2SAT 100
--- NOTE | 2025-02-17 07:59 | P.PN_ITS ---
Subjective Subjective Interval history: S: She was able to ambulate across the room with a significant amount of pain and assistance with physical therapy. She has impaired mobility and significant pain control issues. She denies nausea, or dyspnea. Exam Vital Signs (past 8 hours): Oxygen Delivery Method Room Air Oxygen Flow Rate 0 Narrative Exam Narrative: NAD, alert and oriented. Fluent speech. Lungs are clear, normal rate and effort. Heart is regular, no murmur gallop or rub. Abdomen is soft, non distended. Extremities are free of edema. Objective Labs 02/15/25 04:40 02/15/25 04:40 [facility] Medical History Pulmonary embolism No chronic problems Surgical History History of lumbar surgery Status post cholecystectomy Status post appendectomy S/P T&A (status post tonsillectomy and adenoidectomy) Status post tubal ligation Social History household members: spouse Smoking Status: Never smoker alcohol intake: former Assessment & Plan Assessment & Plan narrative: 1. Bilateral sacral fractures, Improving. She was still has significant pain in very limited ambulation. She remains at risk for a fall or further injuries. She appears to be unstable for discharge home and independent living due to high risk for falls and significant pain control issues. 2. Constipation, active. No bowel movement for 2 days. 3. Previous DVT, stable. She is at risk for recurrence. Continue Lovenox 4. Perimenopause Continue HRT PLAN: -continue with the current pain regimen without change. -continue bowel program. -continue physical therapy. -attempting to get acceptance and approval for custodial facility rehabilitation (SNF). Code status Full Prophylaxis Lovenox Time-Based Coding :: [TOTAL MINUTES] spent with patient and on the chart (including review of chart, obtaining history, exam, reviewing outside data, placing orders, documenting exam and treatment plan, and counseling patient) on [DATE].
--- NOTE | 2025-02-17 07:59 | PT.IPTN ---
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 States that she slept well and she slept since PT saw her yesterday. Therapy Pain Assessment Pain When Pain Assessed During Mobility Pain Present Pain Present Pain Reported Location Sacrum and Posterior thighs Intensity 10 Scale Used Numeric (0 - 10) Pain Management Techniques Re-positioning M4 PT-IP Mobility and Gait Start: 02/13/25 14:57 Freq: Status: Active Protocol: Document 02/17/25 07:40 MB (Rec: 02/17/25 07:59 MB Desktop) PT-Bed Mobility Assessment Rolling Type of Rolling Log Rolling,Bilateral Level of Assist Independent Supine to Sit Supine to Sit Standby Assistance,1 Person Assistance,Head of Bed Elevated,Bedrails Sit to Supine Sit to Supine Standby Assistance,1 Person Assistance,Head of Bed Elevated,Bedrails Scooting Scooting to Edge of Bed Standby Assistance PT-Transfer Assessment Sit to and From Stand Sit to and from Stand Contact Guard Assistance,1 Person Assistance,Use of Upper Extremities Equipment Transfer Assistive Device Gait Belt,Front Wheeled Walker Orthotic/Prosthetic Devices or Brace: No Transfers Transfer Destination Bed Transfer Technique Stepping with RW Transfer Ability Level of Assist Contact Guard Assistance,1 Person Assistance,Use of Upper Extremities Gait Assessment Gait Gait Assistance Required: Contact Guard Assist,1 Person Assist Distance (Feet) 5 Assistive Devices Assistive Device Gait Belt,Front Wheeled Walker Gait Deviations General Gait Pattern Antalgic,Flexed Trunk,Step-to Gait Factors Limiting Gait Function Factors Limiting Gait Function Difficulty Following Directions,Pain,Poor Safety Awareness Comments Gait Comments 5' forward, 5' retropulsion, several left side steps in the walker, tends to step with walker, left foot and then right foot for forward gait PT-Balance Assessment Sitting Balance and Reactions Static Sitting Balance Ability Fair Dynamic Sitting Balance Ability Fair Standing Balance and Reactions Static Standing Balance Ability Fair Dynamic Standing Balance Ability Fair Device Used RW M5 PT-IP Objective Assessments Start: 02/13/25 14:57 Freq: Status: Active Protocol: Document 02/13/25 13:18 AB (Rec: 02/13/25 15:12 AB [id number]) Orientation Orientation/Cognition Level of Alertness Confusional State Orientation Name,Place,Situation Safety Awareness Decreased Safety Awareness Memory Description Short Term Impaired,Longterm Impaired Gross Range of Motion Lower Extremity ROM Assessment Within Functional Limits Strength Lower Extremity Strength Assessment Bilaterally Impaired Hip 3-/5 Knee 3+/5 Coordination Assessment Gross Coordination Gross Coordination WNL Sensation Assessment Sensation Gross Sensation WNL Muscle Tone Muscle Tone WNL Yes M6 PT-IP Treatment Start: 02/13/25 14:57 Freq: Status: Active Protocol: Document 02/17/25 07:40 MB (Rec: 02/17/25 07:59 MB Desktop) Physical Therapy Treatment Education Education Provided Safety M7 PT-IP Assessment and Plan Start: 02/13/25 14:57 Freq: Status: Active Protocol: Document 02/17/25 07:40 MB (Rec: 02/17/25 07:59 MB Desktop) PT Summary Assessment and Plan Potential Rehabilitation Potential Fair Status of Condition at Evaluation Evolving Summary Impairments Pain,ROM,Strength,Balance, Coordination,Bed Mobility, Transfers,Gait,Activity Tolerance Progress Towards Goals Slow Progress due to Pain Assessment Summary Small progress with mobility and requires CGA for mobility with slight increase in gait distance. Ongoing high pain with all mobility. Goals Bed Mobility Goal Independent Transfer Goal Independent,Front Wheeled Walker Gait Goal Standby Assistance,Front Wheel Walker Gait Distance 50 Other Goals Likely limited gait distance for functional distances only given high pain with B sacral fractures up/down 4 steps L rail ascending SBA Days to Meet Goals 10 Frequency of Treatment Frequency Of Treatment Once a Day Treatment Plan Physical Therapy Treatment Plan Bed Mobility Training,Transfer Training,Gait Training, Therapeutic Exercise,Balance Retraining,Post Op Education, Discharge Planning,Hot or Cold Pack,Neuromuscular Re-ed, Coordination Retraining,Manual Therapy Precautions Lumbar Precautions Log Roll,No Twisting,Limit Bending,Lifting Restriction of 10 lbs Weight Bearing Status Weight Bearing Status Weight Bear as Tolerated Recommendations To Nursing Amount of Assist Needed 1 Person Assist Discharge Recommendations PT Discharge Recommendations SNF Rehab Transportation Needs at Discharge Wheelchair/Cabulance,Stretcher /Ambulance - PT assist 1
[2025-02-17] MEDS: LIDOCAINE 5% PATCH 1 EACH TOP (08:42)
[2025-02-17] MEDS: ENOXAPARIN 40 MG/0.4 ML SYRINGE SUBCUT (08:43)
[2025-02-17] MEDS: SERTRALINE 50 MG TABLET 100 MG PO (08:43)
[2025-02-17] MEDS: polyethylene glycoL 3350 17 GM POWD.PACK PO (08:43)
[2025-02-17] MEDS: estradioL 1 MG TABLET 0.5 MG PO (08:43)
[2025-02-17] MEDS: OXYCODONE IR 10 MG TABLET PO (08:44)
[2025-02-17] MEDS: DOCUSATE 100 MG CAPSULE PO ×2 (08:44→20:38)
[2025-02-17] MEDS: CYANOCOBALAMIN (VITAMIN B-12) 500 MCG TABLET 1000 MCG PO (08:45)
[2025-02-17] MEDS: GABAPENTIN 100 MG CAPSULE PO (08:45)
[2025-02-17] MEDS: OXYCODONE IR 5 MG TABLET 20 MG PO ×4 (10:14→21:45)
[2025-02-17] MEDS: SODIUM CHLORIDE 0.9% FLUSH 10 ML IV ×2 (10:14→20:39)
--- NOTE | 2025-02-17 11:32 | OT.IP.EVAL ---
Past Medical History (Last Reviewed 02/16/25 @ 15:21 by Shaun Mccoy MD) No chronic problems Pulmonary embolism Surgical History (Last Reviewed 02/16/25 @ 15:21 by Shaun Mccoy MD) History of lumbar surgery S/P T&A (status post tonsillectomy and adenoidectomy) Status post appendectomy Status post cholecystectomy Status post tubal ligation Occupational Therapy Inpatient Evaluation/Re-Eval M1 PT/OT-IP Prior Functional Status Start: 02/13/25 14:57 Freq: Status: Active Protocol: Document 02/13/25 13:18 AB (Rec: 02/13/25 15:12 AB [id number]) Medical Review Prior Functional Status Medical History Reviewed Yes Communication able to make needs known; with memory issues Mobility and Gait pt stated that she was independent with all mobilities and able to ambulate without AD ~ 2 weeks ago when she had a falls. pt with h/o frequent falls. pt with h/o back surgeries and stated that she had back pain for a long time and has been going to the pain clinic for management of pain. Social History Household Members spouse Living Arrangements RV Number of Floors (Floors) One Floor Number of Stairs To Enter/Railing? 4 steps L rail ascending pt stated that FWW will not fit in the RV Home Environment High Toilet,Walk in Shower Home Equipment Straight Cane,Hand Held Shower Additional Social History Comment pt stated that she is in the process of her spouse; spouse works and will not be able to assist pt pt has an adjustable bed; no bedrails M1 PT/OT-IP Prior Functional Status Start: 02/17/25 11:04 Freq: NEEDED Status: Active Protocol: Document 02/17/25 11:06 DOMENIC (Rec: 02/17/25 11:31 [facility] Medical Review Prior Functional Status Medical History Reviewed Yes Communication able to make needs known; with memory issues Mobility and Gait pt stated that she was independent with all mobilities and able to ambulate without AD ~ 2 weeks ago when she had a falls. pt with h/o frequent falls. pt with h/o back surgeries and stated that she had back pain for a long time and has been going to the pain clinic for management of pain. Pt also states that she was a daily class a [employer] and was I with BADL/ IADLs Social History Household Members spouse Living Arrangements RV Number of Stairs To Enter/Railing? L rail ascending 4 stairs Home Environment Standard Height Toilet,Walk in Shower,Tub/Shower Doors Home Equipment Straight Cane,Hand Held Shower Employment Status Unemployed Additional Social History Comment Pt's spouse works and is unable to help during the day plus pt is in the process of . Pt's children live in [place]. Pt has an adjustable bed. M2 OT-IP Current Condition Start: 02/17/25 11:04 Freq: Status: Active Protocol: Document 02/17/25 11:06 DOMENIC (Rec: 02/17/25 11:31 [facility]) Occupational Therapy Current Condition Current Condition Evaluation Date 02/17/25 Treatment Diagnosis B sacral ala fx; back pain Diagnosis Onset Date 02/13/25 Post Operative Precautions Lumbar Precautions Log Roll,No Twisting,Limit Bending,Lifting Restriction of 10 lbs Weight Bearing Status Weight Bearing Status Weight Bear as Tolerated M3 OT- IP Subjective and Pain Start: 02/17/25 11:04 Freq: Status: Active Protocol: Document 02/17/25 11:06 DOMENIC (Rec: 02/17/25 11:31 [facility] [employer]) OT- Subjective Occupational Therapy Visit Type Type Initial Evaluation Visit Start Time 10:40 Visit Stop Time 11:01 Notes Pt is supine in bed on entrance of OT and is agreeable to OT eval. Occupational Therapy Visit Comments Patient/Caregiver Goals Pt states that she wants to be able to get up, walk, and to sit without pain. She also states she wants to be able to brush her teeth. OT Pain Assessment Pain When Pain Assessed At Rest Pain Present Pain Present Pain Reported Location Sacrum and Posterior thighs Intensity 7 Scale Used Numeric (0 - 10) Description Aching,Sharp Pain Behaviors Calling Out,Facial Grimacing, Moaning Management Techniques Distraction,Modification of Treatment,Re-positioning M4 OT- IP ADL's Start: 02/17/25 11:04 Freq: Status: Active Protocol: Document 02/17/25 11:06 DOMENIC (Rec: 02/17/25 11:31 DOMENIC Desktop) OT [id number] Comments OT Self-Feeding Comments not observed OT ADL-Grooming General Evaluation Grooming Ability Contact Guard Assistance Comments OT Grooming Comments pt performs hand hygiene sink side, leaning on sink with forearms during task. pt moans and weight shifts throughout task. pt reports she is unable to stand to perform additional hygiene tasks at this time. OT ADL-Oral Care Comments Oral Care Comments not observed, pt unable to tolerate after grooming task. OT ADL-Dressing General Eval Upper Body Dressing Ability Maximum Assistance Lower Body Dressing Ability Maximum Assistance Comments OT Dressing Comments pt is able to don/doff B socks while supine in bed. pt is unable to tolerate sitting EOB to perform BADLs at this. pt may benefit from a donut pillow for seated ADLs. In the meantime, pt would benefit from education on bed dressing techniques. OT ADL-Toileting General Evaluation Toileting Ability Total Assistance Comments OT Toileting Comments pt is dependent on bed pad and purewick at time of eval OT ADL-Bathing Comments OT Bathing Comments not observed M5 OT- IP IADL's Start: 02/17/25 11:04 Freq: Status: Active Protocol: Document 02/17/25 11:06 DOMENIC (Rec: 02/17/25 11:31 [facility] OT-Instrumental Activities of Daily Living Deficits IADL Deficits Identified Deficits Home Safety Awareness Awareness of Need for Assistance at Home Good Awareness Medication Management Medication Management No Deficits Identified Money Management Money Management No Deficits Identified Meal Preparation Meal Preparation Comments pt will need assist on d/c Reinforcement Maker Reinforcement Maker Comments pt will need assist on d/c Driving Driving Comments 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, pt may need assist on d/c M6 OT- IP Functional Cognition Start: 02/17/25 11:04 Freq: Status: Active Protocol: Document 02/17/25 11:06 DOMENIC (Rec: 02/17/25 11:31 [facility]) Cognitive Factors Limiting Selfcare Function Cognitive Ability Level of Alertness Alert Patient Orientation Name,Age,Birthday,Month,Date, Year,Day of Week,Place, Situation Attention Span Ability Capable of Focused Attention, Capable of Sustained Attention Ability to Follow Commands Able to Follow One Step Commands,Able to Follow Multi- Step Commands Memory Description No Deficits Noted Safety Awareness No Deficits Noted Problem Solving Ability No deficits Noted Executive Function Ability No Deficits Noted Abstract Thinking Ability No Deficits Noted OT- Vision and Hearing OT- Hearing Assessment OT- Hearing Assessment WFL M7 OT- IP Mobility and Balance Start: 02/17/25 11:04 Freq: Status: Active Protocol: Document 02/17/25 11:06 DOMENIC (Rec: 02/17/25 11:31 [facility]) OT- Bed Mobility Assessment Rolling Type of Rolling Log Rolling,Roll to Right Level of Assistance Independent Supine to Sit Supine to Sit Assist Standby Assistance Sit to Supine Sit to Supine Assist Standby Assistance Scooting Scooting to Edge of Bed Independent OT-Transfer Assessment Sit to and From Stand Sit to and from Stand Contact Guard Assistance Transfers Transfer Ability Contact Guard Assistance Technique Transfer Destination Bed Transfer Technique Stand Step Pivot Devices Transfer Assistive Devices Bed Rail,Gait Belt,Front Wheeled Walker OT- Gait Assessment Gait Gait Assistance Required: Contact Guard Assist Distance (Feet) 20 Assistive Devices Assistive Device Gait Belt,Front Wheeled Walker Comments Gait Ability Comments pt ambs in room with CGA. Pt moans and reports increased p! with mvmt but is able to walk to and from sink for hand hygiene. OT- Balance Assessment Sitting Balance and Reactions Static Sitting Balance Ability Poor Dynamic Sitting Balance Ability Poor Standing Balance and Reactions Static Standing Balance Ability Good Dynamic Standing Balance Ability Fair Comments Other Balance Tests/Deviations/Treatment Pt leans heavily on L elbow : when sitting EOB, pt unable to tolerate sitting at midline due to c/o p! M8 OT- IP Objective Assessments Start: 02/17/25 11:04 Freq: Status: Active Protocol: Document 02/17/25 11:06 DOMENIC (Rec: 02/17/25 11:31 [facility] OT Gross Range of Motion Upper Extremity Range of Motion Assessment Within Functional Limits ROM Impairments performed in supine as pt couldn't tolerate when EOB or when standing due to c/o p! OT Strength Upper Extremity Strength Assessment Within Functional Limits Hand Test Engineer Strength Hand Dominance Right Comments Strength Comments Pt MMT performed in supine due to pt not tolerating in sitting or standing due to c/o p!. Pt demonstrates equal B UE strength to WNL OT-Muscle Tone Assessment Muscle Tone WNL Yes OT Sensation Assessment Edema Edema Absent M9 OT- IP Assessment and Plan Start: 02/17/25 11:04 Freq: Status: Active Protocol: Document 02/17/25 11:06 DOMENIC (Rec: 02/17/25 11:31 [facility] Summary Assessment and Plan Potential Rehabilitation Potential Fair Analytic Complexity at Evaluation Moderate Summary OT Impairments Pain,Balance,Coordination, Functional Mobility,Self- Feeding,Grooming,Dressing, Toileting,Bathing,Toilet Transfers,Shower Transfers, Activity Tolerance Progress Towards Goals Progressing Toward Goals Assessment Summary Pt is 54 yo F with a hx of back and brain surgeries. Pt had a GLF on 02/04/25 that she was treated for at ED. On readmission, pt was found to have B sacral ala fx. Pt presents with significant c/o p! that increases when in sitting and with movement. Pt has decreased balance and safety during seated tasks and while sink side as pt leans on rails or counter due to p!. At time of eval, pt unable to tolerate EOB ADLs, ROM, or strength assessment. Pt did tolerate these in supine. OT discussed with pt the scope of practice of OT and pt agreed that she would like to work with OT to work towards EOB ADLs, standing ADLs, and progress toward PLOF with increased safety and ability to perform household IADLs. Pt would benefit from skilled OT services to address balance , activity intolerance, BADL, and functional t/fs. Pt would benefit from SNF prior to d/c home as pt does not have assistance at home during the day. Goals Self-Feeding Goal Independent Grooming Goal Independent Dressing Goal Independent Toileting Goal Independent Bathing Goal Independent Toilet Transfer Goal Independent Shower Transfer Goal Independent Days to Meet Goals 15 Frequency of Treatment Other frequency 5x/wk Treatment Plan OT Treatment Plan ADL Training,Functional Mobility,Therapeutic Exercises ,Patient/Family Education, Discharge Planning Discharge Recommendations OT Discharge Recommendations SNF Rehab Transportation Needs at Discharge Private Vehicle,Wheelchair/ Cabulance,Stretcher/Ambulance
--- NOTE | 2025-02-17 14:50 | CM.DPNOTE ---
Addendum entered by GUY Saleh 02/17/25 15:33: provider signed PASRR. PASRR completed SL Original Note: DCP note YARD LABOR SUPERVISOR reviewed EMR per provider, medically cleared to dc. Per Verena at [facility], can accept, auth still pending but confident will get auth by tomorrow morning. YARD LABOR SUPERVISOR emailed updated clinicals. YARD LABOR SUPERVISOR with pt's Medicaid transport benefit arranged with Maribel at [facility] for [employer] to pick pt up in van at 1130 tomorrow 02/18. YARD LABOR SUPERVISOR updated provider and RN YARD LABOR SUPERVISOR updated pt at bedside. remains agreeable to plan. YARD LABOR SUPERVISOR answered questions to best of ability. YARD LABOR SUPERVISOR completed PASRR, provider signature needed. P: anticipate dc tomorrow to [facility] at 1130 via [employer] transport. CM team will continue to follow closely for DCP coordination GUY Saleh
[2025-02-17] MEDS: GABAPENTIN 100 MG CAPSULE 300 MG PO (15:58)
[2025-02-17] MEDS: hydrOXYzine HCL 25 MG TABLET PO (16:03)
[2025-02-17 19:00] VITALS: BP 115/69; PULSE 89; RESP 16; TEMP 36.1; O2SAT 98
[2025-02-17] MEDS: PROGESTERONE, MICRONIZED 100 MG CAPSULE PO (20:38)
[2025-02-17] MEDS: GABAPENTIN 100 MG CAPSULE 200 MG PO (20:39)
[2025-02-18] MEDS: ACETAMINOPHEN 325 MG TABLET 975 MG PO ×2 (00:58→08:49)
[2025-02-18] MEDS: IBUPROFEN 600 MG TABLET PO ×2 (00:59→08:49)
[2025-02-18] MEDS: OXYCODONE IR 10 MG TABLET PO ×2 (05:51→10:52)
[2025-02-18] MEDS: TIZANIDINE 4 MG TABLET PO (05:51)
--- NOTE | 2025-02-18 08:27 | PM.DS.1 ---
History of Present Illness History of Present Illness Chief complaint: fell 1 week ago Narrative: From H&P: 54-year-old female with past medical history of neuropathy, depression, hormonal replacement therapy with progesterone, chronic lower back pain and lumbar surgery presents with a a fall and worsening lower back pain. Per the patient report, the patient had a mechanical ground-level fall and was seen in our ER February 04, 2025. The patient was prescribed pain medication and was discharged home. However the patient continues to have ongoing pain with some urinary incontinence but denies any bowel incontinence. The patient was having trouble ambulating around and going to the bathroom. The patient denies any focal weakness. However due to ongoing pain the patient again presented back to our ER. Otherwise the patient denies any recent fever, chills, nausea, vomiting, diarrhea, chest pain or shortness of breath. In our emergency room, the patient had a repeated pelvic CT and lumbar spine. Which shows similar appearing bilateral sacral ala fracture. Orthopedic surgeon was consulted due to increased pain and some paresthesia down her bilateral lower extremities with new urinary incontinence. They recommended to transfer to a facility with spine as patient does have a new urinary incontinence. However neurosurgery from [place] was called again and did not feel that there is likely incontinence related to sacral fracture. However orthopedic surgeon was consulted again and felt that there is a small fracture below the level previous surgical repair which could be amenable to surgery if that was causing persistent pain. However there is no indication for emergent transfer at this time and recommended that the patient be admitted here for PT OT and possible placement for rehab/SNF. Also recommended for outpatient follow-up with Dr. Naik from [facility]. Of note the patient has been down in our ER for more than 48 hours and has not been able to have placement yet. Our ER physician requested that we admit the patient to continue to wait for placement. Discharge Providers Provider Date of admission: 02/14/25 20:45 Discharge Date: 02/18/25 Primary care physician: TATA Soto- Consults: 02/13/25 08:49 Consult to FIRE MARSHAL REFINERY - Tanker Serviceman Stat Comment: Tanker Serviceman Consult needed for:: Unable to care for self Comment: Recent sacral fx surgery, having lots pain, no help at home going thru divorce, uses diapers for excretion functions, ?NHP, ?Home Health 02/14/25 20:42 Consult to Occupational Therapy Evaluate & Treat Comment: Physician Instructions: Evaluate and treat Consult to Physical Therapy Evaluate & Treat Comment: Physician Instructions: Evaluate and Treat Discharge provider: Shaun Mccoy MD Summary Hospital Course Discharge Diagnosis: 1. Bilateral sacral fractures, Improving. She was still has significant pain in very limited ambulation. She remains at risk for a fall or further injuries. She appears to be unstable for discharge home and independent living due to high risk for falls and significant pain control issues. 2. Constipation, active. No bowel movement for 2 days. 3. Previous DVT, stable. She is at risk for recurrence. Continue Lovenox 4. Perimenopause Continue HRT Hospital Course: She was admitted with sacral fractures and pain and treated aggressively with pain medications. This included the addition of a higher dose of gabapentin t.i.d., as well as lidocaine patch and nonsteroidals. She was evaluated by Physical therapy and ultimately felt to require rehabilitation efforts and ongoing pain control support at a intermediate facility. She was stable for discharge on February 18. Status at Discharge Cognitive/behavioral status at discharge: oriented Functional status at discharge: uses cane/walker Overall status at discharge: patient is not back to baseline Time Spent with Patient Time spent: Greater than 30 minutes Exam Vital Signs (past 8 hours): Oxygen Delivery Method Room Air Oxygen Flow Rate 0 Narrative Exam Narrative: NAD, alert and oriented. Fluent speech. Lungs are clear, normal rate and effort. Heart is regular, no murmur gallop or rub. Abdomen is soft, non distended. Extremities are free of edema. Objective Imaging Pelvis CT:: Radiologist's impression: 1. Interval slight increase in depression at right sacral alar fracture site. Stable appearance of left sacral alar fracture. No new fracture or dislocation is seen in bony pelvis. 2. Stable postsurgical changes in lower lumbar spine. 3. No peritoneal free fluid or free air. No soft tissue mass or drainable fluid collection. L-S CT:: Radiologist's impression: Bones: Postfusion changes are again seen at L5-S1 level unchanged from prior study. Prior kyphoplasty at T12 level is again seen. Overall lumbar spine alignment is unchanged from prior study. No acute vertebral body compression fracture. No obvious hardware loosening or failure. Chronic appearing superior endplate compression at L5 level is again seen and unchanged. Again noted are bilateral sacral alar insufficiency fractures with overall unchanged appearance in left sacrum and increased depression in right sacrum compared to previous study now measures up to 3.5 mm. No new fracture or dislocation. Multilevel spondylitic changes are again noted throughout lumbar spine not significantly changed from prior study. Soft tissues: No retroperitoneal masses or hematomas. Nonobstructing right renal calculi are again seen. No peritoneal free fluid or free air. Visualized aorta is normal in caliber. IMPRESSION: 1. Interval slight increase in depression at right sacral alar fracture site as described above. Stable appearance of left sacral alar fracture. 2. Stable appearance of lumbar spine not significantly changed from recent CT study. No new vertebral body compression fracture. Labs 02/15/25 04:40 02/15/25 04:40 PFSH Medical History Pulmonary embolism No chronic problems Surgical History History of lumbar surgery Status post cholecystectomy Status post appendectomy S/P T&A (status post tonsillectomy and adenoidectomy) Status post tubal ligation Social History household members: spouse Smoking Status: Never smoker alcohol intake: former Discharge Assessment & Plan Assessment and Plan Assessment: 1. Sacral fractures. 2. Lumbar fusion and T12 kyphoplasty (chronic). Plan of Treatment: Discharge to intermediate facility for ongoing rehabilitative efforts and pain control. Discharge Plan Discharge Plan Patient Disposition: SNF Transfer to: [facility] Under care of provider: Dr Villegas Transportation: Facility vehicle Provider Discharge Comment: Stable for discharge to intermediate for pain control and rehabilitation efforts. I certify the postop hospital intermediate care is medically necessary on a continuing basis for any conditions for which he/ she received care during this hospitalization.: Yes The receiving facility has agreed to accept transfer and provide medical treatment.: Yes Discharge orders & Medications Prescriptions: New lidocaine 5 % Adhesive Patch,Medicated 1 patch topical DAILY Qty: 30 0RF gabapentin 100 mg Capsule 200 mg PO BEDTIME 30 Days Qty: 30 0RF gabapentin 100 mg Capsule 100 mg PO DAILY Qty: 30 0RF gabapentin 100 mg Capsule 300 mg PO 1600 Qty: 30 0RF ibuprofen 600 mg Tablet 600 mg PO Q8H Qty: 60 0RF oxycodone 10 mg Tablet 10 mg PO Q4HR PRN (Reason: Pain) Qty: 20 0RF Continued progesterone micronized 100 mg capsule 100 mg PO ONCE PM Patient Comments: Pt takes in AM sertraline 100 mg tablet 100 mg PO DAILY estradiol 0.5 mg tablet 0.5 mg PO DAILY hydroxyzine HCl 25 mg tablet 25 mg PO PRN PRN (Reason: Itching) mecobalamin (vitamin B12) 1,000 mcg Tablet,Disintegrating 1,000 mcg PO DAILY tizanidine 4 mg tablet 4 mg PO Q6H PRN (Reason: muscle spasm) Discontinued gabapentin 100 mg capsule See Rx Instructions .ROUTE .COMPLEX Rx Instructions: 100mg in morning, 100mg in afternoon, 200mg at night oxycodone 10 mg tablet 20 mg PO 4XD PRN (Reason: Pain (Scale Score 7-10)) Follow up/Referrals: Kayleen Mathur FNP-BC [Primary Care Provider] - Discharge Health Status Multidrug resistant organism: No MDRO Diet/Activity/Treatments Diet: Regular [facility] Reason for rehabilitation: Recovery r/t decondition Rehab type: Physical therapy and Occupational therapy Visit Report/Discharge Packet Instructions: Sacral Stress Fracture Stand Alone Forms: Patient Portal/API Discharge Data Primary Care Provider: Kayleen Mathur Attending Provider: Roberto Catherine Admgustavo Date/Time: 02/14/25 20:45
[2025-02-18] MEDS: LIDOCAINE 5% PATCH 1 EACH TOP (08:48)
[2025-02-18] MEDS: polyethylene glycoL 3350 17 GM POWD.PACK PO (08:48)
[2025-02-18] MEDS: CYANOCOBALAMIN (VITAMIN B-12) 500 MCG TABLET 1000 MCG PO (08:49)
[2025-02-18] MEDS: GABAPENTIN 100 MG CAPSULE PO (08:49)
[2025-02-18] MEDS: SERTRALINE 50 MG TABLET 100 MG PO (08:49)
[2025-02-18] MEDS: DOCUSATE 100 MG CAPSULE PO (08:49)
[2025-02-18] MEDS: SODIUM CHLORIDE 0.9% FLUSH 10 ML IV (08:50)
[2025-02-18] MEDS: ENOXAPARIN 40 MG/0.4 ML SYRINGE SUBCUT (08:50)
[2025-02-18] MEDS: estradioL 1 MG TABLET 0.5 MG PO (08:50)
--- NOTE | 2025-02-18 09:08 | CM.DPNOTE ---
DC Note [facility] has accepted for admission today and Esteban fernando is in place. DC order complete, DC summary done. Care e tn previously scheduled for picker packer at 1130. Shannan, our egg caser, has confirmed acceptance with Verena at [facility], orders emailed, nurse 2 nurse report in process. Patient remains agreeable to this plan. JW
--- NOTE | 2025-02-18 09:18 | CM.DPNOTE ---
Faxed PASRR to [facility] [phone]
[2025-02-18] MEDS: OXYCODONE IR 5 MG TABLET 20 MG PO (10:03)
[2025-02-18 10:42] VITALS: BP 99/53; PULSE 84; RESP 16; TEMP 36.6; O2SAT 96
--- NOTE | 2025-02-18 10:48 | CM.DPNOTE ---
Transport Bedside RN asking about transport; is patient safe to transport via [facility] (?) Reviewed chart. PT recommending [facility] van vs ambulance in note dated 02/17. Bedside RN feels with cushioning patient can tolerate the ride via [employer] van. Discussed with patient. Patient is concerned that her insurance will not cover ambulance. Patient agreeable to transporting via [employer] van, states she will have cushioning pillows around the area of injury and feels this is a safe form of transport. Transport to [facility] via [employer] van, bead picker at 1130. JW
--- NOTE | 2025-02-19 14:39 | CM.DPNOTE ---
Post Discharge Note Received VM from [facility] [place] and [facility] case coordinator P [phone], asking where patient had discharged to; returned call and had to - that patient discharged to [facility] 02/18. JW
== END 2025-02-18 11:30 ==
LOC: ED 02-14 20:43 → AC 02-14 20:47
PROVIDERS: Emergency Medicine; Admitting Provider Internal Medicine; Emergency Provider Family Medicine; Family Provider Nurse Practitioner Family; PCP Nurse Practitioner Family; Referring Provider Family Medicine; Visit Provider Internal Medicine
DX: S32.19XA Other fracture of sacrum, initial encounter for closed fracture (principal); R32 Unspecified urinary incontinence; M54.18 Radiculopathy, sacral and sacrococcygeal region; G62.9 Polyneuropathy, unspecified; W18.30XS Fall on same level, unspecified, sequela; F32.A Depression, unspecified; K59.00 Constipation, unspecified; Z98.890 Other specified postprocedural states; Z86.718 Personal history of other venous thrombosis and embolism; Z79.01 Long term (current) use of anticoagulants; Z88.5 Allergy status to narcotic agent
CPT/HCPCS: 36415; 51798; 72131; 72192; 80048; 85025; 96372; 96374; 96375; 97163; 97166; 97530; 99284; G0378; A9270; J1650; J1885; J2270; J2405